=== PATIENT | female | born 1945 | race Caucasian/White ===

== ENCOUNTER 2017-02-21 13:09 | Emergency (ER) | payer MEDICARE ==
--- NOTE | 2017-02-21 13:54 | RADIOLOGY REPORT (SQ) ---
EXAM DESCRIPTION: CT HEAD WITHOUT COMPLETED DATE/TIME: 02/21/2017 1:42 pm REASON FOR STUDY: fall COMPARISON: 01/31/2013 TECHNIQUE: Axial images acquired through the brain without intravenous contrast. Images reviewed wi th bone, brain and subdural windows. Images stored on PACS. All CT scanners at this facility use dose modulation, iterative reconstruction, and/or weight based d osing when appropriate to reduce radiation dose to as low as reasonably achievable (ALARA). [facility]: Dose Right [facility]: CareDose [facility]: Dose Right [facility]: Teradose 4D [facility]: [employer] RADIATION DOSE: 64.61 mGy. LIMITATIONS: None. FINDINGS: VENTRICLES: Prominent. CEREBRUM: No masses. No hemorrhage. No midline shift. Areas of low density in the white matter mos t likely due to chronic micro-vascular ischemic change. No evidence for acute infarction. CEREBELLUM: No masses. No hemorrhage. No alteration of density. No evidence for acute infarction. EXTRAAXIAL SPACES: Mild age-related involutional change. No fluid collections. No masses. ORBITS AND GLOBE: No intra- or extraconal masses. Normal contour of globe without masses. CALVARIUM: No fracture. PARANASAL SINUSES: No fluid or mucosal thickening. SOFT TISSUES: Left supraorbital soft tissue swelling. Otherwise normal. OTHER: No other significant finding. IMPRESSION: SOFT TISSUE INJURY WITHOUT FRACTURE OR ACUTE INTRACRANIAL PROCESS IDENTIFIED. TECHNICAL DOCUMENTATION: JOB ID: [id number] Quality ID # [id number]: Final reports with documentation of one or more dose reduction techniques (e.g., Au tomated exposure control, adjustment of the mA and/or kV according to patient size, use of iterative reconstruction technique) 2010 [employer]- All Rights Reserved
--- NOTE | 2017-02-21 13:55 | RADIOLOGY REPORT (SQ) ---
EXAM DESCRIPTION: CT CERVICAL SPINE WITHOUT COMPLETED DATE/TIME: 02/21/2017 1:45 pm REASON FOR STUDY: fall COMPARISON: 01/31/2013 TECHNIQUE: Axial images acquired through the cervical spine without intravenous contrast. Images re viewed with lung, soft tissue and bone windows. Reconstructed coronal and sagittal MPR images review ed. Images stored on PACS. All CT scanners at this facility use dose modulation, iterative reconstruction, and/or weight based d osing when appropriate to reduce radiation dose to as low as reasonably achievable (ALARA). [facility]: Dose Right [facility]: CareDose [facility]: Dose Right [facility]: Teradose 4D [facility]: [employer] RADIATION DOSE: 19.52 mGy. LIMITATIONS: None. FINDINGS: ALIGNMENT: Anatomic. MINERALIZATION: Normal. VERTEBRAL BODIES: No fractures or dislocation. DISCS: Multilevel disc space narrowing with osteophytes. FACETS, LATERAL MASSES, POSTERIOR ELEMENTS: Facet arthropathy. No fractures. No dislocation. No ac sh[place]one[place]ann[place] findings. HARDWARE: None in the spine. VISUALIZED RIBS: No fractures. LUNG APICES AND SOFT TISSUES: No significant or acute findings. OTHER: No other significant finding. IMPRESSION: NO ACUTE OSSEOUS ABNORMALITY. NO SIGNIFICANT CHANGE FROM PRIOR STUDY. TECHNICAL DOCUMENTATION: JOB ID: [id number] [facility] [id number]: Final reports with documentation of one or more dose reduction techniques (e.g., Automate d exposure control, adjustment of the mA and/or kV according to patient size, use of iterative recons truction technique) 2010 [employer]- All Rights Reserved
[2017-02-21] MEDS ORDERED: HYDROCODONE/ACETAMINOPHEN 5-325 MG TABLET PO ONE (15:16)
--- NOTE | 2017-02-21 15:18 | ER Document Report ---
ED Fall - General Chief Complaint: Fall Stated Complaint: FALL HEAD LACERATION Time Seen by Provider: 02/21/17 14:02 Mode of Arrival: Ambulatory Information source: Patient Notes: Pt is a 71 year old female who fell today, tipped and fell, hitting her forehead on her coffee table. Denied loss of consciousness. She denies any nausea, vomiting, blurred vision. Daughter states she is acting normally. She is complained of a headache at this time. She also complains of some abdominal pain that she has been dealing with for over a week now, constipation. She did take a laxative yesterday and had a bowel movement this morning that was normal for her. She is still having some overall abdominal pain. She does have a history of an obstruction a year ago which did not require surgery. TRAVEL OUTSIDE OF THE [place] IN LAST 30 DAYS: No - Related data Allergies/Adverse Reactions: droperidol [Droperidol] Allergy (Severe, Verified 02/21/17 13:26) Anaphylaxis Past Medical History - General Information source: Patient - Social History Smoking Status: Current Every Day Smoker Chew tobacco use (# tins/day): No Frequency of alcohol use: Occasional Drug Abuse: None Family History: Reviewed & Not Pertinent Patient has suicidal ideation: No Patient has homicidal ideation: No - Past Medical History Cardiac Medical History: Reports: Hx Congestive Heart Failure, Hx Heart Attack - per Dr Dye, Hx Hypercholesterolemia, Hx Hypertension, Hx Peripheral Vascular Disease, Hx Pulmonary Embolism - x 2 Denies: Hx Atrial Fibrillation, Hx Coronary Artery Disease, Hx Heart Murmur Pulmonary Medical History: Reports: Hx Asthma, Hx COPD, Hx Pneumonia - Sep 2013 , Hx Sleep Apnea - CPAP qhs Denies: Hx Bronchitis, Hx Respiratory Failure, Hx Tuberculosis Neurological Medical History: Denies: Hx Cerebrovascular Accident, Hx Seizures Endocrine Medical History: Denies: Hx Graves' Disease, Hx Hyperthyroidism, Hx Hypothyroidism Renal/ Medical History: Reports: Hx Ovarian Cysts. Denies: Hx End Stage Renal Disease, Hx Kidney Stones, Hx Peritoneal Dialysis, Hx Pelvic Inflammatory Disease Malignancy Medical History: Denies: Hx Breast Cancer, Hx Cervical Cancer, Hx Leukemia, Hx Lung Cancer, Hx Ovarian Cancer GI Medical History: Reports: Hx Gastroesophageal Reflux Disease, Hx Ulcer. Denies: Hx Crohn's Disease, Hx Hepatitis, Hx Hiatal Hernia, Hx Irritable Bowel, Hx Liver Failure Musculoskeltal Medical History: Reports Hx Arthritis, Denies Hx Fibromyalgia, Reports Hx Gout, Denies Hx Muscular Dystrophy Psychiatric Medical History: Denies: Hx Bipolar Disorder, Hx Depression, Hx Post Traumatic Stress Disorder , Hx Schizophrenia Traumatic Medical History: Reports: Hx Fractures - 2013 RT hand "2 fingers"/ casted Infectious Medical History: Denies: Hx Hepatitis, Hx HIV Past Surgical History: Reports: Hx Bowel Surgery - exp lap, r/t colon perf/ colonoscopy approx 2002, Hx Cholecystectomy - lap cholecystectomy, Hx Hysterectomy, Hx Tonsillectomy, Hx Vascular Surgery - STENT LLE.. Denies: Hx Appendectomy, Hx Section, Hx Colostomy, Hx Coronary Artery Bypass Graft , Hx Gastric Bypass Surgery, Hx Herniorrhaphy, Hx Mastectomy, Hx Open Heart Surgery, Hx Pacemaker, Hx Tubal Ligation - Immunizations Hx Diphtheria, Pertussis, Tetanus Vaccination: No Hx Pneumococcal Vaccination: 05/14/13 Review of Systems - Review of Systems Constitutional: No symptoms reported EENT: No symptoms reported Cardiovascular: No symptoms reported Respiratory: No symptoms reported Gastrointestinal: See HPI Genitourinary: No symptoms reported Female Genitourinary: No symptoms reported Musculoskeletal: No symptoms reported Skin: No symptoms reported Hematologic/Lymphatic: No symptoms reported Neurological/Psychological: See HPI Physical Exam - Vital signs Vitals: Resp 18 02/21/17 13:14 - Notes Notes: PHYSICAL EXAMINATION: GENERAL: Elderly, and in no acute distress. HEAD: small hematoma to left anterior forehead, mildly tender, normocephalic. EYES: Pupils equal round and reactive to light, extraocular movements intact, sclera anicteric, conjunctiva are normal. NECK: Normal range of motion, supple without lymphadenopathy LUNGS: CTAB and equal. No wheezes rales or rhonchi. HEART: Regular rate and rhythm without murmurs ABDOMEN: Soft, mild diffuse tenderness. No guarding, no rebound BACK: no vertebral tenderness, normal ROM GI/: no CVA tenderness EXTREMITIES: Normal range of motion, no pitting edema. No cyanosis. NEUROLOGICAL: Cranial nerves grossly intact. Normal sensory/motor exams. PSYCH: Normal mood, normal affect. SKIN: Warm, Dry, normal turgor, no rashes or lesions noted Course - Re-evaluation Re-evalutation: 02/23/17 07:39 CT head normal, soft tissue swelling only, pt has UTI, treated with rocephin IV here and sent home with cephalexin. KUB reports normal bowel gas pattern, pt is on morphine pump for pain and I think she's just been constipated. - Vital Signs Vital signs: Temp Pulse Resp BP Pulse Ox 98.4 F 82 20 169/89 H 98 02/21/17 18:13 02/21/17 18:13 02/21/17 18:13 02/21/17 18:13 02/21/17 18:13 - Laboratory Result Diagrams: 02/21/17 16:31 02/21/17 16:31 Laboratory results interpreted by me: 02/21/17 02/21/17 02/21/17 15:36 16:31 16:31 MCH 26.5 L MCHC 31.7 L RDW 15.4 H Potassium 5.3 H BUN 23 H Est GFR ( Amer) 57 L Est GFR (Non-Af Amer) 47 L Urine Nitrite POSITIVE H Ur Leukocyte Esterase LARGE H Discharge - Discharge Clinical Impression: UTI (urinary tract infection) Qualifiers: Urinary tract infection type: site unspecified Hematuria presence: without hematuria Qualified Code(s): N39.0 - Urinary tract infection, site not specified Head injury Qualifiers: Encounter type: initial encounter Qualified Code(s): S09.90XA - Unspecified injury of head, initial encounter Condition: Stable Disposition: HOME, SELF-CARE Instructions: Cephalexin ([facility]), Urinary Tract Infection ([facility]) Additional Instructions: Return immediately for any new or worsening symptoms. Follow up with primary care provider, call tomorrow to make followup appointment. Drink plenty of fluids. Prescriptions: Cephalexin Monohydrate [Keflex 500 mg Capsule] 500 mg PO TID 7 Days
[2017-02-21 16:14] LABS: APPEARANCE,URINE SLIGHTLY-CLOUDY; BILIRUBIN,URINE NEGATIVE (NEGATIVE); GLUCOSE, URINE NEGATIVE (NEGATIVE); KETONES,URINE NEGATIVE (NEGATIVE); LEUKOCYTE ESTERASE,URINE LARGE (NEGATIVE); NITRITE,URINE POSITIVE (NEGATIVE); PROTEIN,URINE NEGATIVE (NEGATIVE); URINE SPECIFIC GRAVITY 1.003; UROBILINOGEN,URINE NEGATIVE mg/dL (<2.0)
--- NOTE | 2017-02-21 16:34 | RADIOLOGY REPORT (SQ) ---
EXAM DESCRIPTION: KUB/ABDOMEN (SINGLE VIEW) COMPLETED DATE/TIME: 02/21/2017 4:26 pm REASON FOR STUDY: abd pain, hx obstruction COMPARISON: None. NUMBER OF VIEWS: One view. TECHNIQUE: Supine radiographic image of the abdomen acquired. LIMITATIONS: None. FINDINGS: BOWEL GAS PATTERN: Normal bowel gas pattern. No dilated loops. CALCIFICATIONS: No suspicious calcifications. SOFT TISSUES: No gross mass or suggestion of organomegaly. HARDWARE: IVC filter is in place. Vascular stent extends over left common femoral artery. Battery p ack and neurostimulator are in place. The patient has had prior cholecystectomy. BONES: No acute fracture. No worrisome bone lesions. OTHER: No other significant finding. IMPRESSION: NO RADIOGRAPHIC EVIDENCE FOR ACUTE ABDOMINAL DISEASE. TECHNICAL DOCUMENTATION: JOB ID: [id number] [employer]- All Rights Reserved
[2017-02-21 16:50] LABS: ABSOLUTE EOSINOPHILS # (AUTO) 0.1 10^3/uL (0.0-0.6); ABSOLUTE LYMPHOCYTES (AUTO) 1.3 10^3/uL (0.5-4.7); ABSOLUTE MONOCYTES (AUTO) 0.3 10^3/uL (0.1-1.4); ABSOLUTE NEUT (AUTO) 4.1 10^3/uL (1.7-8.2); BASOPHILS % (AUTO) 0.3 % (0-2); EOSINOPHILS % (AUTO) 1.1 % (0-6); HEMATOCRIT 38.1 % (36.0-47.0); HEMOGLOBIN 12.1 g/dL (12.0-15.5); HGB HCT DIFFERENCE -1.8; LYMPHOCYTES % (AUTO) 22.9 % (13-45); MEAN CORPUSCULAR HEMOGLOBIN 26.5 pg (27.0-33.4); MEAN CORPUSCULAR HGB CONC 31.7 g/dL (32.0-36.0); MEAN CORPUSCULAR VOLUME 84 fl (80-97); MONOCYTES % (AUTO) 4.6 % (3-13); RED BLOOD COUNT 4.56 10^6/uL (3.72-5.28); RED CELL DISTRIBUTION WIDTH 15.4 % (11.5-14.0); SEGMENTED NEUTROPHILS % (AUTO) 71.1 % (42-78); WHITE BLOOD COUNT 5.7 10^3/uL (4.0-10.5)
[2017-02-21] MEDS ORDERED: CEFTRIAXONE 1 GM/D5W RTU 50 ML IV ONE (16:53)
[2017-02-21 17:11] LABS: ALANINE AMINOTRANSFERASE 22 U/L (9-52); ALBUMIN 3.7 g/dL (3.5-5.0); ALKALINE PHOSPHATASE 74 U/L (38-126); ANION GAP 9 (5-19); ASPARTATE AMINO TRANSFERASE 19 U/L (14-36); BILIRUBIN,DIRECT 0.3 mg/dL (0.0-0.4); BILIRUBIN,TOTAL 0.4 mg/dL (0.2-1.3); BLOOD UREA NITROGEN 23 mg/dL (7-20); CARBON DIOXIDE 30 mmol/L (22-30); CHLORIDE 103 mmol/L (98-107); CREATININE RESULT 1.14 mg/dL (0.52-1.25); GLUCOSE 99 mg/dL (75-110); POTASSIUM 5.3 mmol/L (3.6-5.0); SODIUM 141.9 mmol/L (137-145); TOTAL PROTEIN 6.8 g/dL (6.3-8.2)
[2017-02-21] MEDS ORDERED: HYDROCODONE/ACETAMINOPHEN 5-325 MG 6 TAB/DSPK PO PRN (18:06)
[2017-02-21 18:13] VITALS: BP 169/89
== END 2017-02-21 18:13 | disposition home or self-care (01) ==
LOC: ER 13:09
DX: S00.83XA Contusion of other part of head, initial encounter (principal); R51 Headache; W19.XXXA Unspecified fall, initial encounter; R10.84 Generalized abdominal pain; I10 Essential (primary) hypertension; I25.2 Old myocardial infarction; J44.9 Chronic obstructive pulmonary disease, unspecified; F17.200 Nicotine dependence, unspecified, uncomplicated; Z87.19 Personal history of other diseases of the digestive system; Z87.892 Personal history of anaphylaxis; Z88.8 Allergy status to other drugs, medicaments and biological substances; Z90.49 Acquired absence of other specified parts of digestive tract; Z90.710 Acquired absence of both cervix and uterus; Z87.42 Personal history of other diseases of the female genital tract; Z79.891 Long term (current) use of opiate analgesic
CPT/HCPCS: 99283; 96365; 36415; 87086; 85025; 87088; 80053; 81001; 87186; 74000; 70450; 72125; J0696; A9270 ×2

== ENCOUNTER → 2017-03-19 | Outpatient (CLI) | payer MEDICARE ==
[2017-03-19 09:13] LABS: ABSOLUTE LYMPHOCYTES (AUTO) 1.2 10^3/uL (0.5-4.7); ABSOLUTE MONOCYTES (AUTO) 0.4 10^3/uL (0.1-1.4); BASOPHILS % (AUTO) 0.4 % (0-2); EOSINOPHILS % (AUTO) 0.6 % (0-6); HEMATOCRIT 38.8 % (36.0-47.0); HEMOGLOBIN 12.2 g/dL (12.0-15.5); HGB HCT DIFFERENCE -2.2; LYMPHOCYTES % (AUTO) 18.1 % (13-45); MEAN CORPUSCULAR HEMOGLOBIN 26.4 pg (27.0-33.4); MEAN CORPUSCULAR HGB CONC 31.5 g/dL (32.0-36.0); MEAN CORPUSCULAR VOLUME 84 fl (80-97); MONOCYTES % (AUTO) 6.5 % (3-13); RED BLOOD COUNT 4.64 10^6/uL (3.72-5.28); RED CELL DISTRIBUTION WIDTH 16.4 % (11.5-14.0); SEGMENTED NEUTROPHILS % (AUTO) 74.4 % (42-78); WHITE BLOOD COUNT 6.7 10^3/uL (4.0-10.5)
[2017-03-19 09:14] LABS: ARTERIAL BLOOD BASE EXCESS 4.3 mmol/L; ARTERIAL BLOOD O2 SATURATION 97.3 % (94-98)
--- NOTE | 2017-03-19 10:00 | RADIOLOGY REPORT (SQ) ---
EXAM DESCRIPTION: CHEST PA/LATERAL COMPLETED DATE/TIME: 03/19/2017 9:00 am REASON FOR STUDY: .EMPHYSEMA, UNSPECIFIED COMPARISON: CT chest 09/11/2016 KUB 02/21/2017 EXAM PARAMETERS: NUMBER OF VIEWS: two views TECHNIQUE: Digital Frontal and Lateral radiographic views of the chest acquired. RADIATION DOSE: NA LIMITATIONS: none FINDINGS: LUNGS AND PLEURA: Lungs are hyperinflated and hyperlucent from obstructive disease. Kemal ening in the hemidiaphragms. No acute infiltrates. No pleural effusion. No pneumothorax. MEDIASTINUM AND HILAR STRUCTURES: No masses or contour abnormalities. HEART AND VASCULAR STRUCTURES: Heart normal size. No evidence for failure. BONES: Osteoporotic. Left shoulder replacement HARDWARE: Intrathecal pain pump catheter tip at the T10 level. IVC filter. OTHER: No other significant finding. IMPRESSION: Obstructive lung disease. No acute findings TECHNICAL DOCUMENTATION: JOB ID: [id number] [employer]- All Rights Reserved
[2017-03-22 16:38] LABS: ALPHA-1-ANTITRYPSIN SERUM 122 mg/dL (90-200)
[2017-03-23 07:10] LABS: ALPHA-1-ANTITRYPSIN PHENOTYPE MZ (.)
== END ==
LOC: OD 07:56
PROVIDERS: ATTEND Internal Medicine Pulmonary Disease
DX: J43.9 Emphysema, unspecified (principal); J98.11 Atelectasis
CPT/HCPCS: 36415; 36600; 71020; 82103; 82104; 82803; 85025

== ENCOUNTER → 2017-05-27 | Outpatient (CLI) | payer MEDICARE ==
[2017-05-27 18:30] LABS: ABSOLUTE EOSINOPHILS # (AUTO) 0.1 10^3/uL (0.0-0.6); ABSOLUTE LYMPHOCYTES (AUTO) 2.6 10^3/uL (0.5-4.7); ABSOLUTE MONOCYTES (AUTO) 0.5 10^3/uL (0.1-1.4); ABSOLUTE NEUT (AUTO) 4.4 10^3/uL (1.7-8.2); BASOPHILS % (AUTO) 0.4 % (0-2); EOSINOPHILS % (AUTO) 1.2 % (0-6); HEMATOCRIT 28.2 % (36.0-47.0); HEMOGLOBIN 9.4 g/dL (12.0-15.5); LYMPHOCYTES % (AUTO) 34.2 % (13-45); MEAN CORPUSCULAR HEMOGLOBIN 28.7 pg (27.0-33.4); MEAN CORPUSCULAR HGB CONC 33.4 g/dL (32.0-36.0); MEAN CORPUSCULAR VOLUME 86 fl (80-97); MONOCYTES % (AUTO) 6.7 % (3-13); RED BLOOD COUNT 3.28 10^6/uL (3.72-5.28); RED CELL DISTRIBUTION WIDTH 15.1 % (11.5-14.0); SEGMENTED NEUTROPHILS % (AUTO) 57.5 % (42-78); WHITE BLOOD COUNT 7.6 10^3/uL (4.0-10.5)
--- NOTE | 2017-05-27 19:37 | RADIOLOGY REPORT (SQ) ---
EXAM DESCRIPTION: CHEST PA/LAT COMPLETED DATE/TIME: 05/27/2017 7:24 pm REASON FOR STUDY: PULMONARY EMPHYSEMA,CHRONIC RESPIRATORY FAILURE WITH HYPOXIA COMPARISON: 05/16/2016 EXAM PARAMETERS: NUMBER OF VIEWS: two views TECHNIQUE: Digital Frontal and Lateral radiographic views of the chest acquired. RADIATION DOSE: NA LIMITATIONS: none FINDINGS: LUNGS AND PLEURA: No opacities, masses or pneumothorax. No pleural effusion. Support line s and tubes have been removed since prior study. There is mild hyperexpansion. MEDIASTINUM AND HILAR STRUCTURES: No masses or contour abnormalities. HEART AND VASCULAR STRUCTURES: Heart normal size. No evidence for failure. BONES: No acute findings. HARDWARE: None in the chest. OTHER: No other significant finding. IMPRESSION: NO SIGNIFICANT RADIOGRAPHIC FINDING IN THE CHEST. TECHNICAL DOCUMENTATION: JOB ID: [id number] [employer]- All Rights Reserved
== END ==
LOC: OD 17:45
PROVIDERS: ATTEND Internal Medicine Pulmonary Disease
DX: J43.9 Emphysema, unspecified (principal); J96.11 Chronic respiratory failure with hypoxia; G47.33 Obstructive sleep apnea (adult) (pediatric); K21.9 Gastro-esophageal reflux disease without esophagitis
CPT/HCPCS: 36415; 71020; 85025; 87070; 87077; 87186; 87205

== ENCOUNTER 2018-03-29 07:37 | Day surgery (SDC) | payer MEDICARE, MEDICAID ==
[2018-03-22 13:42] LABS: APPEARANCE,URINE SLIGHTLY-CLOUDY; BILIRUBIN,URINE NEGATIVE (NEGATIVE); COLOR,URINE YELLOW; GLUCOSE, URINE NEGATIVE (NEGATIVE); KETONES,URINE NEGATIVE (NEGATIVE); LEUKOCYTE ESTERASE,URINE NEGATIVE (NEGATIVE); NITRITE,URINE NEGATIVE (NEGATIVE); PROTEIN,URINE NEGATIVE (NEGATIVE); URINE SPECIFIC GRAVITY 1.014; UROBILINOGEN,URINE NEGATIVE mg/dL (<2.0)
[2018-03-22 13:43] LABS: ABSOLUTE EOSINOPHILS # (AUTO) 0.1 10^3/uL (0.0-0.6); ABSOLUTE LYMPHOCYTES (AUTO) 1.3 10^3/uL (0.5-4.7); ABSOLUTE MONOCYTES (AUTO) 0.3 10^3/uL (0.1-1.4); ABSOLUTE NEUT (AUTO) 3.8 10^3/uL (1.7-8.2); BASOPHILS % (AUTO) 0.4 % (0-2); HEMATOCRIT 33.6 % (36.0-47.0); LYMPHOCYTES % (AUTO) 24.4 % (13-45); MEAN CORPUSCULAR HEMOGLOBIN 26.6 pg (27.0-33.4); MEAN CORPUSCULAR HGB CONC 32.8 g/dL (32.0-36.0); MEAN CORPUSCULAR VOLUME 81 fl (80-97); MONOCYTES % (AUTO) 4.7 % (3-13); PLATELET COUNT 168 10^3/uL (150-450); RED BLOOD COUNT 4.13 10^6/uL (3.72-5.28); RED CELL DISTRIBUTION WIDTH 17.7 % (11.5-14.0); SEGMENTED NEUTROPHILS % (AUTO) 69.5 % (42-78); TOTAL CELLS COUNTED % (AUTO) 100 %; WHITE BLOOD COUNT 5.4 10^3/uL (4.0-10.5)
[2018-03-22 13:45] LABS: INTERNATIONAL RATION (INR) 0.93; PARTIAL THROMBOPLASTIN TIME 22.9 SEC (23.5-35.8); PROTHROMBIN TIME 12.9 SEC (11.4-15.4)
--- NOTE | 2018-03-22 20:42 | EKG REPORT ---
SEVERITY:- NORMAL ECG - SINUS RHYTHM : Confirmed by: Savanna Rashid MD 22-Mar-2018 20:41:23
[~2018-03-29 07:37] MED LIST: BUPIVACAINE HCL 0.25% /EPINEPHRINE INJ/PF 30 ML SDV ONE; CEFAZOLIN 1 GM/D5W RTU 1 GM/50 ML RTUPB IV PRN; FENTANYL CITRATE INJ/PF 100 MCG/2 ML AMPUL ONE; LACTATED RINGERS 1000 ML IV PRN; LIDOCAINE 1% INJ-PF (10 MG/ML) 30 ML SDV ONE; LIDOCAINE 2% INJ-PF (20 MG/ML) 10 ML AMPUL ONE; MIDAZOLAM 2 MG/2 ML INJ ONE; ONDANSETRON HCL INJ/PF 4 MG/2 ML SDV ONE; PROPOFOL INJ 200 MG/20 ML VIAL IV ONE
[2018-03-29 08:53] LABS: INTERNATIONAL RATION (INR) 0.89; PARTIAL THROMBOPLASTIN TIME 24.7 SEC (23.5-35.8); PROTHROMBIN TIME 12.5 SEC (11.4-15.4)
[2018-03-29] MEDS ORDERED: SODIUM BICARBONATE 8.4% INJ 50 MEQ/50 ML DISP.SYRIN ONE (09:01)
[2018-03-29] MEDS ORDERED: FENTANYL CITRATE INJ/PF 100 MCG/2 ML AMPUL IV PRN (10:29)
[2018-03-29] MEDS ORDERED: ONDANSETRON HCL INJ/PF 4 MG/2 ML SDV IV PRN ×2 (10:29→11:33)
[2018-03-29] MEDS ORDERED: MORPHINE SULFATE 10 MG/ML INJ IV PRN (10:29)
[2018-03-29] MEDS ORDERED: DIPHENHYDRAMINE HCL 50 MG/ML VIAL IV PRN (10:29)
[2018-03-29] MEDS ORDERED: PROMETHAZINE HCL INJ 25 MG/1 ML VIAL IV PRN ×2 (10:29)
[2018-03-29] MEDS ORDERED: OXYCODONE HCL IR 5 MG TABLET PO PRN (11:33)
[2018-03-29] MEDS ORDERED: ACETAMINOPHEN 325 MG TABLET PO PRN (11:53)
[2018-03-29 13:24] VITALS: BP 142/66
--- NOTE | 2018-03-31 10:45 | OPERATIVE REPORT E ---
Operative Report NAME: MELISSA DAVEY : 1945 AGE: 72Y DATE OF SURGERY: 03/29/2018 ROOM: PREOPERATIVE DIAGNOSIS: End of life of intrathecal pump. POSTOPERATIVE DIAGNOSIS: End of life of intrathecal pump. OPERATION: Revision of intrathecal pump pocket and replacement of intrathecal pump and reservoir. SURGEON: COLETTE RAMOS M.D. ANESTHESIA: MAC with sedation. INTRAVENOUS FLUIDS: 500 mL of balanced crystalloid solution given. PREOPERATIVE ANTIBIOTICS: 1 gram of Ancef given prior to incision. ESTIMATED BLOOD LOSS: 5 mL. SPECIMENS REMOVED: Old intrathecal pump was removed and discarded. INDICATIONS: Ms. Melissa Davey is a 72-year-old female with chronic pain syndrome who currently has an intrathecal morphine pump which she has been using for years. The morphine pump has come to the end of its battery life. As such, it requires replacement. The patient was informed of all risks of the procedure, including but not limited to bleeding, bruising, infection, injury to nerves, arteries, veins, pocket seroma, need to replace the catheter for the intrathecal pump, possibly requiring further surgery with catheter implantation, paralysis, or even . The patient expressed understanding and agreed to proceed. The patient was accompanied to the operative suite by Anesthesia. The patient was placed in supine position with a roll under the right hip. All pressure points were checked and padded. Standard ASA lines and monitors were applied. The patients pump site was marked. The patient was then subsequently prepped and draped in sterile fashion using chlorhexidine solution and an Ioban drape. A timeout procedure was performed as per [facility] protocol. The skin overlying the planned incision site on top of the pump was anesthetized with 1% buffered lidocaine and deeper tissues were then infiltrated with 0.25% Bupivacaine with epinephrine. An incision was made using a 15 blade scalpel over the top of the pump. Deep and electrocautery dissection were performed to ensure adequate hemostasis and to open up the pump pocket. The old pump was easily delivered from the pocket. The catheter was noted to be intact. The remaining medication which was morphine in the intrathecal pump was removed using a non-coring needing and was transferred in a volume of 36 mL to the new intrathecal pump. Additionally, the side port of the pump was aspirated and 1 mL of CSF fluid freely into the syringe. The catheter was disconnected from the previous pump. The new pump was prepared and delivered onto the operative field. The catheter was attached to the new pump and a stay suture was placed around the catheter connection site. The pump pocket was copiously irrigated with dilute Betadine solution and the new pump placed in the pocket with the same positioning. The side port was at the 2 o'clock position. Closure then ensued with 3-0 Vicryl in an interrupted fashion followed by corey in the skin. Dressings were applied. The patient was in stable condition and was accompanied to PACU by anesthesia. She was discharged to home following procedure and will be seen in follow-up within 48 hours. DICTATING PHYSICIAN: COLETTE RAMOS M.D. [id number] PHY#: [id number] ID: [id number] JOB#: [id number] ACCT: [id number] cc:COLETTE RAMOS M.D. >
== END 2018-03-29 13:30 | disposition home or self-care (01) ==
LOC: OROUT 07:37
PROVIDERS: ATTEND Pain Medicine Interventional Pain Medicine
DX: Z45.1 Encounter for adjustment and management of infusion pump (principal); G89.4 Chronic pain syndrome; J44.9 Chronic obstructive pulmonary disease, unspecified; M06.9 Rheumatoid arthritis, unspecified; K21.9 Gastro-esophageal reflux disease without esophagitis; M96.1 Postlaminectomy syndrome, not elsewhere classified; M54.41 Lumbago with sciatica, right side; K59.00 Constipation, unspecified; S43.421S Sprain of right rotator cuff capsule, sequela; X58.XXXS Exposure to other specified factors, sequela; I10 Essential (primary) hypertension; M06.39 Rheumatoid nodule, multiple sites; M54.13 Radiculopathy, cervicothoracic region; R26.0 Ataxic gait; Z85.828 Personal history of other malignant neoplasm of skin; Z79.01 Long term (current) use of anticoagulants; Z79.899 Other long term (current) drug therapy; Z79.02 Long term (current) use of antithrombotics/antiplatelets; Z79.82 Long term (current) use of aspirin; Z79.891 Long term (current) use of opiate analgesic
CPT/HCPCS: 62361; 93005; 36415 ×2; 84132; 85025; 85610 ×2; 85730 ×2; 81001; 93010; C1772; J2250; J3490 ×4; J0690; J2405; J2704; A9270; 300; J3010

== ENCOUNTER 2018-07-29 15:16 | Inpatient (IN) | payer MEDICARE, MEDICAID ==
[2018-07-29 16:51] LABS: HEMATOCRIT 31.7 % (36.0-47.0); HEMOGLOBIN 10.1 g/dL (12.0-15.5); MEAN CORPUSCULAR HEMOGLOBIN 27.3 pg (27.0-33.4); MEAN CORPUSCULAR HGB CONC 31.7 g/dL (32.0-36.0); MEAN CORPUSCULAR VOLUME 86 fl (80-97); PLATELET COUNT 195 10^3/uL (150-450); RED BLOOD COUNT 3.69 10^6/uL (3.72-5.28); RED CELL DISTRIBUTION WIDTH 14.5 % (11.5-14.0); WHITE BLOOD COUNT 20.8 10^3/uL (4.0-10.5)
[2018-07-29 17:08] LABS: ALANINE AMINOTRANSFERASE 20 U/L (9-52); ALBUMIN 3.5 g/dL (3.5-5.0); ALKALINE PHOSPHATASE 156 U/L (38-126); ANION GAP 13 (5-19); ASPARTATE AMINO TRANSFERASE 29 U/L (14-36); BILIRUBIN,DIRECT 0.2 mg/dL (0.0-0.4); BILIRUBIN,TOTAL 0.2 mg/dL (0.2-1.3); BLOOD UREA NITROGEN 64 mg/dL (7-20); CALCIUM 10.1 mg/dL (8.4-10.2); CARBON DIOXIDE 25 mmol/L (22-30); CHLORIDE 100 mmol/L (98-107); GLUCOSE 99 mg/dL (75-110); LIPASE 48.6 U/L (23-300); SODIUM 138.2 mmol/L (137-145); TOTAL PROTEIN 6.3 g/dL (6.3-8.2)
[2018-07-29 17:10] LABS: ABSOLUTE LYMPHOCYTES# (MANUAL) 0.4 10^3/uL (0.5-4.7); ABSOLUTE NEUTROPHILS# (MANUAL) 20.4 10^3/uL (1.7-8.2); BASOPHILS % (MANUAL) 0 % (0-2); EOSINOPHILS % (MANUAL) 0 % (0-6); LYMPHOCYTES % (MANUAL) 2 % (13-45); MONOCYTES % (MANUAL) 0 % (3-13); SEGMENTED NEUTROPHILS % (MAN) 98 % (42-78); TOTAL CELLS COUNTED 100
[2018-07-29 17:12] LABS: POTASSIUM 6.3 mmol/L (3.6-5.0)
[2018-07-29 17:13] LABS: HYPOCHROMASIA SLIGHT; POLYCHROMASIA SLIGHT; TOXIC GRANULATION SLIGHT; TOXIC VACUOLATION PRESENT
[2018-07-29 17:14] LABS: OVALOCYTES 1+; PLATELET COMMENT ADEQUATE; POIKILOCYTOSIS 1+
[2018-07-29] MEDS ORDERED: NORMAL SALINE 1000 ML 1,000 ML IV ONE ×2 (17:24→17:31)
[2018-07-29] MEDS ORDERED: CALCIUM GLUCONATE 1000 MG/10 ML INJ IV ONE (17:29)
[2018-07-29] MEDS ORDERED: INSULIN REG, HUMAN 100 UNIT/ML 3 ML VIAL (PYX) IV ONE (17:30)
[2018-07-29] MEDS ORDERED: DEXTROSE 50%-WATER 25 GM/50 ML DISP.SYRIN IV ONE (17:30)
--- NOTE | 2018-07-29 17:32 | ER Document Report ---
ED General - General Chief Complaint: Rectal Bleeding Stated Complaint: RECTAL BLEEDING Time Seen by Provider: 07/29/18 15:33 TRAVEL OUTSIDE OF THE [place] IN LAST 30 DAYS: No - HPI Patient complains to provider of: Rectal bleeding Notes: Patient coming in for complaint of blood per rectum. Patient states bright red blood for the last 3 days whenever she has a bowel movement. Patient states he does have a history of bleeding in the past. Patient also states recently had hip surgery performed in [facility]. Patient denies any anticoagulation at this time except for aspirin and Plavix. Patient denies any fevers chills nausea vomiting diarrhea denies any abdominal pain. Patient states he has not been eating or drinking well over the last few days. Otherwise patient is resting comfortably upon my evaluation has a history of COPD CAD as well on chronic O2 - Related Data Allergies/Adverse Reactions: droperidol [Droperidol] Allergy (Severe, Verified 03/22/18 11:09) Anaphylaxis Past Medical History - Social History Smoking Status: Former Smoker Chew tobacco use (# tins/day): No Frequency of alcohol use: None Drug Abuse: None Family History: Reviewed & Not Pertinent Patient has suicidal ideation: No Patient has homicidal ideation: No - Past Medical History Cardiac Medical History: Reports: Hx Congestive Heart Failure, Hx Heart Attack - MILD HEART ATTACK 2015, NO STENTS OR SX, Hx Hypercholesterolemia, Hx Hypertension - ON MEDS, Hx Peripheral Vascular Disease, Hx Pulmonary Embolism - x 2 Denies: Hx Atrial Fibrillation, Hx Coronary Artery Disease, Hx Heart Murmur Pulmonary Medical History: Reports: Hx Asthma, Hx Bronchitis, Hx COPD, Hx Pneumonia - LAST IN 2015, Hx Sleep Apnea - CPAP qhs Denies: Hx Respiratory Failure, Hx Tuberculosis Neurological Medical History: Denies: Hx Cerebrovascular Accident, Hx Seizures Endocrine Medical History: Denies: Hx Graves' Disease, Hx Hyperthyroidism, Hx Hypothyroidism Renal/ Medical History: Reports: Hx Ovarian Cysts. Denies: Hx End Stage Renal Disease, Hx Kidney Stones, Hx Peritoneal Dialysis, Hx Pelvic Inflammatory Disease Malignancy Medical History: Denies: Hx Breast Cancer, Hx Cervical Cancer, Hx Leukemia, Hx Lung Cancer, Hx Ovarian Cancer GI Medical History: Reports: Hx Gastroesophageal Reflux Disease, Hx Ulcer. Denies: Hx Crohn's Disease, Hx Hepatitis, Hx Hiatal Hernia, Hx Irritable Bowel, Hx Liver Failure, Hx Pancreatitis Musculoskeletal Medical History: Reports Hx Arthritis - GENERALIZED, Denies Hx Fibromyalgia, Reports Hx Gout, Denies Hx Muscular Dystrophy Psychiatric Medical History: Denies: Hx Bipolar Disorder, Hx Depression, Hx Post Traumatic Stress Disorder , Hx Schizophrenia Traumatic Medical History: Reports: Hx Fractures - 2013 RT hand "2 fingers"/ casted Infectious Medical History: Denies: Hx Hepatitis, Hx HIV Past Surgical History: Reports: Hx Bowel Surgery - exp lap, r/t colon perf/ colonoscopy approx 2002, Hx Cholecystectomy - lap cholecystectomy, Hx Hysterectomy, Hx Tonsillectomy, Hx Vascular Surgery - STENT LLE.. Denies: Hx Appendectomy, Hx Section, Hx Colostomy, Hx Coronary Artery Bypass Graft , Hx Gastric Bypass Surgery, Hx Herniorrhaphy, Hx Mastectomy, Hx Open Heart Surgery, Hx Pacemaker, Hx Tubal Ligation - Immunizations Hx Diphtheria, Pertussis, Tetanus Vaccination: No Hx Pneumococcal Vaccination: 06/14/17 Review of Systems - Review of Systems Constitutional: No symptoms reported EENT: No symptoms reported Cardiovascular: No symptoms reported Respiratory: No symptoms reported Gastrointestinal: Rectal bleeding Genitourinary: No symptoms reported Female Genitourinary: No symptoms reported Musculoskeletal: No symptoms reported Skin: No symptoms reported Hematologic/Lymphatic: No symptoms reported Neurological/Psychological: No symptoms reported -: Yes All other systems reviewed and negative Physical Exam - Vital signs Interpretation: Normal - General General appearance: Appears well, Alert - HEENT Head: Normocephalic, Atraumatic Eyes: Normal Pupils: PERRL - Respiratory Respiratory status: No respiratory distress Chest status: Nontender Breath sounds: Normal Chest palpation: Normal - Cardiovascular Rhythm: Regular Heart sounds: Normal auscultation Murmur: No - Abdominal Inspection: Normal Distension: No distension Bowel sounds: Normal Tenderness: Nontender Organomegaly: No organomegaly - Back Back: Normal, Nontender - Extremities General upper extremity: Normal inspection, Nontender, Normal color, Normal ROM , Normal temperature General lower extremity: Normal inspection, Nontender, Normal color, Normal ROM , Normal temperature, Normal weight bearing. No: Miller's sign - Neurological Neuro grossly intact: Yes Cognition: Normal Orientation: AAOx4 Thornton Coma Scale Eye Opening: Spontaneous Thornton Coma Scale Verbal: Oriented Thornton Coma Scale Motor: Obeys Commands Tia Coma Scale Total: 15 Speech: Normal Motor strength normal: LUE, RUE, LLE, RLE Sensory: Normal - Psychological Associated symptoms: Normal affect, Normal mood - Skin Skin Temperature: Warm Skin Moisture: Dry Skin Color: Normal Course - Re-evaluation Re-evalutation: 07/29/18 17:32 Patient with a recent hip surgery coming in for bright red blood per rectum. Patient's examination here shows multiple hemorrhoids with only a small amount of blood on my fingertip more consistent with bleeding hemorrhoids. Patient has normal hemoglobin unfortunately acute renal failure with elevated potassium more likely due to not eating or drinking. Patient case was discussed with Dr. Thakkar. Dr Maradiaga contactcontacted for admit. Ask to return a phone call at this time. - Laboratory Result Diagrams: 07/29/18 16:20 07/29/18 16:20 Laboratory results interpreted by me: 07/29/18 07/29/18 07/29/18 16:20 16:20 16:20 WBC 20.8 H RBC 3.69 L Hgb 10.1 L Hct 31.7 L MCHC 31.7 L RDW 14.5 H Seg Neuts % (Manual) 98 H Lymphocytes % (Manual) 2 L Monocytes % (Manual) 0 L Abs Neuts (Manual) 20.4 H Abs Lymphs (Manual) 0.4 L Abs Monocytes (Manual) 0.0 L Potassium 6.3 H* BUN 64 H Creatinine 3.21 H Est GFR ( Amer) 17 L Est GFR (Non-Af Amer) 14 L Alkaline Phosphatase 156 H Creatine Kinase 28 L Critical Care Note - Critical Care Note Total time excluding time spent on procedures (mins): 35 Comments: Multiple evaluation patient with increased potassium and renal failure Discharge - Discharge Clinical Impression: Opiate dependence, continuous, CKD (chronic kidney disease), stage III, COPD ( chronic obstructive pulmonary disease), CAD (coronary artery disease), Hyperkalemia, Acute renal failure, Dehydration Condition: Good Disposition: HOME, SELF-CARE Admitting Provider: Chi Maradiaga Unit Admitted: Telemetry
[2018-07-29] MEDS ORDERED: ACETAMINOPHEN 325 MG TABLET PO PRN (17:42)
[2018-07-29] MEDS ORDERED: ONDANSETRON HCL INJ/PF 4 MG/2 ML SDV IV PRN (17:42)
[2018-07-29] MEDS: DOCUSATE SODIUM 100 MG CAPSULE PO SCH (18:20)
--- NOTE | 2018-07-29 19:08 | PDOC H&P ---
History of Present Illness Admission Date/PCP: 07/29/18 17:59 BEN HINSON NP Patient complains of: Bleeding per rectum History of Present Illness: MELISSA BOSCH is a 73 year old female who has COPD, coronary artery disease and peripheral vascular disease. Patient also has hemorrhoids and history of bleeding per rectum in the past year. Patient presents to the emergency room due to acute onset of bright red blood per rectum started about 3 days ago and has been persistent. Associated with some abdominal discomfort and poor oral intake. In the emergency room she was found to have severe renal failure and severe hyperkalemia. She is currently resting in bed comfortably with daughter at the bedside. Past Medical History Cardiac Medical History: Reports: Congestive Heart Failure, Myocardial Infarction - MILD HEART ATTACK 2016, NO STENTS OR SX, Hyperlipidema, Hypertension - ON MEDS, Peripheral Vascular Disease, Pulmonary Embolism - x 2 Denies: Atrial Fibrillation, Coronary Artery Disease, Heart Murmur Pulmonary Medical History: Reports: Asthma, Bronchitis, Chronic Obstructive Pulmonary Disease (COPD), Pneumonia - LAST IN 2015, Sleep Apnea - CPAP qhs Denies: Respiratory Failure, Tuberculosis Neurological Medical History: Denies: Seizures Endocrine Medical History: Denies: Hyperthyroidism, Hypothyroidism Renal/ Medical History: Denies: End Stage Renal Disease Malignancy Medical History: Denies: Breast Cancer, Cervical Cancer, Leukemia, Lung Cancer, Ovarian Cancer GI Medical History: Reports: Gastroesophageal Reflux Disease Denies: Crohn's Disease, Hepatitis, Hiatal Hernia Musculoskeltal Medical History: Reports: Arthritis - GENERALIZED, Gout Denies: Fibromyalgia Psychiatric Medical History: Denies: Bipolar Disorder, Depression, Post Traumatic Stress Disorder Hematology: Reports: Anemia - H/O 2X BLOOD TRANSFUSIONS Denies: Hemophilia, Sickle Cell Disease Infectious Medical History: Denies: HIV Past Surgical History Past Surgical History: Reports: Cholecystectomy - lap cholecystectomy, Hysterectomy, Tonsillectomy, Vascular Surgery - STENT LLE. Denies: Amputation, Appendectomy, Section, Colostomy, Coronary Artery Bypass Graft, Gastric Bypass Surgery, Herniorrhaphy, Mastectomy, Pacemaker, Tubal Ligation Social History Smoking Status: Former Smoker Frequency of Alcohol Use: None Hx Recreational Drug Use: No Drugs: None Hx Prescription Drug Abuse: No Family History Family History: Reviewed & Not Pertinent Parental Family History Reviewed: Yes Children Family History Reviewed: Yes Sibling(s) Family History Reviewed.: Yes Medication/Allergy Home Medications: Gabapentin [Neurontin 300 mg Capsule] 300 mg PO TID 11/07/12 Montelukast Sodium [Singulair 10 mg Tablet] 10 mg PO QPM 07/10/13 Omeprazole 40 mg PO DAILY 05/04/14 Oxycodone HCl [Oxy-Ir 5 mg Tablet] 30 mg PO PRN PRN 09/27/14 Albuterol Sulfate [Ventolin HFA MDI 18 GM] 2 puff IH QIDP PRN #0 09/25/15 Lisinopril [Prinivil 10 mg Tablet] 10 mg PO Q12 #60 tablet 05/21/16 Albuterol Sulfate [Ventolin 0.083% Neb 2.5 mg/3 mL Ampul] 2.5 mg NEB QID Aspirin [Adult Aspirin] 81 mg PO DAILY 03/22/18 Budesonide [Pulmicort] 0.5 mg IH BID 03/22/18 Carisoprodol [Soma 350 Mg Tablet] 350 mg PO PRN PRN 03/22/18 Cetirizine HCl [Zyrtec] 10 mg PO DAILY 03/22/18 Clopidogrel Bisulfate [Plavix 75 mg Tablet] 75 mg PO DAILY 03/22/18 Dexlansoprazole [Dexilant 60 mg Capsule] 60 mg PO DAILY 03/22/18 Docusate Sodium 50 mg PO BID 03/22/18 Fluticasone Propionate 15.8 ml NS DAILY 03/22/18 Fluticasone/Vilanterol [Breo Ellipta 200-25 Mcg INH] 1 each IH DAILY 03/22/18 Furosemide [Lasix 20 mg Tablet] 20 mg PO QAM 03/22/18 Imiquimod [Zyclara] 1 each TP QPM 03/22/18 Promethazine HCl [Phenergan 25 mg Tablet] 25 mg PO PRN PRN 03/22/18 Tiotropium [place] [Spiriva] 2.5 mcg IH DAILY 03/22/18 Allergies/Adverse Reactions: droperidol [Droperidol] Allergy (Severe, Verified 03/22/18 11:09) Anaphylaxis Review of Systems All systems: reviewed and no additional remarkable complaints except as stated Physical Exam General appearance: PRESENT: no acute distress, cooperative, thin Head exam: PRESENT: atraumatic, normocephalic Eye exam: PRESENT: EOMI, PERRLA. ABSENT: conjunctival injection, nystagmus Ear exam: ABSENT: bleeding, drainage Mouth exam: PRESENT: neck supple, tongue midline Neck exam: ABSENT: meningismus, tenderness, tracheostomy Respiratory exam: PRESENT: clear to auscultation keith. ABSENT: accessory muscle use Cardiovascular exam: PRESENT: RRR. ABSENT: diastolic murmur, systolic murmur Pulses: PRESENT: normal radial pulses GI/Abdominal exam: PRESENT: normal bowel sounds, soft, tenderness. ABSENT: ascites Extremities exam: ABSENT: clubbing, pedal edema Neurological exam: PRESENT: alert, altered, awake, oriented to person, oriented to place, oriented to time, oriented to situation, CN II-XII grossly intact. ABSENT: aphasic Psychiatric exam: ABSENT: agitated, anxious, homicidal ideation, suicidal ideation Assessment & Plan - Diagnosis (1) Acute renal failure Is this a current diagnosis for this admission?: Yes Plan: Likely prerenal Continue with IV fluids Check input and output Check renal ultrasound Check sodium and creatinine Monitor renal function Hold Lasix and lisinopril Consult nephrology (2) Hyperkalemia Is this a current diagnosis for this admission?: Yes Plan: Treated with IV calcium gluconate and IV insulin in the emergency room Recheck potassium levels (3) Bleeding per rectum Is this a current diagnosis for this admission?: Yes Plan: Continue to monitor hemoglobin hematocrit and transfuse if needed Holding Plavix She has a history of hemorrhoids, will consult surgery (4) CAD (coronary artery disease) Is this a current diagnosis for this admission?: Yes Plan: Continue with aspirin and hold Plavix due to bleeding (5) COPD (chronic obstructive pulmonary disease) Is this a current diagnosis for this admission?: Yes Plan: Not in exacerbation, continue home medications (6) Dehydration Is this a current diagnosis for this admission?: Yes Plan: IV fluids as above (7) CKD (chronic kidney disease), stage III Is this a current diagnosis for this admission?: Yes Plan: Now with acute kidney injury (8) Anemia of chronic disease Is this a current diagnosis for this admission?: Yes Plan: Monitor, transfuse as needed (9) HTN (hypertension), benign Is this a current diagnosis for this admission?: Yes Plan: Monitor Holding lisinopril and Lasix Will adjust or add medications as needed (10) Peripheral vascular disease Is this a current diagnosis for this admission?: Yes Plan: Continue aspirin and hold Plavix as above
[2018-07-29 20:18] LABS: ANION GAP 12 (5-19); BLOOD UREA NITROGEN 62 mg/dL (7-20); CALCIUM 10.2 mg/dL (8.4-10.2); CARBON DIOXIDE 24 mmol/L (22-30); CHLORIDE 102 mmol/L (98-107); GLUCOSE 76 mg/dL (75-110); POTASSIUM 5.6 mmol/L (3.6-5.0); SODIUM 137.7 mmol/L (137-145)
[2018-07-29 20:24] LABS: APPEARANCE,URINE SLIGHTLY-CLOUDY; BILIRUBIN,URINE NEGATIVE (NEGATIVE); COLOR,URINE YELLOW; GLUCOSE, URINE 50 mg/dL (NEGATIVE); KETONES,URINE NEGATIVE (NEGATIVE); LEUKOCYTE ESTERASE,URINE LARGE (NEGATIVE); NITRITE,URINE NEGATIVE (NEGATIVE); PROTEIN,URINE NEGATIVE (NEGATIVE); URINE SPECIFIC GRAVITY 1.014; UROBILINOGEN,URINE NEGATIVE mg/dL (<2.0)
[2018-07-29 20:45] LABS: URINE CREATININE 115.2 mg/dL (15-278)
--- NOTE | 2018-07-29 21:01 | RADIOLOGY REPORT (SQ) ---
EXAM DESCRIPTION: U/S RETROPERITON (RENAL/AORTA) COMPLETED DATE/TIME: 07/29/2018 8:51 pm REASON FOR STUDY: TENISHA COMPARISON: None. TECHNIQUE: Dynamic and static grayscale images acquired of the kidneys and bladder and recorded on P ACS. Additional selected color Doppler and spectral images recorded. LIMITATIONS: None. FINDINGS: RIGHT KIDNEY: Normal size. Normal echogenicity. No solid or suspicious masses. Small cyst s. No hydronephrosis. No calcifications. LEFT KIDNEY: Normal size. Normal echogenicity. No solid or suspicious masses. No hydronephrosis. No calcifications. BLADDER: No masses. OTHER FINDINGS: No other significant finding. IMPRESSION: NORMAL RENAL AND BLADDER ULTRASOUND. TECHNICAL DOCUMENTATION: JOB ID: [id number] [employer]- All Rights Reserved Reading location - IP/workstation name: [email or web address]
--- NOTE | 2018-07-29 21:25 | PDOC CONSULTATION ---
Consultation Consult Date: 07/29/18 Attending physician:: ANTONELLA TOM Consult reason:: GI bleeding History of Present Illness Admission Date/PCP: 07/29/18 17:59 BEN HINSON NP History of Present Illness: MELISSA BOSCH is a 73 year old female Who presents to the emergency department at [facility] via ground rescue complaining of weakness, 3-day history of blood per rectum, passing multiple clots, weakness, and decreased p.o. intake. Was evaluated in the emergency department found to be profoundly dehydrated in acute renal failure. She was admitted to the hospital with the diagnosis of sepsis, acute kidney injury, gastrointestinal hemorrhage. The patient states she has had 3 previous GI bleeds in the past, felt secondary to diverticulosis and possibly polyp disease. She has had multiple colonoscopies in the past, the last 4 years ago by her report performed by Dr. Cai with polypectomy. She denies upper GI bleeding history. She is on Plavix and aspirin for chronic arterial and venous thrombo-embolic disease. He is admitted to the hospital service with surgery consulting. She is examined on the fourth floor of [facility] with granddaughter present at bedside. Past Medical History Cardiac Medical History: Reports: Congestive Heart Failure, Myocardial Infarction - MILD HEART ATTACK 2016, NO STENTS OR SX, Hyperlipidema, Hypertension - ON MEDS, Peripheral Vascular Disease, Pulmonary Embolism - x 2 Denies: Atrial Fibrillation, Coronary Artery Disease, Heart Murmur Pulmonary Medical History: Reports: Asthma, Bronchitis, Chronic Obstructive Pulmonary Disease (COPD), Pneumonia - LAST IN 2015, Sleep Apnea - CPAP qhs Denies: Respiratory Failure, Tuberculosis Neurological Medical History: Denies: Seizures Endocrine Medical History: Denies: Hyperthyroidism, Hypothyroidism Renal/ Medical History: Denies: End Stage Renal Disease Malignancy Medical History: Denies: Breast Cancer, Cervical Cancer, Leukemia, Lung Cancer, Ovarian Cancer GI Medical History: Reports: Gastroesophageal Reflux Disease Denies: Crohn's Disease, Hepatitis, Hiatal Hernia Musculoskeltal Medical History: Reports: Arthritis - GENERALIZED, Gout Denies: Fibromyalgia Psychiatric Medical History: Denies: Bipolar Disorder, Depression, Post Traumatic Stress Disorder Hematology: Reports: Anemia - H/O 2X BLOOD TRANSFUSIONS Denies: Hemophilia, Sickle Cell Disease Infectious Medical History: Denies: HIV Past Surgical History Past Surgical History: Multiple revascularization his lower extremities under the direction of Dr. Larry Ross [place]. Patient is 1 month status post left hip replacement. She is also had bilateral shoulder surgery; she walks with a walker. Past Surgical History: Reports: Cholecystectomy - lap cholecystectomy, Hysterectomy, Tonsillectomy, Vascular Surgery - STENT LLE. Denies: Amputation, Appendectomy, Section, Colostomy, Coronary Artery Bypass Graft, Gastric Bypass Surgery, Herniorrhaphy, Mastectomy, Pacemaker, Tubal Ligation Social History Smoking Status: Current Every Day Smoker Frequency of Alcohol Use: None Hx Recreational Drug Use: No Drugs: None Hx Prescription Drug Abuse: No Family History Family History: Reviewed & Not Pertinent Parental Family History Reviewed: Yes Children Family History Reviewed: Yes Sibling(s) Family History Reviewed.: Yes Medication/Allergy Home Medications: Gabapentin [Neurontin 300 mg Capsule] 300 mg PO TID 11/07/12 Montelukast Sodium [Singulair 10 mg Tablet] 10 mg PO QPM 07/10/13 Oxycodone HCl [Oxy-Ir 5 mg Tablet] 30 mg PO QIDP PRN 09/27/14 Albuterol Sulfate [Ventolin HFA MDI 18 GM] 2 puff IH QIDP PRN #0 09/25/15 Lisinopril [Prinivil 10 mg Tablet] 10 mg PO Q12 #60 tablet 05/21/16 Aspirin [Adult Aspirin] 81 mg PO DAILY 03/22/18 Cetirizine HCl [Zyrtec] 10 mg PO DAILY 03/22/18 Clopidogrel Bisulfate [Plavix 75 mg Tablet] 75 mg PO DAILY 03/22/18 Furosemide [Lasix 20 mg Tablet] 20 mg PO QAM 03/22/18 Calcium Carbonate [Tums Chewable 500 mg Tab.chew] 500 mg PO PRN PRN 07/29/18 Cholecalciferol (Vitamin D3) [Vitamin D3 1000 Unit Tablet] 2,000 unit PO DAILY 07/29/18 Cyanocobalamin (Vitamin B-12) [Vitamin B-12] 1,000 mcg PO DAILY 07/29/18 Docusate Sodium [Diocto] 150 mg PO BID 07/29/18 Ferrous Sulfate [Iron] 325 mg PO DAILY 07/29/18 Fluticasone Propionate [Flonase Nasal [place] 50 Mcg/[place] 16 gm] 1 spray NASL DAILY 07/29/18 Fluticasone/Umeclidin/Vilanter [Trelegy 100-62.5-25 Mcg Ellipta 14 Dose/Dpi] 1 each IH DAILY 07/29/18 Ipratropium/Albuterol Sulfate [Duoneb 3 ml Ampul] 3 ml NEB RTQ6 07/29/18 Ranitidine HCl 150 mg PO BID 07/29/18 Allergies/Adverse Reactions: droperidol [Droperidol] Allergy (Severe, Verified 03/22/18 11:09) Anaphylaxis Review of Systems Constitutional: PRESENT: other - Decreased urine output Eyes: ABSENT: visual disturbances Ears: ABSENT: hearing changes Gastrointestinal: PRESENT: as per HPI, hematochezia Musculoskeletal: PRESENT: other - Generalized weakness secondary to 3 out of 4 extremities impaired Physical Exam Vital Signs: Temp Pulse Resp BP Pulse Ox 19 103/43 L 100 07/29/18 19:01 07/29/18 19:01 07/29/18 19:01 General appearance: PRESENT: mild distress, other - Appears agitated Head exam: PRESENT: normocephalic Eye exam: PRESENT: EOMI Neck exam: PRESENT: other - No JVD Respiratory exam: PRESENT: rhonchi - Scattered rhonchi Cardiovascular exam: PRESENT: RRR Pulses: PRESENT: normal carotid pulses, normal radial pulses, normal femoral pulses, other - Unable to feel pedal pulses but right foot warmer than left. Small skin bruise. No ischemic changes to the toes GI/Abdominal exam: PRESENT: other - Midline scar periumbilical going down to the pubic area well-healed; pain pump right lower quadrant abdominal wall Rectal exam: PRESENT: deferred Neurological exam: PRESENT: alert, awake, oriented to person, oriented to place , oriented to time, oriented to situation Skin exam: PRESENT: other - Dry with evidence of keratosis Results Laboratory Results: 07/29/18 19:35 07/29/18 07/29/18 19:35 20:00 Sodium 137.7 Potassium 5.6 H Chloride 102 Carbon Dioxide 24 Anion Gap 12 BUN 62 H Creatinine 2.80 H Est GFR ( Amer) 20 L Est GFR (Non-Af Amer) 17 L Glucose 76 Calcium 10.2 Urine Color YELLOW Urine Appearance SLIGHTLY-CLOUDY Urine pH 5.0 Ur Specific [place] 1.014 Urine Protein NEGATIVE Urine Glucose (UA) 50 H Urine Ketones NEGATIVE Urine Blood LARGE H Urine Nitrite NEGATIVE Ur Leukocyte Esterase LARGE H Urine WBC (Auto) 30 Urine RBC (Auto) 6 Impressions: Renal Ultrasound 07/29/18 00:00 IMPRESSION: NORMAL RENAL AND BLADDER ULTRASOUND. Assessment & Plan - Diagnosis (1) Acute renal failure Is this a current diagnosis for this admission?: Yes (2) Bleeding per rectum Is this a current diagnosis for this admission?: Yes Plan: Impression: This is an extremely fragile, debilitated 73-year-old with multiple chronic medical conditions who continues to smoke. He is on Plavix and aspirin likely exacerbating her risk for GI bleeding; history of GI bleeding elusive sources. Last colonoscopy 4 years ago with polyps only. At this moment, medical therapy will be directed towards treating underlying acute renal failure, electrolyte correction, and holding anticoagulation therapy. Recommendation 1. As above; dictation for surgical intervention tonight 2. We will follow patient with you; if patient continues to have GI bleed despite holding and Plavix, endoscopic evaluation may be appropriate. 3. On the multiple comorbidities in this debilitated female, patient's CODE STATUS should be addressed. (5) COPD (chronic obstructive pulmonary disease) Is this a current diagnosis for this admission?: Yes (6) Hyperkalemia Is this a current diagnosis for this admission?: Yes - Time Time Spent: 50 to 70 Minutes Smoking Cessation Education: over 10 minutes Medications reviewed and adjusted accordingly: Yes Anticipated discharge: Home - Inpatient Certification Based on my medical assessment, after consideration of the patient's comorbidities, presenting symptoms, or acuity I expect that the services needed warrant INPATIENT care.: Yes I certify that my determination is in accordance with my understanding of Medicare's requirements for reasonable and necessary INPATIENT services [42 CFR 412.3e].: Yes Medical Necessity: Need For IV Fluids, Need for Pain Control, Need for IV Antibiotics
[2018-07-29] MEDS: NORMAL SALINE 1000 ML 1,000 ML IV PRN (22:46)
--- NOTE | 2018-07-30 00:13 | EKG REPORT ---
SEVERITY:- NORMAL ECG - SINUS RHYTHM : Confirmed by: Venu Garcia 30-Jul-2018 00:13:10
[2018-07-30 06:43] LABS: HEMATOCRIT 27.4 % (36.0-47.0); HEMOGLOBIN 9.1 g/dL (12.0-15.5); MEAN CORPUSCULAR HEMOGLOBIN 28.2 pg (27.0-33.4); MEAN CORPUSCULAR HGB CONC 33.1 g/dL (32.0-36.0); MEAN CORPUSCULAR VOLUME 85 fl (80-97); PLATELET COUNT 146 10^3/uL (150-450); RED BLOOD COUNT 3.21 10^6/uL (3.72-5.28); RED CELL DISTRIBUTION WIDTH 14.5 % (11.5-14.0)
[2018-07-30] MEDS: NORMAL SALINE 1000 ML 1,000 ML IV PRN (06:57)
[2018-07-30 07:08] LABS: ANION GAP 8 (5-19); BLOOD UREA NITROGEN 49 mg/dL (7-20); CALCIUM 9.6 mg/dL (8.4-10.2); CARBON DIOXIDE 23 mmol/L (22-30); CHLORIDE 108 mmol/L (98-107); GLUCOSE 76 mg/dL (75-110); PHOSPHORUS 3.1 mg/dL (2.5-4.5); POTASSIUM 5.8 mmol/L (3.6-5.0); SODIUM 139.1 mmol/L (137-145)
[2018-07-30] MEDS ORDERED: ALBUTEROL SULFATE HFA (90 MCG/PUFF) 8 GM MDI (1 MDI/ER DISP) IH PRN (07:47)
[2018-07-30] MEDS ORDERED: CALCIUM CARBONATE 500 MG TAB.CHEW PO PRN (07:47)
[2018-07-30] MEDS ORDERED: FUROSEMIDE 20 MG TABLET PO SCH (08:00)
[2018-07-30] MEDS ORDERED: ALBUTEROL SULFATE HFA (90 MCG/PUFF) 200 PUFF/8.5 GM MDI IH PRN (08:39)
[2018-07-30] MEDS: IPRATROPIUM/ALBUTEROL 0.5-2.5 MG/3 ML AMPUL NEB SCH ×3 (08:53→20:26)
[2018-07-30] MEDS ORDERED: DEXTROSE 50%-WATER 25 GM/50 ML DISP.SYRIN IV ONE (09:00)
[2018-07-30] MEDS ORDERED: INSULIN REG, HUMAN 100 UNIT/ML 3 ML VIAL (PYX) IV ONE (09:00)
[2018-07-30] MEDS ORDERED: CALCIUM GLUCONATE 1000 MG/10 ML INJ IV ONE (09:00)
--- NOTE | 2018-07-30 09:19 | PDOC PROGRESS REPORT ---
Subjective Progress Note for:: 07/30/18 Subjective:: Patient has no complaints. She is resting in bed comfortably. She denies any further bleeding. Actually she has not had a bowel movement since admission. Kidney function and creatinine levels improved. Renal ultrasound unremarkable. Potassium levels improved but still elevated at 5.8 Reason For Visit: TENISHA Physical Exam Vital Signs: Temp Pulse Resp BP Pulse Ox 98.2 F 98 21 H 121/45 L 97 07/30/18 03:53 07/30/18 08:53 07/30/18 08:53 07/30/18 03:53 07/30/18 08:53 Intake & Output 07/29/18 07/30/18 07/31/18 06:59 06:59 06:59 Intake Total 1999 150 Balance 1999 150 Weight 107 lb 12.897 oz General appearance: PRESENT: no acute distress, cooperative Head exam: PRESENT: atraumatic, normocephalic Eye exam: PRESENT: EOMI, PERRLA Mouth exam: PRESENT: neck supple, tongue midline Neck exam: ABSENT: meningismus, tenderness, tracheostomy Respiratory exam: PRESENT: prolonged expiratory phas, wheezes. ABSENT: accessory muscle use Cardiovascular exam: PRESENT: RRR. ABSENT: diastolic murmur, systolic murmur Pulses: PRESENT: normal radial pulses GI/Abdominal exam: PRESENT: normal bowel sounds, soft. ABSENT: ascites Neurological exam: PRESENT: alert, altered, awake, oriented to person, oriented to place, oriented to time, oriented to situation Psychiatric exam: ABSENT: agitated, anxious, homicidal ideation, suicidal ideation Results Laboratory Results: 07/30/18 05:36 07/29/18 07/29/18 07/30/18 19:35 20:00 05:36 WBC 15.0 H RBC 3.21 L Hgb 9.1 L Hct 27.4 L MCV 85 MCH 28.2 MCHC 33.1 RDW 14.5 H Plt Count 146 L Sodium 137.7 Potassium 5.6 H Chloride 102 Carbon Dioxide 24 Anion Gap 12 BUN 62 H Creatinine 2.80 H Est GFR ( Amer) 20 L Est GFR (Non-Af Amer) 17 L Glucose 76 Calcium 10.2 Phosphorus Magnesium Urine Color YELLOW Urine Appearance SLIGHTLY-CLOUDY Urine pH 5.0 Ur Specific [place] 1.014 Urine Protein NEGATIVE Urine Glucose (UA) 50 H Urine Ketones NEGATIVE Urine Blood LARGE H Urine Nitrite NEGATIVE Ur Leukocyte Esterase LARGE H Urine WBC (Auto) 30 Urine RBC (Auto) 6 07/30/18 05:36 WBC RBC Hgb Hct MCV MCH MCHC RDW Plt Count Sodium 139.1 Potassium 5.8 H Chloride 108 H Carbon Dioxide 23 Anion Gap 8 BUN 49 H Creatinine 2.09 H Est GFR ( Amer) 28 L Est GFR (Non-Af Amer) 23 L Glucose 76 Calcium 9.6 Phosphorus 3.1 Magnesium 1.9 Urine Color Urine Appearance Urine pH Ur Specific [place] Urine Protein Urine Glucose (UA) Urine Ketones Urine Blood Urine Nitrite Ur Leukocyte Esterase Urine WBC (Auto) Urine RBC (Auto) Impressions: Renal Ultrasound 07/29/18 00:00 IMPRESSION: NORMAL RENAL AND BLADDER ULTRASOUND. Assessment & Plan - Diagnosis (1) Acute renal failure Is this a current diagnosis for this admission?: Yes Plan: Likely prerenal Continue with IV fluids Monitor input and output Unremarkable renal ultrasound FENa calculated to be 1.2 to Monitor renal function Continue to hold Lasix and lisinopril Consult nephrology (2) Hyperkalemia Is this a current diagnosis for this admission?: Yes Plan: Improved but still elevated at 5.8 Give IV calcium gluconate, IV insulin and dextrose Repeat potassium level (3) Bleeding per rectum Is this a current diagnosis for this admission?: Yes Plan: Continue to monitor hemoglobin hematocrit and transfuse if needed Continue to hold Plavix She has a history of hemorrhoids Seen by Dr. Carrero and he recommends observation for now (4) CAD (coronary artery disease) Is this a current diagnosis for this admission?: Yes Plan: Continue with aspirin Continue to hold Plavix due to bleeding (5) COPD (chronic obstructive pulmonary disease) Is this a current diagnosis for this admission?: Yes Plan: Not in exacerbation, continue home medications (6) Dehydration Is this a current diagnosis for this admission?: Yes Plan: IV fluids as above (7) CKD (chronic kidney disease), stage III Is this a current diagnosis for this admission?: Yes Plan: Now with acute kidney injury (8) Anemia of chronic disease Is this a current diagnosis for this admission?: Yes Plan: Monitor, transfuse as needed (9) HTN (hypertension), benign Is this a current diagnosis for this admission?: Yes Plan: Monitor Holding lisinopril and Lasix Adjust or add medications as needed (10) Peripheral vascular disease Is this a current diagnosis for this admission?: Yes Plan: Continue aspirin and hold Plavix as above
[2018-07-30] MEDS: FERROUS SULFATE 325 MG TABLET PO SCH (09:35)
[2018-07-30] MEDS: FAMOTIDINE 20 MG TABLET PO SCH ×2 (09:35→17:37)
[2018-07-30] MEDS: OXYCODONE HCL IR 5 MG TABLET PO PRN ×2 (09:35→15:29)
[2018-07-30] MEDS: GABAPENTIN 300 MG CAPSULE PO SCH ×3 (09:35→17:37)
[2018-07-30] MEDS: CHOLECALCIFEROL (D3) 1,000 UNIT TABLET PO SCH (09:36)
[2018-07-30] MEDS: DOCUSATE SODIUM 100 MG CAPSULE PO SCH ×2 (09:36→17:37)
[2018-07-30] MEDS: CYANOCOBALAMIN (VITAMIN B-12) 1,000 MCG TABLET PO SCH (09:36)
[2018-07-30] MEDS: ASPIRIN 81 MG TABLET, ENT COATED PO SCH (09:36)
[2018-07-30] MEDS ORDERED: CLOPIDOGREL BISULFATE 75 MG TABLET PO SCH (10:00)
[2018-07-30] MEDS ORDERED: ENOXAPARIN SODIUM INJ 30 MG/0.3 ML DISP.SYRIN SUBCUT SCH (10:00)
[2018-07-30] MEDS ORDERED: (PENDING PHARMACY ID) (Ranitidine Hcl [Ranitidine Hcl] 150 MG) PO SCH (10:00)
[2018-07-30] MEDS ORDERED: (PENDING PHARMACY ID) (Cetirizine Hcl [Zyrtec] 10 MG) PO SCH (10:00)
[2018-07-30] MEDS ORDERED: LISINOPRIL 10 MG TABLET PO SCH (10:00)
[2018-07-30] MEDS: FLUTICASONE NASAL SPRAY 50 MCG/SPRY 120 SPRAY/16 GM NASL SCH (11:22)
[2018-07-30] MEDS: CETIRIZINE 10 MG TABLET PO SCH (11:24)
--- NOTE | 2018-07-30 11:25 | RADIOLOGY REPORT (SQ) ---
EXAM DESCRIPTION: CT ABD/PELVIS ORAL ONLY COMPLETED DATE/TIME: 07/30/2018 10:36 am REASON FOR STUDY: Abdominal pain and bleeding per rectum . Diffuse abdominal pain. COMPARISON: 05/14/2016. TECHNIQUE: CT scan of the abdomen and pelvis performed with oral contrast and no intravenous contras t. Images reviewed with lung, soft tissue, and bone windows. Reconstructed coronal and sagittal MPR i mages reviewed. All images stored on PACS. All CT scanners at this facility use dose modulation, iterative reconstruction, and/or weight based d osing when appropriate to reduce radiation dose to as low as reasonably achievable (ALARA). [facility]: Dose Right [facility]: CareDose [facility]: Dose Right [facility]: Teradose 4D [facility]: [employer] RADIATION DOSE: CT Rad equipment meets quality standard of care and radiation dose reduction techniq ues were employed. CTDIvol: 7.8 mGy. DLP: 350 mGy-cm.mGy. LIMITATIONS: None. FINDINGS: LOWER CHEST: Chronic bibasilar scarring unchanged. NON-CONTRASTED LIVER, SPLEEN, ADRENALS: Liver: No abnormality seen. Spleen: Capsular calcification could represent old posttraumatic change. PANCREAS: No masses. No peripancreatic inflammatory changes. GALLBLADDER: Status post cholecystectomy. Mild dilatation of common bile duct consistent with postch olecystectomy change. RIGHT KIDNEY AND URETER: No abnormality seen. LEFT KIDNEY AND URETER: No abnormality seen. AORTA AND RETROPERITONEUM: Atherosclerotic change of the abdominal aorta, iliac, and femoral vessels . Atherosclerotic change within the celiac and superior mesenteric vessels. Status post stent place ment from distal aorta into right and left iliac arteries. Status post stent placement from left ext ernal iliac artery into left femoral artery. No aneurysm. No retroperitoneal masses or adenopathy. Inferior vena cava filter in place. BOWEL AND PERITONEAL CAVITY: And less likely inflammatory bowel disease are noted There is a thickene d loop of small bowel in the right hemipelvis noted. The possibility of changes secondary to distal small bowel enteritis or inflammatory change versus ischemic change are considerations. (Image numbe r [id number] series 3 ). There is a short segment of narrowing within small bowel noted proximal to i oneil cecal region (image number [id number] series 3) . The possibility of its spasm versus stricture f ormation not excluded. There is oral contrast noted within the right and transverse colon APPENDIX: Normal. PELVIS, BLADDER, AND ABDOMINAL WALL: Uterus: Absent. Urinary bladder: No abnormality. BONES: Multilevel lumbar spondylosis and degenerative disc disease. OTHER: Metallic stimulator pack overlying right lower abdominal wall with wire extending in to lower dorsal region. Total left hip prosthesis in place. IMPRESSION: 1. There is evidence of a thick-walled loop of small bowel noted in the right hemipelvi s. The possibility of changes secondary edema from small bowel enteritis, inflammatory bowel diseas e , or ischemic change not excluded. In this region there is an additional segment of thickened and narrowed small bowel noted which could represent spasm versus stricture formation. Follow-up with all bowel series at later interval could be obtained for further evaluation. 2. Status post hystere ctomy and cholecystectomy. 3. Extensive atherosclerotic change of the abdominal aorta iliac and fem oral vessels. Significant atherosclerotic change within the superior mesenteric and celiac artery. TECHNICAL DOCUMENTATION: JOB ID: [id number] Quality ID # [id number]: Final reports with documentation of one or more dose reduction techniques (e.g., Au tomated exposure control, adjustment of the mA and/or kV according to patient size, use of iterative reconstruction technique) 2010 [employer]- All Rights Reserved Reading location - IP/workstation name: [email or web address]
[2018-07-30] MEDS: FLUTICASONE/UMECLIDIN/VILANTER 100-62.5-25 MCG/DOSE IH SCH (11:32)
[2018-07-30 13:13] LABS: ANION GAP 14 (5-19); BLOOD UREA NITROGEN 40 mg/dL (7-20); CALCIUM 10.1 mg/dL (8.4-10.2); CARBON DIOXIDE 19 mmol/L (22-30); CHLORIDE 105 mmol/L (98-107); GLUCOSE 93 mg/dL (75-110); POTASSIUM 5.3 mmol/L (3.6-5.0); SODIUM 138.1 mmol/L (137-145)
--- NOTE | 2018-07-30 15:55 | PDOC PROGRESS REPORT ---
Subjective Progress Note for:: 07/30/18 Subjective:: This is a 73-year-old female with abdominal pain and rectal bleeding. Her rectal bleeding is improving. Today her bowel movement consisted of mucus and a small amount of blood. Her abdominal pain is improving. She reports that her pain is cramping in nature and wandering around the abdomen. The patient reports feeling weak and orthostatic. She denies nausea, vomiting, fevers, chills, headache, blurry vision, chest pain. Reason For Visit: TENISHA Physical Exam Vital Signs: Temp Pulse Resp BP Pulse Ox 98.1 F 84 16 132/47 H 99 07/30/18 12:05 07/30/18 12:05 07/30/18 12:05 07/30/18 12:05 07/30/18 12:05 Intake & Output 07/29/18 07/30/18 07/31/18 06:59 06:59 06:59 Intake Total 1999 62 Balance 1999 62 Weight 48.9 kg General appearance: PRESENT: no acute distress Head exam: PRESENT: atraumatic, normocephalic Eye exam: PRESENT: EOMI, PERRLA. ABSENT: scleral icterus Mouth exam: PRESENT: moist, neck supple Neck exam: ABSENT: meningismus, tenderness, thyromegaly, tracheal deviation Respiratory exam: PRESENT: crackles, unlabored. ABSENT: chest wall tenderness, tachypnea Cardiovascular exam: PRESENT: RRR Pulses: PRESENT: normal radial pulses Vascular exam: PRESENT: normal capillary refill. ABSENT: pallor GI/Abdominal exam: PRESENT: soft, tenderness - Mild. ABSENT: distended Rectal exam: PRESENT: deferred Extremities exam: ABSENT: clubbing Neurological exam: PRESENT: alert, awake, oriented to person, oriented to place , oriented to time, oriented to situation Psychiatric exam: ABSENT: agitated, anxious, depressed Focused psych exam: ABSENT: delusional Skin exam: ABSENT: cyanosis Results Laboratory Results: 07/30/18 05:36 07/30/18 12:40 07/29/18 07/29/18 07/30/18 19:35 20:00 05:36 WBC 15.0 H RBC 3.21 L Hgb 9.1 L Hct 27.4 L MCV 85 MCH 28.2 MCHC 33.1 RDW 14.5 H Plt Count 146 L Sodium 137.7 Potassium 5.6 H Chloride 102 Carbon Dioxide 24 Anion Gap 12 BUN 62 H Creatinine 2.80 H Est GFR ( Amer) 20 L Est GFR (Non-Af Amer) 17 L Glucose 76 Calcium 10.2 Phosphorus Magnesium Urine Color YELLOW Urine Appearance SLIGHTLY-CLOUDY Urine pH 5.0 Ur Specific [place] 1.014 Urine Protein NEGATIVE Urine Glucose (UA) 50 H Urine Ketones NEGATIVE Urine Blood LARGE H Urine Nitrite NEGATIVE Ur Leukocyte Esterase LARGE H Urine WBC (Auto) 30 Urine RBC (Auto) 6 07/30/18 07/30/18 07/30/18 05:36 08:33 12:40 WBC RBC Hgb Hct MCV MCH MCHC RDW Plt Count Sodium 139.1 138.1 Potassium 5.8 H 5.9 H 5.3 H Chloride 108 H 105 Carbon Dioxide 23 19 L Anion Gap 8 14 BUN 49 H 40 H Creatinine 2.09 H 1.53 H Est GFR ( Amer) 28 L 40 L Est GFR (Non-Af Amer) 23 L 33 L Glucose 76 93 Calcium 9.6 10.1 Phosphorus 3.1 Magnesium 1.9 Urine Color Urine Appearance Urine pH Ur Specific [place] Urine Protein Urine Glucose (UA) Urine Ketones Urine Blood Urine Nitrite Ur Leukocyte Esterase Urine WBC (Auto) Urine RBC (Auto) Impressions: Renal Ultrasound 07/29/18 00:00 IMPRESSION: NORMAL RENAL AND BLADDER ULTRASOUND. Abdomen/Pelvis CT 07/30/18 10:00 IMPRESSION: 1. There is evidence of a thick-walled loop of small bowel noted in the right hemipelvis. The possibility of changes secondary edema from small bowel enteritis, inflammatory bowel disease , or ischemic change not excluded. In this region there is an additional segment of thickened and narrowed small bowel noted which could represent spasm versus stricture formation. Follow-up with small bowel series at later interval could be obtained for further evaluation. 2. Status post hysterectomy and cholecystectomy. 3. Extensive atherosclerotic change of the abdominal aorta iliac and femoral vessels. Significant atherosclerotic change within the superior mesenteric and celiac artery. Assessment & Plan - Diagnosis (1) Bleeding per rectum Is this a current diagnosis for this admission?: Yes - Plan Summary Plan Summary: This is a 73-year-old female with her third occurrence of lower GI bleeding in the last several months. Whenever the patient resumes her aspirin and Plavix, she experiences lower GI bleeding. In light of this, I have recommended cessation of all antiplatelets or blood thinners. Currently, the patient has not required transfusion. At this time I do not see any urgent need for surgical intervention. I recommend supportive care and transfusion (if necessary). I have reviewed the patient's CT scan. There is mention by the radiologist of possible thickening of a portion of distal small bowel. I am unsure to the clinical significance of this finding. The patient does not have symptoms of a small bowel obstruction (nausea, vomiting, distention). The patient does not have dilation of her proximal small bowel on CT. Contrast moved freely through the small bowel and into the colon. I will continue to monitor this. Continue supportive care.
[2018-07-30] MEDS: MONTELUKAST SODIUM 10 MG TABLET PO SCH (17:37)
[2018-07-31] MEDS: IPRATROPIUM/ALBUTEROL 0.5-2.5 MG/3 ML AMPUL NEB SCH ×4 (02:10→19:55)
[2018-07-31 06:14] LABS: HEMATOCRIT 27.5 % (36.0-47.0); MEAN CORPUSCULAR HEMOGLOBIN 28.5 pg (27.0-33.4); MEAN CORPUSCULAR HGB CONC 32.8 g/dL (32.0-36.0); MEAN CORPUSCULAR VOLUME 87 fl (80-97); RED BLOOD COUNT 3.16 10^6/uL (3.72-5.28); RED CELL DISTRIBUTION WIDTH 14.7 % (11.5-14.0); WHITE BLOOD COUNT 10.1 10^3/uL (4.0-10.5)
[2018-07-31 06:34] LABS: ANION GAP 7 (5-19); BLOOD UREA NITROGEN 32 mg/dL (7-20); CALCIUM 9.7 mg/dL (8.4-10.2); CARBON DIOXIDE 23 mmol/L (22-30); CHLORIDE 110 mmol/L (98-107); GLUCOSE 100 mg/dL (75-110); PHOSPHORUS 3.3 mg/dL (2.5-4.5); POTASSIUM 5.2 mmol/L (3.6-5.0); SODIUM 140.2 mmol/L (137-145)
[2018-07-31 06:55] LABS: PLATELET COUNT 120 10^3/uL (150-450)
[2018-07-31] MEDS: NORMAL SALINE 1000 ML 1,000 ML IV PRN (09:28)
[2018-07-31] MEDS: DOCUSATE SODIUM 100 MG CAPSULE PO SCH ×2 (09:30→17:15)
[2018-07-31] MEDS: ASPIRIN 81 MG TABLET, ENT COATED PO SCH (09:30)
[2018-07-31] MEDS: CETIRIZINE 10 MG TABLET PO SCH (09:30)
[2018-07-31] MEDS: GABAPENTIN 300 MG CAPSULE PO SCH ×3 (09:30→17:15)
[2018-07-31] MEDS: CHOLECALCIFEROL (D3) 1,000 UNIT TABLET PO SCH (09:30)
[2018-07-31] MEDS: FAMOTIDINE 20 MG TABLET PO SCH ×2 (09:30→17:15)
[2018-07-31] MEDS: FERROUS SULFATE 325 MG TABLET PO SCH (09:30)
[2018-07-31] MEDS: FLUTICASONE NASAL SPRAY 50 MCG/SPRY 120 SPRAY/16 GM NASL SCH (09:33)
[2018-07-31] MEDS: CYANOCOBALAMIN (VITAMIN B-12) 1,000 MCG TABLET PO SCH (09:33)
[2018-07-31] MEDS: FLUTICASONE/UMECLIDIN/VILANTER 100-62.5-25 MCG/DOSE IH SCH (09:34)
--- NOTE | 2018-07-31 10:59 | PDOC PROGRESS REPORT ---
Subjective Progress Note for:: 07/31/18 Subjective:: Patient has no complaints. She is sitting in chair comfortably. Daughter is at bedside. She denies any further bleeding. Last bowel movement was brown. Kidney function and creatinine levels improved. Renal ultrasound unremarkable. Potassium levels improved but still elevated at 5.2. CT scan of the abdomen showed thickened wall of a loop of small bowel in the right hemipelvis. Surgery recommends conservative management and observation. Reason For Visit: TENISHA Physical Exam Vital Signs: Temp Pulse Resp BP Pulse Ox 98.7 F 93 22 H 125/60 92 07/31/18 08:00 07/31/18 08:00 07/31/18 08:00 07/31/18 08:00 07/31/18 08:00 Intake & Output 07/30/18 07/31/18 08/01/18 06:59 06:59 06:59 Intake Total 1999 1083 1000 Balance 1999 1083 1000 Weight 107 lb 12.897 oz 108 lb 0.424 oz General appearance: PRESENT: no acute distress, cooperative Head exam: PRESENT: atraumatic, normocephalic Eye exam: PRESENT: EOMI, PERRLA Mouth exam: PRESENT: moist, neck supple, tongue midline Neck exam: ABSENT: meningismus, tracheostomy Respiratory exam: PRESENT: clear to auscultation keith. ABSENT: accessory muscle use Cardiovascular exam: PRESENT: diastolic murmur, RRR. ABSENT: systolic murmur Pulses: PRESENT: normal radial pulses GI/Abdominal exam: PRESENT: normal bowel sounds, soft. ABSENT: ascites, tenderness Rectal exam: PRESENT: deferred Neurological exam: PRESENT: alert, altered, awake, oriented to person, oriented to place, oriented to time, oriented to situation Results Laboratory Results: 07/31/18 04:59 07/31/18 04:59 07/30/18 07/31/18 07/31/18 12:40 04:59 04:59 WBC 10.1 RBC 3.16 L Hgb 9.0 L Hct 27.5 L MCV 87 MCH 28.5 MCHC 32.8 RDW 14.7 H Plt Count 120 L Sodium 138.1 140.2 Potassium 5.3 H 5.2 H Chloride 105 110 H Carbon Dioxide 19 L 23 Anion Gap 14 7 BUN 40 H 32 H Creatinine 1.53 H 1.47 H Est GFR ( Amer) 40 L 42 L Est GFR (Non-Af Amer) 33 L 35 L Glucose 93 100 Calcium 10.1 9.7 Phosphorus 3.3 Magnesium 1.6 Impressions: Renal Ultrasound 07/29/18 00:00 IMPRESSION: NORMAL RENAL AND BLADDER ULTRASOUND. Abdomen/Pelvis CT 07/30/18 10:00 IMPRESSION: 1. There is evidence of a thick-walled loop of small bowel noted in the right hemipelvis. The possibility of changes secondary edema from small bowel enteritis, inflammatory bowel disease , or ischemic change not excluded. In this region there is an additional segment of thickened and narrowed small bowel noted which could represent spasm versus stricture formation. Follow-up with small bowel series at later interval could be obtained for further evaluation. 2. Status post hysterectomy and cholecystectomy. 3. Extensive atherosclerotic change of the abdominal aorta iliac and femoral vessels. Significant atherosclerotic change within the superior mesenteric and celiac artery. Assessment & Plan - Diagnosis (1) Acute renal failure Is this a current diagnosis for this admission?: Yes Plan: Likely prerenal Continue with IV fluids Monitor input and output renal ultrasound unremarkable FENa calculated to be 1.2 Monitor renal function Continue to hold Lasix and lisinopril Consulted nephrology (2) Hyperkalemia Is this a current diagnosis for this admission?: Yes Plan: Improved but still elevated at 5.2 Continue IV fluids and monitor potassium levels (3) Bleeding per rectum Is this a current diagnosis for this admission?: Yes Plan: Continue to monitor hemoglobin hematocrit and transfuse if needed Continue to hold Plavix She has a history of hemorrhoids CT scan of the abdomen showed thickened wall of a loop of small bowel in the right hemipelvis. Surgery recommends conservative management and observation. (4) CAD (coronary artery disease) Is this a current diagnosis for this admission?: Yes Plan: Continue with aspirin Continue to hold Plavix due to bleeding (5) COPD (chronic obstructive pulmonary disease) Is this a current diagnosis for this admission?: Yes Plan: Not in exacerbation, continue home medications (6) Dehydration Is this a current diagnosis for this admission?: Yes Plan: IV fluids as above (7) CKD (chronic kidney disease), stage III Is this a current diagnosis for this admission?: Yes Plan: Now with acute kidney injury (8) Anemia of chronic disease Is this a current diagnosis for this admission?: Yes Plan: Monitor, transfuse as needed Currently stable (9) HTN (hypertension), benign Is this a current diagnosis for this admission?: Yes Plan: Monitor Holding lisinopril and Lasix Adjust or add medications as needed (10) Peripheral vascular disease Is this a current diagnosis for this admission?: Yes Plan: Continue aspirin and hold Plavix as above
--- NOTE | 2018-07-31 12:22 | PDOC PROGRESS REPORT ---
Subjective Subjective:: This is a 73-year-old female with abdominal pain and rectal bleeding. Her rectal bleeding is improving. Her abdominal pain is essentially resolved. The patient still reports feeling weak. She denies nausea, vomiting, fevers, chills , headache, blurry vision, chest pain. Reason For Visit: TENISHA Physical Exam Vital Signs: Temp Pulse Resp BP Pulse Ox 98.7 F 93 22 H 125/60 92 07/31/18 08:00 07/31/18 08:00 07/31/18 08:00 07/31/18 08:00 07/31/18 08:00 Intake & Output 07/30/18 07/31/18 08/01/18 06:59 06:59 06:59 Intake Total 1999 1083 1000 Balance 1999 1083 1000 Weight 48.9 kg 49 kg General appearance: PRESENT: no acute distress Head exam: PRESENT: atraumatic, normocephalic Eye exam: PRESENT: EOMI, PERRLA. ABSENT: scleral icterus Mouth exam: PRESENT: moist, neck supple Neck exam: ABSENT: meningismus, tenderness, thyromegaly, tracheal deviation Respiratory exam: PRESENT: rales, rhonchi, unlabored. ABSENT: chest wall tenderness, tachypnea Pulses: PRESENT: normal radial pulses Vascular exam: ABSENT: pallor GI/Abdominal exam: PRESENT: soft, tenderness - minimal. ABSENT: distended, rebound Rectal exam: PRESENT: deferred Neurological exam: PRESENT: alert, awake, oriented to person, oriented to place , oriented to time, oriented to situation Psychiatric exam: ABSENT: agitated, anxious, depressed Focused psych exam: ABSENT: delusional Skin exam: ABSENT: cyanosis, erythema, jaundice Results Laboratory Results: 07/31/18 04:59 07/31/18 04:59 07/30/18 07/31/18 07/31/18 12:40 04:59 04:59 WBC 10.1 RBC 3.16 L Hgb 9.0 L Hct 27.5 L MCV 87 MCH 28.5 MCHC 32.8 RDW 14.7 H Plt Count 120 L Sodium 138.1 140.2 Potassium 5.3 H 5.2 H Chloride 105 110 H Carbon Dioxide 19 L 23 Anion Gap 14 7 BUN 40 H 32 H Creatinine 1.53 H 1.47 H Est GFR ( Amer) 40 L 42 L Est GFR (Non-Af Amer) 33 L 35 L Glucose 93 100 Calcium 10.1 9.7 Phosphorus 3.3 Magnesium 1.6 Impressions: Renal Ultrasound 07/29/18 00:00 IMPRESSION: NORMAL RENAL AND BLADDER ULTRASOUND. Abdomen/Pelvis CT 07/30/18 10:00 IMPRESSION: 1. There is evidence of a thick-walled loop of small bowel noted in the right hemipelvis. The possibility of changes secondary edema from small bowel enteritis, inflammatory bowel disease , or ischemic change not excluded. In this region there is an additional segment of thickened and narrowed small bowel noted which could represent spasm versus stricture formation. Follow-up with small bowel series at later interval could be obtained for further evaluation. 2. Status post hysterectomy and cholecystectomy. 3. Extensive atherosclerotic change of the abdominal aorta iliac and femoral vessels. Significant atherosclerotic change within the superior mesenteric and celiac artery. Assessment & Plan - Diagnosis (1) Bleeding per rectum Is this a current diagnosis for this admission?: Yes - Plan Summary Plan Summary: This is a 73-year-old female with her third occurrence of lower GI bleeding in the last several months. Whenever the patient resumes her aspirin and Plavix, she experiences lower GI bleeding. In light of this, I have recommended cessation of all antiplatelets or blood thinners. Currently, the patient has not required transfusion. Her symptoms are improving, and at this time I do not see any urgent need for surgical intervention. Continue supportive care. I have reviewed the patient's CT scan. There is mention by the radiologist of possible thickening of a portion of distal small bowel. I am unsure to the clinical significance of this finding. The patient does not have symptoms of a small bowel obstruction (nausea, vomiting, distention). The patient does not have dilation of her proximal small bowel on CT. Contrast moved freely through the small bowel and into the colon. No further intervention required at this time. I will see the patient again on an as-needed basis. Please renotify with any questions or concerns.
--- NOTE | 2018-07-31 15:45 | RADIOLOGY REPORT (SQ) ---
EXAM DESCRIPTION: CHEST 2 VIEWS COMPLETED DATE/TIME: 07/31/2018 3:35 pm REASON FOR STUDY: abnormal lung exam COMPARISON: 05/27/2017 EXAM PARAMETERS: NUMBER OF VIEWS: two views TECHNIQUE: Digital Frontal and Lateral radiographic views of the chest acquired. RADIATION DOSE: NA LIMITATIONS: none FINDINGS: LUNGS AND PLEURA: Minimal right basilar opacity with small right effusion. MEDIASTINUM AND HILAR STRUCTURES: No masses or contour abnormalities. HEART AND VASCULAR STRUCTURES: Heart normal size. No evidence for failure. BONES: Shoulder replacement on the left. HARDWARE: None in the chest. OTHER: No other significant finding. IMPRESSION: Minimal right basilar opacity with small right effusion. TECHNICAL DOCUMENTATION: JOB ID: [id number] [employer]- All Rights Reserved Reading location - IP/workstation name: [email or web address]
[2018-07-31] MEDS: MONTELUKAST SODIUM 10 MG TABLET PO SCH (17:15)
[2018-08-01] MEDS: NORMAL SALINE 1000 ML 1,000 ML IV PRN (01:44)
[2018-08-01] MEDS: IPRATROPIUM/ALBUTEROL 0.5-2.5 MG/3 ML AMPUL NEB SCH ×3 (02:49→14:11)
[2018-08-01 06:14] LABS: HEMATOCRIT 27.3 % (36.0-47.0); HEMOGLOBIN 8.9 g/dL (12.0-15.5); MEAN CORPUSCULAR HEMOGLOBIN 28.2 pg (27.0-33.4); MEAN CORPUSCULAR HGB CONC 32.5 g/dL (32.0-36.0); MEAN CORPUSCULAR VOLUME 87 fl (80-97); PLATELET COUNT 125 10^3/uL (150-450); RED BLOOD COUNT 3.14 10^6/uL (3.72-5.28); RED CELL DISTRIBUTION WIDTH 14.8 % (11.5-14.0); WHITE BLOOD COUNT 4.9 10^3/uL (4.0-10.5)
[2018-08-01 06:42] LABS: ANION GAP 7 (5-19); BLOOD UREA NITROGEN 22 mg/dL (7-20); CALCIUM 9.6 mg/dL (8.4-10.2); CARBON DIOXIDE 23 mmol/L (22-30); CHLORIDE 112 mmol/L (98-107); GLUCOSE 97 mg/dL (75-110); PHOSPHORUS 3.6 mg/dL (2.5-4.5); POTASSIUM 5.4 mmol/L (3.6-5.0); SODIUM 141.7 mmol/L (137-145)
[2018-08-01] MEDS ORDERED: MAGNESIUM SULFATE INJ 8 MEQ/2 ML IV ONE (09:27)
[2018-08-01] MEDS ORDERED: MAGNESIUM SULFATE/D5W 1 GM/100 ML RTUPB IV ONE (10:00)
--- NOTE | 2018-08-01 10:01 | PDOC DISCHARGE SUMMARY ---
General - Admit/Disc Date/PCP Admission Date/Primary Care Provider: 07/29/18 17:59 BEN HINSON NP Discharge Date: 08/01/18 - Discharge Diagnosis (1) Acute renal failure Is this a current diagnosis for this admission?: Yes (2) Hyperkalemia Is this a current diagnosis for this admission?: Yes (3) Bleeding per rectum Is this a current diagnosis for this admission?: Yes (4) CAD (coronary artery disease) Is this a current diagnosis for this admission?: Yes (5) COPD (chronic obstructive pulmonary disease) Is this a current diagnosis for this admission?: Yes (6) Dehydration Is this a current diagnosis for this admission?: Yes (7) CKD (chronic kidney disease), stage III Is this a current diagnosis for this admission?: Yes (8) Anemia of chronic disease Is this a current diagnosis for this admission?: Yes (9) HTN (hypertension), benign Is this a current diagnosis for this admission?: Yes (10) Peripheral vascular disease Is this a current diagnosis for this admission?: Yes - Additional Information Discharge Diet: Cardiac, Other (Comments) - Low potassium Discharge Activity: Activity As Tolerated Home Medications: Gabapentin [Neurontin 300 mg Capsule] 300 mg PO TID 11/07/12 Montelukast Sodium [Singulair 10 mg Tablet] 10 mg PO QPM 07/10/13 Oxycodone HCl [Oxy-Ir 5 mg Tablet] 30 mg PO QIDP PRN 09/27/14 Albuterol Sulfate [Ventolin HFA MDI 18 GM] 2 puff IH QIDP PRN #0 09/25/15 Aspirin [Adult Aspirin] 81 mg PO DAILY 03/22/18 Cetirizine HCl [Zyrtec] 10 mg PO DAILY 03/22/18 Furosemide [Lasix 20 mg Tablet] 20 mg PO QAM 03/22/18 Calcium Carbonate [Tums Chewable 500 mg Tab.chew] 500 mg PO PRN PRN 07/29/18 Cholecalciferol (Vitamin D3) [Vitamin D3 1000 Unit Tablet] 2,000 unit PO DAILY 07/29/18 Cyanocobalamin (Vitamin B-12) [Vitamin B-12] 1,000 mcg PO DAILY 07/29/18 Docusate Sodium [Diocto] 150 mg PO BID 07/29/18 Ferrous Sulfate [Iron] 325 mg PO DAILY 07/29/18 Fluticasone Propionate [Flonase Nasal [place] 50 Mcg/[place] 16 gm] 1 spray NASL DAILY 07/29/18 Fluticasone/Umeclidin/Vilanter [Trelegy 100-62.5-25 Mcg Ellipta 14 Dose/Dpi] 1 each IH DAILY 07/29/18 Ipratropium/Albuterol Sulfate [Duoneb 3 ml Ampul] 3 ml NEB RTQ6 07/29/18 Ranitidine HCl 150 mg PO BID 07/29/18 History of Present Illness History of Present Illness: MELISSA BOSCH is a 73 year old female who has COPD, coronary artery disease and peripheral vascular disease. Patient also has hemorrhoids and history of bleeding per rectum in the past year. Patient presents to the emergency room due to acute onset of bright red blood per rectum started about 3 days ago and has been persistent. Associated with some abdominal discomfort and poor oral intake. In the emergency room she was found to have severe renal failure and severe hyperkalemia. She is currently resting in bed comfortably with daughter at the bedside. Hospital Course Hospital Course: For renal failure: The patient received IV fluids. Renal ultrasound was unremarkable. Lisinopril and Lasix were held. Renal function improved close to baseline. For hyperkalemia: She received calcium gluconate, IV insulin and dextrose. We will continue Lasix on discharge and continue to hold lisinopril. For bleeding per rectum: She was evaluated by surgery and they recommend conservative management and observation. Aspirin continued and Plavix was held. Continue aspirin on discharge and hold Plavix. She will see her plug maker this week or early next week and if she is continued on Plavix, she needs to be monitored closely. This discussed with the patient and she is in agreement. She is stable, improved, renal function close to baseline, she is advised to stop lisinopril and eat low potassium diet and she will see a dietitian before discharge today. She is tolerating diet very well and she feels a lot better she wants to go home. Physical Exam Vital Signs: Temp Pulse Resp BP Pulse Ox 97.9 F 69 16 148/47 H 100 08/01/18 07:53 08/01/18 07:57 08/01/18 07:57 08/01/18 07:53 08/01/18 07:57 Intake & Output 07/31/18 08/01/18 08/02/18 06:59 06:59 06:59 Intake Total 1083 1999 Balance 1083 1999 Weight 108 lb 0.424 oz 108 lb 0.424 oz General appearance: PRESENT: no acute distress, cooperative, thin Head exam: PRESENT: atraumatic, normocephalic Eye exam: PRESENT: EOMI, PERRLA Ear exam: ABSENT: bleeding, drainage Mouth exam: PRESENT: neck supple, tongue midline Neck exam: ABSENT: meningismus, tracheostomy Respiratory exam: PRESENT: clear to auscultation keith. ABSENT: accessory muscle use Cardiovascular exam: PRESENT: RRR. ABSENT: diastolic murmur, systolic murmur Pulses: PRESENT: normal radial pulses GI/Abdominal exam: PRESENT: normal bowel sounds, soft. ABSENT: ascites, tenderness Rectal exam: PRESENT: deferred Neurological exam: PRESENT: alert, awake, oriented to person, oriented to place , oriented to time, oriented to situation Psychiatric exam: PRESENT: appropriate affect. ABSENT: agitated, anxious, homicidal ideation, suicidal ideation Results Laboratory Results: 08/01/18 05:00 08/01/18 05:00 08/01/18 08/01/18 05:00 05:00 WBC 4.9 RBC 3.14 L Hgb 8.9 L Hct 27.3 L MCV 87 MCH 28.2 MCHC 32.5 RDW 14.8 H Plt Count 125 L Sodium 141.7 Potassium 5.4 H Chloride 112 H Carbon Dioxide 23 Anion Gap 7 BUN 22 H Creatinine 1.25 Est GFR ( Amer) 51 L Est GFR (Non-Af Amer) 42 L Glucose 97 Calcium 9.6 Phosphorus 3.6 Magnesium 1.4 L Impressions: Renal Ultrasound 07/29/18 00:00 IMPRESSION: NORMAL RENAL AND BLADDER ULTRASOUND. Abdomen/Pelvis CT 07/30/18 10:00 IMPRESSION: 1. There is evidence of a thick-walled loop of small bowel noted in the right hemipelvis. The possibility of changes secondary edema from small bowel enteritis, inflammatory bowel disease , or ischemic change not excluded. In this region there is an additional segment of thickened and narrowed small bowel noted which could represent spasm versus stricture formation. Follow-up with small bowel series at later interval could be obtained for further evaluation. 2. Status post hysterectomy and cholecystectomy. 3. Extensive atherosclerotic change of the abdominal aorta iliac and femoral vessels. Significant atherosclerotic change within the superior mesenteric and celiac artery. Chest X-Ray 07/31/18 00:00 IMPRESSION: Minimal right basilar opacity with small right effusion. Qualifiers - * PATIENT BEING DISCHARGED WITH ANY OF THE FOLLOWING DIAGNOSIS: No Plan Time Spent: Greater than 30 Minutes - 32 minutes
[2018-08-01] MEDS: FLUTICASONE/UMECLIDIN/VILANTER 100-62.5-25 MCG/DOSE IH SCH (10:22)
[2018-08-01] MEDS: FLUTICASONE NASAL SPRAY 50 MCG/SPRY 120 SPRAY/16 GM NASL SCH (10:22)
[2018-08-01] MEDS: ASPIRIN 81 MG TABLET, ENT COATED PO SCH (10:25)
[2018-08-01] MEDS: DOCUSATE SODIUM 100 MG CAPSULE PO SCH (10:25)
[2018-08-01] MEDS: FERROUS SULFATE 325 MG TABLET PO SCH (10:25)
[2018-08-01] MEDS: CETIRIZINE 10 MG TABLET PO SCH (10:25)
[2018-08-01] MEDS: FAMOTIDINE 20 MG TABLET PO SCH (10:25)
[2018-08-01] MEDS: CYANOCOBALAMIN (VITAMIN B-12) 1,000 MCG TABLET PO SCH (10:26)
[2018-08-01] MEDS: CHOLECALCIFEROL (D3) 1,000 UNIT TABLET PO SCH (10:26)
[2018-08-01] MEDS: GABAPENTIN 300 MG CAPSULE PO SCH ×2 (10:26→13:44)
[2018-08-01 14:02] VITALS: BP 140/70
== END 2018-08-01 15:53 | disposition home or self-care (01) | DRG 683 ==
LOC: ER 15:16 → EH 17:59 → 4N 21:30
PROVIDERS: ADMIT Hospitalist; ATTEND Hospitalist
DX: N17.9 Acute kidney failure, unspecified (principal); I13.0 Hypertensive heart and chronic kidney disease with heart failure and stage 1 through stage 4 chronic kidney disease, or unspecified chronic kidney disease; K62.5 Hemorrhage of anus and rectum; D68.32 Hemorrhagic disorder due to extrinsic circulating anticoagulants; E87.5 Hyperkalemia; E86.0 Dehydration; I25.10 Atherosclerotic heart disease of native coronary artery without angina pectoris; N18.3 Chronic kidney disease, stage 3 (moderate); T45.525A Adverse effect of antithrombotic drugs, initial encounter; I73.9 Peripheral vascular disease, unspecified; K21.9 Gastro-esophageal reflux disease without esophagitis; M10.9 Gout, unspecified; K64.9 Unspecified hemorrhoids; D63.1 Anemia in chronic kidney disease; J44.9 Chronic obstructive pulmonary disease, unspecified; I25.2 Old myocardial infarction; I50.9 Heart failure, unspecified; E78.5 Hyperlipidemia, unspecified; Z96.642 Presence of left artificial hip joint; Z86.711 Personal history of pulmonary embolism; Z90.49 Acquired absence of other specified parts of digestive tract; Z90.710 Acquired absence of both cervix and uterus; Z86.010 Personal history of colon polyps
CPT/HCPCS: 36415; 71046; 74176; 76770; 80048; 80053; 81001; 82550; 82570; 82962; 83690; 83735; 84100; 84132; 84300; 85025; 85027; 86850; 86900; 86901; 93005; 93010; 94640; 96365; 96375; 99291; J0610; J1815; J2405; J3475; J3490; J7030; J7620

== ENCOUNTER 2019-03-29 11:34 | Emergency (ER) | payer MEDICARE, MEDICAID ==
--- NOTE | 2019-03-29 12:20 | ER Document Report ---
ED Blood Pressure Problem - General Chief Complaint: High Blood Pressure Stated Complaint: SHORTNESS OF BREATH Time Seen by Provider: 03/29/19 12:11 Primary Care Provider: COSME DARLING JR, DO [Primary Care Provider] - Follow up as needed Notes: This is a 73-year-old female patient. History of COPD. States that she fell last week. Broke some ribs she thinks. Went to the primary care doctor who stated that her lungs sound horrible and they were concerned that she may have a pneumonia paralegal assistant here for evaluation. States she has significant pain on the left side of the chest. Incidentally, patient states that she has had several pulmonary embolisms. Denies any leg pain or hip pain. TRAVEL OUTSIDE OF THE [place] IN LAST 30 DAYS: No - HPI Quality of pain: Stabbing Severity: Moderate Pain Level: 3 Associated symptoms: Other - Chest wall pain and shortness of breath. - Related Data Allergies/Adverse Reactions: droperidol [Droperidol] Allergy (Severe, Verified 03/22/18 11:09) Anaphylaxis Past Medical History - General Information source: Patient, [facility] Records - Social History Smoking Status: Never Smoker Cigarette use (# per day): No Frequency of alcohol use: None Drug Abuse: None Lives with: Family Family History: Reviewed & Not Pertinent Patient has suicidal ideation: No Patient has homicidal ideation: No - Past Medical History Cardiac Medical History: Reports: Hx Congestive Heart Failure, Hx Heart Attack - MILD HEART ATTACK 2015, NO STENTS OR SX, Hx Hypercholesterolemia, Hx Hypertension - ON MEDS, Hx Peripheral Vascular Disease, Hx Pulmonary Embolism - x 2 Denies: Hx Atrial Fibrillation, Hx Coronary Artery Disease, Hx Heart Murmur Pulmonary Medical History: Reports: Hx Asthma, Hx Bronchitis, Hx COPD, Hx Pneumonia - LAST IN 2015, Hx Sleep Apnea - CPAP qhs Denies: Hx Respiratory Failure, Hx Tuberculosis Neurological Medical History: Denies: Hx Cerebrovascular Accident, Hx Seizures Endocrine Medical History: Denies: Hx Graves' Disease, Hx Hyperthyroidism, Hx Hypothyroidism Renal/ Medical History: Reports: Hx Ovarian Cysts. Denies: Hx End Stage Renal Disease, Hx Kidney Stones, Hx Peritoneal Dialysis, Hx Pelvic Inflammatory Disease Malignancy Medical History: Denies: Hx Breast Cancer, Hx Cervical Cancer, Hx Leukemia, Hx Lung Cancer, Hx Ovarian Cancer GI Medical History: Reports: Hx Gastroesophageal Reflux Disease, Hx Ulcer. Denies: Hx Crohn's Disease, Hx Hepatitis, Hx Hiatal Hernia, Hx Irritable Bowel, Hx Liver Failure, Hx Pancreatitis Musculoskeletal Medical History: Reports Hx Arthritis - GENERALIZED, Denies Hx Fibromyalgia, Reports Hx Gout, Denies Hx Muscular Dystrophy, Denies Hx Systemic Lupus Erythematosus Psychiatric Medical History: Denies: Hx Bipolar Disorder, Hx Depression, Hx Post Traumatic Stress Disorder, Hx Schizophrenia Traumatic Medical History: Reports: Hx Fractures - 2013 RT hand "2 fingers"/casted Infectious Medical History: Denies: Hx Hepatitis, Hx HIV Past Surgical History: Reports: Hx Bowel Surgery - exp lap, r/t colon perf/colonoscopy approx 2002, Hx Cholecystectomy - lap cholecystectomy, Hx Hysterectomy, Hx Tonsillectomy, Hx Vascular Surgery - STENT LLE.. Denies: Hx Appendectomy, Hx Section, Hx Colostomy, Hx Coronary Artery Bypass Graft, Hx Gastric Bypass Surgery, Hx Herniorrhaphy, Hx Mastectomy, Hx Open Heart Surgery, Hx Pacemaker, Hx Tubal Ligation - Immunizations Hx Diphtheria, Pertussis, Tetanus Vaccination: No Hx Pneumococcal Vaccination: 06/14/17 Review of Systems - Review of Systems Notes: Constitutional: denies: Chills, Diaphoresis, Fever, Malaise, Weakness EENT: denies: Eye discharge, Blurred vision, Tearing, Double vision, Nose congestion, Nose discharge, Throat swelling, Mouth pain Cardiovascular: +Palpitations, +Heart racing, -Orthopnea, +Dyspnea, +Chest pain Respiratory: denies: Cough, Hurts to breathe, Wheezing, +Shortness of breath Gastrointestinal: denies: Abdominal pain, Diarrhea, Nausea, Vomiting, Black stools, bright red blood in stool Genitourinary: denies: Burning, Dysuria, Discharge, Frequency, Flank pain, Hematuria Musculoskeletal: denies: Joint pain, Joint swelling, Muscle pain, Muscle stiffness, back pain Hematologic/Lymphatic: denies: Anemia, Easy bleeding, Easy bruising, Blood clots Neurological/Psychological: denies: Confusion, Dementia, Depression, Loss of consciousness Skin: No lesions, no masses, no skin breakdown, no abscesses Physical Exam - Vital signs Vitals: Resp Pulse Ox 20 100 03/29/19 11:42 03/29/19 11:42 Interpretation: Normal - General General appearance: Appears well, Alert - HEENT Head: Normocephalic, Atraumatic Eyes: Normal Pupils: PERRL - Respiratory Respiratory status: No respiratory distress Chest status: Nontender Breath sounds: Decreased air movement, Rales - Lateral basis. Chest palpation: Normal Notes: Chest wall: Tenderness to palpation to the left lateral and posterior chest wall. No rash. No obvious bruising. - Cardiovascular Rhythm: Regular Heart sounds: Normal auscultation Murmur: No - Abdominal Inspection: Normal Distension: No distension Bowel sounds: Normal Tenderness: Nontender Organomegaly: No organomegaly - Back Back: Normal, Nontender - Extremities General upper extremity: Normal inspection, Nontender, Normal color, Normal ROM, Normal temperature General lower extremity: Normal inspection, Nontender, Normal color, Normal ROM, Normal temperature, Normal weight bearing. No: Miller's sign - Neurological Neuro grossly intact: Yes Cognition: Normal Orientation: AAOx4 [place] Coma Scale Eye Opening: Spontaneous [place] Coma Scale Verbal: Oriented Tia Coma Scale Motor: Obeys Commands Tia Coma Scale Total: 15 Speech: Normal Motor strength normal: LUE, RUE, LLE, RLE Sensory: Normal - Psychological Associated symptoms: Normal affect, Normal mood - Skin Skin Temperature: Warm Skin Moisture: Dry Skin Color: Normal Course - Re-evaluation Re-evalutation: 03/29/19 13:53 I am more concerned that she more likely has an underlying pneumonia versus a PE. With her history I will try to get a CT scan with CTA ordered. Some pain medication, breathing treatment and reassess. 03/29/19 16:11 CT scan is relatively unremarkable with exception of some bronchial plugging's. They question whether or not there was some aspiration but however this is unlikely as patient is sleeping with a heart rate in the 70s 2 L of oxygen with a sat of 100% and in no acute distress, afebrile and normal WBC count. Did give patient some Rocephin just based on her history of COPD. I think she is stable for discharge at this time. Her pain is much improved. Will DC. Laboratory 03/29/19 03/29/19 03/29/19 12:42 13:17 13:17 WBC 5.1 RBC 4.20 Hgb 11.7 L Hct 36.4 MCV 87 MCH 27.8 MCHC 32.1 RDW 14.6 H Plt Count 146 L Seg Neutrophils % 66.3 Lymphocytes % 24.5 Monocytes % 6.9 Eosinophils % 1.9 Basophils % 0.4 Absolute Neutrophils 3.4 Absolute Lymphocytes 1.2 Absolute Monocytes 0.4 Absolute Eosinophils 0.1 Absolute Basophils 0.0 PT Cancelled INR Cancelled VBG pH VBG pCO2 VBG HCO3 VBG Base Excess Sodium 139.4 Potassium 4.5 Chloride 102 Carbon Dioxide 34 H Anion Gap 3 L BUN 13 Creatinine 0.96 Est GFR ( Amer) > 60 Est GFR (Non-Af Amer) 57 L Glucose 104 POC Glucose Lactic Acid Calcium 9.2 Total Bilirubin 0.3 Direct Bilirubin 0.3 Neonat Total Bilirubin Not Reportable Neonat Direct Bilirubin Not Reportable Neonat Indirect Bili Not Reportable AST 22 ALT 22 Alkaline Phosphatase 72 NT-Pro-B Natriuret Pep Total Protein 6.0 L Albumin 3.2 L 03/29/19 03/29/19 03/29/19 13:17 13:17 13:17 WBC RBC Hgb Hct MCV MCH MCHC RDW Plt Count Seg Neutrophils % Lymphocytes % Monocytes % Eosinophils % Basophils % Absolute Neutrophils Absolute Lymphocytes Absolute Monocytes Absolute Eosinophils Absolute Basophils PT INR VBG pH 7.34 VBG pCO2 60.3 VBG HCO3 32.1 H VBG Base Excess 4.0 Sodium Potassium Chloride Carbon Dioxide Anion Gap BUN Creatinine Est GFR ( Amer) Est GFR (Non-Af Amer) Glucose POC Glucose Lactic Acid 0.5 L Calcium Total Bilirubin Direct Bilirubin Neonat Total Bilirubin Neonat Direct Bilirubin Neonat Indirect Bili AST ALT Alkaline Phosphatase NT-Pro-B Natriuret Pep 1150 H Total Protein Albumin 03/29/19 03/29/19 14:03 14:11 WBC RBC Hgb Hct MCV MCH MCHC RDW Plt Count Seg Neutrophils % Lymphocytes % Monocytes % Eosinophils % Basophils % Absolute Neutrophils Absolute Lymphocytes Absolute Monocytes Absolute Eosinophils Absolute Basophils PT 12.8 INR 0.96 VBG pH VBG pCO2 VBG HCO3 VBG Base Excess Sodium Potassium Chloride Carbon Dioxide Anion Gap BUN Creatinine Est GFR ( Amer) Est GFR (Non-Af Amer) Glucose POC Glucose 101 Lactic Acid Calcium Total Bilirubin Direct Bilirubin Neonat Total Bilirubin Neonat Direct Bilirubin Neonat Indirect Bili AST ALT Alkaline Phosphatase NT-Pro-B Natriuret Pep Total Protein Albumin Chest X-Ray 03/29/19 11:38 IMPRESSION: COPD. NO ACUTE RADIOGRAPHIC FINDING IN THE CHEST. Chest/Abdomen CTA 03/29/19 12:45 IMPRESSION: 1. Negative examination for pulmonary embolism. 2. There is dependent bilateral heterogeneous and clustered nodular opacity, and bronchial mucus plugging, findings generally consistent with aspiration. 3. Emphysema. 4. Small bilateral pulmonary nodules measuring up to 7 mm in the right pulmonary apex. Recommend follow-up CT examination in 3 to 6 months to ensure stability or resolution per 2017 revised Fleischner society criteria. 5. No displaced rib fractures identified. - Vital Signs Vital signs: Temp Pulse Resp BP Pulse Ox 77 20 149/46 H 96 03/29/19 12:04 03/29/19 12:04 03/29/19 12:04 03/29/19 12:07 - Laboratory Result Diagrams: 03/29/19 13:17 03/29/19 13:17 Laboratory results interpreted by me: 03/29/19 03/29/19 03/29/19 13:17 13:17 13:17 Hgb 11.7 L RDW 14.6 H Plt Count 146 L VBG HCO3 Carbon Dioxide 34 H Anion Gap 3 L Est GFR (Non-Af Amer) 57 L Lactic Acid 0.5 L NT-Pro-B Natriuret Pep Total Protein 6.0 L Albumin 3.2 L 03/29/19 03/29/19 13:17 13:17 Hgb RDW Plt Count VBG HCO3 32.1 H Carbon Dioxide Anion Gap Est GFR (Non-Af Amer) Lactic Acid NT-Pro-B Natriuret Pep 1150 H Total Protein Albumin - EKG Interpretation by Pr EKG shows normal: Sinus rhythm, [place], Intervals, QRS Complexes, ST-T Waves Voltage: Consistant with LVH Additional EKG results interpreted by me: 03/29/19 13:[address] segment elevation or depression. No signs of acute ischemia. There is some artifact but does not represent supraventricular tachycardia as machine has read it. 03/29/19 13:53 Discharge - Discharge Clinical Impression: COPD exacerbation Bilateral pneumonia Qualifiers: Pneumonia type: due to unspecified organism Lung location: lower lobe of lung Qualified Code(s): J18.1 - Lobar pneumonia, unspecified organism Condition: Good Disposition: HOME, SELF-CARE Instructions: Pneumonia ([facility]) Additional Instructions: Need to do the breathing treatments every 4-6 hours. In the event that you are getting worse it will be very important that you return for repeat evaluation. I have given you a small course of some pain medication as well for your chest wall pain from her previous fall. Prescriptions: Azithromycin [Zithromax 250 mg Tablet] 250 mg PO ASDIR PRN #6 tablet PRN Reason: Hydrocodone/Acetaminophen [[place] 5-325 mg Tablet] 1 tab PO TID PRN 4 Days #12 tablet PRN Reason: For Breakthrough Pain Prednisone [Deltasone 20 mg Tablet] 3 tab PO DAILY 5 Days #15 tablet Referrals: COSME DARLING JR, [Primary Care Provider] - Follow up in 3-5 days
[2019-03-29] MEDS ORDERED: KETOROLAC TROMETHAMINE INJ/PF 30 MG/1 ML SDV IV ONE (12:45)
--- NOTE | 2019-03-29 12:51 | RADIOLOGY REPORT (SQ) ---
EXAM DESCRIPTION: CHEST SINGLE VIEW COMPLETED DATE/TIME: 03/29/2019 12:11 pm REASON FOR STUDY: bed 10 sepsis protocol COMPARISON: 07/31/2018 NUMBER OF VIEWS: One view. TECHNIQUE: Single frontal radiographic view of the chest acquired. LIMITATIONS: None. FINDINGS: LUNGS AND PLEURA: No opacities, masses or pneumothorax. No pleural effusion. Attenuated bl ood vessels and flattened harrison-diaphragms. MEDIASTINUM AND HILAR STRUCTURES: No masses. Contour normal. HEART AND VASCULAR STRUCTURES: Heart normal in size. Normal vasculature. BONES: No acute findings. HARDWARE: None in the chest. OTHER: No other significant finding. IMPRESSION: COPD. NO ACUTE RADIOGRAPHIC FINDING IN THE CHEST. TECHNICAL DOCUMENTATION: JOB ID: [id number] [employer]- All Rights Reserved Reading location - IP/workstation name: [email or web address]
--- NOTE | 2019-03-29 13:28 | EKG REPORT ---
SEVERITY:- OTHERWISE NORMAL ECG - NSR 75/MIN. NORMAL EKG EXCEPT FOR BASELINE ARTEFACTS. : Confirmed by: Bong Wilkins MD 29-Mar-2019 13:27:35
[2019-03-29 13:39] LABS: VENOUS BLOOD HCO3 32.1 mmol/L (20-32); VENOUS BLOOD PCO2 60.3 mmHg (35-63); VENOUS BLOOD PH 7.34 (7.30-7.42)
[2019-03-29 13:40] LABS: ABSOLUTE EOSINOPHILS # (AUTO) 0.1 10^3/uL (0.0-0.6); ABSOLUTE LYMPHOCYTES (AUTO) 1.2 10^3/uL (0.5-4.7); ABSOLUTE MONOCYTES (AUTO) 0.4 10^3/uL (0.1-1.4); ABSOLUTE NEUT (AUTO) 3.4 10^3/uL (1.7-8.2); BASOPHILS % (AUTO) 0.4 % (0-2); EOSINOPHILS % (AUTO) 1.9 % (0-6); HEMATOCRIT 36.4 % (36.0-47.0); HEMOGLOBIN 11.7 g/dL (12.0-15.5); LYMPHOCYTES % (AUTO) 24.5 % (13-45); MEAN CORPUSCULAR HEMOGLOBIN 27.8 pg (27.0-33.4); MEAN CORPUSCULAR HGB CONC 32.1 g/dL (32.0-36.0); MEAN CORPUSCULAR VOLUME 87 fl (80-97); MONOCYTES % (AUTO) 6.9 % (3-13); PLATELET COUNT 146 10^3/uL (150-450); RED CELL DISTRIBUTION WIDTH 14.6 % (11.5-14.0); SEGMENTED NEUTROPHILS % (AUTO) 66.3 % (42-78); TOTAL CELLS COUNTED % (AUTO) 100 %; WHITE BLOOD COUNT 5.1 10^3/uL (4.0-10.5)
[2019-03-29] MEDS ORDERED: CEFTRIAXONE 1 GM/D5W RTU 1 GM/50 ML RTUPB IV ONE (13:54)
[2019-03-29 13:59] LABS: ALANINE AMINOTRANSFERASE 22 U/L (9-52); ALBUMIN 3.2 g/dL (3.5-5.0); ALKALINE PHOSPHATASE 72 U/L (38-126); ASPARTATE AMINO TRANSFERASE 22 U/L (14-36); BILIRUBIN,DIRECT 0.3 mg/dL (0.0-0.4); BILIRUBIN,TOTAL 0.3 mg/dL (0.2-1.3); BLOOD UREA NITROGEN 13 mg/dL (7-20); CALCIUM 9.2 mg/dL (8.4-10.2); GLUCOSE 104 mg/dL (75-110); POTASSIUM 4.5 mmol/L (3.6-5.0)
[2019-03-29 14:04] LABS: CARBON DIOXIDE 34 mmol/L (22-30); CHLORIDE 102 mmol/L (98-107); SODIUM 139.4 mmol/L (137-145)
[2019-03-29 14:06] LABS: ANION GAP 3 (5-19)
[2019-03-29 14:23] LABS: INTERNATIONAL RATION (INR) 0.96; PROTHROMBIN TIME 12.8 SEC (11.4-15.4)
--- NOTE | 2019-03-29 15:17 | RADIOLOGY REPORT (SQ) ---
EXAM DESCRIPTION: CTA CHEST COMPLETED DATE/TIME: 03/29/2019 3:01 pm REASON FOR STUDY: chest pain , sob, ? rib fx but hx PE COMPARISON: Chest radiograph, 03/29/2019, CT chest, 09/11/2016 TECHNIQUE: CT scan of the chest performed using helical scanning technique with dynamic intravenous contrast injection. Images reviewed with lung, soft tissue and bone windows. Reconstructed coronal and sagittal MPR images reviewed. Additional 3 dimensional post-processing performed to develop Maximal Intensity Projection images (CT P). All images stored on PACS. All CT scanners at this facility use dose modulation, iterative reconstruction, and/or weight based d osing when appropriate to reduce radiation dose to as low as reasonably achievable (ALARA). [facility]: Dose Right [facility]: CareDose [facility]: Dose Right [facility]: Teradose 4D [facility]: [employer] CONTRAST TYPE AND DOSE: contrast/concentration: Isovue 350.00 mg/ml; Total Contrast Delivered: 64.0 ml; Total Saline Delivered: 80.0 ml Contrast bolus optimized for the pulmonary arteries. Not diagnostic for the aorta. RENAL FUNCTION: GFR > 60. RADIATION DOSE: CT Rad equipment meets quality standard of care and radiation dose reduction techniq ues were employed. CTDIvol: 14.3 - 23.2 mGy. DLP: 569 mGy-cm. . LIMITATIONS: None. FINDINGS: LUNGS AND PLEURA: Moderate centrilobular emphysema. There is dependent bilateral heteroge neous and clustered nodular opacity, and bronchial mucus plugging. There are occasional small bilate ral pulmonary nodules, for example a 7 mm nodule of the right pulmonary apex (series 3, image 20). AORTA AND GREAT VESSELS: No aneurysm. Contrast bolus not optimized for the aorta. HEART: No pericardial effusion. No significant coronary artery calcifications. PULMONARY ARTERIES: No emboli visualized in the main pulmonary arteries or the segmental branches. HILAR AND MEDIASTINAL STRUCTURES: No identified masses or abnormal nodes. HARDWARE: None in the chest. UPPER ABDOMEN: Status post cholecystectomy. IVC filter and partially imaged aortobi-iliac stent endo graft. THYROID AND OTHER SOFT TISSUES: No masses. No adenopathy. BONES: No acute or significant finding. 3D MIPS: Confirm above findings. OTHER: No other significant finding. IMPRESSION: 1. Negative examination for pulmonary embolism. 2. There is dependent bilateral heterogeneous and clustered nodular opacity, and bronchial mucus plug ging, findings generally consistent with aspiration. 3. Emphysema. 4. Small bilateral pulmonary nodules measuring up to 7 mm in the right pulmonary apex. Recommend fo llow-up CT examination in 3 to 6 months to ensure stability or resolution per 2017 revised Fleischner society criteria. 5. No displaced rib fractures identified. COMMENT: Quality ID # [id number]: Final reports with documentation of one or more dose reduction techniques (e.g., Automated exposure control, adjustment of the mA and/or kV according to patient size, use of iterative reconstruction technique) TECHNICAL DOCUMENTATION: JOB ID: [id number] [employer]- All Rights Reserved Reading location - IP/workstation name: [email or web address]
[2019-03-29] MEDS ORDERED: IPRATROPIUM/ALBUTEROL 0.5-2.5 MG/3 ML AMPUL NEB ONE (15:32)
[2019-03-29] MEDS ORDERED: ALBUTEROL SULFATE 0.083% NEB 2.5 MG/3 ML AMPUL NEB ONE (16:20)
[2019-03-29 17:06] VITALS: BP 156/62
== END 2019-03-29 17:06 | disposition home or self-care (01) ==
LOC: ER 11:34
DX: J44.1 Chronic obstructive pulmonary disease with (acute) exacerbation (principal); J18.1 Lobar pneumonia, unspecified organism; R07.89 Other chest pain; I50.9 Heart failure, unspecified; I25.2 Old myocardial infarction; E78.00 Pure hypercholesterolemia, unspecified; I11.0 Hypertensive heart disease with heart failure; Z86.711 Personal history of pulmonary embolism; Z90.49 Acquired absence of other specified parts of digestive tract; Z90.710 Acquired absence of both cervix and uterus
CPT/HCPCS: 93005; 94640 ×2; 99284; 96375; 96365; 96366; 36415; 87040; 82962; 85025; 85610; 80053; 82803; 83605; 83880; 71045; 71275; 93010; J1885; J0696; A9270 ×2; J7620

== ENCOUNTER → 2019-05-01 | Outpatient (CLI) | payer MEDICARE ==
[2019-05-01 11:54] LABS: ANION GAP 7 (5-19); BLOOD UREA NITROGEN 15 mg/dL (7-20); CALCIUM 9.7 mg/dL (8.4-10.2); CARBON DIOXIDE 33 mmol/L (22-30); CHLORIDE 101 mmol/L (98-107); GLUCOSE 98 mg/dL (75-110); POTASSIUM 4.9 mmol/L (3.6-5.0)
== END ==
LOC: OD 10:25
PROVIDERS: ATTEND Internal Medicine Cardiovascular Disease
DX: I12.9 Hypertensive chronic kidney disease with stage 1 through stage 4 chronic kidney disease, or unspecified chronic kidney disease (principal); N18.3 Chronic kidney disease, stage 3 (moderate)
CPT/HCPCS: 36415; 80048

== ENCOUNTER 2019-07-11 18:07 | Inpatient (IN) | payer MEDICARE ==
--- NOTE | 2019-07-11 18:20 | ER Document Report ---
ED Medical Screen (RME) - General Chief Complaint: Fall Stated Complaint: MULTPLIE FALLS, TREMORS, UNABLE TO URINATE Time Seen by Provider: 07/11/19 18:14 Primary Care Provider: NEIDA KLEIN MD [Primary Care Provider] - Follow up as needed Information source: Patient Notes: This 7-year-old female with long history of comorbidities to include high blood pressure PE [place] hypertension, pneumonia and COPD that is on home oxygen presents to the emergency department with reports of multiple falls in the last few days.. Granddaughter with her reports patient is not acting herself, altered me ntal status. Patient is falling asleep talking to her. Complains of neck pain with palpation. Reports she hit her head when she fell. She used to be on Plavix but is now taking aspirin. I have greeted and performed a rapid initial assessment of this patient. A comprehensive ED assessment and evaluation of the patient, analysis of test results and completion of the medical decision making process will be conducted by additional ED providers. Dictation of this chart was performed using voice recognition software; therefore, there may be some unintended grammatical errors. TRAVEL OUTSIDE OF THE [place] IN LAST 30 DAYS: No - Related Data Allergies/Adverse Reactions: droperidol [Droperidol] Allergy (Severe, Verified 03/22/18 11:09) Anaphylaxis Past Medical History - Past Medical History Cardiac Medical History: Reports: Hx Congestive Heart Failure, Hx Heart Attack - MILD HEART ATTACK 2015, NO STENTS OR SX, Hx Hypercholesterolemia, Hx Hypertension - ON MEDS, Hx Peripheral Vascular Disease, Hx Pulmonary Embolism - x 2 Denies: Hx Atrial Fibrillation, Hx Coronary Artery Disease, Hx Heart Murmur Pulmonary Medical History: Reports: Hx Asthma, Hx Bronchitis, Hx COPD, Hx Pneumonia - LAST IN 2015, Hx Sleep Apnea - CPAP qhs Denies: Hx Respiratory Failure, Hx Tuberculosis Neurological Medical History: Denies: Hx Cerebrovascular Accident, Hx Seizures Endocrine Medical History: Denies: Hx Graves' Disease, Hx Hyperthyroidism, Hx Hypothyroidism Renal/ Medical History: Reports: Hx Ovarian Cysts. Denies: Hx End Stage Renal Disease, Hx Kidney Stones, Hx Peritoneal Dialysis, Hx Pelvic Inflammatory Disease Malignancy Medical History: Denies: Hx Breast Cancer, Hx Cervical Cancer, Hx Leukemia, Hx Lung Cancer, Hx Ovarian Cancer GI Medical History: Reports: Hx Gastroesophageal Reflux Disease, Hx Ulcer. Denies: Hx Crohn's Disease, Hx Hepatitis, Hx Hiatal Hernia, Hx Irritable Bowel, Hx Liver Failure, Hx Pancreatitis Musculoskeltal Medical History: Reports Hx Arthritis - GENERALIZED, Denies Hx Fibromyalgia, Reports Hx Gout, Denies Hx Muscular Dystrophy, Denies Hx Systemic Lupus Erythematosus Psychiatric Medical History: Denies: Hx Bipolar Disorder, Hx Depression, Hx Post Traumatic Stress Disorder, Hx Schizophrenia Traumatic Medical History: Reports: Hx Fractures - 2013 RT hand "2 fingers"/casted Infectious Medical History: Denies: Hx Hepatitis, Hx HIV Past Surgical History: Reports: Hx Bowel Surgery - exp lap, r/t colon perf/colonoscopy approx 2002, Hx Cholecystectomy - lap cholecystectomy, Hx Hysterectomy, Hx Tonsillectomy, Hx Vascular Surgery - STENT LLE.. Denies: Hx Appendectomy, Hx Section, Hx Colostomy, Hx Coronary Artery Bypass Graft, Hx Gastric Bypass Surgery, Hx Herniorrhaphy, Hx Mastectomy, Hx Open Heart Surgery, Hx Pacemaker, Hx Tubal Ligation - Immunizations Hx Diphtheria, Pertussis, Tetanus Vaccination: No Doctor's Discharge - Discharge Referrals: NEIDA KLEIN MD [Primary Care Provider] - Follow up as needed
--- NOTE | 2019-07-11 19:07 | RADIOLOGY REPORT (SQ) ---
EXAM DESCRIPTION: CT HEAD WITHOUT COMPLETED DATE/TIME: 07/11/2019 6:50 pm REASON FOR STUDY: fall, decreased change in loc, hit head weakness COMPARISON: None. TECHNIQUE: Axial images acquired through the brain without intravenous contrast. Images reviewed wi th bone, brain and subdural windows. Additional sagittal and coronal reconstructions were generated. Images stored on PACS. All CT scanners at this facility use dose modulation, iterative reconstruction, and/or weight based d osing when appropriate to reduce radiation dose to as low as reasonably achievable (ALARA). [facility]: Dose Right [facility]: CareDose [facility]: Dose Right [facility]: Teradose 4D [facility]: [place] RADIATION DOSE: CT Rad equipment meets quality standard of care and radiation dose reduction techniq ues were employed. CTDIvol: 53.2 mGy. DLP: 911 mGy-cm. mGy. LIMITATIONS: None. FINDINGS: VENTRICLES: Normal size and contour. CEREBRUM: No masses. No hemorrhage. No midline shift. No evidence for acute infarction. Normal gra y/white matter differentiation. No areas of low density in the white matter. CEREBELLUM: No masses. No hemorrhage. No alteration of density. No evidence for acute infarction. EXTRAAXIAL SPACES: No fluid collections. No masses. ORBITS AND GLOBE: No intra- or extraconal masses. Normal contour of globe without masses. CALVARIUM: No fracture. PARANASAL SINUSES: No fluid or mucosal thickening. SOFT TISSUES: No mass or hematoma. OTHER: No other significant finding. IMPRESSION: NORMAL BRAIN CT WITHOUT CONTRAST. EVIDENCE OF ACUTE STROKE: NO. COMMENT: Quality ID # [id number]: Final reports with documentation of one or more dose reduction techniques (e.g., Automated exposure control, adjustment of the mA and/or kV according to patient size, use of iterative reconstruction technique) TECHNICAL DOCUMENTATION: JOB ID: [id number] [employer]- All Rights Reserved Reading location - IP/workstation name: [email or web address]
--- NOTE | 2019-07-11 19:11 | RADIOLOGY REPORT (SQ) ---
EXAM DESCRIPTION: CT CERVICAL SPINE WITHOUT COMPLETED DATE/TIME: 07/11/2019 6:50 pm REASON FOR STUDY: fall, neck pain COMPARISON: 02/21/2017 None. TECHNIQUE: Axial images acquired through the cervical spine without intravenous contrast. Images re viewed with lung, soft tissue and bone windows. Reconstructed coronal and sagittal MPR images review ed. Images stored on PACS. All CT scanners at this facility use dose modulation, iterative reconstruction, and/or weight based d osing when appropriate to reduce radiation dose to as low as reasonably achievable (ALARA). [facility]: Dose Right [facility]: CareDose [facility]: Dose Right [facility]: Teradose 4D [facility]: Smart [employer] RADIATION DOSE: CT Rad equipment meets quality standard of care and radiation dose reduction techniq ues were employed. CTDIvol: 14.4 mGy. DLP: 260 mGy-cm. mGy. LIMITATIONS: None. FINDINGS: ALIGNMENT: Anatomic. MINERALIZATION: Normal. VERTEBRAL BODIES: No fractures or dislocation. DISCS: There is mild disc narrowing at C3-4 and C4-5 with minimal marginal osteophytes. FACETS, LATERAL MASSES, POSTERIOR ELEMENTS: Hypertrophic facet changes in the mid cervical spine on t he right. HARDWARE: None in the spine. VISUALIZED RIBS: No fractures. LUNG APICES AND SOFT TISSUES: No significant or acute findings. OTHER: No other significant finding. IMPRESSION: Mild degenerative disc disease, spondylosis, and facet arthropathy. No acute finding. TECHNICAL DOCUMENTATION: JOB ID: [id number] Quality ID # [id number]: Final reports with documentation of one or more dose reduction techniques (e.g., Au tomated exposure control, adjustment of the mA and/or kV according to patient size, use of iterative reconstruction technique) 2010 [employer]- All Rights Reserved Reading location - IP/workstation name: [email or web address]
--- NOTE | 2019-07-11 19:14 | RADIOLOGY REPORT (SQ) ---
EXAM DESCRIPTION: CHEST 2 VIEWS COMPLETED DATE/TIME: 07/11/2019 7:03 pm REASON FOR STUDY: fall, decreased change in loc, hit head weakness COMPARISON: 03/29/2019 EXAM PARAMETERS: NUMBER OF VIEWS: two views TECHNIQUE: Digital Frontal and Lateral radiographic views of the chest acquired. RADIATION DOSE: NA LIMITATIONS: none FINDINGS: LUNGS AND PLEURA: Mild hyperexpansion of the lungs with flattening of the diaphragms. No infiltrate, effusion, or mass. MEDIASTINUM AND HILAR STRUCTURES: No masses or contour abnormalities. HEART AND VASCULAR STRUCTURES: Heart normal size. No evidence for failure. BONES: No acute findings. HARDWARE: None in the chest. OTHER: No other significant finding. IMPRESSION: Chronic lung changes with no acute cardiopulmonary findings. TECHNICAL DOCUMENTATION: JOB ID: [id number] [employer]- All Rights Reserved Reading location - IP/workstation name: [email or web address]
--- NOTE | 2019-07-11 19:15 | RADIOLOGY REPORT (SQ) ---
EXAM DESCRIPTION: T SPINE AP/LAT COMPLETED DATE/TIME: 07/11/2019 7:03 pm REASON FOR STUDY: fall, pain COMPARISON: None. NUMBER OF VIEWS: Two views. TECHNIQUE: AP and lateral radiographic images acquired of the thoracic spine. LIMITATIONS: None. FINDINGS: MINERALIZATION: Normal. ALIGNMENT: Normal. No scoliosis. VERTEBRAE: No fracture or bone lesion. Maintained height, normal segmentation. DISCS: No significant loss of height or significant narrowing. No large osteophytes. HARDWARE: None in the spine. MEDIASTINUM AND SOFT TISSUES: Normal heart size and aortic contour. No soft tissue abnormality. VISUALIZED LUNG BRITO: Clear. OTHER: No other significant finding. IMPRESSION: NO SIGNIFICANT RADIOGRAPHIC FINDING IN THE THORACIC SPINE. TECHNICAL DOCUMENTATION: JOB ID: [id number] [employer]- All Rights Reserved Reading location - IP/workstation name: [email or web address]
--- NOTE | 2019-07-11 19:17 | RADIOLOGY REPORT (SQ) ---
EXAM DESCRIPTION: L SPINE WHOLE COMPLETED DATE/TIME: 07/11/2019 7:03 pm REASON FOR STUDY: fall, pain COMPARISON: None. NUMBER OF VIEWS: Five views including obliques. TECHNIQUE: AP, lateral, oblique, and sacral radiographic images acquired of the lumbar spine. LIMITATIONS: None. FINDINGS: MINERALIZATION: Normal. SEGMENTATION: Normal. No transitional anatomy. ALIGNMENT: Minimal scoliosis. VERTEBRAE: Maintained height. No fracture or worrisome bone lesion. DISCS: All the lumbar disc spaces are narrowed. Small marginal osteophytes are present. POSTERIOR ELEMENTS: Hypertrophic facet changes is seen from L3-S1. HARDWARE: None in the spine. Aortoiliac stents, IVC filter, and some type of infusion pump appear PARASPINAL SOFT TISSUES: Normal. PELVIS: Intact as visualized. No fractures or worrisome bone lesions. SI joints intact. OTHER: No other significant finding. IMPRESSION: Minimal scoliosis. Degenerative disc disease, spondylosis, and facet arthropathy. TECHNICAL DOCUMENTATION: JOB ID: [id number] [email or web address]- All Rights Reserved Reading location - IP/workstation name: [email or web address]
--- NOTE | 2019-07-11 19:26 | ER Document Report ---
ED Fall - General Chief Complaint: Fall Stated Complaint: MULTPLIE FALLS, TREMORS, UNABLE TO URINATE Time Seen by Provider: 07/11/19 19:26 Information source: Patient, Relative Notes: HISTORY OF PRESENT ILLNESS: Patient is a 74-year-old female with a past medical history of multiple chronic health conditions including CHF, COPD, chronic renal failure, and peripheral vascular disease who presents with weakness and a witnessed fall earlier today while at home. Patient reports that she stood from a seated position and felt weakness in her legs, denies feeling palpitations or having lightheadedness/dizziness, reports "my legs just gave out on me." But the patient and family report she has been having increasing weakness lately with decreased appetite, denies no sick contacts or fevers, denies chest pain or tr ouble breathing above her baseline. Location: Global Onset: Several days ago Alleviation: None Provocation: Movement Quality: Weakness Radiation: None Severity: Moderate Timing: Constant History of CAD: Yes Associated symptoms: Denies fevers or chills, no cough or congestion above baseline, no nausea or vomiting, no diarrhea REVIEW OF SYSTEMS: CONSTITUTIONAL : Positive for weakness. Denies fever or chills, no sweats. Denies recent illness. EENT: Denies eye, ear, throat, or mouth pain or symptoms. Denies nasal or sinus congestion. CARDIOVASCULAR: Denies chest pain. Denies swelling of the legs. RESPIRATORY: Denies cough, cold, or chest congestion. Denies shortness of breath or difficulty breathing. Denies wheezing. GASTROINTESTINAL: Denies abdominal pain. Denies nausea, vomiting, or diarrhea. Denies constipation. GENITOURINARY: Denies difficulty urinating, painful urination, burning, frequency, or blood in urine. MUSCULOSKELETAL: Positive for chronic back pain. SKIN: Denies rash or skin lesions. HEMATOLOGIC : Denies easy bruising or bleeding. LYMPHATIC: Denies swollen, enlarged glands. NEUROLOGICAL: Denies altered mental status or loss of consciousness. Denies headache. Denies weakness or paralysis or loss of use of either side. Denies problems with gait or speech. Denies sensory or motor loss. PSYCHIATRIC: Denies anxiety or stress or depression. All other systems reviewed and negative. PHYSICAL EXAMINATION: GENERAL: Frail-appearing, appears slightly malnourished and in mild acute distress. HEAD: Atraumatic, normocephalic. No scalp deformity, depression, or crepitance. EYES: Pupils are 2mm and equal/round/reactive to light, extraocular movements intact, sclera anicteric, conjunctiva are normal. ENT: Nares patent bilaterally, oropharynx. Moist mucous membranes. No tonsil hypertrophy. NECK: Cervical collar in place. Normal range of motion, supple without lymphadenopathy. LUNGS: Breath sounds diminished bilaterally. No wheezes, rales, or rhonchi. HEART: Regular rate and rhythm without murmurs, rubs, or gallops. 2+ peripheral pulses. Normal capillary refill. ABDOMEN: Soft, nontender, nondistended. Normoactive bowel sounds. No guarding, no rebound. No masses appreciated. BACK: Normal contour, no midline tenderness. Rectal exam deferred. GENITAL/PELVIC: Deferred. EXTREMITIES: Normal range of motion, no pitting or edema. No cyanosis. NEUROLOGICAL: No focal neurological deficits. Moves all extremities spontaneously and on command. PSYCH: Normal mood, normal affect. No suicidal thoughts/ideations. No homicidal thoughts/ideations. No hallucinations. SKIN: Warm, dry, normal turgor, no rashes or lesions noted. ASSESSMENT AND PLAN: This patient is a 74-year-old female who presents with chronic weakness with acute on chronic back pain after mechanical fall at home due to leg weakness. There are no apparent signs of trauma on exam, concern for weakness that could result from any of her chronic conditions. Concern for acute NC versus UTI versus worsening renal failure versus intracranial hemorrhage/trauma/injury. 1. Will obtain labs, urine, cardiac enzymes, CT head, chest x-ray, and reassess. 2. Will reassess. TRAVEL OUTSIDE OF THE [place] IN LAST 30 DAYS: No - HPI Occurred: Just prior to arrival Where: Home Context: Fell from height Associated symptoms: Other - Body pain Location of injury/pain: Back Quality of pain: Achy, Cramping Severity: Moderate Pain Level: 3 Prehospital interventions: C-collar - Related data Allergies/Adverse Reactions: droperidol [Droperidol] Allergy (Severe, Verified 03/22/18 11:09) Anaphylaxis Home Medications: 2 blood pressure medications, Percocet 30mg, Morphine pump, 81mg Aspirin Daily, Lisinopril, HCTZ 20mg BID, multivitamin, albuterol, claritin, flonase Past Medical History - General Information source: Patient, Relative - Social History Smoking Status: Current Every Day Smoker Chew tobacco use (# tins/day): No Frequency of alcohol use: None Drug Abuse: None Lives with: Alone Family History: Reviewed & Not Pertinent Patient has suicidal ideation: No Patient has homicidal ideation: No - Past Medical History Cardiac Medical History: Reports: Hx Congestive Heart Failure, Hx Heart Attack - MILD HEART ATTACK 2016, NO STENTS OR SX, Hx Hypercholesterolemia, Hx Hypertension - ON MEDS, Hx Peripheral Vascular Disease, Hx Pulmonary Embolism - x 2 Denies: Hx Atrial Fibrillation, Hx Coronary Artery Disease, Hx Heart Murmur Pulmonary Medical History: Reports: Hx Asthma, Hx Bronchitis, Hx COPD, Hx Pneumonia - LAST IN 2015, Hx Sleep Apnea - CPAP qhs Denies: Hx Respiratory Failure, Hx Tuberculosis EENT Medical History: Reports: None Neurological Medical History: Reports: None. Denies: Hx Cerebrovascular Accident, Hx Seizures Endocrine Medical History: Reports: None. Denies: Hx Graves' Disease, Hx Hyperthyroidism, Hx Hypothyroidism Renal/ Medical History: Reports: Hx Ovarian Cysts. Denies: Hx End Stage Renal Disease, Hx Kidney Stones, Hx Peritoneal Dialysis, Hx Pelvic Inflammatory Disease Malignancy Medical History: Reports: None. Denies: Hx Breast Cancer, Hx Cervical Cancer, Hx Leukemia, Hx Lung Cancer, Hx Ovarian Cancer GI Medical History: Reports: Hx Gastroesophageal Reflux Disease, Hx Ulcer. Denies: Hx Crohn's Disease, Hx Hepatitis, Hx Hiatal Hernia, Hx Irritable Bowel, Hx Liver Failure, Hx Pancreatitis Musculoskeletal Medical History: Reports Hx Arthritis - GENERALIZED, Denies Hx Fibromyalgia, Reports Hx Gout, Denies Hx Muscular Dystrophy, Denies Hx Systemic Lupus Erythematosus Skin Medical History: Reports None Psychiatric Medical History: Reports: None Denies: Hx Bipolar Disorder, Hx Depression, Hx Post Traumatic Stress Disorder, Hx Schizophrenia Traumatic Medical History: Reports: Hx Fractures - 2013 RT hand "2 fingers"/casted Infectious Medical History: Reports: None. Denies: Hx Hepatitis, Hx HIV Past Surgical History: Reports: Hx Bowel Surgery - exp lap, r/t colon perf/colonoscopy approx 2002, Hx Cholecystectomy - lap cholecystectomy, Hx Hysterectomy, Hx Tonsillectomy, Hx Vascular Surgery - STENT LLE.. Denies: Hx Appendectomy, Hx Section, Hx Colostomy, Hx Coronary Artery Bypass Graft, Hx Gastric Bypass Surgery, Hx Herniorrhaphy, Hx Mastectomy, Hx Open Heart Surgery, Hx Pacemaker, Hx Tubal Ligation - Immunizations Hx Diphtheria, Pertussis, Tetanus Vaccination: No Hx Pneumococcal Vaccination: 06/14/17 Review of Systems - Review of Systems Constitutional: No symptoms reported EENT: No symptoms reported Cardiovascular: No symptoms reported Respiratory: No symptoms reported Gastrointestinal: No symptoms reported Genitourinary: No symptoms reported Female Genitourinary: No symptoms reported Musculoskeletal: Back pain Skin: No symptoms reported Hematologic/Lymphatic: No symptoms reported Neurological/Psychological: No symptoms reported -: Yes All other systems reviewed and negative Physical Exam - Vital signs Vitals: Temp Pulse Resp BP Pulse Ox 98.0 F 74 20 143/107 H 92 07/11/19 18:16 07/11/19 18:16 07/11/19 18:16 07/11/19 18:16 07/11/19 18:16 Interpretation: Normal Course - Re-evaluation Re-evalutation: 07/11/19 22:51 Labs indicate likely dehydration with prerenal azotemia and acute renal failure. Patient will be IV fluids rehydrated and is admitted to the hospital. - Vital Signs Vital signs: Temp Pulse Resp BP Pulse Ox 97.7 F 74 12 120/75 97 07/11/19 21:56 07/11/19 18:16 07/12/19 03:01 07/12/19 03:01 07/12/19 03:01 - Laboratory Result Diagrams: 07/11/19 19:15 07/11/19 19:15 Laboratory results interpreted by me: 07/11/19 07/11/19 07/11/19 19:15 19:15 21:50 WBC 11.1 H RDW 14.3 H Plt Count 145 L Carbonic Acid 2.13 H ABG pH 7.27 L ABG pCO2 70.8 H* ABG pO2 74.9 L ABG HCO3 31.5 H ABG Total CO2 33.7 H ABG O2 Saturation 92.5 L Sodium 135.2 L Potassium 5.3 H Chloride 96 L Carbon Dioxide 33 H BUN 56 H Creatinine 2.86 H Est GFR ( Amer) 20 L Est GFR (MDRD) Non-Af 16 L - Diagnostic Test Radiology reviewed: Image reviewed, Reports reviewed - EKG Interpretation by Me EKG shows normal: Sinus rhythm Rate: Normal Rhythm: NSR [place]/QRS: No: Right axis deviation, Left axis deviation, RBBB, LBBB, IVCD, LAHB/LAFB, LPHB/LPFB, Bifasicular block Voltage: No: Increased voltage, Consistant with LVH, Decreased voltage, Throughout, Limb leads P Waves: No: LOLY, LAE, Absent, AV Dissociation, Other Heart block present: No: 1st Degree, Mobitz 1, Mobitz 2, CHB (3rd degree block) When compared to previous EKG there are: No significant change - Consults Dr. Rojo Time consulted: 22:51 Consulted provider: will come to ER, will see as inpatient Discharge - Discharge Clinical Impression: Hyperkalemia, Dehydration Acute renal failure Qualifiers: Acute renal failure type: unspecified Qualified Code(s): N17.9 - Acute kidney failure, unspecified Condition: Stable Disposition: ADMITTED INPATIENT Admitting Provider: Darrel (Hospitalist) Unit Admitted: Medical Floor
[2019-07-11 19:37] LABS: ABSOLUTE EOSINOPHILS # (AUTO) 0.2 10^3/uL (0.0-0.6); ABSOLUTE LYMPHOCYTES (AUTO) 2.1 10^3/uL (0.5-4.7); ABSOLUTE MONOCYTES (AUTO) 0.8 10^3/uL (0.1-1.4); ABSOLUTE NEUT (AUTO) 7.9 10^3/uL (1.7-8.2); BASOPHILS % (AUTO) 0.4 % (0-2); EOSINOPHILS % (AUTO) 1.6 % (0-6); HEMATOCRIT 38.9 % (36.0-47.0); HEMOGLOBIN 12.4 g/dL (12.0-15.5); LYMPHOCYTES % (AUTO) 19.1 % (13-45); MEAN CORPUSCULAR HEMOGLOBIN 28.2 pg (27.0-33.4); MEAN CORPUSCULAR VOLUME 88 fl (80-97); MONOCYTES % (AUTO) 7.4 % (3-13); PLATELET COUNT 145 10^3/uL (150-450); RED BLOOD COUNT 4.41 10^6/uL (3.72-5.28); RED CELL DISTRIBUTION WIDTH 14.3 % (11.5-14.0); SEGMENTED NEUTROPHILS % (AUTO) 71.5 % (42-78); TOTAL CELLS COUNTED % (AUTO) 100 %; WHITE BLOOD COUNT 11.1 10^3/uL (4.0-10.5)
[2019-07-11 19:58] LABS: ALBUMIN 3.5 g/dL (3.5-5.0); ALKALINE PHOSPHATASE 103 U/L (38-126); ANION GAP 6 (5-19); ASPARTATE AMINO TRANSFERASE 35 U/L (14-36); BILIRUBIN,DIRECT 0.4 mg/dL (0.0-0.4); BILIRUBIN,TOTAL 0.6 mg/dL (0.2-1.3); BLOOD UREA NITROGEN 56 mg/dL (7-20); CALCIUM 9.5 mg/dL (8.4-10.2); CARBON DIOXIDE 33 mmol/L (22-30); CHLORIDE 96 mmol/L (98-107); GLUCOSE 88 mg/dL (75-110); POTASSIUM 5.3 mmol/L (3.6-5.0); TOTAL PROTEIN 6.9 g/dL (6.3-8.2)
[2019-07-11] MEDS ORDERED: NORMAL SALINE 1000 ML 1,000 ML IV ONE (20:02)
[2019-07-11] MEDS ORDERED: MORPHINE SULFATE 10 MG/ML INJ IV ONE (20:04)
[2019-07-11 20:21] LABS: CREATINE KINASE 50 U/L (30-135)
[2019-07-11 20:22] LABS: ALCOHOL < 10 mg/dL (NONE DETECTED)
[2019-07-11 22:12] LABS: ARTERIAL BLOOD BASE EXCESS 2.9 mmol/L; ARTERIAL BLOOD H2CO3 2.13 mmol/L (1.05-1.35); ARTERIAL BLOOD HCO3 31.5 mmol/L (20-24); ARTERIAL BLOOD O2 SATURATION 92.5 % (94-98); ARTERIAL BLOOD PH 7.27 (7.35-7.45); ARTERIAL BLOOD PO2 74.9 mmHg (80-100); ARTERIAL BLOOD TOTAL CO2 33.7 mmol/L (21-25)
[2019-07-11 22:14] LABS: APPEARANCE,URINE CLEAR; BILIRUBIN,URINE NEGATIVE (NEGATIVE); COLOR,URINE YELLOW; GLUCOSE, URINE NEGATIVE (NEGATIVE); KETONES,URINE NEGATIVE (NEGATIVE); LEUKOCYTE ESTERASE,URINE NEGATIVE (NEGATIVE); NITRITE,URINE NEGATIVE (NEGATIVE); PROTEIN,URINE NEGATIVE (NEGATIVE); URINE SPECIFIC GRAVITY 1.011; UROBILINOGEN,URINE NEGATIVE mg/dL (<2.0)
[2019-07-11 22:19] LABS: ARTERIAL BLOOD FIO2 2
[2019-07-11 22:22] LABS: ARTERIAL BLOOD PCO2 70.8 mmHg (35-45)
[2019-07-11 22:31] LABS: URINE AMPHETAMINES SCREEN NEGATIVE; URINE BARBITURATES SCREEN NEGATIVE; URINE BENZODIAZEPINES SCREEN NEGATIVE; URINE COCAINE SCREEN NEGATIVE; URINE MARIJUANA (THC) SCREEN NEGATIVE; URINE METHADONE SCREEN NEGATIVE; URINE PHENCYCLIDINE SCREEN NEGATIVE
[2019-07-11] MEDS ORDERED: HYDRALAZINE HCL INJ/PF 20 MG/1 ML SDV IV PRN (23:30)
[2019-07-11] MEDS ORDERED: ACETAMINOPHEN 325 MG TABLET PO PRN (23:30)
[2019-07-11] MEDS ORDERED: MORPHINE SULFATE 10 MG/ML INJ IV PRN ×3 (23:30→23:47)
[2019-07-12] MEDS ORDERED: MAG HYDROX/AL HYDROX/SIMETH SUSP 30 ML UDCUP PO PRN (00:17)
[2019-07-12] MEDS ORDERED: LEVALBUTEROL HCL NEB 0.63 MG/3 ML AMPUL NEB PRN (00:17)
[2019-07-12] MEDS ORDERED: ONDANSETRON HCL INJ/PF 4 MG/2 ML SDV IV PRN (00:17)
[2019-07-12] MEDS ORDERED: MAGNESIUM HYDROXIDE SUSP 30 ML UDCUP PO PRN (00:17)
[2019-07-12] MEDS ORDERED: TEMAZEPAM 7.5 MG CAPSULE PO PRN (00:17)
[2019-07-12] MEDS ORDERED: RINGERS SOLUTION,LACTATED 1,000 ML IV PRN (00:17)
[2019-07-12] MEDS: MORPHINE SULFATE 10 MG/ML INJ IV PRN ×2 (00:24→06:20)
[2019-07-12] MEDS ORDERED: NICOTINE 21 MG/24 HR PATCH.TD24 TD PRN (00:24)
--- NOTE | 2019-07-12 06:10 | PDOC H&P ---
History of Present Illness Admission Date/PCP: 07/11/19 22:56 BEN HINSON NP Patient complains of: Acute weakness History of Present Illness: MELISSA BOSCH is a 74 year old female who presented to the emergency room with acute weakness resulting in a fall. She admits that while standing up, from a seated position, at home earlier today and her legs and knees were too weak to support her resulting in her falling to the floor. In the fall she did strike her head without loss of consciousness. Since the fall she has complained of increased "achy" back pain over her chronic back pain baseline and pelvic pain. She denies other associated or accompanying signs and symptoms. She admits a prior similar episode due to acute renal failure in the past. She has not identified any aggravating or ameliorating factors for her weakness. In the emergency room she was thoroughly evaluated for fractures or serious injuries due to her fall and none were noted. She continues to be in increased back pain and having pain in her pelvic region. She also continues to have weakness and does not feel that she can stand up and support her weight. She was noted to have an elevated BUN at 56 and creatinine of 2.86 which are significantly above normal value baseline. She was subsequently admitted to the hospital for further evaluation and treatment. Past Medical History Cardiac Medical History: Reports: Congestive Heart Failure, Myocardial Infarcti on - MILD HEART ATTACK 2015, NO STENTS OR SX, Hyperlipidema, Hypertension - ON MEDS, Peripheral Vascular Disease, Pulmonary Embolism - x 2 Denies: Atrial Fibrillation, Coronary Artery Disease, Heart Murmur Pulmonary Medical History: Reports: Asthma, Bronchitis, Chronic Obstructive Pulmonary Disease (COPD), Pneumonia - LAST IN 2015, Sleep Apnea - CPAP qhs Denies: Respiratory Failure, Tuberculosis EENT Medical History: Denies: Cataracts, Ears - Hearing aids Neurological Medical History: Denies: Hemorrhagic CVA, Ischemic CVA, Seizures Endocrine Medical History: Denies: Diabetes Mellitus Type 1, Diabetes Mellitus Type 2, Hyperthyroidism, Hypothyroidism Renal/ Medical History: Denies: End Stage Renal Disease Malignancy Medical History: Reports: None GI Medical History: Reports: Gastroesophageal Reflux Disease Denies: Cirrhosis, Crohn's Disease, Hepatitis, Hiatal Hernia Musculoskeltal Medical History: Reports: Arthritis - Poly-osteoarthritis, Gout Denies: Fibromyalgia Skin Medical History: Denies: Eczema, Psoriasis Psychiatric Medical History: Reports: Tobacco Dependency Denies: Alcohol Dependency, Depression, Substance Abuse Traumatic Medical History: Reports: None Hematology: Reports: Anemia - H/O 2X BLOOD TRANSFUSIONS Denies: Bleeding Tendencies Infectious Medical History: Reports: None Past Surgical History Past Surgical History: Reports: Cholecystectomy - Laparoscopic cholecystectomy, Hysterectomy, Tonsillectomy, Vascular Surgery - STENT LLE. Social History Information Source: Patient Lives with: Alone Smoking Status: Current Every Day Smoker Electronic Cigarette use?: No Frequency of Alcohol Use: None Hx Recreational Drug Use: No Drugs: None Hx Prescription Drug Abuse: No - Advance Directive Resuscitation Status: Full Code Surrogate healthcare decision maker:: Ramila Amezquita Family History Family History: CAD, CVA, DM, Hypertension, Malignancy, Other - Sleep apnea Parental Family History Reviewed: Yes Children Family History Reviewed: No Sibling(s) Family History Reviewed.: Yes Medication/Allergy Home Medications: Gabapentin [Neurontin 300 mg Capsule] 300 mg PO TID 11/07/12 Montelukast Sodium [Singulair 10 mg Tablet] 10 mg PO QPM 07/10/13 Oxycodone HCl [Oxy-Ir 5 mg Tablet] 30 mg PO QIDP PRN 09/27/14 Albuterol Sulfate [Ventolin HFA MDI 18 GM] 2 puff IH QIDP PRN #0 09/25/15 Aspirin [Adult Aspirin] 81 mg PO DAILY 03/22/18 Cetirizine HCl [Zyrtec] 10 mg PO DAILY 03/22/18 Furosemide [Lasix 20 mg Tablet] 20 mg PO QAM 03/22/18 Calcium Carbonate [Tums Chewable 500 mg Tab.chew] 500 mg PO PRN PRN 07/29/18 Cholecalciferol (Vitamin D3) [Vitamin D3 1000 Unit Tablet] 2,000 unit PO DAILY 07/29/18 Cyanocobalamin (Vitamin B-12) [Vitamin B-12] 1,000 mcg PO DAILY 07/29/18 Docusate Sodium [Diocto] 150 mg PO BID 07/29/18 Ferrous Sulfate [Iron] 325 mg PO DAILY 07/29/18 Fluticasone Propionate [Flonase Nasal Diana 50 Mcg/Diana 16 gm] 1 spray NASL DAILY 07/29/18 Fluticasone/Umeclidin/Vilanter [Trelegy 100-62.5-25 Mcg Ellipta 14 Dose/Dpi] 1 each IH DAILY 07/29/18 Ipratropium/Albuterol Sulfate [Duoneb 3 ml Ampul] 3 ml NEB RTQ6 07/29/18 Ranitidine HCl 150 mg PO BID 07/29/18 Azithromycin [Zithromax 250 mg Tablet] 250 mg PO ASDIR PRN #6 tablet 03/29/19 Hydrocodone/Acetaminophen [[place] 5-325 mg Tablet] 1 tab PO TID PRN 4 Days #12 tablet 03/29/19 Prednisone [Deltasone 20 mg Tablet] 3 tab PO DAILY 5 Days #15 tablet 03/29/19 Allergies/Adverse Reactions: droperidol [Droperidol] Allergy (Severe, Verified 03/22/18 11:09) Anaphylaxis Review of Systems Constitutional: ABSENT: chills, fever(s) Eyes: ABSENT: visual disturbances, other - Eye pain Ears: ABSENT: hearing changes, other - Ear pain Nose, Mouth, and Throat: ABSENT: mouth pain, sore throat Cardiovascular: ABSENT: chest pain, palpitations Respiratory: ABSENT: cough, dyspnea Gastrointestinal: ABSENT: abdominal pain, constipation, diarrhea, nausea, vomi ting Genitourinary: PRESENT: difficulty urinating - Decreased urine output for the last 2 days. ABSENT: dysuria, hematuria Musculoskeletal: PRESENT: as per HPI, back pain - Chronic and acute, muscle weakness, other - Acute hip/pelvic pain Integumentary: ABSENT: pruritus, rash Neurological: ABSENT: confusion, convulsions, focal weakness, memory loss, syncope Psychiatric: ABSENT: anxiety, depression Endocrine: ABSENT: cold intolerance, heat intolerance Hematologic/Lymphatic: ABSENT: easy bleeding, easy bruising Allergic/Immunologic: ABSENT: seasonal rhinorrhea Physical Exam Vital Signs: Temp Pulse Resp BP Pulse Ox 97.7 F 74 16 110/55 L 95 07/11/19 21:56 07/11/19 18:16 07/11/19 19:09 07/11/19 21:02 07/11/19 19:09 Intake & Output 07/09/19 07/10/19 07/11/19 23:59 23:59 23:59 Intake Total 1000 Balance 1000 Weight 42.6 kg General appearance: PRESENT: cooperative, mild distress - Secondary to back and pelvic region pain Head exam: PRESENT: atraumatic, normocephalic Eye exam: PRESENT: conjunctiva pink. ABSENT: conjunctival injection, scleral icterus Ear exam: PRESENT: normal external ear exam. ABSENT: bleeding, drainage Mouth exam: PRESENT: dry mucosa, neck supple Neck exam: PRESENT: full ROM. ABSENT: thyromegaly, tracheal deviation Respiratory exam: PRESENT: prolonged expiratory phas - Mildly prolonged expiratory phase present throughout all greer, symmetrical, unlabored, wheezes - Mild expiratory wheezes present in all greer Cardiovascular exam: PRESENT: RRR. ABSENT: clicks, gallop, rubs Pulses: PRESENT: normal femoral pulses, normal dorsalis pedis pul Vascular exam: PRESENT: normal capillary refill. ABSENT: pallor GI/Abdominal exam: PRESENT: normal bowel sounds, soft Rectal exam: PRESENT: deferred Extremities exam: ABSENT: joint swelling, pedal edema Musculoskeletal exam: ABSENT: deformity, dislocation Neurological exam: PRESENT: alert, oriented to person, oriented to place, or iented to time, oriented to situation, CN II-XII grossly intact. ABSENT: motor sensory deficit Psychiatric exam: PRESENT: appropriate affect, normal mood Skin exam: PRESENT: dry, intact, warm. ABSENT: jaundice, rash, urticaria Results Laboratory Results: 07/11/19 19:15 07/11/19 19:15 07/11/19 07/11/19 07/11/19 19:15 19:15 21:50 WBC 11.1 H RBC 4.41 Hgb 12.4 Hct 38.9 MCV 88 MCH 28.2 MCHC 32.0 RDW 14.3 H Plt Count 145 L Seg Neutrophils % 71.5 Carbonic Acid 2.13 H HCO3/H2CO3 Ratio 14:1 ABG pH 7.27 L ABG pCO2 70.8 H* ABG pO2 74.9 L ABG HCO3 31.5 H ABG O2 Saturation 92.5 L ABG Base Excess 2.9 FiO2 2 Sodium 135.2 L Potassium 5.3 H Chloride 96 L Carbon Dioxide 33 H Anion Gap 6 BUN 56 H Creatinine 2.86 H Est GFR ( Amer) 20 L Glucose 88 Calcium 9.5 Total Bilirubin 0.6 AST 35 Alkaline Phosphatase 103 Total Protein 6.9 Albumin 3.5 Urine Color Urine Appearance Urine pH Ur Specific [place] Urine Protein Urine Glucose (UA) Urine Ketones Urine Blood Urine Nitrite Ur Leukocyte Esterase Urine WBC (Auto) 07/11/19 21:50 WBC RBC Hgb Hct MCV MCH MCHC RDW Plt Count Seg Neutrophils % Carbonic Acid HCO3/H2CO3 Ratio ABG pH ABG pCO2 ABG pO2 ABG HCO3 ABG O2 Saturation ABG Base Excess FiO2 Sodium Potassium Chloride Carbon Dioxide Anion Gap BUN Creatinine Est GFR ( Amer) Glucose Calcium Total Bilirubin AST Alkaline Phosphatase Total Protein Albumin Urine Color YELLOW Urine Appearance CLEAR Urine pH 5.0 Ur Specific [place] 1.011 Urine Protein NEGATIVE Urine Glucose (UA) NEGATIVE Urine Ketones NEGATIVE Urine Blood NEGATIVE Urine Nitrite NEGATIVE Ur Leukocyte Esterase NEGATIVE Urine WBC (Auto) 1 07/11/19 07/11/19 19:15 19:15 Creatine Kinase 50 Troponin I 0.027 Impressions: Cervical Spine CT 07/11/19 18:20 IMPRESSION: Mild degenerative disc disease, spondylosis, and facet arthropathy. No acute finding. Chest X-Ray 07/11/19 18:20 IMPRESSION: Chronic lung changes with no acute cardiopulmonary findings. Head CT 07/11/19 18:20 IMPRESSION: NORMAL BRAIN CT WITHOUT CONTRAST. EVIDENCE OF ACUTE STROKE: NO. Lumbar Spine X-Ray 07/11/19 18:27 IMPRESSION: Minimal scoliosis. Degenerative disc disease, spondylosis, and facet arthropathy. Thoracic Spine X-Ray 07/11/19 18:27 IMPRESSION: NO SIGNIFICANT RADIOGRAPHIC FINDING IN THE THORACIC SPINE. Assessment and Plan - Diagnosis (1) Acute kidney injury (nontraumatic) Is this a current diagnosis for this admission?: Yes Plan: Patient will be treated with IV fluids and monitored closely with telemetry and serial laboratory evaluations of her basic metabolic profile and magnesium levels. Her CBC will also be followed on a daily basis. A nephrology consultation will be obtained with Dr. Zendejas. (2) HTN (hypertension), benign Is this a current diagnosis for this admission?: Yes Plan: Patient be continued on her usual antihypertensive regiment and a cardiac diet. Her blood pressure monitored closely throughout her hospital course. (3) COPD (chronic obstructive pulmonary disease) Qualifiers: COPD type: unspecified COPD Qualified Code(s): J44.9 - Chronic obstructive pulmonary disease, unspecified Is this a current diagnosis for this admission?: Yes Plan: Patient be continued on her usual COPD therapeutic regiment or a reasonable facsimile letter of available from the hospital formulary. Her O2 sat will be monitored closely throughout her hospital course and she will be maintained on her continuous oxygen at 2 L/min per nasal cannula. A repeat ABG will be obtained in the morning to reevaluate the patient's status from the ABG that was obtained in the ER. (4) CAD (coronary artery disease) Qualifiers: Coronary Disease-Associated Artery/Lesion type: [place] artery [place] vs. transplanted heart: [place] heart Associated angina: without angina Qualified Code(s): I25.10 - Atherosclerotic heart disease of [place] coronary artery wi thout angina pectoris Is this a current diagnosis for this admission?: Yes Plan: Patient will be continued on her current cardiac medications and monitored on a front desk monitor throughout her hospital course. (5) Peripheral vascular disease Is this a current diagnosis for this admission?: Yes Plan: Patient will be continued on her current therapeutic regiment to reduce her risk of vascular disease. She will be continued on a cardiac diet. (6) Acute weakness Is this a current diagnosis for this admission?: Yes Plan: The patient's weakness is not localized nor likely to have resulted from any neurologic injury. A physical therapy consultation will be obtained to evaluate and treat. (7) Tobacco use disorder, severe, dependence Is this a current diagnosis for this admission?: Yes Plan: Smoking cessation is advised and counseled briefly at the bedside. Patient will have available a nicotine replacement patch for her use, if desired. - Time Time Spent with patient: 25-34 minutes Smoking Cessation Education: 3 to 10 minutes Medications reviewed and adjusted accordingly: Yes - Inpatient Certification Based on my medical assessment, after consideration of the patient's comorbidities, presenting symptoms, or acuity I expect that the services needed warrant INPATIENT care.: Yes I certify that my determination is in accordance with my understanding of Medicare's requirements for reasonable and necessary INPATIENT services [42 CFR 412.3e].: Yes Medical Necessity: Significant Comorbidiites Make Outpatient Treatment Too Risky, Need Close Monitoring Due to Risk of Patient Decompensation, Need For IV Fluids, Need For Continuous Telemetry Monitoring, Need for Neurological Checks, Need for Pain Control, Risk of Complication if Not Cared For in Hospital, Risk of Diagnosis Which Will Require Inpatient Eval/Care/Monitoring
[2019-07-12] MEDS: PANTOPRAZOLE SODIUM 20 MG TABLET.DR PO SCH (06:21)
[2019-07-12] MEDS: HEPARIN SOD (PORCINE) 5,000 UNIT/ML 1 ML VIAL SUBCUT SCH ×3 (06:21→21:18)
--- NOTE | 2019-07-12 07:28 | EKG REPORT ---
SEVERITY:- BORDERLINE ECG - SINUS RHYTHM NONSPECIFIC LATERAL ST-T CHANGES : Confirmed by: Bong Wilkins MD 12-Jul-2019 07:27:57
[2019-07-12] MEDS ORDERED: BUDESONIDE NEB 0.5 MG/2 ML AMPUL NEB SCH (08:00)
[2019-07-12] MEDS ORDERED: LEVALBUTEROL HCL NEB 1.25 MG/3 ML AMPUL NEB SCH (08:00)
[2019-07-12] MEDS ORDERED: IPRATROPIUM BROMIDE 0.02% NEB 0.5 MG/2.5 ML AMPUL NEB SCH (08:00)
[2019-07-12 08:07] LABS: HEMATOCRIT 35.9 % (36.0-47.0); HEMOGLOBIN 11.6 g/dL (12.0-15.5); MEAN CORPUSCULAR HEMOGLOBIN 28.2 pg (27.0-33.4); MEAN CORPUSCULAR HGB CONC 32.2 g/dL (32.0-36.0); MEAN CORPUSCULAR VOLUME 88 fl (80-97); PLATELET COUNT 106 10^3/uL (150-450); RED CELL DISTRIBUTION WIDTH 14.1 % (11.5-14.0); WHITE BLOOD COUNT 6.9 10^3/uL (4.0-10.5)
[2019-07-12 08:38] LABS: ANION GAP 5 (5-19); BLOOD UREA NITROGEN 45 mg/dL (7-20); CALCIUM 9.1 mg/dL (8.4-10.2); CARBON DIOXIDE 31 mmol/L (22-30); CHLORIDE 103 mmol/L (98-107); GLUCOSE 80 mg/dL (75-110); POTASSIUM 4.7 mmol/L (3.6-5.0)
[2019-07-12] MEDS ORDERED: NORMAL SALINE 1000 ML 1,000 ML IV PRN (08:55)
[2019-07-12 09:07] LABS: ARTERIAL BLOOD BASE EXCESS 3.3 mmol/L; ARTERIAL BLOOD H2CO3 1.81 mmol/L (1.05-1.35); ARTERIAL BLOOD HCO3 30.7 mmol/L (20-24); ARTERIAL BLOOD O2 SATURATION 89.2 % (94-98); ARTERIAL BLOOD PCO2 60.1 mmHg (35-45); ARTERIAL BLOOD PH 7.33 (7.35-7.45); ARTERIAL BLOOD PO2 61.4 mmHg (80-100); ARTERIAL BLOOD TOTAL CO2 32.5 mmol/L (21-25)
[2019-07-12 09:13] LABS: ARTERIAL BLOOD FIO2 2 L
[2019-07-12] MEDS ORDERED: AMLODIPINE BESYLATE 5 MG TABLET PO ONE (09:16)
--- NOTE | 2019-07-12 09:20 | PDOC PROGRESS REPORT ---
Subjective Progress Note for:: 07/12/19 Subjective:: At the time of this encounter the patient's granddaughter is sitting at the bedside. The patient exhibits facial flushing and is quite tachypneic. She has a very congested cough productive of clear sputum. Oral mucosa is extremely dry. The patient is somewhat somnolent but will intermittently verbalize and answer to a question. She clearly is quite ill. Reason For Visit: ACUTE RENAL FAILURE,CHRONIC BACK PAIN Acute on chronic respiratory failure with hypoxia and hypercapnia Physical Exam Vital Signs: Temp Pulse Resp BP Pulse Ox 97.7 F 75 18 179/60 H 94 07/11/19 21:56 07/12/19 08:46 07/12/19 09:11 07/12/19 09:11 07/12/19 08:46 Intake & Output 07/11/19 07/12/19 07/13/19 06:59 06:59 06:59 Intake Total 1000 Balance 1000 Weight 42.6 kg General appearance: PRESENT: severe distress - Moderate to severe distress with tachypnea and facial flushing, well-developed Head exam: PRESENT: atraumatic, normocephalic Eye exam: PRESENT: conjunctiva pink Ear exam: PRESENT: normal external ear exam. ABSENT: bleeding, drainage Mouth exam: PRESENT: dry mucosa, tongue midline Respiratory exam: PRESENT: accessory muscle use, decreased breath sounds - At bases, prolonged expiratory phas, symmetrical, tachypnea, wheezes - Light sporadic wheezes bilaterally, other - Extremely congested cough with congested breath sounds. ABSENT: rales, rhonchi Cardiovascular exam: PRESENT: RRR, +S1, +S2. ABSENT: diastolic murmur, systolic murmur GI/Abdominal exam: PRESENT: diminished bowel sounds, soft. ABSENT: distended, guarding, tenderness Rectal exam: PRESENT: deferred Extremities exam: ABSENT: pedal edema Musculoskeletal exam: ABSENT: normal inspection - Decreased muscle mass Neurological exam: PRESENT: awake, oriented to person, oriented to place. ABSENT: alert - Somewhat somnolent this morning Psychiatric exam: PRESENT: flat affect. ABSENT: agitated, anxious Results Laboratory Results: 07/12/19 07:43 07/12/19 07:43 07/11/19 07/11/19 07/11/19 19:15 19:15 21:50 WBC 11.1 H RBC 4.41 Hgb 12.4 Hct 38.9 MCV 88 MCH 28.2 MCHC 32.0 RDW 14.3 H Plt Count 145 L Seg Neutrophils % 71.5 Carbonic Acid 2.13 H HCO3/H2CO3 Ratio 14:1 ABG pH 7.27 L ABG pCO2 70.8 H* ABG pO2 74.9 L ABG HCO3 31.5 H ABG O2 Saturation 92.5 L ABG Base Excess 2.9 FiO2 2 Sodium 135.2 L Potassium 5.3 H Chloride 96 L Carbon Dioxide 33 H Anion Gap 6 BUN 56 H Creatinine 2.86 H Est GFR ( Amer) 20 L Glucose 88 Calcium 9.5 Magnesium Total Bilirubin 0.6 AST 35 Alkaline Phosphatase 103 Total Protein 6.9 Albumin 3.5 Urine Color Urine Appearance Urine pH Ur Specific [place] Urine Protein Urine Glucose (UA) Urine Ketones Urine Blood Urine Nitrite Ur Leukocyte Esterase Urine WBC (Auto) 07/11/19 07/12/19 07/12/19 21:50 07:43 07:43 WBC 6.9 RBC 4.10 Hgb 11.6 L Hct 35.9 L MCV 88 MCH 28.2 MCHC 32.2 RDW 14.1 H Plt Count 106 L Seg Neutrophils % Carbonic Acid HCO3/H2CO3 Ratio ABG pH ABG pCO2 ABG pO2 ABG HCO3 ABG O2 Saturation ABG Base Excess FiO2 Sodium 139.2 Potassium 4.7 Chloride 103 Carbon Dioxide 31 H Anion Gap 5 BUN 45 H Creatinine 2.16 H Est GFR ( Amer) 27 L Glucose 80 Calcium 9.1 Magnesium 1.8 Total Bilirubin AST Alkaline Phosphatase Total Protein Albumin Urine Color YELLOW Urine Appearance CLEAR Urine pH 5.0 Ur Specific [place] 1.011 Urine Protein NEGATIVE Urine Glucose (UA) NEGATIVE Urine Ketones NEGATIVE Urine Blood NEGATIVE Urine Nitrite NEGATIVE Ur Leukocyte Esterase NEGATIVE Urine WBC (Auto) 1 07/12/19 08:41 WBC RBC Hgb Hct MCV MCH MCHC RDW Plt Count Seg Neutrophils % Carbonic Acid 1.81 H HCO3/H2CO3 Ratio 16:1 ABG pH 7.33 L ABG pCO2 60.1 H ABG pO2 61.4 L ABG HCO3 30.7 H ABG O2 Saturation 89.2 L ABG Base Excess 3.3 FiO2 2 L Sodium Potassium Chloride Carbon Dioxide Anion Gap BUN Creatinine Est GFR ( Amer) Glucose Calcium Magnesium Total Bilirubin AST Alkaline Phosphatase Total Protein Albumin Urine Color Urine Appearance Urine pH Ur Specific [place] Urine Protein Urine Glucose (UA) Urine Ketones Urine Blood Urine Nitrite Ur Leukocyte Esterase Urine WBC (Auto) 07/11/19 07/11/19 19:15 19:15 Creatine Kinase 50 Troponin I 0.027 Impressions: Cervical Spine CT 07/11/19 18:20 IMPRESSION: Mild degenerative disc disease, spondylosis, and facet arthropathy. No acute finding. Chest X-Ray 07/11/19 18:20 IMPRESSION: Chronic lung changes with no acute cardiopulmonary findings. Head CT 07/11/19 18:20 IMPRESSION: NORMAL BRAIN CT WITHOUT CONTRAST. EVIDENCE OF ACUTE STROKE: NO. Lumbar Spine X-Ray 07/11/19 18:27 IMPRESSION: Minimal scoliosis. Degenerative disc disease, spondylosis, and facet arthropathy. Thoracic Spine X-Ray 07/11/19 18:27 IMPRESSION: NO SIGNIFICANT RADIOGRAPHIC FINDING IN THE THORACIC SPINE. Assessment and Plan - Diagnosis (1) Acute renal failure superimposed on stage 3 chronic kidney disease Qualifiers: Acute renal failure type: with acute renal cortical necrosis Qualified Code(s): N17.1 - Acute kidney failure with acute cortical necrosis; N18.3 - Chronic kidney disease, stage 3 (moderate) Is this a current diagnosis for this admission?: Yes Plan: 07/12/2019-the patient's serum creatinine seems to be improving slowly. Unfortunately the acute injury is likely due to multiple etiologies. A combination of decreased intake, hypertension and renovascular disease all contribute. We will provide fluids but be mindful of putting the patient into failure. Serial laboratory studies will be obtained. (2) Acute on chronic respiratory failure with hypoxia and hypercapnia Is this a current diagnosis for this admission?: Yes Plan: 07/12/2019-the patient was quite tachypneic. Blood gas reveals increased PCO2 with mild acidosis. I have ordered BiPAP in addition to the nebulizer regimen. If there is any suspicion for infection we will likely add antimicrobial agents such as azithromycin. (3) CAD (coronary artery disease) Qualifiers: Coronary Disease-Associated Artery/Lesion type: [place] artery [place] vs. t ransplanted heart: [place] heart Associated angina: without angina Qualified Code(s): I25.10 - Atherosclerotic heart disease of [place] coronary artery without angina pectoris Is this a current diagnosis for this admission?: Yes Plan: 07/12/2019-obviously this illness will place strain on the heart. We will continue her current medications and monitor for any evidence of acute coronary syndrome. (4) COPD exacerbation Is this a current diagnosis for this admission?: Yes Plan: 07/12/2019-at this time scheduled and as needed nebulizers including inhaled steroid therapy. BiPAP as needed to keep the PCO2 down. Oxygen supplementation as well with a goal of oxygen saturation 90 to 94% (5) Hyperkalemia Is this a current diagnosis for this admission?: Yes Plan: 07/12/2019-with fluids the patient's kidney function should improve which will also help the potassium. Will monitor with serial laboratory studies. If needed we can administer Kayexalate. (6) Acute weakness Is this a current diagnosis for this admission?: Yes Plan: 07/12/2019-according to the patient's granddaughter she has been declining. It is hard to know how much of this is due to her chronic pain she does have an intrathecal pump. Once improved I will have physical therapy see the patient. I explained to the granddaughter that a significant episode like this may make it difficult for the patient to return to her previous baseline. We will assess on a daily basis and hope for full recovery. (7) Peripheral vascular disease Is this a current diagnosis for this admission?: Yes Plan: 07/12/2019-continue cardiac diet as well as current regimen to help prevent the progression of atherosclerotic disease. The patient is on beta-zenaida therapy as well as antihypertensive. Interestingly she is not on statin therapy or antiplatelet therapy. Will review old records to make sure that we are accurate with her current medication regimen. (8) Tobacco use disorder, severe, dependence Is this a current diagnosis for this admission?: Yes Plan: 07/12/2019-the patient is in no condition to discuss tobacco cessation this morning. Nicotine patch will be available if needed. - Time Time Spent with patient: 35 or more minutes Medications reviewed and adjusted accordingly: Yes
[2019-07-12] MEDS: DOCUSATE SODIUM 100 MG CAPSULE PO SCH ×2 (09:25→17:07)
[2019-07-12] MEDS ORDERED: OXYCODONE HCL IR 5 MG TABLET PO PRN (13:36)
[2019-07-12] MEDS ORDERED: LORAZEPAM 1 MG TABLET PO PRN (13:36)
[2019-07-12] MEDS: IPRATROPIUM/ALBUTEROL 0.5-2.5 MG/3 ML AMPUL NEB SCH ×2 (14:42→20:21)
[2019-07-12 14:51] LABS: ANION GAP 5 (5-19); BLOOD UREA NITROGEN 41 mg/dL (7-20); CALCIUM 9.1 mg/dL (8.4-10.2); CARBON DIOXIDE 29 mmol/L (22-30); CHLORIDE 104 mmol/L (98-107); GLUCOSE 77 mg/dL (75-110); POTASSIUM 5.2 mmol/L (3.6-5.0)
[2019-07-12] MEDS: MONTELUKAST SODIUM 10 MG TABLET PO SCH (17:07)
[2019-07-12] MEDS ORDERED: DOCUSATE SODIUM 150 MG PO SCH (18:00)
[2019-07-12] MEDS ORDERED: (PENDING PHARMACY ID) (Ranitidine Hcl [Ranitidine Hcl] 150 MG) PO SCH (18:00)
[2019-07-12] MEDS: BUDESONIDE NEB 0.5 MG/2 ML AMPUL NEB SCH (20:22)
[2019-07-12] MEDS: DULOXETINE HCL 30 MG CAPSULE.DR PO SCH (21:17)
[2019-07-12] MEDS: GABAPENTIN 300 MG CAPSULE PO SCH (21:17)
[2019-07-12] MEDS: FAMOTIDINE 20 MG TABLET PO SCH (21:17)
[2019-07-12] MEDS: CARVEDILOL 12.5 MG TABLET PO SCH (21:17)
[2019-07-13] MEDS: IPRATROPIUM/ALBUTEROL 0.5-2.5 MG/3 ML AMPUL NEB SCH ×4 (02:28→19:56)
[2019-07-13] MEDS: HEPARIN SOD (PORCINE) 5,000 UNIT/ML 1 ML VIAL SUBCUT SCH ×3 (05:06→21:34)
[2019-07-13] MEDS: PANTOPRAZOLE SODIUM 20 MG TABLET.DR PO SCH (05:08)
[2019-07-13 06:09] LABS: HEMATOCRIT 31.9 % (36.0-47.0); HEMOGLOBIN 10.5 g/dL (12.0-15.5); MEAN CORPUSCULAR HEMOGLOBIN 28.5 pg (27.0-33.4); MEAN CORPUSCULAR HGB CONC 32.8 g/dL (32.0-36.0); MEAN CORPUSCULAR VOLUME 87 fl (80-97); RED BLOOD COUNT 3.67 10^6/uL (3.72-5.28); WHITE BLOOD COUNT 4.5 10^3/uL (4.0-10.5)
[2019-07-13 06:29] LABS: BLOOD UREA NITROGEN 31 mg/dL (7-20); CALCIUM 8.8 mg/dL (8.4-10.2); CHOLESTEROL 126.25 mg/dL (0-200); GLUCOSE 80 mg/dL (75-110); POTASSIUM 4.7 mmol/L (3.6-5.0); TRIGLYCERIDES 129 mg/dL (<150)
[2019-07-13 06:34] LABS: CARBON DIOXIDE 33 mmol/L (22-30); CHLORIDE 106 mmol/L (98-107); PLATELET COUNT 95 10^3/uL (150-450)
[2019-07-13 06:39] LABS: DIRECT LDL 72 mg/dL (<100)
[2019-07-13 06:46] LABS: ANION GAP 3 (5-19)
[2019-07-13] MEDS: BUDESONIDE NEB 0.5 MG/2 ML AMPUL NEB SCH ×2 (07:39→19:56)
--- NOTE | 2019-07-13 08:58 | PDOC PROGRESS REPORT ---
Subjective Progress Note for:: 07/13/19 Subjective:: 07/13/2019-no complaints this a.m. Reason For Visit: ACUTE RENAL FAILURE,CHRONIC BACK PAIN Physical Exam Vital Signs: Temp Pulse Resp BP Pulse Ox 97.6 F 77 16 107/46 L 96 07/13/19 03:33 07/13/19 07:39 07/13/19 07:39 07/13/19 03:33 07/13/19 07:39 Intake & Output 07/12/19 07/13/19 07/14/19 06:59 06:59 06:59 Intake Total 1000 1120 Output Total 500 Balance 1000 620 Weight 42.6 kg 44.7 kg General appearance: PRESENT: no acute distress, well-developed, well-nourished Neck exam: ABSENT: carotid bruit, JVD, lymphadenopathy, thyromegaly Respiratory exam: PRESENT: decreased breath sounds, symmetrical, unlabored. ABSENT: rales, rhonchi, wheezes Cardiovascular exam: PRESENT: RRR. ABSENT: diastolic murmur, rubs, systolic murmur Pulses: PRESENT: +1 pedal pulses bilateral Vascular exam: PRESENT: normal capillary refill GI/Abdominal exam: PRESENT: normal bowel sounds, soft. ABSENT: distended, guarding, mass, organolmegaly, rebound, tenderness Neurological exam: PRESENT: alert, awake, oriented to person, oriented to place, oriented to time, oriented to situation, CN II-XII grossly intact. ABSENT: motor sensory deficit Psychiatric exam: PRESENT: appropriate affect, normal mood. ABSENT: homicidal ideation, suicidal ideation Skin exam: PRESENT: dry, intact, warm. ABSENT: cyanosis, rash Results Laboratory Results: 07/13/19 05:08 07/13/19 05:08 07/12/19 07/12/19 07/13/19 08:41 14:03 05:08 WBC 4.5 RBC 3.67 L Hgb 10.5 L Hct 31.9 L MCV 87 MCH 28.5 MCHC 32.8 RDW 14.0 Plt Count 95 L Carbonic Acid 1.81 H HCO3/H2CO3 Ratio 16:1 ABG pH 7.33 L ABG pCO2 60.1 H ABG pO2 61.4 L ABG HCO3 30.7 H ABG O2 Saturation 89.2 L ABG Base Excess 3.3 FiO2 2 L Sodium 138.4 Potassium 5.2 H Chloride 104 Carbon Dioxide 29 Anion Gap 5 BUN 41 H Creatinine 1.73 H Est GFR ( Amer) 35 L Glucose 77 Calcium 9.1 Magnesium 1.8 Triglycerides Cholesterol LDL Cholesterol Direct VLDL Cholesterol HDL Cholesterol 07/13/19 05:08 WBC RBC Hgb Hct MCV MCH MCHC RDW Plt Count Carbonic Acid HCO3/H2CO3 Ratio ABG pH ABG pCO2 ABG pO2 ABG HCO3 ABG O2 Saturation ABG Base Excess FiO2 Sodium 142.0 Potassium 4.7 Chloride 106 Carbon Dioxide 33 H Anion Gap 3 L BUN 31 H Creatinine 1.49 H Est GFR ( Amer) 41 L Glucose 80 Calcium 8.8 Magnesium 1.8 Triglycerides 129 Cholesterol 126.25 LDL Cholesterol Direct 72 VLDL Cholesterol 26.0 HDL Cholesterol 34 L 07/11/19 07/11/19 19:15 19:15 Creatine Kinase 50 Troponin I 0.027 Impressions: Cervical Spine CT 07/11/19 18:20 IMPRESSION: Mild degenerative disc disease, spondylosis, and facet arthropathy. No acute finding. Chest X-Ray 07/11/19 18:20 IMPRESSION: Chronic lung changes with no acute cardiopulmonary findings. Head CT 07/11/19 18:20 IMPRESSION: NORMAL BRAIN CT WITHOUT CONTRAST. EVIDENCE OF ACUTE STROKE: NO. Lumbar Spine X-Ray 07/11/19 18:27 IMPRESSION: Minimal scoliosis. Degenerative disc disease, spondylosis, and facet arthropathy. Thoracic Spine X-Ray 07/11/19 18:27 IMPRESSION: NO SIGNIFICANT RADIOGRAPHIC FINDING IN THE THORACIC SPINE. Assessment and Plan - Diagnosis (1) Acute renal failure superimposed on stage 3 chronic kidney disease Qualifiers: Acute renal failure type: with acute renal cortical necrosis Qualified Code(s): N17.1 - Acute kidney failure with acute cortical necrosis; N18.3 - [employer] Monitor krysta kidney disease, stage 3 (moderate) Is this a current diagnosis for this admission?: Yes Plan: 07/12/2019-the patient's serum creatinine seems to be improving slowly. Unfortunately the acute injury is likely due to multiple etiologies. A combination of decreased intake, hypertension and renovascular disease all contribute. We will provide fluids but be mindful of putting the patient into failure. Serial laboratory studies will be obtained. 07/13/2019-serum creatinine continues to improve. Continue to follow with daily renal panels. This is likely due to multiple etiologies. Will refer to nephrology as needed. (2) Acute on chronic respiratory failure with hypoxia and hypercapnia Is this a current diagnosis for this admission?: Yes Plan: 07/12/2019-the patient was quite tachypneic. Blood gas reveals increased PCO2 with mild acidosis. I have ordered BiPAP in addition to the nebulizer regimen. If there is any suspicion for infection we will likely add antimicrobial agents such as azithromycin. 07/13/2019-improved. Patient able to talk in complete sentences at this time. Lungs are diminished but clear. Patient has been wearing BiPAP overnight. Suspect this is most likely from a COPD exacerbation. (3) CAD (coronary artery disease) Qualifiers: Coronary Disease-Associated Artery/Lesion type: [place] artery [place] vs. transplanted heart: [place] heart Associated angina: without angina Qualified Code(s): I25.10 - Atherosclerotic heart disease of [place] coronary artery without angina pectoris Is this a current diagnosis for this admission?: Yes Plan: 07/12/2019-obviously this illness will place strain on the heart. We will continue her current medications and monitor for any evidence of acute coronary syndrome. 07/13/2019-continue all home medications for coronary disease. (4) Acute exacerbation of chronic obstructive pulmonary disease (COPD) Is this a current diagnosis for this admission?: Yes Plan: 07/13/2019-improved. Patient able to talk in full sentences. Continue bronchodilators and other modalities. Supplemental oxygen. BiPAP at night. (5) Hyperkalemia Is this a current diagnosis for this admission?: Yes Plan: 07/12/2019-with fluids the patient's kidney function should improve which will also help the potassium. Will monitor with serial laboratory studies. If needed we can administer Kayexalate. 07/13/2019-stable. Continue to follow daily BMP (6) Acute weakness Is this a current diagnosis for this admission?: Yes Plan: 07/12/2019-according to the patient's granddaughter she has been declining. It is hard to know how much of this is due to her chronic pain she does have an intrathecal pump. Once improved I will have physical therapy see the patient. I explained to the granddaughter that a significant episode like this may make it difficult for the patient to return to her previous baseline. We will assess on a daily basis and hope for full recovery. 07/13/2019-await physical therapy recommendations. (7) Peripheral vascular disease Is this a current diagnosis for this admission?: Yes Plan: Patient will be continued on her current therapeutic regiment to reduce her risk of vascular disease. She will be continued on a cardiac diet. 07/13/2019-continue home medications for her PVD (8) Tobacco use disorder, severe, dependence Is this a current diagnosis for this admission?: Yes Plan: 07/12/2019-the patient is in no condition to discuss tobacco cessation this mo rning. Nicotine patch will be available if needed. 07/13/2019 continue to educate about the negative impact on smoking negative - Time Time Spent with patient: 15-24 minutes - Inpatient Certification Based on my medical assessment, after consideration of the patient's comorbidities, presenting symptoms, or acuity I expect that the services needed warrant INPATIENT care.: Yes I certify that my determination is in accordance with my understanding of Medicare's requirements for reasonable and necessary INPATIENT services [42 CFR 412.3e].: Yes Medical Necessity: Need for IV Antibiotics - BiPAP
[2019-07-13] MEDS ORDERED: (PENDING PHARMACY ID) (Cetirizine Hcl [Zyrtec] 10 MG) PO SCH (10:00)
[2019-07-13] MEDS: DOCUSATE SODIUM 100 MG CAPSULE PO SCH ×2 (10:18→17:26)
[2019-07-13] MEDS: MULTIVITAMIN TABLET PO SCH (10:18)
[2019-07-13] MEDS: CETIRIZINE 10 MG TABLET PO SCH (10:19)
[2019-07-13] MEDS: CARVEDILOL 12.5 MG TABLET PO SCH ×2 (10:19→21:33)
[2019-07-13] MEDS: GABAPENTIN 300 MG CAPSULE PO SCH ×2 (10:19→21:33)
[2019-07-13] MEDS: DULOXETINE HCL 30 MG CAPSULE.DR PO SCH ×2 (10:19→21:33)
[2019-07-13] MEDS: FAMOTIDINE 20 MG TABLET PO SCH ×2 (10:19→21:33)
[2019-07-13] MEDS: POLYETHYLENE GLYCOL 3350 POWDER 17 GM/1 PACKET PO SCH (11:34)
[2019-07-13] MEDS ORDERED: ONDANSETRON HCL INJ/PF 4 MG/2 ML SDV IV PRN (14:30)
[2019-07-13] MEDS: MONTELUKAST SODIUM 10 MG TABLET PO SCH (17:27)
[2019-07-14] MEDS: IPRATROPIUM/ALBUTEROL 0.5-2.5 MG/3 ML AMPUL NEB SCH ×4 (02:10→19:32)
[2019-07-14 06:02] LABS: HEMATOCRIT 31.7 % (36.0-47.0); HEMOGLOBIN 10.4 g/dL (12.0-15.5); MEAN CORPUSCULAR HEMOGLOBIN 28.9 pg (27.0-33.4); MEAN CORPUSCULAR HGB CONC 32.9 g/dL (32.0-36.0); MEAN CORPUSCULAR VOLUME 88 fl (80-97); RED BLOOD COUNT 3.61 10^6/uL (3.72-5.28); RED CELL DISTRIBUTION WIDTH 13.8 % (11.5-14.0); WHITE BLOOD COUNT 5.1 10^3/uL (4.0-10.5)
[2019-07-14 06:26] LABS: PLATELET COUNT 98 10^3/uL (150-450)
[2019-07-14] MEDS: HEPARIN SOD (PORCINE) 5,000 UNIT/ML 1 ML VIAL SUBCUT SCH ×3 (06:26→22:20)
[2019-07-14] MEDS: PANTOPRAZOLE SODIUM 20 MG TABLET.DR PO SCH (06:28)
[2019-07-14 06:43] LABS: BLOOD UREA NITROGEN 28 mg/dL (7-20); CARBON DIOXIDE 34 mmol/L (22-30); CHLORIDE 103 mmol/L (98-107); GLUCOSE 86 mg/dL (75-110); POTASSIUM 4.8 mmol/L (3.6-5.0)
[2019-07-14 06:51] LABS: ANION GAP 1 (5-19)
[2019-07-14] MEDS: BUDESONIDE NEB 0.5 MG/2 ML AMPUL NEB SCH ×2 (07:53→19:32)
[2019-07-14] MEDS: FAMOTIDINE 20 MG TABLET PO SCH ×2 (09:20→22:19)
[2019-07-14] MEDS: POLYETHYLENE GLYCOL 3350 POWDER 17 GM/1 PACKET PO SCH (09:20)
[2019-07-14] MEDS: CETIRIZINE 10 MG TABLET PO SCH (09:20)
[2019-07-14] MEDS: GABAPENTIN 300 MG CAPSULE PO SCH ×2 (09:20→22:20)
[2019-07-14] MEDS: DULOXETINE HCL 30 MG CAPSULE.DR PO SCH ×2 (09:20→22:19)
[2019-07-14] MEDS: MULTIVITAMIN TABLET PO SCH (09:20)
[2019-07-14] MEDS: CARVEDILOL 12.5 MG TABLET PO SCH ×2 (09:24→22:20)
[2019-07-14] MEDS: DOCUSATE SODIUM 100 MG CAPSULE PO SCH ×2 (09:27→17:08)
--- NOTE | 2019-07-14 09:52 | PDOC PROGRESS REPORT ---
Subjective Progress Note for:: 07/14/19 Subjective:: 07/13/2019-no complaints this a.m. 07/14/2019-no complaints Reason For Visit: ACUTE RENAL FAILURE,CHRONIC BACK PAIN Physical Exam Vital Signs: Temp Pulse Resp BP Pulse Ox 97.9 F 72 16 92/36 L 97 07/14/19 07:23 07/14/19 07:55 07/14/19 07:55 07/14/19 07:23 07/14/19 07:55 Intake & Output 07/13/19 07/14/19 07/15/19 06:59 06:59 06:59 Intake Total 1120 860 Output Total 500 300 Balance 620 560 Weight 44.7 kg 45.4 kg General appearance: PRESENT: no acute distress, well-developed, well-nourished Neck exam: ABSENT: carotid bruit, JVD, lymphadenopathy, thyromegaly Respiratory exam: PRESENT: clear to auscultation keith. ABSENT: rales, rhonchi, wheezes Cardiovascular exam: PRESENT: RRR. ABSENT: diastolic murmur, rubs, systolic [place] Pulses: PRESENT: normal [place] pedis pul Vascular exam: PRESENT: normal capillary refill GI/Abdominal exam: PRESENT: normal bowel sounds, soft. ABSENT: distended, guarding, mass, organolmegaly, rebound, tenderness Extremities exam: PRESENT: full ROM. ABSENT: calf tenderness, clubbing, pedal edema Neurological exam: PRESENT: alert, awake, oriented to person, oriented to place, oriented to time, oriented to situation, CN II-XII grossly intact. ABSENT: motor sensory deficit Psychiatric exam: PRESENT: appropriate affect, normal mood. ABSENT: homicidal ideation, suicidal ideation Skin exam: PRESENT: dry, intact, warm. ABSENT: cyanosis, rash Results Laboratory Results: 07/14/19 04:50 07/14/19 04:50 07/14/19 07/14/19 04:50 04:50 WBC 5.1 RBC 3.61 L Hgb 10.4 L Hct 31.7 L MCV 88 MCH 28.9 MCHC 32.9 RDW 13.8 Plt Count 98 L Sodium 137.5 Potassium 4.8 Chloride 103 Carbon Dioxide 34 H Anion Gap 1 L BUN 28 H Creatinine 1.34 H Est GFR ( Amer) 47 L Glucose 86 Calcium 9.0 Magnesium 1.8 07/11/19 07/11/19 19:15 19:15 Creatine Kinase 50 Troponin I 0.027 Impressions: Cervical Spine CT 07/11/19 18:20 IMPRESSION: Mild degenerative disc disease, spondylosis, and facet arthropathy. No acute finding. Chest X-Ray 07/11/19 18:20 IMPRESSION: Chronic lung changes with no acute cardiopulmonary findings. Head CT 07/11/19 18:20 IMPRESSION: NORMAL BRAIN CT WITHOUT CONTRAST. EVIDENCE OF ACUTE STROKE: NO. Lumbar Spine X-Ray 07/11/19 18:27 IMPRESSION: Minimal scoliosis. Degenerative disc disease, spondylosis, and facet arthropathy. Thoracic Spine X-Ray 07/11/19 18:27 IMPRESSION: NO SIGNIFICANT RADIOGRAPHIC FINDING IN THE THORACIC SPINE. Assessment and Plan - Diagnosis (1) Acute renal failure superimposed on stage 3 chronic kidney disease Qualifiers: Acute renal failure type: with acute renal cortical necrosis Qualified Code(s): N17.1 - Acute kidney failure with acute cortical necrosis; N18.3 - Chronic kidney disease, stage 3 (moderate) Is this a current diagnosis for this admission?: Yes Plan: 07/12/2019-the patient's serum creatinine seems to be improving slowly. Unfortunately the acute injury is likely due to multiple etiologies. A combination of decreased intake, hypertension and renovascular disease all contribute. We will provide fluids but be mindful of putting the patient into failure. Serial laboratory studies will be obtained. 07/13/2019-serum creatinine continues to improve. Continue to follow with daily renal panels. This is likely due to multiple etiologies. Will refer to nephrology as needed. 07/14/2019-stable continue to follow (2) Acute on chronic respiratory failure with hypoxia and hypercapnia Is this a current diagnosis for this admission?: Yes Plan: 07/12/2019-the patient was quite tachypneic. Blood gas reveals increased PCO2 with mild acidosis. I have ordered BiPAP in addition to the nebulizer regimen. If there is any suspicion for infection we will likely add antimicrobial agents such as azithromycin. 07/13/2019-improved. Patient able to talk in complete sentences at this time. Lungs are diminished but clear. Patient has been wearing BiPAP overnight. Suspect this is most likely from a COPD exacerbation. 07/14/2019-stable continue to follow. Patient able to speak in full sentences. No further complaints (3) CAD (coronary artery disease) Qualifiers: Coronary Disease-Associated Artery/Lesion type: [place] artery [place] vs. transplanted heart: [place] heart Associated angina: without angina Qualified Code(s): I25.10 - Atherosclerotic heart disease of [place] coronary artery without angina pectoris Is this a current diagnosis for this admission?: Yes Plan: 07/12/2019-obviously this illness will place strain on the heart. We will continue her current medications and monitor for any evidence of acute coronary syndrome. 07/13/2019-continue all home medications for coronary disease. 07/14/2019-stable (4) Acute exacerbation of chronic obstructive pulmonary disease (COPD) Is this a current diagnosis for this admission?: Yes Plan: 07/13/2019-improved. Patient able to talk in full sentences. Continue bronchodilators and other modalities. Supplemental oxygen. BiPAP at night. 07/14/2019-stable (5) Hyperkalemia Is this a current diagnosis for this admission?: Yes Plan: 07/12/2019-with fluids the patient's kidney function should improve which will also help the potassium. Will monitor with serial laboratory studies. If needed we can administer Kayexalate. 07/13/2019-stable. Continue to follow daily BMP 07/14/2019-stable (6) Acute weakness Is this a current diagnosis for this admission?: Yes Plan: 07/12/2019-according to the patient's granddaughter she has been declining. It is hard to know how much of this is due to her chronic pain she does have an intrathecal pump. Once improved I will have physical therapy see the patient. I explained to the granddaughter that a significant episode like this may make it difficult for the patient to return to her previous baseline. We will assess on a daily basis and hope for full recovery. 07/13/2019-await physical therapy recommendations. 07/14/2019-continue physical occupational therapy (7) Peripheral vascular disease Is this a current diagnosis for this admission?: Yes Plan: Patient will be continued on her current therapeutic regiment to reduce her risk of vascular disease. She will be continued on a cardiac diet. 07/13/2019-continue home medications for her PVD -09/2018-stable (8) Tobacco use disorder, severe, dependence Is this a current diagnosis for this admission?: Yes Plan: 07/12/2019-the patient is in no condition to discuss tobacco cessation this morning. Nicotine patch will be available if needed. 07/13/2019 continue to educate about the negative impact on smoking negative 07/14/2019-continue smoking cessation education - Time Time Spent with patient: 15-24 minutes - Inpatient Certification Based on my medical assessment, after consideration of the patient's comorbidities, presenting symptoms, or acuity I expect that the services needed warrant INPATIENT care.: Yes I certify that my determination is in accordance with my understanding of Medicare's requirements for reasonable and necessary INPATIENT services [42 CFR 412.3e].: Yes Medical Necessity: Other - Physical occupational therapy
[2019-07-14] MEDS: MONTELUKAST SODIUM 10 MG TABLET PO SCH (17:08)
[2019-07-15] MEDS: IPRATROPIUM/ALBUTEROL 0.5-2.5 MG/3 ML AMPUL NEB SCH ×4 (02:17→20:03)
[2019-07-15] MEDS: HEPARIN SOD (PORCINE) 5,000 UNIT/ML 1 ML VIAL SUBCUT SCH ×2 (05:23→15:14)
[2019-07-15 05:29] LABS: BLOOD UREA NITROGEN 25 mg/dL (7-20); CALCIUM 8.8 mg/dL (8.4-10.2); CARBON DIOXIDE 37 mmol/L (22-30); CHLORIDE 100 mmol/L (98-107); GLUCOSE 89 mg/dL (75-110)
[2019-07-15 05:45] LABS: ANION GAP 0 (5-19)
[2019-07-15] MEDS: PANTOPRAZOLE SODIUM 20 MG TABLET.DR PO SCH (05:50)
[2019-07-15] MEDS: BUDESONIDE NEB 0.5 MG/2 ML AMPUL NEB SCH ×2 (08:13→20:03)
--- NOTE | 2019-07-15 08:18 | PDOC DISCHARGE SUMMARY ---
Impression - Admit/DC Date/PCP Admission Date/Primary Care Provider: 07/11/19 22:56 BEN HINSON NP Discharge Date: 07/15/19 - Discharge Diagnosis (1) Acute renal failure superimposed on stage 3 chronic kidney disease Is this a current diagnosis for this admission?: Yes (2) Acute on chronic respiratory failure with hypoxia and hypercapnia Is this a current diagnosis for this admission?: Yes (3) CAD (coronary artery disease) Is this a current diagnosis for this admission?: Yes (4) Acute exacerbation of chronic obstructive pulmonary disease (COPD) Is this a current diagnosis for this admission?: Yes (5) Hyperkalemia Is this a current diagnosis for this admission?: Yes (6) Acute weakness Is this a current diagnosis for this admission?: Yes (7) Peripheral vascular disease Is this a current diagnosis for this admission?: Yes (8) Tobacco use disorder, severe, dependence Is this a current diagnosis for this admission?: Yes - Additional Information Resuscitation Status: Full Code Discharge Activity: Activity As Tolerated Referrals: NEIDA KLEIN MD [ACTIVE STAFF] - Follow up as needed BEN HINSON NP [Primary Care Provider] - 08/01/19 9:30 am Home Medications: Montelukast Sodium [Singulair 10 mg Tablet] 10 mg PO QPM 07/10/13 Oxycodone HCl [Oxy-Ir 5 mg Tablet] 30 mg PO Q6HP PRN 09/27/14 Albuterol Sulfate [Ventolin HFA MDI 18 GM] 2 puff IH QIDP PRN #0 09/25/15 Cetirizine HCl [Zyrtec] 10 mg PO DAILY 03/22/18 Furosemide [Lasix 20 mg Tablet] 20 mg PO QAM 03/22/18 Docusate Sodium [Diocto] 150 mg PO BID 07/29/18 Fluticasone/Umeclidin/Vilanter [Trelegy 100-62.5-25 Mcg Ellipta 14 Dose/Dpi] 1 each IH DAILY 07/29/18 Ranitidine HCl 150 mg PO BID 07/29/18 Carvedilol [Coreg 12.5 mg Tablet] 12.5 mg PO Q12 07/12/19 Duloxetine HCl 30 mg PO Q12 07/12/19 Gabapentin [Neurontin 300 mg Capsule] 300 mg PO Q12 07/12/19 Lisinopril 20 mg PO DAILY 07/12/19 Lorazepam [Ativan 1 mg Tablet] 0.5 mg PO DAILYP PRN MDD 1 MG 07/12/19 Metoprolol Succinate [Toprol Xl 25 mg Tab.sr] 25 mg PO DAILY 07/12/19 Morphine Pump 0 mg IT ASDIR PRN 07/12/19 Multivitamin [Tab-A-Dwayne (Multiple Vitamin) Tablet] 1 tab PO DAILY 07/12/19 Potassium Chloride [Klor-Con 10 Meq Capsule ER] 20 meq PO Q2D 07/12/19 History of Present Illiness History of Present Illness: MELISSA BOSCH is a 74 year old female who presented emergency room with acute weakness after a resulting fall. Hospital Course Hospital Course: Patient presented to ER with acute weakness resulting in a fall. She admits that she was standing up from a seated position while at the local group home her legs and these were too weak to support her resulting father floor. In the fall she did strike her head without loss of consciousness. Since the fall the patient is complained of achy back pain of her chronic back pain baseline and pelvic issues. She denies any other associated signs or symptoms. Patient was also found to have an acute kidney injury with a creatinine of 2.86. At this time patient's creatinine has resolved and returned to normal reading at 1.18. Patient is improved sufficiently return back to [facility] at this time. Patient is in agreement with plan of care. Patient be followed up as needed by physicians at the [facility]. Physical Exam Vital Signs: Temp Pulse Resp BP Pulse Ox 98.3 F 67 16 107/41 L 95 07/15/19 03:47 07/15/19 03:47 07/15/19 03:47 07/15/19 03:47 07/15/19 03:47 Intake & Output 07/14/19 07/15/19 07/16/19 06:59 06:59 05:59 Intake Total 860 540 Output Total 300 Balance 560 540 Weight 45.4 kg 46.1 kg General appearance: PRESENT: no acute distress, well-developed, well-nourished Neck exam: ABSENT: carotid bruit, JVD, lymphadenopathy, thyromegaly Respiratory exam: PRESENT: clear to auscultation keith. ABSENT: rales, rhonchi, wheezes Cardiovascular exam: PRESENT: RRR. ABSENT: diastolic murmur, rubs, systolic murmur Pulses: PRESENT: +1 pedal pulses bilateral GI/Abdominal exam: PRESENT: normal bowel sounds, soft. ABSENT: distended, guarding, mass, organolmegaly, rebound, tenderness Extremities exam: PRESENT: full ROM. ABSENT: calf tenderness, clubbing, pedal edema Neurological exam: PRESENT: alert, awake, oriented to person, oriented to place, oriented to time, oriented to situation, CN II-XII grossly intact. ABSENT: motor sensory deficit Psychiatric exam: PRESENT: appropriate affect, normal mood. ABSENT: homicidal ideation, suicidal ideation Skin exam: PRESENT: dry, intact, warm. ABSENT: cyanosis, rash Results Laboratory Results: WBC 5.1 10^3/uL (4.0-10.5) 07/14/19 04:50 RBC 3.61 10^6/uL (3.72-5.28) L 07/14/19 04:50 Hgb 10.4 g/dL (12.0-15.5) L 07/14/19 04:50 Hct 31.7 % (36.0-47.0) L 07/14/19 04:50 MCV 88 fl (80-97) 07/14/19 04:50 MCH 28.9 pg (27.0-33.4) 07/14/19 04:50 MCHC 32.9 g/dL (32.0-36.0) 07/14/19 04:50 RDW 13.8 % (11.5-14.0) 07/14/19 04:50 Plt Count 98 10^3/uL (150-450) L 07/14/19 04:50 Lymph % (Auto) 19.1 % (13-45) 07/11/19 19:15 [place] % (Auto) 7.4 % (3-13) 07/11/19 19:15 Eos % (Auto) 1.6 % (0-6) 07/11/19 19:15 Baso % (Auto) 0.4 % (0-2) 07/11/19 19:15 Absolute Neuts (auto) 7.9 10^3/uL (1.7-8.2) 07/11/19 19:15 Absolute Lymphs (auto) 2.1 10^3/uL (0.5-4.7) 07/11/19 19:15 Absolute Monos (auto) 0.8 10^3/uL (0.1-1.4) 07/11/19 19:15 Absolute Eos (auto) 0.2 10^3/uL (0.0-0.6) 07/11/19 19:15 Absolute Basos (auto) 0.0 10^3/uL (0.0-0.2) 07/11/19 19:15 Seg Neutrophils % 71.5 % (42-78) 07/11/19 19:15 Carbonic Acid 1.81 mmol/L (1.05-1.35) H 07/12/19 08:41 HCO3/H2CO3 Ratio 16:1 07/12/19 08:41 ABG pH 7.33 (7.35-7.45) L 07/12/19 08:41 ABG pCO2 60.1 mmHg (35-45) H 07/12/19 08:41 ABG pO2 61.4 mmHg (80-100) L 07/12/19 08:41 ABG HCO3 30.7 mmol/L (20-24) H 07/12/19 08:41 ABG Total CO2 32.5 mmol/L (21-25) H 07/12/19 08:41 ABG O2 Saturation 89.2 % (94-98) L 07/12/19 08:41 ABG Base Excess 3.3 mmol/L 07/12/19 08:41 FiO2 2 L 07/12/19 08:41 Sodium 136.4 mmol/L (137-145) L 07/15/19 03:42 Potassium 5.0 mmol/L (3.6-5.0) 07/15/19 03:42 Chloride 100 mmol/L (98-107) 07/15/19 03:42 Carbon Dioxide 37 mmol/L (22-30) H 07/15/19 03:42 Anion Gap 0 (5-19) L 07/15/19 03:42 BUN 25 mg/dL (7-20) H 07/15/19 03:42 Creatinine 1.18 mg/dL (0.52-1.25) 07/15/19 03:42 Est GFR ( Amer) 54 (>60) L 07/15/19 03:42 Est GFR (MDRD) Non-Af 45 (>60) L 07/15/19 03:42 Glucose 89 mg/dL (75-110) 07/15/19 03:42 Calcium 8.8 mg/dL (8.4-10.2) 07/15/19 03:42 Magnesium 1.8 mg/dL (1.6-2.3) 07/14/19 04:50 Total Bilirubin 0.6 mg/dL (0.2-1.3) 07/11/19 19:15 Direct Bilirubin 0.4 mg/dL (0.0-0.4) 07/11/19 19:15 Neonat Total Bilirubin Not Reportable 07/11/19 19:15 Neonat Direct Bilirubin Not Reportable 07/11/19 19:15 Neonat Indirect Bili Not Reportable 07/11/19 19:15 AST 35 U/L (14-36) 07/11/19 19:15 ALT 24 U/L (<35) 07/11/19 19:15 Alkaline Phosphatase 103 U/L (38-126) 07/11/19 19:15 Creatine Kinase 50 U/L (30-135) 07/11/19 19:15 Troponin I 0.027 ng/mL 07/11/19 19:15 Total Protein 6.9 g/dL (6.3-8.2) 07/11/19 19:15 Albumin 3.5 g/dL (3.5-5.0) 07/11/19 19:15 Triglycerides 129 mg/dL (<150) 07/13/19 05:08 Cholesterol 126.25 mg/dL (0-200) 07/13/19 05:08 LDL Cholesterol Direct 72 mg/dL (<100) 07/13/19 05:08 VLDL Cholesterol 26.0 mg/dL (10-31) 07/13/19 05:08 HDL Cholesterol 34 mg/dL (>40) L 07/13/19 05:08 Urine Color YELLOW 07/11/19 21:50 Urine Appearance CLEAR 07/11/19 21:50 Urine pH 5.0 (5.0-9.0) 07/11/19 21:50 Ur Specific [place] 1.011 07/11/19 21:50 Urine Protein NEGATIVE mg/dL (NEGATIVE) 07/11/19 21:50 Urine Glucose (UA) NEGATIVE mg/dL (NEGATIVE) 07/11/19 21:50 Urine Ketones NEGATIVE mg/dL (NEGATIVE) 07/11/19 21:50 Urine Blood NEGATIVE (NEGATIVE) 07/11/19 21:50 Urine Nitrite NEGATIVE (NEGATIVE) 07/11/19 21:50 Urine Bilirubin NEGATIVE (NEGATIVE) 07/11/19 21:50 Urine Urobilinogen NEGATIVE mg/dL (<2.0) 07/11/19 21:50 Ur Leukocyte Esterase NEGATIVE (NEGATIVE) 07/11/19 21:50 Urine WBC (Auto) 1 /HPF 07/11/19 21:50 Urine Mucus (Auto) RARE /LPF 07/11/19 21:50 Urine Ascorbic Acid NEGATIVE (NEGATIVE) 07/11/19 21:50 Urine Opiates Screen UNCONFIRMED POSITIVE 07/11/19 21:50 Urine Methadone Screen NEGATIVE 07/11/19 21:50 Ur Barbiturates Screen NEGATIVE 07/11/19 21:50 Ur Phencyclidine Scrn NEGATIVE 07/11/19 21:50 Ur Amphetamines Screen NEGATIVE 07/11/19 21:50 U Benzodiazepines Scrn NEGATIVE 07/11/19 21:50 Urine Cocaine Screen NEGATIVE 07/11/19 21:50 U Marijuana (THC) Screen NEGATIVE 07/11/19 21:50 Serum Alcohol < 10 mg/dL (NONE DETECTED) 07/11/19 19:15 07/11/19 19:15 Troponin I 0.027 Impressions: Cervical Spine CT 07/11/19 18:20 IMPRESSION: Mild degenerative disc disease, spondylosis, and facet arthropathy. No acute finding. Chest X-Ray 07/11/19 18:20 IMPRESSION: Chronic lung changes with no acute cardiopulmonary findings. Head CT 07/11/19 18:20 IMPRESSION: NORMAL BRAIN CT WITHOUT CONTRAST. EVIDENCE OF ACUTE STROKE: NO. Lumbar Spine X-Ray 07/11/19 18:27 IMPRESSION: Minimal scoliosis. Degenerative disc disease, spondylosis, and facet arthropathy. Thoracic Spine X-Ray 07/11/19 18:27 IMPRESSION: NO SIGNIFICANT RADIOGRAPHIC FINDING IN THE THORACIC SPINE. Plan Time Spent: Greater than 30 Minutes Stroke Is this a Stroke Patient?: No Acute Heart Failure - Is this a Heart Failure Patient?: No
[2019-07-15] MEDS: GABAPENTIN 300 MG CAPSULE PO SCH (09:24)
[2019-07-15] MEDS: CETIRIZINE 10 MG TABLET PO SCH (09:24)
[2019-07-15] MEDS: FAMOTIDINE 20 MG TABLET PO SCH (09:24)
[2019-07-15] MEDS: POLYETHYLENE GLYCOL 3350 POWDER 17 GM/1 PACKET PO SCH (09:24)
[2019-07-15] MEDS: MULTIVITAMIN TABLET PO SCH (09:24)
[2019-07-15] MEDS: DOCUSATE SODIUM 100 MG CAPSULE PO SCH ×2 (09:25→17:13)
[2019-07-15] MEDS: CARVEDILOL 12.5 MG TABLET PO SCH (09:25)
[2019-07-15] MEDS: DULOXETINE HCL 30 MG CAPSULE.DR PO SCH (09:26)
--- NOTE | 2019-07-15 15:04 | RADIOLOGY REPORT (SQ) ---
EXAM DESCRIPTION: CT RT LOWER EXTREMITY WITHOUT COMPLETED DATE/TIME: 07/15/2019 2:46 pm REASON FOR STUDY: right chapa pain. right medial bulge above knee COMPARISON: None. TECHNIQUE: CT scan of the right femur performed without intravenous or oral contrast. Images review ed with soft tissue and bone windows. Reconstructed coronal and sagittal MPR images reviewed. All i mages stored on PACS. All CT scanners at this facility use dose modulation, iterative reconstruction, and/or weight based d osing when appropriate to reduce radiation dose to as low as reasonably achievable (ALARA). [facility]: Dose Right [facility]: CareDose [facility]: Dose Right [facility]: Teradose 4D [facility]: [employer] RADIATION DOSE: CT Rad equipment meets quality standard of care and radiation dose reduction techniq ues were employed. CTDIvol: 4.2 mGy. DLP: 371 mGy-cm. mGy. LIMITATIONS: None. FINDINGS: BONES: No acute fracture. No worrisome bone lesions. PELVIC SOFT TISSUES: No acute findings. EXTRAPELVIC SOFT TISSUES: 6.4 cm craniocaudad by 4.5 cm transverse by 3.8 cm AP dimension lipoma in t he inferior aspect of the vastus medialis muscle. No fracture or periosteal reaction. OTHER: No other significant finding. IMPRESSION: 6.4 cm craniocaudad by 4.5 cm transverse by 3.8 cm AP dimension lipoma in the inferior a spect of the vastus medialis muscle. No fracture or periosteal reaction. TECHNICAL DOCUMENTATION: JOB ID: [id number] [place]-72 Quality ID # [id number]: Final reports with documentation of one or more dose reduction techniques (e.g., Au tomated exposure control, adjustment of the mA and/or kV according to patient size, use of iterative reconstruction technique) 2010 [employer]- All Rights Reserved Reading location - IP/workstation name: [email or web address]
[2019-07-15] MEDS: MONTELUKAST SODIUM 10 MG TABLET PO SCH (17:14)
[2019-07-15 20:15] VITALS: BP 118/57
== END 2019-07-15 20:51 | DRG 682 ==
LOC: ER 18:07 → EH 22:56 → 3N 07-12 15:50
PROVIDERS: ADMIT Emergency Medicine; ATTEND Emergency Medicine
PROC: 5A09357 Assistance with Respiratory Ventilation, Less than 24 Consecutive Hours, Continuous Positive Airway Pressure (ICD-10-PCS; principal; 2019-07-12)
DX: N17.1 Acute kidney failure with acute cortical necrosis (principal); J96.22 Acute and chronic respiratory failure with hypercapnia; J96.21 Acute and chronic respiratory failure with hypoxia; I13.0 Hypertensive heart and chronic kidney disease with heart failure and stage 1 through stage 4 chronic kidney disease, or unspecified chronic kidney disease; J44.1 Chronic obstructive pulmonary disease with (acute) exacerbation; D63.1 Anemia in chronic kidney disease; I50.9 Heart failure, unspecified; K21.9 Gastro-esophageal reflux disease without esophagitis; N18.3 Chronic kidney disease, stage 3 (moderate); M10.9 Gout, unspecified; F17.200 Nicotine dependence, unspecified, uncomplicated; Z95.820 Peripheral vascular angioplasty status with implants and grafts; Z82.49 Family history of ischemic heart disease and other diseases of the circulatory system; Z79.82 Long term (current) use of aspirin; Z88.8 Allergy status to other drugs, medicaments and biological substances; M54.9 Dorsalgia, unspecified; G89.29 Other chronic pain; M62.81 Muscle weakness (generalized); R10.2 Pelvic and perineal pain; I25.10 Atherosclerotic heart disease of native coronary artery without angina pectoris; I73.9 Peripheral vascular disease, unspecified; E87.5 Hyperkalemia; W18.30XA Fall on same level, unspecified, initial encounter; Y92.89 Other specified places as the place of occurrence of the external cause; I25.2 Old myocardial infarction; M19.039 Primary osteoarthritis, unspecified wrist
CPT/HCPCS: 36415; 70450; 71046; 72070; 72110; 72125; 80048; 80053; 80061; 80307; 81001; 82550; 82803; 83735; 84484; 85025; 85027; 93005; 93010; 94640; 94660; 96361; 96374; 99285; J1644; J2270; J3490; J7030; J7620; L0120

== ENCOUNTER 2019-07-16 12:09 | Inpatient (IN) | payer MEDICARE ==
--- NOTE | 2019-07-16 13:33 | RADIOLOGY REPORT (SQ) ---
EXAM DESCRIPTION: CHEST SINGLE VIEW COMPLETED DATE/TIME: 07/16/2019 1:24 pm REASON FOR STUDY: cough fever COMPARISON: 07/11/2019 FINDINGS: Single-view chest AP portable upright. Hyperinflation with scarring, COPD. Stable appearance without developing pneumothorax or infiltrate or congestive failure. TECHNICAL DOCUMENTATION: JOB ID: [id number] Reading location - IP/workstation name: [email or web address]
--- NOTE | 2019-07-16 13:36 | RADIOLOGY REPORT (SQ) ---
EXAM DESCRIPTION: FOOT LEFT COMPLETE COMPLETED DATE/TIME: 07/16/2019 1:24 pm REASON FOR STUDY: bruise, pain COMPARISON: None. EXAM PARAMETERS: NUMBER OF VIEWS: Three views. TECHNIQUE: AP, lateral and oblique radiographic images acquired of the left foot. LIMITATIONS: None. FINDINGS: MINERALIZATION: Osteopenia. BONES: Nondisplaced fractures of the distal 2nd through 4th metatarsals distal metaphyses. JOINTS: No effusion. SOFT TISSUES: Mild soft tissue swelling. No radiopaque foreign body. OTHER: No other significant finding. IMPRESSION: Nondisplaced fractures of the distal 2nd through 4th metatarsals distal metaphyses. TECHNICAL DOCUMENTATION: JOB ID: [id number] [place]-72 2010 [employer]- All Rights Reserved Reading location - IP/workstation name: [email or web address]
[2019-07-16] MEDS ORDERED: HYDROCODONE/ACETAMINOPHEN 5-325 MG TABLET PO ONE (14:05)
[2019-07-16 14:29] LABS: VENOUS BLOOD BASE EXCESS 12.1 mmol/L; VENOUS BLOOD HCO3 41.5 mmol/L (20-32); VENOUS BLOOD PH 7.35 (7.30-7.42)
[2019-07-16 14:30] LABS: ABSOLUTE EOSINOPHILS # (AUTO) 0.1 10^3/uL (0.0-0.6); ABSOLUTE LYMPHOCYTES (AUTO) 1.3 10^3/uL (0.5-4.7); ABSOLUTE MONOCYTES (AUTO) 0.4 10^3/uL (0.1-1.4); ABSOLUTE NEUT (AUTO) 4.6 10^3/uL (1.7-8.2); BASOPHILS % (AUTO) 0.2 % (0-2); EOSINOPHILS % (AUTO) 1.5 % (0-6); HEMATOCRIT 34.8 % (36.0-47.0); HEMOGLOBIN 11.6 g/dL (12.0-15.5); LYMPHOCYTES % (AUTO) 20.6 % (13-45); MEAN CORPUSCULAR HEMOGLOBIN 28.8 pg (27.0-33.4); MEAN CORPUSCULAR HGB CONC 33.3 g/dL (32.0-36.0); MEAN CORPUSCULAR VOLUME 87 fl (80-97); MONOCYTES % (AUTO) 6.4 % (3-13); PLATELET COUNT 133 10^3/uL (150-450); RED BLOOD COUNT 4.02 10^6/uL (3.72-5.28); RED CELL DISTRIBUTION WIDTH 13.9 % (11.5-14.0); SEGMENTED NEUTROPHILS % (AUTO) 71.3 % (42-78); TOTAL CELLS COUNTED % (AUTO) 100 %; WHITE BLOOD COUNT 6.5 10^3/uL (4.0-10.5)
[2019-07-16 14:31] LABS: VENOUS BLOOD PCO2 76.2 mmHg (35-63)
[2019-07-16 14:38] LABS: INTERNATIONAL RATION (INR) 0.99; PROTHROMBIN TIME 13.1 SEC (11.4-15.4)
[2019-07-16 14:50] LABS: ALBUMIN 2.9 g/dL (3.5-5.0); ALKALINE PHOSPHATASE 100 U/L (38-126); ASPARTATE AMINO TRANSFERASE 22 U/L (14-36); BILIRUBIN,DIRECT 0.3 mg/dL (0.0-0.4); BILIRUBIN,TOTAL 0.4 mg/dL (0.2-1.3); BLOOD UREA NITROGEN 25 mg/dL (7-20); CALCIUM 9.5 mg/dL (8.4-10.2); CHLORIDE 95 mmol/L (98-107); GLUCOSE 90 mg/dL (75-110); TOTAL PROTEIN 5.9 g/dL (6.3-8.2)
[2019-07-16 14:56] LABS: ANION GAP 5 (5-19); CARBON DIOXIDE 39 mmol/L (22-30)
[2019-07-16] MEDS ORDERED: IPRATROPIUM/ALBUTEROL 0.5-2.5 MG/3 ML AMPUL NEB ONE (15:38)
[2019-07-16] MEDS ORDERED: ACETAMINOPHEN 325 MG TABLET PO ONE (15:49)
[2019-07-16 16:31] LABS: APPEARANCE,URINE CLEAR; BILIRUBIN,URINE NEGATIVE (NEGATIVE); COLOR,URINE YELLOW; GLUCOSE, URINE NEGATIVE (NEGATIVE); KETONES,URINE NEGATIVE (NEGATIVE); PROTEIN,URINE NEGATIVE (NEGATIVE); URINE SPECIFIC GRAVITY 1.009; UROBILINOGEN,URINE NEGATIVE mg/dL (<2.0)
--- NOTE | 2019-07-16 16:34 | EKG REPORT ---
SEVERITY:- BORDERLINE ECG - SINUS RHYTHM EARLY PRECORDIAL TRANSITION, R/O OLD TRUE POST NV. : Confirmed by: Bong Wilkins MD 16-Jul-2019 16:34:12
--- NOTE | 2019-07-16 16:58 | RADIOLOGY REPORT (SQ) ---
EXAM DESCRIPTION: CT HEAD WITHOUT COMPLETED DATE/TIME: 07/16/2019 4:45 pm REASON FOR STUDY: change in loc COMPARISON: CT head 07/11/2019 TECHNIQUE: Axial images acquired through the brain without intravenous contrast. Images reviewed wi th bone, brain and subdural windows. Additional sagittal and coronal reconstructions were generated. Images stored on PACS. All CT scanners at this facility use dose modulation, iterative reconstruction, and/or weight based d osing when appropriate to reduce radiation dose to as low as reasonably achievable (ALARA). [facility]: Dose Right [facility]: CareDose [facility]: Dose Right [facility]: Teradose 4D [facility]: [employer] RADIATION DOSE: CT Rad equipment meets quality standard of care and radiation dose reduction techniq ues were employed. CTDIvol: 53.2 mGy. DLP: 964 mGy-cm. mGy. LIMITATIONS: None. FINDINGS: VENTRICLES: Normal size and contour. CEREBRUM: No masses. No hemorrhage. No midline shift. No evidence for acute infarction. Normal gra y/white matter differentiation. No areas of low density in the white matter. CEREBELLUM: No masses. No hemorrhage. No alteration of density. No evidence for acute infarction. EXTRAAXIAL SPACES: No fluid collections. No masses. ORBITS AND GLOBE: No intra- or extraconal masses. Normal contour of globe without masses. CALVARIUM: No fracture. PARANASAL SINUSES: No fluid or mucosal thickening. SOFT TISSUES: No mass or hematoma. OTHER: No other significant finding. IMPRESSION: NO ACUTE INTRACRANIAL IMAGING FINDINGS. EVIDENCE OF ACUTE STROKE: NO. COMMENT: Quality ID # [id number]: Final reports with documentation of one or more dose reduction techniques (e.g., Automated exposure control, adjustment of the mA and/or kV according to patient size, use of iterative reconstruction technique) TECHNICAL DOCUMENTATION: JOB ID: [id number]- All Rights Reserved Reading location - IP/workstation name: [email or web address]
--- NOTE | 2019-07-16 17:38 | ER Document Report ---
ED General - General Chief Complaint: Shortness Of Breath Stated Complaint: TROUBLE BREATHING Time Seen by Provider: 07/16/19 12:21 Primary Care Provider: BEN HINSON NP [Primary Care Provider] - Follow up as needed Notes: Patient is a 74-year-old female presents to the emergency department for a suspected fever. Patient was just discharged from this facility yesterday. Presents to [facility]. Primary states patient had a fever of 101.7. Was given Tylenol, 911 was alerted to transfer patient to the emergency department. She does have a dry cough but is noted to have a history of COPD. Patient is on oxygen all the time, 3 L/min. She appears to be in no respiratory distress. Patient voices pain in her left lower extremity. Patient voices she did have multiple falls prior to her admission to the hospital. Patient is conscious alert and oriented x4. She then asks me to "shut the microwave door." She is pointing to the paper towel dispenser. Patient's granddaughter is in room stating yesterday evening when she visited the patient at [facility] patient was "not talking crazy." TRAVEL OUTSIDE OF THE [place] IN LAST 30 DAYS: No - Related Data Allergies/Adverse Reactions: droperidol [Droperidol] Allergy (Severe, Verified 03/22/18 11:09) Anaphylaxis Past Medical History - General Information source: Patient, Relative, Transfer Record - Social History Smoking Status: Former Smoker Frequency of alcohol use: None Drug Abuse: None Family History: CAD, CVA, DM, Hypertension, Malignancy, Other - Sleep apnea Patient has suicidal ideation: No Patient has homicidal ideation: No - Past Medical History Cardiac Medical History: Reports: Hx Congestive Heart Failure, Hx Heart Attack - MILD HEART ATTACK 2016, NO STENTS OR SX, Hx Hypercholesterolemia, Hx Hypertension, Hx Peripheral Vascular Disease, Hx Pulmonary Embolism - x 2 Denies: Hx Atrial Fibrillation, Hx Coronary Artery Disease, Hx Heart Murmur Pulmonary Medical History: Reports: Hx Asthma, Hx Bronchitis, Hx COPD, Hx Pneumonia - LAST IN 2015, Hx Sleep Apnea - CPAP qhs Denies: Hx Respiratory Failure, Hx Tuberculosis Neurological Medical History: Denies: Hx Cerebrovascular Accident, Hx Seizures Endocrine Medical History: Denies: Hx Diabetes Mellitus Type 1, Hx Diabetes Mellitus Type 2, Hx Graves' Disease, Hx Hyperthyroidism, Hx Hypothyroidism Renal/ Medical History: Reports: Hx Ovarian Cysts. Denies: Hx End Stage Renal Disease, Hx Kidney Stones, Hx Peritoneal Dialysis, Hx Pelvic Inflammatory Disease Malignancy Medical History: Denies: Hx Breast Cancer, Hx Cervical Cancer, Hx Leukemia, Hx Lung Cancer, Hx Ovarian Cancer GI Medical History: Reports: Hx Gastroesophageal Reflux Disease, Hx Ulcer. 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, Denies Hx Fibromyalgia, Reports Hx Gout, Denies Hx Muscular Dystrophy, Denies Hx Systemic Lupus Erythematosus Skin Medical History: Denies Hx Eczema, Denies Hx Psoriasis Psychiatric Medical History: Denies: Hx Bipolar Disorder, Hx Depression, Hx Post Traumatic Stress Disorder, Hx Schizophrenia Traumatic Medical History: Reports: Hx Fractures - 2013 RT hand "2 fingers"/casted Infectious Medical History: Denies: Hx Hepatitis, Hx HIV Past Surgical History: Reports: Hx Bowel Surgery - exp lap, r/t colon perf/colonoscopy approx 2002, Hx Cholecystectomy - Laparoscopic cholecystectomy, Hx Hysterectomy, Hx Tonsillectomy, Hx Vascular Surgery - STENT LLE.. Denies: Hx Appendectomy, Hx Section, Hx Colostomy, Hx Coronary Artery Bypass Graft, Hx Gastric Bypass Surgery, Hx Herniorrhaphy, Hx Mastectomy, Hx Open Heart Surgery, Hx Pacemaker, Hx Tubal Ligation - Immunizations Hx Diphtheria, Pertussis, Tetanus Vaccination: No Hx Pneumococcal Vaccination: 06/14/17 Review of Systems - Review of Systems Constitutional: Fever EENT: See HPI Cardiovascular: denies: Chest pain Respiratory: Cough Gastrointestinal: No symptoms reported Genitourinary: No symptoms reported Female Genitourinary: No symptoms reported Musculoskeletal: No symptoms reported Skin: No symptoms reported Hematologic/Lymphatic: No symptoms reported Neurological/Psychological: See HPI Physical Exam - Vital signs Vitals: Temp Pulse Resp BP Pulse Ox 98 F 69 20 147/51 H 95 07/16/19 12:21 07/16/19 12:21 07/16/19 12:21 07/16/19 12:21 07/16/19 12:21 - Notes Notes: GENERAL: Alert, interacts well. No acute distress. HEAD: Normocephalic, atraumatic. EYES: Pupils equal, round, and reactive to light. Extraocular movements intact. ENT: Oral mucosa moist, tongue midline. NECK: Full range of motion. Supple. Trachea midline. LUNGS: Expiratory wheeze to auscultation bilaterally, no discernible rales, or rhonchi. No respiratory distress. HEART: Regular rate and rhythm. No murmur ABDOMEN: Soft, non-tender. Non-distended. Bowel sounds present in all 4 quadrants. EXTREMITIES: Moves all 4 extremities spontaneously. No edema, normal radial and dorsalis pedis pulses bilaterally. No cyanosis. Capillary refill less than 2 seconds distally all 4 extremities. BACK: no cervical, thoracic, lumbar midline tenderness. No saddle anesthesia, normal distal neurovascular exam. NEUROLOGICAL: Alert and oriented x3. Normal speech. cranial nerves II through XII grossly intact PSYCH: Normal affect, normal mood. SKIN: Warm, dry, normal turgor. Ecchymosis noted dorsal aspect of left foot. Course - Re-evaluation Re-evalutation: Laboratory 07/16/19 07/16/19 07/16/19 14:13 14:13 14:13 WBC 6.5 RBC 4.02 Hgb 11.6 L Hct 34.8 L MCV 87 MCH 28.8 MCHC 33.3 RDW 13.9 Plt Count 133 L Lymph % (Auto) 20.6 [place] % (Auto) 6.4 Eos % (Auto) 1.5 Baso % (Auto) 0.2 Absolute Neuts (auto) 4.6 Absolute Lymphs (auto) 1.3 Absolute Monos (auto) 0.4 Absolute Eos (auto) 0.1 Absolute Basos (auto) 0.0 Seg Neutrophils % 71.3 PT 13.1 INR 0.99 VBG pH VBG pCO2 VBG HCO3 VBG Base Excess Sodium 138.7 Potassium 5.0 Chloride 95 L Carbon Dioxide 39 H Anion Gap 5 BUN 25 H Creatinine 1.41 H Est GFR ( Amer) 44 L Est GFR (MDRD) Non-Af 36 L Glucose 90 Lactic Acid Calcium 9.5 Total Bilirubin 0.4 Direct Bilirubin 0.3 Neonat Total Bilirubin Not Reportable Neonat Direct Bilirubin Not Reportable Neonat Indirect Bili Not Reportable AST 22 ALT 15 Alkaline Phosphatase 100 Troponin I Total Protein 5.9 L Albumin 2.9 L Urine Color Urine Appearance Urine pH Ur Specific [place] Urine Protein Urine Glucose (UA) Urine Ketones Urine Blood Urine Nitrite (Reflex) Urine Bilirubin Urine Urobilinogen Leukocyte Esterase Rfl Urine WBC (Reflex) Squamous Epi Cells Auto Urine Ascorbic Acid 07/16/19 07/16/19 07/16/19 14:13 14:13 14:13 WBC RBC Hgb Hct MCV MCH MCHC RDW Plt Count Lymph % (Auto) [place] % (Auto) Eos % (Auto) Baso % (Auto) Absolute Neuts (auto) Absolute Lymphs (auto) Absolute Monos (auto) Absolute Eos (auto) Absolute Basos (auto) Seg Neutrophils % PT INR VBG pH 7.35 VBG pCO2 76.2 H* VBG HCO3 41.5 H VBG Base Excess 12.1 Sodium Potassium Chloride Carbon Dioxide Anion Gap BUN Creatinine Est GFR ( Amer) Est GFR (MDRD) Non-Af Glucose Lactic Acid 0.9 Calcium Total Bilirubin Direct Bilirubin Neonat Total Bilirubin Neonat Direct Bilirubin Neonat Indirect Bili AST ALT Alkaline Phosphatase Troponin I 0.020 Total Protein Albumin Urine Color Urine Appearance Urine pH Ur Specific [place] Urine Protein Urine Glucose (UA) Urine Ketones Urine Blood Urine Nitrite (Reflex) Urine Bilirubin Urine Urobilinogen Leukocyte Esterase Rfl Urine WBC (Reflex) Squamous Epi Cells Auto Urine Ascorbic Acid 07/16/19 16:05 WBC RBC Hgb Hct MCV MCH MCHC RDW Plt Count Lymph % (Auto) [place] % (Auto) Eos % (Auto) Baso % (Auto) Absolute Neuts (auto) Absolute Lymphs (auto) Absolute Monos (auto) Absolute Eos (auto) Absolute Basos (auto) Seg Neutrophils % PT INR VBG pH VBG pCO2 VBG HCO3 VBG Base Excess Sodium Potassium Chloride Carbon Dioxide Anion Gap BUN Creatinine Est GFR ( Amer) Est GFR (MDRD) Non-Af Glucose Lactic Acid Calcium Total Bilirubin Direct Bilirubin Neonat Total Bilirubin Neonat Direct Bilirubin Neonat Indirect Bili AST ALT Alkaline Phosphatase Troponin I Total Protein Albumin Urine Color YELLOW Urine Appearance CLEAR Urine pH 7.0 Ur Specific [place] 1.009 Urine Protein NEGATIVE Urine Glucose (UA) NEGATIVE Urine Ketones NEGATIVE Urine Blood NEGATIVE Urine Nitrite (Reflex) NEGATIVE Urine Bilirubin NEGATIVE Urine Urobilinogen NEGATIVE Leukocyte Esterase Rfl MODERATE H Urine WBC (Reflex) 1 Squamous Epi Cells Auto FEW Urine Ascorbic Acid NEGATIVE Foot X-Ray 07/16/19 13:00 IMPRESSION: Nondisplaced fractures of the distal 2nd through 4th metatarsals distal metaphyses. Head CT 07/16/19 15:52 IMPRESSION: NO ACUTE INTRACRANIAL IMAGING FINDINGS. EVIDENCE OF ACUTE STROKE: NO. Patient's labs do reveal hypercapnia. Patient continues to be confused although no overt signs of infection noted on lab work-up. Patient has remained afebrile in the emergency department. X-rays do reveal nondisplaced fractures of the distal second through fourth metatarsals the left foot. Splint placed by PCT. Discussed patient's altered mental status with Irwin ADAME. He will admit the patient to a telemetry for continued care. - Vital Signs Vital signs: Temp Pulse Resp BP Pulse Ox 97.7 F 69 17 129/64 H 99 07/16/19 15:52 07/16/19 12:21 07/16/19 15:52 07/16/19 15:52 07/16/19 15:52 - Laboratory Result Diagrams: 07/16/19 14:13 07/16/19 14:13 Laboratory results interpreted by me: 07/16/19 07/16/19 07/16/19 14:13 14:13 14:13 Hgb 11.6 L Hct 34.8 L Plt Count 133 L VBG pCO2 76.2 H* VBG HCO3 41.5 H Chloride 95 L Carbon Dioxide 39 H BUN 25 H Creatinine 1.41 H Est GFR ( Amer) 44 L Est GFR (MDRD) Non-Af 36 L Total Protein 5.9 L Albumin 2.9 L Leukocyte Esterase Rfl 07/16/19 16:05 Hgb Hct Plt Count VBG pCO2 VBG HCO3 Chloride Carbon Dioxide BUN Creatinine Est GFR ( Amer) Est GFR (MDRD) Non-Af Total Protein Albumin Leukocyte Esterase Rfl MODERATE H Discharge - Discharge Clinical Impression: Hypercapnia Altered mental status Qualifiers: Altered mental status type: unspecified Qualified Code(s): R41.82 - Altered mental status, unspecified Condition: Stable Disposition: ADMITTED INPATIENT Admitting Provider: Bijan (Hospitalist) - Irwin ADAME Unit Admitted: Medical Floor Referrals: BEN HINSON NP [Primary Care Provider] - Follow up as needed
[2019-07-16] MEDS ORDERED: ONDANSETRON 4 MG TAB.RAPDIS PO PRN (18:03)
[2019-07-16] MEDS ORDERED: ACETAMINOPHEN 325 MG TABLET PO PRN (18:03)
[2019-07-16] MEDS ORDERED: MAGNESIUM HYDROXIDE SUSP 30 ML UDCUP PO PRN (18:03)
[2019-07-16] MEDS ORDERED: MAG HYDROX/AL HYDROX/SIMETH SUSP 30 ML UDCUP PO PRN (18:03)
[2019-07-16] MEDS ORDERED: ONDANSETRON HCL INJ/PF 4 MG/2 ML SDV IV PRN (18:03)
[2019-07-16] MEDS ORDERED: LORAZEPAM 1 MG TABLET PO PRN (18:13)
[2019-07-16] MEDS ORDERED: ALBUTEROL SULFATE HFA (90 MCG/PUFF) 8 GM MDI (1 MDI/ER DISP) IH PRN (18:18)
[2019-07-16] MEDS ORDERED: HYDRALAZINE HCL INJ/PF 20 MG/1 ML SDV IV PRN (18:19)
--- NOTE | 2019-07-16 18:30 | PDOC H&P ---
History of Present Illness Admission Date/PCP: 07/16/19 17:58 BEN HINSON NP History of Present Illness: MELISSA BOSCH is a 74 year old female who was admitted through the emergency [facility].. Due to the patient's altered mental status that his confusion and hallucination the history is given by the daughter and granddaughter at the bedside. Patient was discharged home from the hospital yesterday from here and was sent to [facility] yesterday evening. Last time the family has seen the patient was early Wednesday morning so they did not see her Wednesday during the day or Wednesday during the day. This night the daughter got a call from the halfway around 3:00 in the [facility] that the patient was running a fever and was somewhat confused. Reportedly they did a chest x-ray and gave her Tylenol.. The patient arrived here to the emergency room she was still seeing things on the wall, times was coherent and answers questions appropriately. Her confusion was waxing and waning. Her temperature here in the emergency room was 98 at noon and then at 1600 hrs. it was 97.7 Pulse rate here is in the mid 60s and regular her blood pressure here is approximately 130/70 her O2 saturations are 98% on 2 L nasal cannula Family is telling me that they do not want her to go back to [place] that they would like her to go to [facility]. His other complaint is left foot pain, second third and fourth toes are bruised and the x-ray in the emergency room show fractures of the metatarsals on that foot. They are unaware of when this injury occurred. Last week when patient was admitted on Wednesday it was because she reportedly had fell at home on Wednesday and Wednesday a total of 5 different times. It sounds as though the patient has some dementia even at her baseline. She is urine here in the emergency room shows moderate leukocytes but negative nitrates Past Medical History Cardiac Medical History: Reports: Congestive Heart Failure, Myocardial Infarction - MILD HEART ATTACK 2015, NO STENTS OR SX, Hyperlipidema, Hypert ension, Peripheral Vascular Disease, Pulmonary Embolism - x 2 Denies: Atrial Fibrillation, Coronary Artery Disease, Heart Murmur Pulmonary Medical History: Reports: Asthma, Bronchitis, Chronic Obstructive Pulmonary Disease (COPD), Pneumonia - LAST IN 2015, Sleep Apnea - CPAP qhs Denies: Respiratory Failure, Tuberculosis Neurological Medical History: Denies: Seizures Endocrine Medical History: Denies: Diabetes Mellitus Type 1, Diabetes Mellitus Type 2, Hyperthyroidism, Hypothyroidism Renal/ Medical History: Denies: End Stage Renal Disease Malignancy Medical History: Denies: Breast Cancer, Cervical Cancer, Leukemia, Lung Cancer, Ovarian Cancer GI Medical History: Reports: Gastroesophageal Reflux Disease Denies: Cirrhosis, Crohn's Disease, Hepatitis, Hiatal Hernia Musculoskeltal Medical History: Reports: Arthritis - Poly-osteoarthritis, Gout Denies: Fibromyalgia Skin Medical History: Denies: Eczema, Psoriasis Psychiatric Medical History: Denies: Bipolar Disorder, Depression, Post Traumatic Stress Disorder Hematology: Reports: Anemia - H/O 2X BLOOD TRANSFUSIONS Denies: Hemophilia, Sickle Cell Disease, Bleeding Tendencies Infectious Medical History: Denies: HIV Past Surgical History Past Surgical History: Reports: Cholecystectomy - Laparoscopic cholecystectomy, Hysterectomy, Tonsillectomy, Vascular Surgery - STENT LLE. Denies: Amputation, Appendectomy, Section, Colostomy, Coronary Artery Bypass Graft, Gastric Bypass Surgery, Herniorrhaphy, Mastectomy, Pacemaker, Tubal Ligation Social History Smoking Status: Former Smoker Frequency of Alcohol Use: None Hx Recreational Drug Use: No Drugs: None Hx Prescription Drug Abuse: No - Advance Directive Resuscitation Status: Do Not Resuscitate Family History Family History: CAD, CVA, DM, Hypertension, Malignancy, Other - Sleep apnea Parental Family History Reviewed: No Children Family History Reviewed: No Sibling(s) Family History Reviewed.: No Medication/Allergy Home Medications: Montelukast Sodium [Singulair 10 mg Tablet] 10 mg PO QPM 07/10/13 Albuterol Sulfate [Ventolin HFA MDI 18 GM] 2 puff IH QIDP PRN #0 09/25/15 Cetirizine HCl [Zyrtec] 10 mg PO DAILY 03/22/18 Furosemide [Lasix 20 mg Tablet] 20 mg PO QAM 03/22/18 Docusate Sodium [Diocto] 150 mg PO BID 07/29/18 Fluticasone/Umeclidin/Vilanter [Trelegy 100-62.5-25 Mcg Ellipta 14 Dose/Dpi] 1 each IH DAILY 07/29/18 Ranitidine HCl 150 mg PO BID 07/29/18 Carvedilol [Coreg 12.5 mg Tablet] 12.5 mg PO Q12 07/12/19 Duloxetine HCl 30 mg PO Q12 07/12/19 Lisinopril 20 mg PO DAILY 07/12/19 Lorazepam [Ativan 1 mg Tablet] 0.5 mg PO DAILYP PRN MDD 1 MG 07/12/19 Metoprolol Succinate [Toprol Xl 25 mg Tab.sr] 25 mg PO DAILY 07/12/19 Morphine Pump 0 mg IT ASDIR PRN 07/12/19 Multivitamin [Tab-A-Dwayne (Multiple Vitamin) Tablet] 1 tab PO DAILY 07/12/19 Potassium Chloride [Klor-Con 10 Meq Capsule ER] 20 meq PO Q2D 07/12/19 Oxycodone HCl [Oxy-Ir 5 mg Tablet] 5 mg PO Q4HP PRN #20 tab 07/15/19 Allergies/Adverse Reactions: droperidol [Droperidol] Allergy (Severe, Verified 03/22/18 11:09) Anaphylaxis Review of Systems Constitutional: ABSENT: chills, fever(s), headache(s), weight gain, weight loss Respiratory: ABSENT: cough, hemoptysis Gastrointestinal: ABSENT: abdominal pain, constipation, diarrhea, hematemesis, hematochezia, nausea, vomiting Neurological: PRESENT: confusion, frequent falls, weakness Psychiatric: PRESENT: hallucinations, other - Patient is not agitated or hostile Patient has no hallucinations while I am in the room. Physical Exam Vital Signs: Temp Pulse Resp BP Pulse Ox 97.7 F 69 17 129/64 H 99 07/16/19 15:52 07/16/19 12:21 07/16/19 15:52 07/16/19 15:52 07/16/19 15:52 Intake & Output 07/15/19 07/16/19 07/17/19 07:59 06:59 06:59 Weight 45.4 kg General appearance: PRESENT: no acute distress, other - Smiling and pleasant Disla is unreliable when she tries to answer questions. Respiratory exam: PRESENT: clear to auscultation keith. ABSENT: rales, rhonchi, wheezes Cardiovascular exam: PRESENT: RRR. ABSENT: diastolic murmur, rubs, systolic murmur Neurological exam: PRESENT: alert, altered Psychiatric exam: PRESENT: unusual affect - Pleasantly confused Results Laboratory Results: 07/16/19 14:13 07/16/19 14:13 07/16/19 07/16/19 07/16/19 14:13 14:13 14:13 WBC 6.5 RBC 4.02 Hgb 11.6 L Hct 34.8 L MCV 87 MCH 28.8 MCHC 33.3 RDW 13.9 Plt Count 133 L Seg Neutrophils % 71.3 VBG pH VBG pCO2 VBG HCO3 VBG Base Excess Sodium 138.7 Potassium 5.0 Chloride 95 L Carbon Dioxide 39 H Anion Gap 5 BUN 25 H Creatinine 1.41 H Est GFR ( Amer) 44 L Glucose 90 Lactic Acid 0.9 Calcium 9.5 Total Bilirubin 0.4 AST 22 Alkaline Phosphatase 100 Total Protein 5.9 L Albumin 2.9 L Urine Color Urine Appearance Urine pH Ur Specific [place] Urine Protein Urine Glucose (UA) Urine Ketones Urine Blood 07/16/19 07/16/19 14:13 16:05 WBC RBC Hgb Hct MCV MCH MCHC RDW Plt Count Seg Neutrophils % VBG pH 7.35 VBG pCO2 76.2 H* VBG HCO3 41.5 H VBG Base Excess 12.1 Sodium Potassium Chloride Carbon Dioxide Anion Gap BUN Creatinine Est GFR ( Amer) Glucose Lactic Acid Calcium Total Bilirubin AST Alkaline Phosphatase Total Protein Albumin Urine Color YELLOW Urine Appearance CLEAR Urine pH 7.0 Ur Specific [place] 1.009 Urine Protein NEGATIVE Urine Glucose (UA) NEGATIVE Urine Ketones NEGATIVE Urine Blood NEGATIVE 07/16/19 14:13 Troponin I 0.020 Impressions: Foot X-Ray 07/16/19 13:00 IMPRESSION: Nondisplaced fractures of the distal 2nd through 4th metatarsals distal metaphyses. Head CT 07/16/19 15:52 IMPRESSION: NO ACUTE INTRACRANIAL IMAGING FINDINGS. EVIDENCE OF ACUTE STROKE: NO. Assessment and Plan - Diagnosis (1) Altered mental status Qualifiers: Altered mental status type: unspecified Qualified Code(s): R41.82 - Altered mental status, unspecified Is this a current diagnosis for this admission?: Yes (2) CAD (coronary artery disease) Qualifiers: Coronary Disease-Associated Artery/Lesion type: [place] artery [place] vs. transplanted heart: [place] heart Associated angina: without angina Qualified Code(s): I25.10 - Atherosclerotic heart disease of [place] coronary artery without angina pectoris Is this a current diagnosis for this admission?: Yes (3) HTN (hypertension), benign Is this a current diagnosis for this admission?: Yes (4) Tobacco use disorder, severe, dependence Is this a current diagnosis for this admission?: Yes (5) CKD (chronic kidney disease), stage III Is this a current diagnosis for this admission?: Yes - Plan Summary Summary: I have told the daughter and granddaughter that I have no control over the patient is discharged once she leaves the hospital. As I cannot pick and choose which facility she qualifies for or is offered a bed at. Our priority is to find out why she is confused and hallucinating and why she had a fever last night. Patient does have a fracture of several metatarsals on the left foot so ambulation and PT is going to be somewhat difficult, however we can place her in a cast shoe or some sort of boot assist her rehab. Culture her urine, weight on the blood cultures, in the meantime start her on IV Rocephin. Patient is a DNR. Family's questions have been answered and patient is medically stable for admission - Time Time Spent with patient: 35 or more minutes
[2019-07-16] MEDS: NORMAL SALINE 1000 ML 1,000 ML IV PRN (19:54)
[2019-07-16] MEDS ORDERED: FAMOTIDINE 20 MG TABLET PO SCH (22:00)
[2019-07-16] MEDS: CARVEDILOL 12.5 MG TABLET PO SCH (22:32)
[2019-07-16] MEDS: MONTELUKAST SODIUM 10 MG TABLET PO SCH (22:38)
[2019-07-17 05:29] LABS: ABSOLUTE EOSINOPHILS # (AUTO) 0.1 10^3/uL (0.0-0.6); ABSOLUTE LYMPHOCYTES (AUTO) 1.3 10^3/uL (0.5-4.7); ABSOLUTE MONOCYTES (AUTO) 0.4 10^3/uL (0.1-1.4); ABSOLUTE NEUT (AUTO) 2.7 10^3/uL (1.7-8.2); BASOPHILS % (AUTO) 0.2 % (0-2); EOSINOPHILS % (AUTO) 1.7 % (0-6); HEMATOCRIT 32.5 % (36.0-47.0); HEMOGLOBIN 10.7 g/dL (12.0-15.5); LYMPHOCYTES % (AUTO) 29.8 % (13-45); MEAN CORPUSCULAR HEMOGLOBIN 28.7 pg (27.0-33.4); MEAN CORPUSCULAR HGB CONC 32.9 g/dL (32.0-36.0); MEAN CORPUSCULAR VOLUME 87 fl (80-97); MONOCYTES % (AUTO) 8.2 % (3-13); PLATELET COUNT 124 10^3/uL (150-450); RED BLOOD COUNT 3.73 10^6/uL (3.72-5.28); RED CELL DISTRIBUTION WIDTH 13.5 % (11.5-14.0); SEGMENTED NEUTROPHILS % (AUTO) 60.1 % (42-78); TOTAL CELLS COUNTED % (AUTO) 100 %; WHITE BLOOD COUNT 4.5 10^3/uL (4.0-10.5)
[2019-07-17] MEDS: NORMAL SALINE 1000 ML 1,000 ML IV PRN ×3 (05:44→21:04)
[2019-07-17] MEDS: OXYCODONE HCL IR 5 MG TABLET PO PRN ×3 (05:44→21:03)
[2019-07-17 05:51] LABS: BLOOD UREA NITROGEN 22 mg/dL (7-20); CALCIUM 8.8 mg/dL (8.4-10.2); GLUCOSE 84 mg/dL (75-110); POTASSIUM 4.7 mmol/L (3.6-5.0)
[2019-07-17 05:57] LABS: CARBON DIOXIDE 34 mmol/L (22-30); CHLORIDE 102 mmol/L (98-107)
[2019-07-17 06:00] LABS: ANION GAP 4 (5-19)
[2019-07-17] MEDS ORDERED: ALBUTEROL SULFATE HFA (90 MCG/PUFF) 200 PUFF/8.5 GM MDI IH PRN (09:40)
[2019-07-17] MEDS ORDERED: ENOXAPARIN SODIUM INJ 40 MG/0.4 ML DISP.SYRIN SUBCUT SCH (10:00)
[2019-07-17] MEDS ORDERED: ONDANSETRON 4 MG TAB.RAPDIS PO PRN (10:00)
[2019-07-17] MEDS ORDERED: HYDRALAZINE HCL INJ/PF 20 MG/1 ML SDV IV PRN (10:00)
[2019-07-17] MEDS ORDERED: ONDANSETRON HCL INJ/PF 4 MG/2 ML SDV IV PRN (10:00)
[2019-07-17] MEDS: ACETAMINOPHEN 325 MG TABLET PO PRN ×2 (10:18→21:04)
[2019-07-17] MEDS: METOPROLOL SUCCINATE 25 MG TAB.SR.24H PO SCH (10:19)
[2019-07-17] MEDS: CARVEDILOL 12.5 MG TABLET PO SCH ×2 (10:19→21:03)
[2019-07-17] MEDS: DOCUSATE SODIUM 100 MG CAPSULE PO SCH ×2 (10:19→17:09)
[2019-07-17] MEDS: FUROSEMIDE 20 MG TABLET PO SCH (10:19)
[2019-07-17] MEDS: ENOXAPARIN SODIUM INJ 30 MG/0.3 ML DISP.SYRIN SUBCUT SCH (10:20)
[2019-07-17] MEDS: FLUTICASONE/UMECLIDIN/VILANTER 100-62.5-25 MCG/DOSE IH SCH (10:20)
--- NOTE | 2019-07-17 10:42 | PDOC PROGRESS REPORT ---
Subjective Progress Note for:: 07/17/19 Reason For Visit: GENERALIZED WEAKNESS,LEFT FOOT PAIN,FEVER,ALTERED Patient was admitted yesterday on 07/16/2019 coming from [facility]. Patient had just been discharged from the hospital the day prior Patient was sent back to the emergency room for fever, altered mental status, fracture to the left foot Physical Exam Vital Signs: Temp Pulse Resp BP Pulse Ox 97.6 F 63 17 154/61 H 98 07/17/19 09:23 07/17/19 10:09 07/17/19 09:23 07/17/19 10:09 07/17/19 10:09 Intake & Output 07/16/19 07/17/19 07/18/19 06:59 06:59 06:59 Intake Total 1183 Balance 1183 Weight 43.5 kg General appearance: PRESENT: no acute distress, other - Patient lying in bed confused Respiratory exam: PRESENT: clear to auscultation keith. ABSENT: rales, rhonchi, wheezes Cardiovascular exam: PRESENT: RRR. ABSENT: diastolic murmur, rubs, systolic murmur Neurological exam: PRESENT: alert, altered, other - Confused probably secondary to chronic dementia Psychiatric exam: PRESENT: appropriate affect, normal mood. ABSENT: homicidal ideation, suicidal ideation Results Laboratory Results: 07/17/19 04:23 07/17/19 04:23 07/16/19 07/16/19 07/16/19 14:13 14:13 14:13 WBC 6.5 RBC 4.02 Hgb 11.6 L Hct 34.8 L MCV 87 MCH 28.8 MCHC 33.3 RDW 13.9 Plt Count 133 L Seg Neutrophils % 71.3 VBG pH VBG pCO2 VBG HCO3 VBG Base Excess Sodium 138.7 Potassium 5.0 Chloride 95 L Carbon Dioxide 39 H Anion Gap 5 BUN 25 H Creatinine 1.41 H Est GFR ( Amer) 44 L Glucose 90 Lactic Acid 0.9 Calcium 9.5 Magnesium Total Bilirubin 0.4 AST 22 Alkaline Phosphatase 100 Total Protein 5.9 L Albumin 2.9 L TSH Urine Color Urine Appearance Urine pH Ur Specific [place] Urine Protein Urine Glucose (UA) Urine Ketones Urine Blood 07/16/19 07/16/19 07/16/19 14:13 14:13 16:05 WBC RBC Hgb Hct MCV MCH MCHC RDW Plt Count Seg Neutrophils % VBG pH 7.35 VBG pCO2 76.2 H* VBG HCO3 41.5 H VBG Base Excess 12.1 Sodium Potassium Chloride Carbon Dioxide Anion Gap BUN Creatinine Est GFR ( Amer) Glucose Lactic Acid Calcium Magnesium Total Bilirubin AST Alkaline Phosphatase Total Protein Albumin TSH 0.63 Urine Color YELLOW Urine Appearance CLEAR Urine pH 7.0 Ur Specific [place] 1.009 Urine Protein NEGATIVE Urine Glucose (UA) NEGATIVE Urine Ketones NEGATIVE Urine Blood NEGATIVE 07/17/19 07/17/19 04:23 04:23 WBC 4.5 RBC 3.73 Hgb 10.7 L Hct 32.5 L MCV 87 MCH 28.7 MCHC 32.9 RDW 13.5 Plt Count 124 L Seg Neutrophils % 60.1 VBG pH VBG pCO2 VBG HCO3 VBG Base Excess Sodium 139.5 Potassium 4.7 Chloride 102 Carbon Dioxide 34 H Anion Gap 4 L BUN 22 H Creatinine 1.34 H Est GFR ( Amer) 47 L Glucose 84 Lactic Acid Calcium 8.8 Magnesium 1.9 Total Bilirubin AST Alkaline Phosphatase Total Protein Albumin TSH Urine Color Urine Appearance Urine pH Ur Specific [place] Urine Protein Urine Glucose (UA) Urine Ketones Urine Blood 07/16/19 07/17/19 14:13 04:23 Troponin I 0.020 NT-Pro-B Natriuret Pep 1060 H Impressions: Foot X-Ray 07/16/19 13:00 IMPRESSION: Nondisplaced fractures of the distal 2nd through 4th metatarsals distal metaphyses. Head CT 07/16/19 15:52 IMPRESSION: NO ACUTE INTRACRANIAL IMAGING FINDINGS. EVIDENCE OF ACUTE STROKE: NO. Assessment and Plan - Diagnosis (1) Altered mental status Qualifiers: Altered mental status type: unspecified Qualified Code(s): R41.82 - Altered mental status, unspecified Is this a current diagnosis for this admission?: Yes (2) CAD (coronary artery disease) Qualifiers: Coronary Disease-Associated Artery/Lesion type: [place] artery [place] vs. transplanted heart: [place] heart Associated angina: without angina Qualified Code(s): I25.10 - Atherosclerotic heart disease of [place] coronary artery without angina pectoris Is this a current diagnosis for this admission?: Yes (3) HTN (hypertension), benign Is this a current diagnosis for this admission?: Yes (4) Tobacco use disorder, severe, dependence Is this a current diagnosis for this admission?: Yes (5) CKD (chronic kidney disease), stage III Is this a current diagnosis for this admission?: Yes (6) UTI (urinary tract infection) Is this a current diagnosis for this admission?: Yes - Plan Summary Summary: I have told the daughter and granddaughter that I have no control over the patient is discharged once she leaves the hospital. As I cannot pick and choose which facility she qualifies for or is offered a bed at. Our priority is to find out why she is confused and hallucinating and why she had a fever last night. Patient does have a fracture of several metatarsals on the left foot so ambulation and PT is going to be somewhat difficult, however we can place her in a cast shoe or some sort of boot assist her rehab. Culture her urine, weight on the blood cultures, in the meantime start her on IV Rocephin. Patient is a DNR. Family's questions have been answered and patient is medically stable for admission 07/17/2019 This morning patient is still confused however her vital signs are stable. Urinalysis from yesterday in the emergency room appeared to show a UTI. She currently on IV Rocephin Urine culture and blood cultures are pending WBCs are still normal, H&H is stable, electrolytes are stable. Patient's family has requested a different care home facility at the time of discharge. Notify discharge planning of this. I have also ordered a soft boot for her left foot fracture to help with ambulation. I suspect that patient will fail with physical therapy and rehab regardless of her foot fracture. When patient's UTI and physical therapy have been addressed she can be discharged to a new care home facility. Her dementia is chronic and probably only slightly influenced by her UTI - Time Time Spent with patient: 25-34 minutes
[2019-07-17] MEDS: LEVALBUTEROL HCL NEB 1.25 MG/3 ML AMPUL NEB PRN (20:18)
[2019-07-17] MEDS: MONTELUKAST SODIUM 10 MG TABLET PO SCH (21:03)
[2019-07-17] MEDS: FAMOTIDINE 20 MG TABLET PO SCH (21:03)
[2019-07-18] MEDS: ACETAMINOPHEN 325 MG TABLET PO PRN ×2 (05:07→19:28)
[2019-07-18] MEDS: OXYCODONE HCL IR 5 MG TABLET PO PRN ×3 (05:07→21:09)
[2019-07-18] MEDS: NORMAL SALINE 1000 ML 1,000 ML IV PRN ×2 (05:10→14:35)
[2019-07-18] MEDS: ENOXAPARIN SODIUM INJ 30 MG/0.3 ML DISP.SYRIN SUBCUT SCH (09:03)
[2019-07-18] MEDS: FUROSEMIDE 20 MG TABLET PO SCH (09:08)
[2019-07-18] MEDS: CARVEDILOL 12.5 MG TABLET PO SCH ×2 (09:08→21:08)
[2019-07-18] MEDS: DOCUSATE SODIUM 100 MG CAPSULE PO SCH ×2 (09:08→17:15)
[2019-07-18] MEDS: FLUTICASONE/UMECLIDIN/VILANTER 100-62.5-25 MCG/DOSE IH SCH (09:09)
[2019-07-18] MEDS: METOPROLOL SUCCINATE 25 MG TAB.SR.24H PO SCH (14:35)
--- NOTE | 2019-07-18 17:01 | PDOC PROGRESS REPORT ---
Subjective Progress Note for:: 07/18/19 Subjective:: No acute event overnight. Upon encounter, patient appears comfortable. She denies acute complaints. She is oriented to person, she knows she is in the hospital and she knows that it is July 2019. She is awaiting for placement to [facility]. Reason For Visit: GENERALIZED WEAKNESS,LEFT FOOT PAIN,FEVER,ALTERED Physical Exam Vital Signs: Temp Pulse Resp BP Pulse Ox 97.6 F 66 19 127/65 H 100 07/18/19 12:03 07/18/19 12:03 07/18/19 12:03 07/18/19 12:03 07/18/19 12:03 Intake & Output 07/17/19 07/18/19 07/19/19 06:59 06:59 06:59 Intake Total 1183 2667 942 Balance 1183 2667 942 Weight 95 lb 14.417 oz 94 lb 9.253 oz General appearance: PRESENT: no acute distress, well-developed, well-nourished Head exam: PRESENT: atraumatic, normocephalic Eye exam: PRESENT: conjunctiva pink, EOMI, PERRLA. ABSENT: scleral icterus Ear exam: PRESENT: normal external ear exam Mouth exam: PRESENT: moist, tongue midline Neck exam: ABSENT: carotid bruit, JVD, lymphadenopathy, thyromegaly Respiratory exam: PRESENT: clear to auscultation keith. ABSENT: rales, rhonchi, wheezes Cardiovascular exam: PRESENT: RRR. ABSENT: diastolic murmur, rubs, systolic murmur Pulses: PRESENT: normal dorsalis pedis pul GI/Abdominal exam: PRESENT: normal bowel sounds, soft. ABSENT: distended, guarding, mass, organolmegaly, rebound, tenderness Rectal exam: PRESENT: deferred Neurological exam: PRESENT: alert, awake, oriented to person, oriented to place, oriented to time, CN II-XII grossly intact. ABSENT: motor sensory deficit Results Laboratory Results: 07/17/19 04:23 07/17/19 04:23 07/16/19 16:05 Clean Catch Midstream Urine Culture - Final Enterococcus Faecalis(Group D) Proteus Mirabilis 07/16/19 07/17/19 14:13 04:23 Troponin I 0.020 NT-Pro-B Natriuret Pep 1060 H Impressions: Foot X-Ray 07/16/19 13:00 IMPRESSION: Nondisplaced fractures of the distal 2nd through 4th metatarsals distal metaphyses. Head CT 07/16/19 15:52 IMPRESSION: NO ACUTE INTRACRANIAL IMAGING FINDINGS. EVIDENCE OF ACUTE STROKE: NO. Assessment and Plan - Diagnosis (1) Acute delirium Is this a current diagnosis for this admission?: Yes Plan: Suspect to be acute delirium related to TENISHA in a dementia patient. (2) TENISHA (acute kidney injury) Is this a current diagnosis for this admission?: Yes Plan: Her creatinine improved on discharge on 07/15 but was up again to 1.4 on 07/16. She has a baseline crea of 0.9 to 1.0. Continue IV fluids. (3) Dementia Is this a current diagnosis for this admission?: Yes (4) CAD (coronary artery disease) Qualifiers: Coronary Disease-Associated Artery/Lesion type: [place] artery [place] vs. transplanted heart: [place] heart Associated angina: without angina Qualified Code(s): I25.10 - Atherosclerotic heart disease of [place] coronary artery without angina pectoris Is this a current diagnosis for this admission?: Yes (5) COPD (chronic obstructive pulmonary disease) Qualifiers: COPD type: unspecified COPD Qualified Code(s): J44.9 - Chronic obstructive pulmonary disease, unspecified Is this a current diagnosis for this admission?: Yes - Time Time Spent with patient: 25-34 minutes
[2019-07-18] MEDS: FAMOTIDINE 20 MG TABLET PO SCH (21:09)
[2019-07-18] MEDS: MONTELUKAST SODIUM 10 MG TABLET PO SCH (21:09)
[2019-07-19] MEDS: NORMAL SALINE 1000 ML 1,000 ML IV PRN (01:19)
[2019-07-19] MEDS: ACETAMINOPHEN 325 MG TABLET PO PRN (01:22)
[2019-07-19 04:47] LABS: ABSOLUTE EOSINOPHILS # (AUTO) 0.1 10^3/uL (0.0-0.6); ABSOLUTE LYMPHOCYTES (AUTO) 1.1 10^3/uL (0.5-4.7); ABSOLUTE MONOCYTES (AUTO) 0.4 10^3/uL (0.1-1.4); ABSOLUTE NEUT (AUTO) 2.9 10^3/uL (1.7-8.2); BASOPHILS % (AUTO) 0.3 % (0-2); EOSINOPHILS % (AUTO) 2.2 % (0-6); HEMATOCRIT 30.3 % (36.0-47.0); HEMOGLOBIN 10.1 g/dL (12.0-15.5); LYMPHOCYTES % (AUTO) 24.2 % (13-45); MEAN CORPUSCULAR HEMOGLOBIN 29.1 pg (27.0-33.4); MEAN CORPUSCULAR HGB CONC 33.4 g/dL (32.0-36.0); MEAN CORPUSCULAR VOLUME 87 fl (80-97); MONOCYTES % (AUTO) 9.1 % (3-13); PLATELET COUNT 152 10^3/uL (150-450); RED BLOOD COUNT 3.47 10^6/uL (3.72-5.28); RED CELL DISTRIBUTION WIDTH 13.3 % (11.5-14.0); SEGMENTED NEUTROPHILS % (AUTO) 64.2 % (42-78); TOTAL CELLS COUNTED % (AUTO) 100 %; WHITE BLOOD COUNT 4.6 10^3/uL (4.0-10.5)
[2019-07-19 05:09] LABS: BLOOD UREA NITROGEN 18 mg/dL (7-20); CALCIUM 8.7 mg/dL (8.4-10.2); CARBON DIOXIDE 30 mmol/L (22-30); GLUCOSE 90 mg/dL (75-110); POTASSIUM 4.3 mmol/L (3.6-5.0)
[2019-07-19 05:16] LABS: CHLORIDE 108 mmol/L (98-107)
[2019-07-19 05:17] LABS: ANION GAP 2 (5-19)
[2019-07-19] MEDS: FUROSEMIDE 20 MG TABLET PO SCH (09:02)
[2019-07-19] MEDS: DOCUSATE SODIUM 100 MG CAPSULE PO SCH (09:02)
[2019-07-19] MEDS: CARVEDILOL 12.5 MG TABLET PO SCH (09:02)
[2019-07-19] MEDS: ENOXAPARIN SODIUM INJ 30 MG/0.3 ML DISP.SYRIN SUBCUT SCH (09:02)
[2019-07-19] MEDS: METOPROLOL SUCCINATE 25 MG TAB.SR.24H PO SCH (09:02)
[2019-07-19] MEDS: FLUTICASONE/UMECLIDIN/VILANTER 100-62.5-25 MCG/DOSE IH SCH (09:02)
[2019-07-19] MEDS: LEVALBUTEROL HCL NEB 1.25 MG/3 ML AMPUL NEB PRN (09:19)
--- NOTE | 2019-07-19 11:51 | PDOC TRANSFER SUMMARY ---
Impression - Admit/DC Date/PCP Admission Date/Primary Care Provider: 07/16/19 17:58 BEN HINSON NP Discharge Date: 07/19/19 - Discharge Diagnosis (1) Acute delirium Is this a current diagnosis for this admission?: Yes (2) TENISHA (acute kidney injury) Is this a current diagnosis for this admission?: Yes (3) Dementia Is this a current diagnosis for this admission?: Yes (4) CAD (coronary artery disease) Is this a current diagnosis for this admission?: Yes (5) COPD (chronic obstructive pulmonary disease) Is this a current diagnosis for this admission?: Yes - Additional Information Resuscitation Status: Do Not Resuscitate Referrals: [facility] [Outside] BEN HINSON NP [Primary Care Provider] - Follow up as needed Home Medications: Albuterol Sulfate [Ventolin Hfa 8 gm Mdi (1 Mdi/ER Disp)] 2 puff IH Q6 PRN 07/17/19 Carvedilol [Coreg 12.5 mg Tablet] 12.5 mg PO Q12 07/17/19 Cetirizine HCl [Zyrtec 10 mg Tablet] 10 mg PO DAILY 07/17/19 Docusate Sodium [Dok] 150 mg PO BID 07/17/19 Duloxetine HCl [Cymbalta] 30 mg PO Q12 07/17/19 Fluticasone/Umeclidin/Vilanter [Trelegy 100-62.5-25 Mcg Ellipta 14 Dose/Dpi] 1 puff IH DAILY 07/17/19 Gabapentin [Neurontin 300 mg Capsule] 300 mg PO Q12 07/17/19 Lisinopril [Prinivil] 20 mg PO DAILY 07/17/19 Lorazepam [Ativan 0.5 mg Tablet] 0.5 mg PO DAILY PRN 07/17/19 Metoprolol Succinate [Toprol Xl 25 mg Tab.sr] 25 mg PO DAILY 07/17/19 Montelukast Sodium [Singulair 10 mg Tablet] 10 mg PO QPM 07/17/19 Multivitamin [Daily Multiple Vitamin] 1 tab PO DAILY 07/17/19 Oxycodone HCl [Roxicodone] 5 mg PO Q4 PRN 07/17/19 Ranitidine HCl 150 mg PO BID 07/17/19 History of Present Illiness History of Present Illness: Admitting hospitalist's H&P: MELISSA BOSCH is a 74 year old female who was admitted through the emergency room.. Due to the patient's altered mental status that his confusion and hallucination the history is given by the daughter and granddaughter at the bedside. Patient was discharged home from the hospital yesterday from here and was sent to [facility] yesterday evening. Last time the family has seen the patient was early Wednesday morning so they did not see her Wednesday during the day or Wednesday during the day. This night the daughter got a call from the longterm around 3:00 in the morning that the patient was running a fever and was somewhat confused. Reportedly they did a chest x-ray and gave her Tylenol. The patient arrived here to the emergency room she was still seeing things on the wall, times was coherent and answers questions appropriately. Her confusion was waxing and waning. Her temperature here in the emergency room was 98 at noon and then at 1600 hrs. it was 97.7 Pulse rate here is in the mid 60s and regular her blood pressure here is approximately 130/70 her O2 saturations are 98% on 2 L nasal cannula Family is telling me that they do not want her to go back to [place] that they would like her to go to [facility] in [facility]. His other complaint is left foot pain, second third and fourth toes are bruised and the x-ray in the emergency room show fractures of the metatarsals on that foot. They are unaware of when this injury occurred. Last week when patient was admitted on Wednesday it was because she reportedly had fell at home on Wednesday and Wednesday a total of 5 different times. It sounds as though the patient has some dementia even at her baseline. She is urine here in the emergency room shows moderate leukocytes but negative nitrates Hospital Course Hospital Course: Patient was re-admitted due to an episode of confusion at [place]. Appears she had TENISHA again. Her creatinine improved on discharge on 07/15 but was up again to 1.4 on 07/16. She has a baseline crea of 0.9 to 1.0. She was started on IV fluids and Lasix was held. She did not have any recurrence of agitation in this recent readmission. Her TENISHA resolved with IV fluids and creatinine trended down to 1.1. Suspect her confusion is from acute delirium related to TENISHA in a dementia patient. She will be discharged to [place]. She is on LAsix 20 mg daily at home and Potassium supplements. These will be continued due to her recent TENISHA and hyperkalemia. Physical Exam Vital Signs: Temp Pulse Resp BP Pulse Ox 97.8 F 71 18 185/55 H 94 07/19/19 08:58 07/19/19 09:19 07/19/19 09:19 07/19/19 08:58 07/19/19 09:19 Intake & Output 07/18/19 07/19/19 07/20/19 06:59 06:59 06:59 Intake Total 2667 2903 Output Total 950 Balance 2667 1953 Weight 94 lb 9.253 oz 96 lb 1.945 oz General appearance: PRESENT: no acute distress, well-developed, well-nourished Head exam: PRESENT: atraumatic, normocephalic Eye exam: PRESENT: conjunctiva pink, EOMI, PERRLA. ABSENT: scleral icterus Ear exam: PRESENT: normal external ear exam Mouth exam: PRESENT: moist, tongue midline Neck exam: ABSENT: carotid bruit, JVD, lymphadenopathy, thyromegaly Respiratory exam: PRESENT: clear to auscultation keith. ABSENT: rales, rhonchi, wheezes Cardiovascular exam: PRESENT: RRR. ABSENT: diastolic murmur, rubs, systolic murmur Pulses: PRESENT: normal dorsalis pedis pul GI/Abdominal exam: PRESENT: normal bowel sounds, soft. ABSENT: distended, guarding, mass, organolmegaly, rebound, tenderness Rectal exam: PRESENT: deferred Neurological exam: PRESENT: alert, awake, oriented to person, oriented to place, oriented to time, CN II-XII grossly intact. ABSENT: motor sensory deficit Results Laboratory Results: WBC 4.6 10^3/uL (4.0-10.5) 07/19/19 04:09 RBC 3.47 10^6/uL (3.72-5.28) L 07/19/19 04:09 Hgb 10.1 g/dL (12.0-15.5) L 07/19/19 04:09 Hct 30.3 % (36.0-47.0) L 07/19/19 04:09 MCV 87 fl (80-97) 07/19/19 04:09 MCH 29.1 pg (27.0-33.4) 07/19/19 04:09 MCHC 33.4 g/dL (32.0-36.0) 07/19/19 04:09 RDW 13.3 % (11.5-14.0) 07/19/19 04:09 Plt Count 152 10^3/uL (150-450) 07/19/19 04:09 Lymph % (Auto) 24.2 % (13-45) 07/19/19 04:09 [place] % (Auto) 9.1 % (3-13) 07/19/19 04:09 Eos % (Auto) 2.2 % (0-6) 07/19/19 04:09 Baso % (Auto) 0.3 % (0-2) 07/19/19 04:09 Absolute Neuts (auto) 2.9 10^3/uL (1.7-8.2) 07/19/19 04:09 Absolute Lymphs (auto) 1.1 10^3/uL (0.5-4.7) 07/19/19 04:09 Absolute Monos (auto) 0.4 10^3/uL (0.1-1.4) 07/19/19 04:09 Absolute Eos (auto) 0.1 10^3/uL (0.0-0.6) 07/19/19 04:09 Absolute Basos (auto) 0.0 10^3/uL (0.0-0.2) 07/19/19 04:09 Seg Neutrophils % 64.2 % (42-78) 07/19/19 04:09 PT 13.1 SEC (11.4-15.4) 07/16/19 14:13 INR 0.99 07/16/19 14:13 VBG pH 7.35 (7.30-7.42) 07/16/19 14:13 VBG pCO2 76.2 mmHg (35-63) H* 07/16/19 14:13 VBG HCO3 41.5 mmol/L (20-32) H 07/16/19 14:13 VBG Base Excess 12.1 mmol/L 07/16/19 14:13 Sodium 140.2 mmol/L (137-145) 07/19/19 04:09 Potassium 4.3 mmol/L (3.6-5.0) 07/19/19 04:09 Chloride 108 mmol/L (98-107) H 07/19/19 04:09 Carbon Dioxide 30 mmol/L (22-30) 07/19/19 04:09 Anion Gap 2 (5-19) L 07/19/19 04:09 BUN 18 mg/dL (7-20) 07/19/19 04:09 Creatinine 1.15 mg/dL (0.52-1.25) 07/19/19 04:09 Est GFR ( Amer) 56 (>60) L 07/19/19 04:09 Est GFR (MDRD) Non-Af 46 (>60) L 07/19/19 04:09 Glucose 90 mg/dL (75-110) 07/19/19 04:09 POC Glucose 104 mg/dL (70-110) 07/16/19 12:37 Lactic Acid 0.9 mmol/L (0.7-2.1) 07/16/19 14:13 Calcium 8.7 mg/dL (8.4-10.2) 07/19/19 04:09 Magnesium 1.9 mg/dL (1.6-2.3) 07/17/19 04:23 Total Bilirubin 0.4 mg/dL (0.2-1.3) 07/16/19 14:13 Direct Bilirubin 0.3 mg/dL (0.0-0.4) 07/16/19 14:13 Neonat Total Bilirubin Not Reportable 07/16/19 14:13 Neonat Direct Bilirubin Not Reportable 07/16/19 14:13 Neonat Indirect Bili Not Reportable 07/16/19 14:13 AST 22 U/L (14-36) 07/16/19 14:13 ALT 15 U/L (<35) 07/16/19 14:13 Alkaline Phosphatase 100 U/L (38-126) 07/16/19 14:13 Troponin I 0.020 ng/mL 07/16/19 14:13 NT-Pro-B Natriuret Pep 1060 pg/mL (<125) H 07/17/19 04:23 Total Protein 5.9 g/dL (6.3-8.2) L 07/16/19 14:13 Albumin 2.9 g/dL (3.5-5.0) L 07/16/19 14:13 TSH 0.63 uIU/mL (0.47-4.68) 07/16/19 14:13 Urine Color YELLOW 07/16/19 16:05 Urine Appearance CLEAR 07/16/19 16:05 Urine pH 7.0 (5.0-9.0) 07/16/19 16:05 Ur Specific Kendrick 1.009 07/16/19 16:05 Urine Protein NEGATIVE mg/dL (NEGATIVE) 07/16/19 16:05 Urine Glucose (UA) NEGATIVE mg/dL (NEGATIVE) 07/16/19 16:05 Urine Ketones NEGATIVE mg/dL (NEGATIVE) 07/16/19 16:05 Urine Blood NEGATIVE (NEGATIVE) 07/16/19 16:05 Urine Nitrite (Reflex) NEGATIVE (NEGATIVE) 07/16/19 16:05 Urine Bilirubin NEGATIVE (NEGATIVE) 07/16/19 16:05 Urine Urobilinogen NEGATIVE mg/dL (<2.0) 07/16/19 16:05 Leukocyte Esterase Rfl MODERATE (NEGATIVE) H 07/16/19 16:05 Urine WBC (Reflex) 1 /HPF 07/16/19 16:05 Squamous Epi Cells Auto FEW /HPF 07/16/19 16:05 Urine Ascorbic Acid NEGATIVE (NEGATIVE) 07/16/19 16:05 07/16/19 07/17/19 14:13 04:23 Troponin I 0.020 NT-Pro-B Natriuret Pep 1060 H Impressions: Foot X-Ray 07/16/19 13:00 IMPRESSION: Nondisplaced fractures of the distal 2nd through 4th metatarsals distal metaphyses. Head CT 07/16/19 15:52 IMPRESSION: NO ACUTE INTRACRANIAL IMAGING FINDINGS. EVIDENCE OF ACUTE STROKE: NO. Stroke Is this a Stroke Patient?: No Acute Heart Failure - Is this a Heart Failure Patient?: No
[2019-07-19] MEDS: OXYCODONE HCL IR 5 MG TABLET PO PRN (13:55)
[2019-07-19 14:00] VITALS: BP 189/52
== END 2019-07-19 18:48 | DRG 683 ==
LOC: ER 12:09 → EH 17:58 → 5 19:45
PROVIDERS: ADMIT Hospitalist; ATTEND Internal Medicine
DX: N17.9 Acute kidney failure, unspecified (principal); I13.0 Hypertensive heart and chronic kidney disease with heart failure and stage 1 through stage 4 chronic kidney disease, or unspecified chronic kidney disease; N39.0 Urinary tract infection, site not specified; R44.3 Hallucinations, unspecified; R41.82 Altered mental status, unspecified; I25.10 Atherosclerotic heart disease of native coronary artery without angina pectoris; N18.3 Chronic kidney disease, stage 3 (moderate); J44.9 Chronic obstructive pulmonary disease, unspecified; I50.9 Heart failure, unspecified; I73.9 Peripheral vascular disease, unspecified; E78.00 Pure hypercholesterolemia, unspecified; K21.9 Gastro-esophageal reflux disease without esophagitis; F03.90 Unspecified dementia, unspecified severity, without behavioral disturbance, psychotic disturbance, mood disturbance, and anxiety; B95.2 Enterococcus as the cause of diseases classified elsewhere; B96.4 Proteus (mirabilis) (morganii) as the cause of diseases classified elsewhere; S92.325A Nondisplaced fracture of second metatarsal bone, left foot, initial encounter for closed fracture; S92.335A Nondisplaced fracture of third metatarsal bone, left foot, initial encounter for closed fracture; S92.345A Nondisplaced fracture of fourth metatarsal bone, left foot, initial encounter for closed fracture; X58.XXXA Exposure to other specified factors, initial encounter; M15.9 Polyosteoarthritis, unspecified; F17.210 Nicotine dependence, cigarettes, uncomplicated; I25.2 Old myocardial infarction; Y93.9 Activity, unspecified; Y92.9 Unspecified place or not applicable; Z99.81 Dependence on supplemental oxygen; Z86.711 Personal history of pulmonary embolism; Z79.891 Long term (current) use of opiate analgesic; Z79.51 Long term (current) use of inhaled steroids; Z79.899 Other long term (current) drug therapy
CPT/HCPCS: 36415; 70450; 71045; 80048; 81001; 82803; 82962; 83605; 83735; 83880; 84443; 84484; 85025; 85610; 87040; 87070; 87086; 87088; 87186; 93005; 93010; 94640; 99285; J1650; J3490; J7030; J7620; L4386

== ENCOUNTER 2019-08-28 14:57 | Inpatient (IN) | payer MEDICARE ==
[2019-08-28] MEDS ORDERED: ONDANSETRON HCL INJ/PF 4 MG/2 ML SDV ONE (15:16)
[2019-08-28] MEDS ORDERED: NALOXONE HCL INJ/PF 0.4 MG/1 ML SDV ONE (15:17)
[2019-08-28] MEDS ORDERED: ONDANSETRON HCL INJ/PF 4 MG/2 ML SDV IV ONE (15:20)
[2019-08-28] MEDS ORDERED: NALOXONE HCL INJ/PF 0.4 MG/1 ML SDV IV ONE (15:22)
--- NOTE | 2019-08-28 15:44 | ER Document Report ---
ED General - General Chief Complaint: Altered Mental Status Stated Complaint: AMS Time Seen by Provider: 08/28/19 15:10 Primary Care Provider: BEN HINSON NP [Primary Care Provider] - Follow up as needed Notes: Ms. Davey is a 74 yo f w/ PMH renal cell carcinoma of the right kidney, continuous opioid dependence with an indwelling morphine pump in the right lower quadrant, anemia of chronic disease, hypertension, hyperlipidemia, peripheral vascular disease, acute on chronic respiratory failure with both hypoxia and hypercapnia, COPD, previous SBO, CAD, TENISHA, dehydration, previous UTIs and dementia presenting to the ED for being unresponsive. Per patient's daughter, her mother lives alone. Throughout the day, patient's granddaughter goes over there and spends a day with her. Today she went there at around 8 or 9 AM and found her to be somewhat unresponsive. She stayed with her throughout the day and did not call 911 until approximately 30 minutes prior to arrival. She called her mom to tell her that her grandmother had been sleepy and lethargic and minimally responsive all day but was hoping she would improve. Daughter instructed the granddaughter to immediately call EMS. On EMS arrival, the patient was 85% on 4 L. She was unresponsive with constricted pupils. Patient was placed on BiPAP by EMS. TRAVEL OUTSIDE OF THE [place] IN LAST 30 DAYS: No - Related Data Allergies/Adverse Reactions: droperidol [Droperidol] Allergy (Severe, Verified 03/22/18 11:09) Anaphylaxis Past Medical History - Social History Smoking Status: Unknown if Ever Smoked Family History: CAD, CVA, DM, Hypertension, Malignancy, Other - Sleep apnea Patient has suicidal ideation: No Patient has homicidal ideation: No - Past Medical History Cardiac Medical History: Reports: Hx Congestive Heart Failure, Hx Heart Attack - MILD HEART ATTACK 2016, NO STENTS OR SX, Hx Hypercholesterolemia, Hx Hypertension, Hx Peripheral Vascular Disease, Hx Pulmonary Embolism - x 2 Denies: Hx Atrial Fibrillation, Hx Coronary Artery Disease, Hx Heart Murmur Pulmonary Medical History: Reports: Hx Asthma, Hx Bronchitis, Hx COPD, Hx Pneumonia - LAST IN 2015, Hx Sleep Apnea - CPAP qhs Denies: Hx Respiratory Failure, Hx Tuberculosis Neurological Medical History: Denies: Hx Cerebrovascular Accident, Hx Seizures Endocrine Medical History: Denies: Hx Diabetes Mellitus Type 1, Hx Diabetes Mellitus Type 2, Hx Graves' Disease, Hx Hyperthyroidism, Hx Hypothyroidism Renal/ Medical History: Reports: Hx Ovarian Cysts. Denies: Hx End Stage Renal Disease, Hx Kidney Stones, Hx Peritoneal Dialysis, Hx Pelvic Inflammatory Disease Malignancy Medical History: Denies: Hx Breast Cancer, Hx Cervical Cancer, Hx Leukemia, Hx Lung Cancer, Hx Ovarian Cancer GI Medical History: Reports: Hx Gastroesophageal Reflux Disease, Hx Ulcer. 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, Denies Hx Fibromyalgia, Reports Hx Gout, Denies Hx Muscular Dystrophy, Denies Hx Systemic Lupus Erythematosus Skin Medical History: Denies Hx Eczema, Denies Hx Psoriasis Psychiatric Medical History: Denies: Hx Bipolar Disorder, Hx Depression, Hx Post Traumatic Stress Disorder, Hx Schizophrenia Traumatic Medical History: Reports: Hx Fractures - 2013 RT hand "2 fingers"/casted Infectious Medical History: Denies: Hx Hepatitis, Hx HIV Past Surgical History: Reports: Hx Bowel Surgery - exp lap, r/t colon perf/colonoscopy approx 2002, Hx Cholecystectomy - Laparoscopic cholecystectomy, Hx Hysterectomy, Hx Tonsillectomy, Hx Vascular Surgery - STENT LLE.. Denies: Hx Appendectomy, Hx Section, Hx Colostomy, Hx Coronary Artery Bypass Graft, Hx Gastric Bypass Surgery, Hx Herniorrhaphy, Hx Mastectomy, Hx Open Heart Surgery, Hx Pacemaker, Hx Tubal Ligation - Immunizations Hx Diphtheria, Pertussis, Tetanus Vaccination: No Hx Pneumococcal Vaccination: 06/14/17 Review of Systems - Review of Systems -: Yes ROS unobtainable due to patient's medical condition Physical Exam - Vital signs Vitals: Temp Pulse Resp BP Pulse Ox 97.8 F 62 12 118/39 L 100 08/28/19 14:58 08/28/19 14:58 08/28/19 14:58 08/28/19 14:58 08/28/19 14:58 Interpretation: Normal - General General appearance: Alert, Lethargic In distress: None - HEENT Head: Normocephalic, Atraumatic Eyes: Normal Pupils: Pinpoint Mucous membranes: Dry - Respiratory Respiratory status: No respiratory distress Chest status: Nontender Breath sounds: Normal Chest palpation: Normal - Cardiovascular Rhythm: Regular Heart sounds: Normal auscultation Murmur: No - Abdominal Inspection: Normal Distension: No distension Bowel sounds: Normal Tenderness: Nontender, Other - Palpable implanted device in RLQ Organomegaly: No organomegaly - Back Back: Normal, Nontender - Extremities General upper extremity: Normal inspection, Nontender, Normal color, Normal ROM, Normal temperature General lower extremity: Normal inspection, Nontender, Normal color, Normal ROM, Normal temperature, Normal weight bearing. No: Miller's sign - Neurological Neuro grossly intact: Yes Cognition: Normal Orientation: AAOx4 [place] Coma Scale Eye Opening: Spontaneous Tia Coma Scale Verbal: Oriented Tia Coma Scale Motor: Obeys Commands Tia Coma Scale Total: 15 Speech: Normal Motor strength normal: LUE, RUE, LLE, RLE Sensory: Normal - Psychological Associated symptoms: Normal affect, Normal mood - Skin Skin Temperature: Warm Skin Moisture: Dry Skin Color: Normal Course - Re-evaluation Re-evalutation: 08/28/19 15:43 Patient's pupils were initially pinpoint. After Narcan she started talking, became awake and became completely alert and oriented. Pupils are now approximately 5 mm in size. 08/28/19 16:20 Patient remains combative after having received a Narcan soon after arrival. Patient will be given 1 mg of Ativan IV CBC does not show significant leukocytosis or left shift. H&H is slightly decreased from prior however remained stable. PT/INR and lactic acid both within normal limits. EKG was nonischemic and initial troponin is negative. proBNP is low at 55 however the patient does sound clinically volume overloaded with crackles diffusely. BUN is elevated 23 with a creatinine of 1.29 notable for dehydration given the elevated BUN to creatinine ratio. Patient ordered for 1 L of fluid. UA negative for infection. U tox positive for opioids. 08/28/19 19:09 Patient more alert and wakes up to voice. However lung sounds are diffuse crackles despite BUN to creatinine being elevated and the patient appearing clinically dehydrated. Patient unable to be discharged secondary to unsafe home environment, possible dementia and no other care at home. Patient removed her left EJ IV catheter accidentally. Patient only received a total of 600 mL's of fluids. 08/28/19 19:15 Attempted to call overnight provider for admission. Telephone states that over night provider is not logged in. 08/28/19 19:[address] Rojo for AMS onto medical floor. - Vital Signs Vital signs: Temp Pulse Resp BP Pulse Ox 97.8 F 62 20 121/49 L 99 08/28/19 14:58 08/28/19 14:58 08/28/19 18:37 08/28/19 18:37 08/28/19 18:37 - Laboratory Result Diagrams: 08/28/19 15:30 08/28/19 15:30 Laboratory results interpreted by me: 08/28/19 08/28/19 08/28/19 15:30 15:30 15:30 RBC 3.44 L Hgb 9.6 L Hct 30.1 L Carbon Dioxide 39 H Anion Gap 3 L BUN 23 H Creatinine 1.29 H Est GFR ( Amer) 49 L Est GFR (MDRD) Non-Af 40 L Lactic Acid 0.6 L Albumin 3.2 L Urine Protein 08/28/19 17:39 RBC Hgb Hct Carbon Dioxide Anion Gap BUN Creatinine Est GFR ( Amer) Est GFR (MDRD) Non-Af Lactic Acid Albumin Urine Protein 30 H - EKG Interpretation by Me EKG shows normal: Sinus rhythm, Wayne, Intervals, QRS Complexes, ST-T Waves Rate: Normal Rhythm: NSR When compared to previous EKG there are: No significant change Discharge - Discharge Clinical Impression: Dehydration, Opiate dependence, continuous Altered mental status Qualifiers: Altered mental status type: unspecified Qualified Code(s): R41.82 - Altered mental status, unspecified Condition: Good Disposition: ADMITTED INPATIENT Admitting Provider: Darrel (Hospitalist) Unit Admitted: Medical Floor Referrals: BEN HINSON NP [Primary Care Provider] - Follow up as needed
[2019-08-28 15:58] LABS: ABSOLUTE EOSINOPHILS # (AUTO) 0.1 10^3/uL (0.0-0.6); ABSOLUTE MONOCYTES (AUTO) 0.5 10^3/uL (0.1-1.4); ABSOLUTE NEUT (AUTO) 4.1 10^3/uL (1.7-8.2); BASOPHILS % (AUTO) 0.2 % (0-2); HEMATOCRIT 30.1 % (36.0-47.0); HEMOGLOBIN 9.6 g/dL (12.0-15.5); MEAN CORPUSCULAR HGB CONC 32.1 g/dL (32.0-36.0); MEAN CORPUSCULAR VOLUME 87 fl (80-97); PLATELET COUNT 165 10^3/uL (150-450); RED BLOOD COUNT 3.44 10^6/uL (3.72-5.28); SEGMENTED NEUTROPHILS % (AUTO) 72.8 % (42-78); TOTAL CELLS COUNTED % (AUTO) 100 %; WHITE BLOOD COUNT 5.6 10^3/uL (4.0-10.5)
[2019-08-28] MEDS ORDERED: FUROSEMIDE INJ/PF 20 MG/2 ML SDV IV ONE (16:02)
[2019-08-28 16:04] LABS: INTERNATIONAL RATION (INR) 0.96; PROTHROMBIN TIME 12.8 SEC (11.4-15.4)
[2019-08-28 16:17] LABS: ALBUMIN 3.2 g/dL (3.5-5.0); ALKALINE PHOSPHATASE 85 U/L (38-126); ASPARTATE AMINO TRANSFERASE 18 U/L (14-36); BILIRUBIN,DIRECT 0.2 mg/dL (0.0-0.4); BILIRUBIN,TOTAL 0.4 mg/dL (0.2-1.3); BLOOD UREA NITROGEN 23 mg/dL (7-20); CALCIUM 9.2 mg/dL (8.4-10.2); CARBON DIOXIDE 39 mmol/L (22-30); CHLORIDE 98 mmol/L (98-107); GLUCOSE 90 mg/dL (75-110); POTASSIUM 4.7 mmol/L (3.6-5.0); TOTAL PROTEIN 6.3 g/dL (6.3-8.2)
[2019-08-28] MEDS ORDERED: LORAZEPAM INJ 2 MG/1 ML VIAL IV ONE (16:19)
[2019-08-28 16:25] LABS: CREATINE KINASE MB 3.11 ng/mL (<4.55)
[2019-08-28 16:26] LABS: ANION GAP 3 (5-19); TROPONIN I < 0.012 ng/mL
[2019-08-28 18:23] LABS: APPEARANCE,URINE CLEAR; BILIRUBIN,URINE NEGATIVE (NEGATIVE); COLOR,URINE YELLOW; GLUCOSE, URINE NEGATIVE (NEGATIVE); KETONES,URINE NEGATIVE (NEGATIVE); LEUKOCYTE ESTERASE,URINE NEGATIVE (NEGATIVE); NITRITE,URINE NEGATIVE (NEGATIVE); PROTEIN,URINE 30 mg/dL (NEGATIVE); URINE SPECIFIC GRAVITY 1.008; UROBILINOGEN,URINE NEGATIVE mg/dL (<2.0)
[2019-08-28] MEDS ORDERED: NORMAL SALINE 1000 ML 1,000 ML IV ONE (18:30)
[2019-08-28 18:33] LABS: URINE AMPHETAMINES SCREEN NEGATIVE; URINE BARBITURATES SCREEN NEGATIVE; URINE BENZODIAZEPINES SCREEN NEGATIVE; URINE COCAINE SCREEN NEGATIVE; URINE MARIJUANA (THC) SCREEN NEGATIVE; URINE METHADONE SCREEN NEGATIVE; URINE PHENCYCLIDINE SCREEN NEGATIVE
--- NOTE | 2019-08-28 18:45 | RADIOLOGY REPORT (SQ) ---
EXAM DESCRIPTION: CHEST SINGLE VIEW COMPLETED DATE/TIME: 08/28/2019 6:37 pm REASON FOR STUDY: hypoxic COMPARISON: 07/16/2019 EXAM PARAMETERS: NUMBER OF VIEWS: One view. TECHNIQUE: Single frontal radiographic view of the chest acquired. RADIATION DOSE: NA LIMITATIONS: None. FINDINGS: LUNGS AND PLEURA: No opacities, masses or pneumothorax. No pleural effusion. MEDIASTINUM AND HILAR STRUCTURES: No masses. Contour normal. HEART AND VASCULAR STRUCTURES: Heart normal in size. Normal vasculature. BONES: Left shoulder prosthesis. HARDWARE: None in the chest. OTHER: No other significant finding. IMPRESSION: NO ACUTE RADIOGRAPHIC FINDING IN THE CHEST. TECHNICAL DOCUMENTATION: JOB ID: [id number] [employer]- All Rights Reserved Reading location - IP/workstation name: [email or web address]
--- NOTE | 2019-08-28 18:50 | RADIOLOGY REPORT (SQ) ---
EXAM DESCRIPTION: CT HEAD WITHOUT COMPLETED DATE/TIME: 08/28/2019 6:42 pm REASON FOR STUDY: ams COMPARISON: 07/16/2019 and priors TECHNIQUE: Axial images acquired through the brain without intravenous contrast. Images reviewed wi th bone, brain and subdural windows. Additional sagittal and coronal reconstructions were generated. Images stored on PACS. All CT scanners at this facility use dose modulation, iterative reconstruction, and/or weight based d osing when appropriate to reduce radiation dose to as low as reasonably achievable (ALARA). [facility]: Dose Right [facility]: CareDose [facility]: Dose Right [facility]: Teradose 4D [facility]: Smart VOSS RADIATION DOSE: CT Rad equipment meets quality standard of care and radiation dose reduction techniq ues were employed. CTDIvol: 24.8 - 53.2 mGy. DLP: 1533 mGy-cm. mGy. LIMITATIONS: None. FINDINGS: VENTRICLES: Normal size and contour. CEREBRUM: No masses. No hemorrhage. No midline shift. No evidence for acute infarction. Normal gra y/white matter differentiation. No areas of low density in the white matter. CEREBELLUM: No masses. No hemorrhage. No alteration of density. No evidence for acute infarction. EXTRAAXIAL SPACES: No fluid collections. No masses. ORBITS AND GLOBE: No intra- or extraconal masses. Normal contour of globe without masses. CALVARIUM: No fracture. PARANASAL SINUSES: No fluid or mucosal thickening. SOFT TISSUES: No mass or hematoma. OTHER: No other significant finding. IMPRESSION: NORMAL BRAIN CT WITHOUT CONTRAST. EVIDENCE OF ACUTE STROKE: NO. COMMENT: Quality ID # [id number]: Final reports with documentation of one or more dose reduction techniques (e.g., Automated exposure control, adjustment of the mA and/or kV according to patient size, use of iterative reconstruction technique) TECHNICAL DOCUMENTATION: JOB ID: [id number] [employer]- All Rights Reserved Reading location - IP/workstation name: [email or web address]
[2019-08-28] MEDS ORDERED: MAG HYDROX/AL HYDROX/SIMETH SUSP 30 ML UDCUP PO PRN (20:06)
[2019-08-28] MEDS ORDERED: ONDANSETRON HCL INJ/PF 4 MG/2 ML SDV IV PRN (20:06)
[2019-08-28] MEDS ORDERED: MAGNESIUM HYDROXIDE SUSP 30 ML UDCUP PO PRN (20:06)
[2019-08-28] MEDS ORDERED: LEVALBUTEROL HCL NEB 0.63 MG/3 ML AMPUL NEB PRN (20:06)
[2019-08-28] MEDS ORDERED: LORAZEPAM INJ 2 MG/1 ML VIAL IV PRN (20:11)
[2019-08-28] MEDS ORDERED: ACETAMINOPHEN 650 MG SUPP.RECT PR PRN (20:12)
[2019-08-28] MEDS ORDERED: NICOTINE 21 MG/24 HR PATCH.TD24 TD PRN (20:12)
[2019-08-28] MEDS ORDERED: METOPROLOL TARTRATE PF/INJ 5 MG/5 ML SDV IV PRN (20:12)
[2019-08-28] MEDS ORDERED: ACETAMINOPHEN 325 MG TABLET PO PRN (20:12)
[2019-08-28] MEDS: DEXTROSE 5%-LACTATED RINGERS 1,000 ML IV PRN (22:43)
[2019-08-28] MEDS: HEPARIN SOD (PORCINE) 5,000 UNIT/ML 1 ML VIAL SUBCUT SCH (22:45)
[2019-08-29] MEDS: LEVALBUTEROL HCL NEB 1.25 MG/3 ML AMPUL NEB SCH ×3 (00:09→16:56)
[2019-08-29] MEDS: IPRATROPIUM BROMIDE 0.02% NEB 0.5 MG/2.5 ML AMPUL NEB SCH ×3 (00:09→16:56)
--- NOTE | 2019-08-29 00:17 | PDOC H&P ---
History of Present Illness Admission Date/PCP: 08/28/2019 19:33 BEN HINSON NP Patient complains of: Altered mental status History of Present Illness: MELISSA BOSCH is a 74 year old female who presented to the emergency room with acute altered mental status. The patient was found by her granddaughter being extremely somnolent and not arousable at her home. The patient is of sufficient altered mental status that she is unable to contribute meaningful information to her medical evaluation. The patient's family report that she has a chronic indwelling morphine pump for chronic pain and additionally has a prescribed oxycodone tablet for treating pain related to a foot fracture 2 months ago. The patient was last noted in her normal status yesterday. In the emergency room the patient was found to have normal vital signs but was noted to have pinpoint pupils and to be extremely somnolent. She was given a trial dose of Narcan to which she responded by becoming alert but was very agitated and combative as well as poorly oriented. Patient required Ativan to control her agitation and combativeness in the ER. She was also found to have an acute kidney injury and an expected urine drug screen positive for opioids. She was subsequently admitted hospital for further evaluation and treatment with a goal set by family members of placement in a long-term residential facility as they do not feel that the patient can any longer take care of herself at home alone. Past Medical History Past Medical History: Due to the patient's mental status her past medical history, past surgical history, family medical history and social history are obtained from the best available reliable sources. Cardiac Medical History: Reports: Congestive Heart Failure, Myocardial Infarction - MILD HEART ATTACK 2016, NO STENTS OR SX, Hyperlipidema, Hypertension, Peripheral Vascular Disease, Pulmonary Embolism - x 2 Denies: Atrial Fibrillation, Coronary Artery Disease, Heart Murmur Pulmonary Medical History: Reports: Asthma, Bronchitis, Chronic Obstructive Pulmonary Disease (COPD), Pneumonia - LAST IN 2015, Sleep Apnea - CPAP qhs Denies: Respiratory Failure, Tuberculosis EENT Medical History: Denies: Cataracts, Ears - Hearing aids Neurological Medical History: Denies: Hemorrhagic CVA, Ischemic CVA, Seizures Endocrine Medical History: Denies: Diabetes Mellitus Type 1, Diabetes Mellitus Type 2, Hyperthyroidism, Hypothyroidism, Obesity Renal/ Medical History: Denies: Chronic Kidney Disease, Nephrolithiasis Malignancy Medical History: Reports: None GI Medical History: Reports: Gastroesophageal Reflux Disease Denies: Cirrhosis, Crohn's Disease, Hepatitis, Hiatal Hernia, Ulcerative Colitis Musculoskeltal Medical History: Reports: Arthritis - Poly-osteoarthritis, Gout, Other - Chronic back pain, recent foot fracture Denies: Fibromyalgia Skin Medical History: Denies: Eczema, Psoriasis Psychiatric Medical History: Reports: Tobacco Dependency Denies: Alcohol Dependency, Bipolar Disorder, Depression, Post Traumatic Stress Disorder, Substance Abuse Traumatic Medical History: Reports: None Hematology: Reports: Anemia - H/O 2X BLOOD TRANSFUSIONS Denies: Bleeding Tendencies Infectious Medical History: Reports: None Past Surgical History Past Surgical History: Due to the patient's mental status her past medical history, past surgical history, family medical history and social history are obtained from the best available reliable sources. Past Surgical History: Reports: Cholecystectomy - Laparoscopic cholecystectomy, Hysterectomy, Tonsillectomy, Vascular Surgery - STENT LLE., Other - Implanted continuous morphine pump in abdomen Social History Information Source: Relative, [facility] Records Lives with: Alone Smoking Status: Current Every Day Smoker Electronic Cigarette use?: No Frequency of Alcohol Use: None Hx Recreational Drug Use: No Drugs: None Hx Prescription Drug Abuse: No Past Social History Note: Due to the patient's mental status her past medical history, past surgical history, family medical history and social history are obtained from the best available reliable sources. - Advance Directive Resuscitation Status: Full Code Surrogate healthcare decision maker:: Georgia Brown Family History Family History: CAD, CVA, DM, Hypertension, Malignancy, Other - Sleep apnea Family History: Due to the patient's mental status her past medical history, past surgical history, family medical history and social history are obtained from the best available reliable sources. Parental Family History Reviewed: Yes Children Family History Reviewed: No Sibling(s) Family History Reviewed.: Yes Medication/Allergy Allergies/Adverse Reactions: droperidol [Droperidol] Allergy (Severe, Verified 03/22/18 11:09) Anaphylaxis Review of Systems ROS unobtainable: Due to mental status - Acute delirium Physical Exam Vital Signs: Temp Pulse Resp BP Pulse Ox 97.8 F 62 20 121/49 L 99 08/28/19 14:58 08/28/19 14:58 08/28/19 18:37 08/28/19 18:37 08/28/19 18:37 Intake & Output 1208/27/19 08/28/19 23:59 23:59 23:59 Weight 41.4 kg General appearance: PRESENT: no acute distress, thin, other - Somnolent Head exam: PRESENT: atraumatic, normocephalic Eye exam: PRESENT: conjunctiva pink. ABSENT: conjunctival injection, scleral icterus Ear exam: PRESENT: normal external ear exam. ABSENT: bleeding, drainage Mouth exam: PRESENT: dry mucosa, neck supple Neck exam: ABSENT: thyromegaly, tracheal deviation Respiratory exam: PRESENT: clear to auscultation keith, symmetrical, unlabored Cardiovascular exam: PRESENT: RRR. ABSENT: clicks, gallop, rubs Pulses: PRESENT: normal radial pulses, normal dorsalis pedis pul Vascular exam: PRESENT: normal capillary refill. ABSENT: pallor GI/Abdominal exam: PRESENT: normal bowel sounds, soft Rectal exam: PRESENT: deferred Extremities exam: ABSENT: joint swelling, pedal edema Musculoskeletal exam: ABSENT: deformity, dislocation Neurological exam: PRESENT: altered - Somnolent but arousable, CN II-XII grossly intact Psychiatric exam: PRESENT: agitated - When aroused, other - Somnolent Skin exam: PRESENT: dry, intact, warm. ABSENT: jaundice, rash, urticaria Results Laboratory Results: 08/28/19 15:30 08/28/19 15:30 08/28/19 08/28/19 08/28/19 15:30 15:30 15:30 WBC 5.6 RBC 3.44 L Hgb 9.6 L Hct 30.1 L MCV 87 MCH 28.0 MCHC 32.1 RDW 14.0 Plt Count 165 Seg Neutrophils % 72.8 Sodium 140.1 Potassium 4.7 Chloride 98 Carbon Dioxide 39 H Anion Gap 3 L BUN 23 H Creatinine 1.29 H Est GFR ( Amer) 49 L Glucose 90 Lactic Acid 0.6 L Calcium 9.2 Total Bilirubin 0.4 AST 18 Alkaline Phosphatase 85 Total Protein 6.3 Albumin 3.2 L Lipase 28.7 Urine Color Urine Appearance Urine pH Ur Specific [place] Urine Protein Urine Glucose (UA) Urine Ketones Urine Blood Urine Nitrite Ur Leukocyte Esterase Urine WBC (Auto) 08/28/19 17:39 WBC RBC Hgb Hct MCV MCH MCHC RDW Plt Count Seg Neutrophils % Sodium Potassium Chloride Carbon Dioxide Anion Gap BUN Creatinine Est GFR ( Amer) Glucose Lactic Acid Calcium Total Bilirubin AST Alkaline Phosphatase Total Protein Albumin Lipase Urine Color YELLOW Urine Appearance CLEAR Urine pH 5.0 Ur Specific [place] 1.008 Urine Protein 30 H Urine Glucose (UA) NEGATIVE Urine Ketones NEGATIVE Urine Blood NEGATIVE Urine Nitrite NEGATIVE Ur Leukocyte Esterase NEGATIVE Urine WBC (Auto) 1 08/28/19 08/28/19 15:30 16:14 CK-MB (CK-2) 3.11 Troponin I < 0.012 NT-Pro-B Natriuret Pep 55 Impressions: Chest X-Ray 08/28/19 15:11 IMPRESSION: NO ACUTE RADIOGRAPHIC FINDING IN THE CHEST. Head CT 08/28/19 15:11 IMPRESSION: NORMAL BRAIN CT WITHOUT CONTRAST. EVIDENCE OF ACUTE STROKE: NO. Assessment and Plan - Diagnosis (1) Acute delirium Is this a current diagnosis for this admission?: Yes (2) Opiate dependence, continuous Is this a current diagnosis for this admission?: Yes (3) Sleep apnea Qualifiers: Sleep apnea type: unspecified type Qualified Code(s): G47.30 - Sleep apnea, unspecified Is this a current diagnosis for this admission?: Yes (4) Anemia of chronic disease Is this a current diagnosis for this admission?: Yes (5) HTN (hypertension), benign Is this a current diagnosis for this admission?: Yes (6) Hyperlipidemia Qualifiers: Hyperlipidemia type: unspecified Qualified Code(s): E78.5 - Hyperlipidemia, unspecified Is this a current diagnosis for this admission?: Yes (7) Peripheral vascular disease Is this a current diagnosis for this admission?: Yes (8) COPD (chronic obstructive pulmonary disease) Qualifiers: COPD type: unspecified COPD Qualified Code(s): J44.9 - Chronic obstructive pulmonary disease, unspecified Is this a current diagnosis for this admission?: Yes (9) CAD (coronary artery disease) Qualifiers: Coronary Disease-Associated Artery/Lesion type: augustine artery [place] vs. transplanted heart: augustine heart Associated angina: without angina Qualified Code(s): I25.10 - Atherosclerotic heart disease of [place]ust[place] coronary artery without angina pectoris Is this a current diagnosis for this admission?: Yes (10) Tobacco use disorder, severe, dependence Is this a current diagnosis for this admission?: Yes - Plan Summary Summary: Patient is admitted to the medical floor where she will receive routine supportive and symptomatic cares. Her vital signs were monitored closely and she will be have her oral narcotic pain medications curtailed. vice president of consulting services consultation will be obtained. Neuro checks will be performed on a regular basis. IV fluids will be provided at maintenance levels until patient is able to reliably take oral fluids. Ativan 0.5 mg IV every 3 hours will be administer ed as needed for control of agitation. Patient's continuous morphine pump will be left in place and functioning as prescribed. Patient will receive CPAP for sleep apnea and will be continued on her usual nonnarcotic medications for her chronic medical illnesses when she is alert enough to resume oral medications. PT, OT and speech therapy will be consulted in anticipation of a senior living facility discharge. - Time Time Spent with patient: 15-24 minutes Medications reviewed and adjusted accordingly: Yes Anticipated discharge: SNF - Inpatient Certification Based on my medical assessment, after consideration of the patient's comorbidities, presenting symptoms, or acuity I expect that the services needed warrant INPATIENT care.: Yes I certify that my determination is in accordance with my understanding of Medicare's requirements for reasonable and necessary INPATIENT services [42 CFR 412.3e].: Yes Medical Necessity: Significant Comorbidiites Make Outpatient Treatment Too Risky, Need Close Monitoring Due to Risk of Patient Decompensation, Need For IV Fluids, Need for Neurological Checks
--- NOTE | 2019-08-29 00:17 | EKG REPORT ---
SEVERITY:- NORMAL ECG - SINUS RHYTHM : Confirmed by: Venu Garcia 29-Aug-2019 00:15:31
[2019-08-29] MEDS: HYDRALAZINE HCL INJ/PF 20 MG/1 ML SDV IV PRN ×2 (00:26→23:46)
[2019-08-29] MEDS: HEPARIN SOD (PORCINE) 5,000 UNIT/ML 1 ML VIAL SUBCUT SCH ×3 (05:35→21:27)
[2019-08-29] MEDS: PANTOPRAZOLE SODIUM 20 MG TABLET.DR PO SCH (05:35)
[2019-08-29 06:03] LABS: HEMATOCRIT 32.4 % (36.0-47.0); HEMOGLOBIN 10.4 g/dL (12.0-15.5); MEAN CORPUSCULAR HGB CONC 32.2 g/dL (32.0-36.0); MEAN CORPUSCULAR VOLUME 87 fl (80-97); PLATELET COUNT 179 10^3/uL (150-450); RED BLOOD COUNT 3.73 10^6/uL (3.72-5.28); RED CELL DISTRIBUTION WIDTH 14.3 % (11.5-14.0); WHITE BLOOD COUNT 8.1 10^3/uL (4.0-10.5)
[2019-08-29 06:25] LABS: ANION GAP 9 (5-19); BLOOD UREA NITROGEN 23 mg/dL (7-20); CALCIUM 9.2 mg/dL (8.4-10.2); CARBON DIOXIDE 37 mmol/L (22-30); CHLORIDE 96 mmol/L (98-107); GLUCOSE 79 mg/dL (75-110); POTASSIUM 4.2 mmol/L (3.6-5.0); TRIGLYCERIDES 122 mg/dL (<150)
[2019-08-29 06:35] LABS: DIRECT LDL 117 mg/dL (<100)
[2019-08-29] MEDS: BUDESONIDE NEB 0.5 MG/2 ML AMPUL NEB SCH ×2 (07:54→19:38)
[2019-08-29] MEDS: DOCUSATE SODIUM 100 MG CAPSULE PO SCH ×2 (09:13→18:26)
[2019-08-29 14:51] LABS: FREE T3 3.94 pg/mL (2.77-5.27); FREE T4 (FREE THYROXINE) 1.87 ng/dL (0.78-2.19)
--- NOTE | 2019-08-29 16:21 | PDOC PROGRESS REPORT ---
Subjective Progress Note for:: 08/29/19 Subjective:: Patient states that he was seen delirious at time of my encounter was not having much meaningful conversation during our interview. I had conversation with patient's daughter who states that patient has become more somnolent and not explained several falls recently. She has daughter Ramila states that patient takes about 30 mg of a pain medication which she thinks is oxycodone and has been using the morphine pump which is implanted in the stomach for several years now. It is managed by Dr. Schulz with [facility]. Her daughter is very concerned that it will be unsafe for patient to continue to live by herself and would like to transition her to a [facility] care facility Reason For Visit: ACUTE DELIRIUM SECONDARY TO OPIOID USE Physical Exam Vital Signs: Temp Pulse Resp BP Pulse Ox 98.4 F 73 20 156/46 H 93 08/29/19 15:19 08/29/19 15:19 08/29/19 15:19 08/29/19 15:19 08/29/19 15:19 Intake & Output 08/28/19 08/29/19 08/30/19 06:59 06:59 06:59 Intake Total 1120 118 Balance 1120 118 Weight 45.8 kg General appearance: PRESENT: mild distress, thin Neck exam: ABSENT: JVD Respiratory exam: PRESENT: clear to auscultation keith, unlabored. ABSENT: tachypnea, wheezes Cardiovascular exam: PRESENT: RRR, +S1, +S2. ABSENT: tachycardia GI/Abdominal exam: PRESENT: soft. ABSENT: rebound, rigid, tenderness Extremities exam: ABSENT: pedal edema Neurological exam: PRESENT: alert, awake, oriented to person, oriented to place. ABSENT: oriented to time, oriented to situation Psychiatric exam: PRESENT: other - Appears very restless Results Laboratory Results: 08/29/19 04:59 08/29/19 04:59 08/28/19 08/28/19 08/28/19 15:30 15:30 17:39 WBC RBC Hgb Hct MCV MCH MCHC RDW Plt Count Sodium 140.1 Potassium 4.7 Chloride 98 Carbon Dioxide 39 H Anion Gap 3 L BUN 23 H Creatinine 1.29 H Est GFR ( Amer) 49 L Glucose 90 Lactic Acid 0.6 L Calcium 9.2 Magnesium Total Bilirubin 0.4 AST 18 Alkaline Phosphatase 85 Total Protein 6.3 Albumin 3.2 L Triglycerides Cholesterol LDL Cholesterol Direct VLDL Cholesterol HDL Cholesterol Lipase 28.7 TSH Free T4 Free T3 pg/mL Urine Color YELLOW Urine Appearance CLEAR Urine pH 5.0 Ur Specific [place] 1.008 Urine Protein 30 H Urine Glucose (UA) NEGATIVE Urine Ketones NEGATIVE Urine Blood NEGATIVE Urine Nitrite NEGATIVE Ur Leukocyte Esterase NEGATIVE Urine WBC (Auto) 1 08/29/19 08/29/19 08/29/19 04:59 04:59 04:59 WBC 8.1 RBC 3.73 Hgb 10.4 L Hct 32.4 L MCV 87 MCH 28.0 MCHC 32.2 RDW 14.3 H Plt Count 179 Sodium 141.5 Potassium 4.2 Chloride 96 L Carbon Dioxide 37 H Anion Gap 9 BUN 23 H Creatinine 1.21 Est GFR ( Amer) 53 L Glucose 79 Lactic Acid Calcium 9.2 Magnesium 1.8 Total Bilirubin AST Alkaline Phosphatase Total Protein Albumin Triglycerides 122 Cholesterol 180.20 LDL Cholesterol Direct 117 H VLDL Cholesterol 24.0 HDL Cholesterol 33 L Lipase TSH 0.07 L Free T4 Free T3 pg/mL Urine Color Urine Appearance Urine pH Ur Specific [place] Urine Protein Urine Glucose (UA) Urine Ketones Urine Blood Urine Nitrite Ur Leukocyte Esterase Urine WBC (Auto) 08/29/19 04:59 WBC RBC Hgb Hct MCV MCH MCHC RDW Plt Count Sodium Potassium Chloride Carbon Dioxide Anion Gap BUN Creatinine Est GFR ( Amer) Glucose Lactic Acid Calcium Magnesium Total Bilirubin AST Alkaline Phosphatase Total Protein Albumin Triglycerides Cholesterol LDL Cholesterol Direct VLDL Cholesterol HDL Cholesterol Lipase TSH Free T4 1.87 Free T3 pg/mL 3.94 Urine Color Urine Appearance Urine pH Ur Specific [place] Urine Protein Urine Glucose (UA) Urine Ketones Urine Blood Urine Nitrite Ur Leukocyte Esterase Urine WBC (Auto) 08/28/19 08/28/19 15:30 16:14 CK-MB (CK-2) 3.11 Troponin I < 0.012 NT-Pro-B Natriuret Pep 55 Impressions: Chest X-Ray 08/28/19 15:11 IMPRESSION: NO ACUTE RADIOGRAPHIC FINDING IN THE CHEST. Head CT 08/28/19 15:11 IMPRESSION: NORMAL BRAIN CT WITHOUT CONTRAST. EVIDENCE OF ACUTE STROKE: NO. Assessment and Plan - Diagnosis (1) Toxic metabolic encephalopathy Is this a current diagnosis for this admission?: Yes Plan: This may be secondary to narcotic use. Patient's daughter states that she has been started on a pain medication which she thinks is oxycodone 30 mg used for be breakthrough pain. Patient's morphine pump is implanted in the stomach. Will continue for now. Head CT is normal I will monitor patient's mental status to see if any improvement though she is still clearly delirious at this time Ativan as needed agitation Narcan if needed (2) Opiate dependence, continuous Is this a current diagnosis for this admission?: Yes Plan: Patient has chronic pain from back surgery from several years ago treated with a low-dose morphine pump [implanted in abdomen] Her pain regimen is managed by Dr. Korey Schulz and family reports patient was also prescribed oxycodone for breakthrough I have reviewed MOVEMENT ASSEMBLER aware In light of concerns encephalopathy/delirium precipitated by narcotic use, I will consults [facility] with pain management to help formulate an adequate regimen for pain control. As of now I will allow morphine pump to continue. We will need to monitor for any opiate withdrawal symptoms. (3) Anemia of chronic disease Is this a current diagnosis for this admission?: Yes Plan: Stable. Monitor (4) COPD (chronic obstructive pulmonary disease) Qualifiers: COPD type: unspecified COPD Qualified Code(s): J44.9 - Chronic obstructive pulmonary disease, unspecified Is this a current diagnosis for this admission?: Yes Plan: Continue montelukast. Nebulizer treatment. Not in active exacerbation (5) Sleep apnea Qualifiers: Sleep apnea type: unspecified type Qualified Code(s): G47.30 - Sleep apnea, unspecified Is this a current diagnosis for this admission?: Yes Plan: Nocturnal CPAP (6) HTN (hypertension), benign Is this a current diagnosis for this admission?: Yes Plan: Currently uncontrolled. Resume Coreg and lisinopril (7) Debility Is this a current diagnosis for this admission?: Yes Plan: Patient is very limited in terms of physical and cognitive abilities. Daughter says that patient has not been officially diagnosed with dementia but doctors have mentioned this suspicion in the past. According to daughter, patient has had several falls recently and has been unable to effectively coordinate medications and oral intake has significantly decreased and spends most of her day sleeping. Daughter is very concerned about her safety if she returned home. I will have physical therapy evaluate patient and social welfare research worker help plan trans ition. I ultimately think the patient will need a [facility] care facility to ensure her safety. - Time Time Spent with patient: 15-24 minutes
[2019-08-29] MEDS: DEXTROSE 5%-LACTATED RINGERS 1,000 ML IV PRN ×2 (16:28→23:49)
[2019-08-29] MEDS ORDERED: LISINOPRIL 10 MG TABLET PO ONE (16:48)
[2019-08-30] MEDS ORDERED: LORAZEPAM INJ 2 MG/1 ML VIAL ONE (00:19)
[2019-08-30] MEDS: LEVALBUTEROL HCL NEB 1.25 MG/3 ML AMPUL NEB SCH ×3 (00:20→15:45)
[2019-08-30] MEDS: IPRATROPIUM BROMIDE 0.02% NEB 0.5 MG/2.5 ML AMPUL NEB SCH ×3 (00:20→15:45)
[2019-08-30] MEDS ORDERED: MORPHINE SULFATE 10 MG/ML INJ IV PRN (00:22)
[2019-08-30] MEDS ORDERED: LORAZEPAM INJ 2 MG/1 ML VIAL IV ONE (00:30)
[2019-08-30] MEDS ORDERED: MORPHINE SULFATE 10 MG/ML INJ ONE (00:31)
[2019-08-30] MEDS ORDERED: MORPHINE SULFATE 10 MG/ML INJ IV ONE (00:40)
[2019-08-30 00:56] LABS: ARTERIAL BLOOD H2CO3 1.85 mmol/L (1.05-1.35); ARTERIAL BLOOD HCO3 35.1 mmol/L (20-24); ARTERIAL BLOOD O2 SATURATION 99.6 % (94-98); ARTERIAL BLOOD PCO2 61.6 mmHg (35-45); ARTERIAL BLOOD PH 7.37 (7.35-7.45); ARTERIAL BLOOD PO2 257.3 mmHg (80-100); ARTERIAL BLOOD TOTAL CO2 36.9 mmol/L (21-25)
[2019-08-30 00:57] LABS: ARTERIAL BLOOD FIO2 35%
[2019-08-30] MEDS ORDERED: FUROSEMIDE INJ/PF 20 MG/2 ML SDV IV ONE (01:15)
[2019-08-30] MEDS: HEPARIN SOD (PORCINE) 5,000 UNIT/ML 1 ML VIAL SUBCUT SCH ×3 (05:21→22:30)
[2019-08-30] MEDS: PANTOPRAZOLE SODIUM 20 MG TABLET.DR PO SCH (05:21)
[2019-08-30 07:08] LABS: HEMATOCRIT 35.1 % (36.0-47.0); HEMOGLOBIN 11.4 g/dL (12.0-15.5); MEAN CORPUSCULAR HEMOGLOBIN 27.9 pg (27.0-33.4); MEAN CORPUSCULAR HGB CONC 32.3 g/dL (32.0-36.0); MEAN CORPUSCULAR VOLUME 86 fl (80-97); PLATELET COUNT 238 10^3/uL (150-450); RED BLOOD COUNT 4.07 10^6/uL (3.72-5.28); RED CELL DISTRIBUTION WIDTH 14.4 % (11.5-14.0); WHITE BLOOD COUNT 10.6 10^3/uL (4.0-10.5)
[2019-08-30] MEDS: BUDESONIDE NEB 0.5 MG/2 ML AMPUL NEB SCH (08:38)
[2019-08-30] MEDS ORDERED: LISINOPRIL 10 MG TABLET PO SCH (10:00)
[2019-08-30] MEDS: DOCUSATE SODIUM 100 MG CAPSULE PO SCH ×2 (12:01→17:33)
[2019-08-30] MEDS: FUROSEMIDE 20 MG TABLET PO SCH (12:01)
[2019-08-30] MEDS: CARVEDILOL 12.5 MG TABLET PO SCH (12:01)
[2019-08-30] MEDS: MONTELUKAST SODIUM 10 MG TABLET PO SCH (12:02)
[2019-08-30] MEDS: DULOXETINE HCL 30 MG CAPSULE.DR PO SCH (12:02)
[2019-08-30] MEDS ORDERED: LABETALOL HCL INJ 20 MG/4 ML DISP.SYRIN IV PRN (18:26)
--- NOTE | 2019-08-30 18:42 | PDOC PROGRESS REPORT ---
Subjective Progress Note for:: 08/30/19 Subjective:: Patient has some agitation early this morning with some shortness of breath had to be given some Ativan and also placed on BiPAP. Blood gas also showed CO2 retention. Reason For Visit: ACUTE DELIRIUM SECONDARY TO OPIOID USE Physical Exam Vital Signs: Temp Pulse Resp BP Pulse Ox 97.8 F 87 20 191/68 H 98 08/30/19 15:40 08/30/19 15:45 08/30/19 15:45 08/30/19 15:40 08/30/19 15:45 Intake & Output 08/29/19 08/30/19 08/31/19 06:59 06:59 06:59 Intake Total 1120 2037 170 Output Total 850 Balance 1120 1187 170 Weight 45.8 kg 39.4 kg General appearance: PRESENT: no acute distress, cooperative Neck exam: ABSENT: JVD Respiratory exam: PRESENT: symmetrical, unlabored, wheezes. ABSENT: tachypnea Cardiovascular exam: PRESENT: RRR, +S1, +S2. ABSENT: tachycardia GI/Abdominal exam: PRESENT: normal bowel sounds, soft. ABSENT: firm, guarding, rigid, tenderness Neurological exam: PRESENT: alert, awake, oriented to person. ABSENT: oriented to time Psychiatric exam: PRESENT: anxious Results Laboratory Results: 08/30/19 06:26 08/29/19 04:59 08/30/19 08/30/19 00:30 06:26 WBC 10.6 H RBC 4.07 Hgb 11.4 L Hct 35.1 L MCV 86 MCH 27.9 MCHC 32.3 RDW 14.4 H Plt Count 238 Carbonic Acid 1.85 H HCO3/H2CO3 Ratio 18:1 ABG pH 7.37 ABG pCO2 61.6 H ABG pO2 257.3 H ABG HCO3 35.1 H ABG O2 Saturation 99.6 H ABG Base Excess 8.0 FiO2 35% 08/28/19 08/28/19 15:30 16:14 CK-MB (CK-2) 3.11 Troponin I < 0.012 NT-Pro-B Natriuret Pep 55 Impressions: Chest X-Ray 08/28/19 15:11 IMPRESSION: NO ACUTE RADIOGRAPHIC FINDING IN THE CHEST. Head CT 08/28/19 15:11 IMPRESSION: NORMAL BRAIN CT WITHOUT CONTRAST. EVIDENCE OF ACUTE STROKE: NO. Assessment and Plan - Diagnosis (1) Toxic metabolic encephalopathy Is this a current diagnosis for this admission?: Yes Plan: This may be secondary to narcotic use. Patient's daughter states that she has been started on a pain medication which she thinks is oxycodone 30 mg used for be breakthrough pain. Patient's morphine pump is implanted in the stomach. Will continue for now. Head CT is normal I will monitor patient's mental status to see if any improvement though she is still clearly delirious at this time Ativan as needed agitation Narcan if needed 08/30/2019-we will continue to monitor off any additional narcotics. She did receive some Ativan for agitation earlier and was a little drowsy but still wakes up and talks with very brief statements in low volume in response to questions. (2) Opiate dependence, continuous Is this a current diagnosis for this admission?: Yes Plan: Patient has chronic pain from back surgery from several years ago treated with a low-dose morphine pump [implanted in abdomen] Her pain regimen is managed by Dr. Korey Schulz and family reports patient was also prescribed oxycodone for breakthrough I have reviewed MANAGER OF CONSTRUCTION aware In light of concerns encephalopathy/delirium precipitated by narcotic use, I will consults [facility] with pain management to help formulate an adequate regimen for pain control. As of now I will allow morphine pump to continue. We will need to monitor for any opiate withdrawal symptoms. (3) Anemia of chronic disease Is this a current diagnosis for this admission?: Yes Plan: Stable. Monitor (4) COPD (chronic obstructive pulmonary disease) Qualifiers: COPD type: COPD with acute exacerbation Qualified Code(s): J44.1 - Chronic obstructive pulmonary disease with (acute) exacerbation Is this a current diagnosis for this admission?: Yes Plan: Continue montelukast. Nebulizer treatment. Will give some prednisone given SOB and wheeze. Start on Breo Ellipta (5) Sleep apnea Qualifiers: Sleep apnea type: unspecified type Qualified Code(s): G47.30 - Sleep apnea, unspecified Is this a current diagnosis for this admission?: Yes Plan: Nocturnal nppv (6) HTN (hypertension), benign Is this a current diagnosis for this admission?: Yes Plan: Currently uncontrolled. Resume Coreg and lisinopril gave extra dose of lisinopril today prn labetalol (7) Debility Is this a current diagnosis for this admission?: Yes Plan: Patient is very limited in terms of physical and cognitive abilities. Daughter says that patient has not been officially diagnosed with dementia but doctors have mentioned this suspicion in the past. According to daughter, patient has had several falls recently and has been unable to effectively coordinate medications and oral intake has significantly decreased and spends most of her day sleeping. Daughter is very concerned about her safety if she returned home. I will have physical therapy evaluate patient and social security assessor help plan transition. I ultimately think the patient will need a residential care facility to ensure her safety. (8) Chronic hypercapnic respiratory failure Is this a current diagnosis for this admission?: Yes Plan: Likely from COPD. Blood gas showed hypercapnia with respiratory acidosis and adequate chronic metabolic compensation Patient would ultimately benefit more from nocturnal BiPAP than CPAP. I have gotten sales planner involved to try to qualify patient for nocturnal BiPAP - Time Time Spent with patient: Less than 15 minutes
[2019-08-30] MEDS ORDERED: LISINOPRIL 10 MG TABLET PO ONE (19:00)
[2019-08-30] MEDS: PREDNISONE 20 MG TABLET PO SCH (22:28)
[2019-08-31] MEDS: IPRATROPIUM BROMIDE 0.02% NEB 0.5 MG/2.5 ML AMPUL NEB SCH ×3 (00:39→15:49)
[2019-08-31] MEDS: LEVALBUTEROL HCL NEB 1.25 MG/3 ML AMPUL NEB SCH ×3 (00:39→15:49)
[2019-08-31] MEDS: HEPARIN SOD (PORCINE) 5,000 UNIT/ML 1 ML VIAL SUBCUT SCH ×3 (05:53→22:18)
[2019-08-31] MEDS: PANTOPRAZOLE SODIUM 20 MG TABLET.DR PO SCH (05:53)
[2019-08-31 07:00] LABS: HEMATOCRIT 34.1 % (36.0-47.0); HEMOGLOBIN 11.1 g/dL (12.0-15.5); MEAN CORPUSCULAR HEMOGLOBIN 27.9 pg (27.0-33.4); MEAN CORPUSCULAR HGB CONC 32.5 g/dL (32.0-36.0); MEAN CORPUSCULAR VOLUME 86 fl (80-97); PLATELET COUNT 199 10^3/uL (150-450); RED BLOOD COUNT 3.98 10^6/uL (3.72-5.28); RED CELL DISTRIBUTION WIDTH 14.2 % (11.5-14.0); WHITE BLOOD COUNT 5.1 10^3/uL (4.0-10.5)
[2019-08-31 07:30] LABS: BLOOD UREA NITROGEN 19 mg/dL (7-20); CALCIUM 9.6 mg/dL (8.4-10.2); CARBON DIOXIDE 39 mmol/L (22-30); CHLORIDE 96 mmol/L (98-107); GLUCOSE 118 mg/dL (75-110); POTASSIUM 4.6 mmol/L (3.6-5.0)
[2019-08-31 07:41] LABS: ANION GAP 3 (5-19)
[2019-08-31] MEDS: LISINOPRIL 10 MG TABLET PO SCH (09:23)
[2019-08-31] MEDS: CARVEDILOL 12.5 MG TABLET PO SCH (09:23)
[2019-08-31] MEDS: FUROSEMIDE 20 MG TABLET PO SCH (09:23)
[2019-08-31] MEDS: MONTELUKAST SODIUM 10 MG TABLET PO SCH (09:24)
[2019-08-31] MEDS: PREDNISONE 20 MG TABLET PO SCH ×2 (09:24→22:18)
[2019-08-31] MEDS: FLUTICASONE/VILANTEROL 200-25 MCG/DOSE IH SCH (09:24)
[2019-08-31] MEDS: DOCUSATE SODIUM 100 MG CAPSULE PO SCH ×2 (09:25→18:15)
[2019-08-31] MEDS: DULOXETINE HCL 30 MG CAPSULE.DR PO SCH (09:26)
[2019-08-31 09:50] LABS: VENOUS BLOOD BASE EXCESS 13.9 mmol/L; VENOUS BLOOD HCO3 41.3 mmol/L (20-32); VENOUS BLOOD PH 7.41 (7.30-7.42)
[2019-08-31 09:53] LABS: VENOUS BLOOD PCO2 67.5 mmHg (35-63)
--- NOTE | 2019-08-31 14:14 | PDOC PROGRESS REPORT ---
Subjective Progress Note for:: 08/31/19 Subjective:: Patient appears more alert today. He is awake and talking and appears less agitated than before. Reason For Visit: ACUTE DELIRIUM SECONDARY TO OPIOID USE Physical Exam Vital Signs: Temp Pulse Resp BP Pulse Ox 98.1 F 79 23 H 171/55 H 94 08/31/19 12:00 08/31/19 12:00 08/31/19 12:00 08/31/19 12:00 08/31/19 12:00 Intake & Output 08/30/19 08/31/19 09/01/19 06:59 06:59 06:59 Intake Total 2037 170 Output Total 850 Balance 1187 170 Weight 39.4 kg 37.4 kg General appearance: PRESENT: no acute distress, cooperative Neck exam: ABSENT: JVD Respiratory exam: PRESENT: unlabored, wheezes - Mild. ABSENT: symmetrical, tachypnea Cardiovascular exam: PRESENT: RRR, +S1, +S2. ABSENT: tachycardia GI/Abdominal exam: PRESENT: normal bowel sounds, soft. ABSENT: rebound, rigid, tenderness Neurological exam: PRESENT: alert, awake, oriented to person, oriented to place, other - Much more awake and alert than yesterday but responds to questions appropriately. ABSENT: oriented to time Results Laboratory Results: 08/31/19 05:14 08/31/19 05:14 08/31/19 08/31/19 08/31/19 05:14 05:14 09:31 WBC 5.1 RBC 3.98 Hgb 11.1 L Hct 34.1 L MCV 86 MCH 27.9 MCHC 32.5 RDW 14.2 H Plt Count 199 VBG pH 7.41 VBG pCO2 67.5 H* VBG HCO3 41.3 H VBG Base Excess 13.9 Sodium 138.2 Potassium 4.6 Chloride 96 L Carbon Dioxide 39 H Anion Gap 3 L BUN 19 Creatinine 1.15 Est GFR ( Amer) 56 L Glucose 118 H Calcium 9.6 08/28/19 08/28/19 15:30 16:14 CK-MB (CK-2) 3.11 Troponin I < 0.012 NT-Pro-B Natriuret Pep 55 Impressions: Chest X-Ray 08/28/19 15:11 IMPRESSION: NO ACUTE RADIOGRAPHIC FINDING IN THE CHEST. Head CT 08/28/19 15:11 IMPRESSION: NORMAL BRAIN CT WITHOUT CONTRAST. EVIDENCE OF ACUTE STROKE: NO. Assessment and Plan - Diagnosis (1) Toxic metabolic encephalopathy Is this a current diagnosis for this admission?: Yes Plan: This may be secondary to narcotic use. Patient's daughter states that she has been started on a pain medication which she thinks is oxycodone 30 mg used for be breakthrough pain. Patient's morphine pump is implanted in the stomach. Will continue for now. Head CT is normal I will monitor patient's mental status to see if any improvement though she is still clearly delirious at this time Ativan as needed agitation Narcan if needed 08/30/2019-we will continue to monitor off any additional narcotics. She did receive some Ativan for agitation earlier and was a little drowsy but still wa kes up and talks with very brief statements in low volume in response to questions. 08/31/2019-patient's encephalopathy is seem to significantly improved at this point time. She is much more awake and alert and less somnolent. No need to pursue MRI at this time. Will continue to limit her narcotics. (2) Opiate dependence, continuous Is this a current diagnosis for this admission?: Yes Plan: Patient has chronic pain from back surgery from several years ago treated with a low-dose morphine pump [implanted in abdomen] Her pain regimen is managed by Dr. Korey Schulz and family reports patient was also prescribed oxycodone for breakthrough I have reviewed GLASS BEVELLER aware In light of concerns encephalopathy/delirium precipitated by narcotic use, I will consults [place] with pain management to help formulate an adequate regimen for pain control. As of now I will allow morphine pump to continue. We will need to monitor for any opiate withdrawal symptoms. 08/31/2019 -continue morphine pump notes no further additional opioids (3) Anemia of chronic disease Is this a current diagnosis for this admission?: Yes Plan: Stable. Monitor (4) COPD (chronic obstructive pulmonary disease) Qualifiers: COPD type: COPD with acute exacerbation Qualified Code(s): J44.1 - Chronic obstructive pulmonary disease with (acute) exacerbation Is this a current diagnosis for this admission?: Yes Plan: Continue montelukast. Nebulizer treatment. Will give a few days of prednisone given SOB and wheeze. Breo Ellipta (5) Sleep apnea Qualifiers: Sleep apnea type: unspecified type Qualified Code(s): G47.30 - Sleep apnea, unspecified Is this a current diagnosis for this admission?: Yes Plan: Nocturnal CPAP transition to nocturnal BiPAP given chronic CO2 retention (6) HTN (hypertension), benign Is this a current diagnosis for this admission?: Yes Plan: Currently uncontrolled. Continue Coreg. Lisinopril increased to 40 mg daily prn labetalol (7) Debility Is this a current diagnosis for this admission?: Yes Plan: Patient is very limited in terms of physical and cognitive abilities. Daughter says that patient has not been officially diagnosed with dementia but doctors have mentioned this suspicion in the past. According to daughter, patient has had several falls recently and has been unable to effectively coordinate medications and oral intake has significantly decreased and spends most of her day sleeping. Daughter is very concerned about her safety if she returned home. I will have physical therapy evaluate patient and social media strategist help plan transition. I ultimately think the patient will need a termite treater care facility to ensure her safety. 08/31/2019-social media strategist working on placement to a long-term care facility. (8) Chronic hypercapnic respiratory failure Is this a current diagnosis for this admission?: Yes Plan: Likely from COPD. Blood gas showed hypercapnia with respiratory acidosis and adequate chronic metabolic compensation Patient would ultimately benefit more from nocturnal BiPAP than CPAP. I have gotten management planner involved to try to qualify patient for nocturnal BiPAP 08/31/2019- It seems that Nocturnal Bipap was not placed last night. PCO2 further elevated today but well compensated. Strict instructions have been given for nocturnal BiPAP to be placed at bedtime. Discharge planning working on setting outpatient for BiPAP - Time Time Spent with patient: Less than 15 minutes
[2019-08-31] MEDS ORDERED: CARVEDILOL 12.5 MG TABLET PO ONE (23:00)
[2019-09-01] MEDS: LEVALBUTEROL HCL NEB 1.25 MG/3 ML AMPUL NEB SCH ×4 (00:53→23:58)
[2019-09-01] MEDS: IPRATROPIUM BROMIDE 0.02% NEB 0.5 MG/2.5 ML AMPUL NEB SCH ×4 (00:53→23:58)
[2019-09-01] MEDS: PANTOPRAZOLE SODIUM 20 MG TABLET.DR PO SCH (05:51)
[2019-09-01] MEDS: HEPARIN SOD (PORCINE) 5,000 UNIT/ML 1 ML VIAL SUBCUT SCH ×3 (05:55→22:17)
[2019-09-01 07:00] LABS: ANION GAP 6 (5-19); BLOOD UREA NITROGEN 26 mg/dL (7-20); CALCIUM 9.6 mg/dL (8.4-10.2); CARBON DIOXIDE 37 mmol/L (22-30); CHLORIDE 94 mmol/L (98-107); GLUCOSE 121 mg/dL (75-110); POTASSIUM 4.6 mmol/L (3.6-5.0)
[2019-09-01] MEDS: LISINOPRIL 10 MG TABLET PO SCH (09:49)
[2019-09-01] MEDS: MONTELUKAST SODIUM 10 MG TABLET PO SCH (09:50)
[2019-09-01] MEDS: FUROSEMIDE 20 MG TABLET PO SCH (09:50)
[2019-09-01] MEDS: DULOXETINE HCL 30 MG CAPSULE.DR PO SCH (09:50)
[2019-09-01] MEDS: PREDNISONE 20 MG TABLET PO SCH ×2 (09:50→22:16)
[2019-09-01] MEDS: DOCUSATE SODIUM 100 MG CAPSULE PO SCH ×2 (09:53→18:13)
[2019-09-01] MEDS: CARVEDILOL 12.5 MG TABLET PO SCH ×2 (09:55→22:16)
[2019-09-01] MEDS: FLUTICASONE/VILANTEROL 200-25 MCG/DOSE IH SCH (09:56)
--- NOTE | 2019-09-01 18:23 | PDOC PROGRESS REPORT ---
Subjective Progress Note for:: 09/01/19 Subjective:: Patient is more awake and alert today and fully conversational. Patient states that she would not like to do long-term care facility but is agreeable to short- term rehab at SNF. Reason For Visit: ACUTE DELIRIUM SECONDARY TO OPIOID USE Physical Exam Vital Signs: Temp Pulse Resp BP Pulse Ox 98.3 F 71 20 146/83 H 94 09/01/19 14:50 09/01/19 15:55 09/01/19 15:55 09/01/19 14:50 09/01/19 15:55 Intake & Output 08/31/19 09/01/19 09/02/19 06:59 06:59 06:59 Intake Total 170 839 Balance 170 839 Weight 37.4 kg 37.7 kg General appearance: PRESENT: no acute distress, cooperative Respiratory exam: PRESENT: symmetrical, unlabored. ABSENT: tachypnea Cardiovascular exam: PRESENT: +S1, +S2. ABSENT: tachycardia Neurological exam: PRESENT: alert, awake, oriented to person, oriented to place, oriented to time, oriented to situation, other - Fully conversational Psychiatric exam: ABSENT: agitated, anxious Results Laboratory Results: 08/31/19 05:14 09/01/19 05:02 09/01/19 05:02 Sodium 137.1 Potassium 4.6 Chloride 94 L Carbon Dioxide 37 H Anion Gap 6 BUN 26 H Creatinine 1.25 Est GFR ( Amer) 51 L Glucose 121 H Calcium 9.6 08/28/19 08/28/19 15:30 16:14 CK-MB (CK-2) 3.11 Troponin I < 0.012 NT-Pro-B Natriuret Pep 55 Impressions: Chest X-Ray 08/28/19 15:11 IMPRESSION: NO ACUTE RADIOGRAPHIC FINDING IN THE CHEST. Head CT 08/28/19 15:11 IMPRESSION: NORMAL BRAIN CT WITHOUT CONTRAST. EVIDENCE OF ACUTE STROKE: NO. Assessment and Plan - Diagnosis (1) Toxic metabolic encephalopathy Is this a current diagnosis for this admission?: Yes Plan: This may be secondary to narcotic use. Patient's daughter states that she has been started on a pain medication which she thinks is oxycodone 30 mg used for be breakthrough pain. Patient's morphine pump is implanted in the stomach. Will continue for now. Head CT is normal I will monitor patient's mental status to see if any improvement though she is still clearly delirious at this time Ativan as needed agitation Narcan if needed 08/30/2019-we will continue to monitor off any additional narcotics. She did receive some Ativan for agitation earlier and was a little drowsy but still wakes up and talks with very brief statements in low volume in response to quest ions. 08/31/2019-patient's encephalopathy is seem to significantly improved at this point time. She is much more awake and alert and less somnolent. No need to pursue MRI at this time. Will continue to limit her narcotics. 09/01/2019-patient's encephalopathy has resolved at this point and patient is fully conversational. Continue to avoid any narcotics or sedatives. (2) Opiate dependence, continuous Is this a current diagnosis for this admission?: Yes Plan: Patient has chronic pain from back surgery from several years ago treated with a low-dose morphine pump [implanted in abdomen] Her pain regimen is managed by Dr. Korey Schulz and family reports patient was also prescribed oxycodone for breakthrough I have reviewed AUTOMATIC PAD MAKING MACHINE OPERATOR aware In light of concerns encephalopathy/delirium precipitated by narcotic use, I will consults [place] with pain management to help formulate an adequate regimen for pain control. As of now I will allow morphine pump to continue. We will need to monitor for any opiate withdrawal symptoms. 08/31/2019 -continue morphine pump but no further additional opioids (3) Anemia of chronic disease Is this a current diagnosis for this admission?: Yes Plan: Stable. Monitor (4) COPD (chronic obstructive pulmonary disease) Qualifiers: COPD type: COPD with acute exacerbation Qualified Code(s): J44.1 - Chronic obstructive pulmonary disease with (acute) exacerbation Is this a current diagnosis for this admission?: Yes Plan: Continue montelukast. Nebulizer treatment. Will give a few days of prednisone given SOB and wheeze. Breo Ellipta (5) Sleep apnea Qualifiers: Sleep apnea type: unspecified type Qualified Code(s): G47.30 - Sleep apnea, unspecified Is this a current diagnosis for this admission?: Yes Plan: Nocturnal CPAP transition to nocturnal BiPAP given chronic CO2 retention (6) HTN (hypertension), benign Is this a current diagnosis for this admission?: Yes Plan: Currently uncontrolled. Continue Coreg. Lisinopril increased to 40 mg daily prn labetalol (7) Debility Is this a current diagnosis for this admission?: Yes Plan: Patient is very limited in terms of physical and cognitive abilities. Daughter says that patient has not been officially diagnosed with dementia but doctors have mentioned this suspicion in the past. According to daughter, patient has had several falls recently and has been unable to effectively coordinate medications and oral intake has significantly decreased and spends most of her day sleeping. Daughter is very concerned about her safety if she returned home. I will have physical therapy evaluate patient and perinatal social worker help plan transition. I ultimately think the patient will need a usp care facility to ensure her safety. 08/31/2019-perinatal social worker working on placement to a long-term care facility. 09/01/2019-now patient is awake, fully oriented and conversational, patient is refusing long-term care at a nursing facility but is agreeable to short-term rehab at SNF. Currently working on placement. (8) Chronic hypercapnic respiratory failure Is this a current diagnosis for this admission?: Yes Plan: Likely from COPD. Blood gas showed hypercapnia with respiratory acidosis and adequate chronic metabolic compensation Patient would ultimately benefit more from nocturnal BiPAP than CPAP. I have gotten business continuity planner involved to try to qualify patient for nocturnal BiPAP 08/31/2019- It seems that Nocturnal Bipap was not placed last night. PCO2 further elevated today but well compensated. Strict instructions have been given for nocturnal BiPAP to be placed at bedtime. Discharge planning working on setting outpatient for BiPAP - Plan Summary Summary: Awaiting placement at SNF. - Time Time Spent with patient: Less than 15 minutes
[2019-09-02] MEDS: PANTOPRAZOLE SODIUM 20 MG TABLET.DR PO SCH (05:28)
[2019-09-02] MEDS: HEPARIN SOD (PORCINE) 5,000 UNIT/ML 1 ML VIAL SUBCUT SCH ×3 (05:28→21:24)
[2019-09-02 06:05] LABS: VENOUS BLOOD PH 7.35 (7.30-7.42)
[2019-09-02 06:29] LABS: VENOUS BLOOD PCO2 69.3 mmHg (35-63)
[2019-09-02] MEDS: IPRATROPIUM BROMIDE 0.02% NEB 0.5 MG/2.5 ML AMPUL NEB SCH ×2 (08:51→16:23)
[2019-09-02] MEDS: LEVALBUTEROL HCL NEB 1.25 MG/3 ML AMPUL NEB SCH ×2 (08:51→16:23)
[2019-09-02] MEDS: FLUTICASONE/VILANTEROL 200-25 MCG/DOSE IH SCH (09:14)
[2019-09-02] MEDS: LISINOPRIL 10 MG TABLET PO SCH (09:14)
[2019-09-02] MEDS: DULOXETINE HCL 30 MG CAPSULE.DR PO SCH (09:15)
[2019-09-02] MEDS: FUROSEMIDE 20 MG TABLET PO SCH (09:15)
[2019-09-02] MEDS: PREDNISONE 20 MG TABLET PO SCH ×2 (09:16→21:47)
[2019-09-02] MEDS: DOCUSATE SODIUM 100 MG CAPSULE PO SCH ×2 (09:16→16:59)
[2019-09-02] MEDS: CARVEDILOL 12.5 MG TABLET PO SCH ×2 (09:16→21:24)
[2019-09-02] MEDS: MONTELUKAST SODIUM 10 MG TABLET PO SCH (09:16)
[2019-09-02 10:40] LABS: VENOUS BLOOD BASE EXCESS 8.8 mmol/L; VENOUS BLOOD HCO3 33.1 mmol/L (20-32); VENOUS BLOOD PCO2 44.9 mmHg (35-63); VENOUS BLOOD PH 7.49 (7.30-7.42)
--- NOTE | 2019-09-02 16:02 | PDOC PROGRESS REPORT ---
Subjective Progress Note for:: 09/02/19 Subjective:: Patient is doing well without. Slept comfortably on bipapa. C/o constipation. Reason For Visit: ACUTE DELIRIUM SECONDARY TO OPIOID USE Physical Exam Vital Signs: Temp Pulse Resp BP Pulse Ox 97.4 F 61 16 138/53 H 89 L 09/02/19 12:23 09/02/19 14:00 09/02/19 12:23 09/02/19 12:23 09/02/19 12:23 Intake & Output 09/01/19 09/02/19 09/03/19 06:59 06:59 06:59 Intake Total 839 920 Balance 839 920 Weight 37.7 kg 40 kg General appearance: PRESENT: no acute distress, cooperative Neck exam: ABSENT: JVD Respiratory exam: PRESENT: clear to auscultation keith. ABSENT: wheezes Cardiovascular exam: PRESENT: +S1, +S2. ABSENT: tachycardia GI/Abdominal exam: PRESENT: normal bowel sounds, soft. ABSENT: distended, rebou nd, rigid, tenderness Results Laboratory Results: 08/31/19 05:14 09/01/19 05:02 09/02/19 09/02/19 05:48 10:17 VBG pH 7.35 7.49 H VBG pCO2 69.3 H* 44.9 VBG HCO3 37.0 H 33.1 H VBG Base Excess 9.0 8.8 08/28/19 08/28/19 15:30 16:14 CK-MB (CK-2) 3.11 Troponin I < 0.012 NT-Pro-B Natriuret Pep 55 Impressions: Chest X-Ray 08/28/19 15:11 IMPRESSION: NO ACUTE RADIOGRAPHIC FINDING IN THE CHEST. Head CT 08/28/19 15:11 IMPRESSION: NORMAL BRAIN CT WITHOUT CONTRAST. EVIDENCE OF ACUTE STROKE: NO. Assessment and Plan - Diagnosis (1) Toxic metabolic encephalopathy Is this a current diagnosis for this admission?: Yes Plan: This may be secondary to narcotic use. Patient's daughter states that she has been started on a pain medication which she thinks is oxycodone 30 mg used for be breakthrough pain. Patient's morphine pump is implanted in the stomach. Will continue for now. Head CT is normal I will monitor patient's mental status to see if any improvement though she is still clearly delirious at this time Ativan as needed agitation Narcan if needed 08/30/2019-we will continue to monitor off any additional narcotics. She did receive some Ativan for agitation earlier and was a little drowsy but still wakes up and talks with very brief statements in low volume in response to questions. 08/31/2019-patient's encephalopathy is seem to significantly improved at this point time. She is much more awake and alert and less somnolent. No need to pursue MRI at this time. Will continue to limit her narcotics. 09/01/2019-patient's encephalopathy has resolved at this point and patient is fully conversational. Continue to avoid any narcotics or sedatives. 09/02/2019- resolved (2) Opiate dependence, continuous Is this a current diagnosis for this admission?: Yes Plan: Patient has chronic pain from back surgery from several years ago treated with a low-dose morphine pump [implanted in abdomen] Her pain regimen is managed by Dr. Korey Schulz and family reports patient was also prescribed oxycodone for breakthrough I have reviewed TESTING ANALYST aware In light of concerns encephalopathy/delirium precipitated by narcotic use, I will consults [place] with pain management to help formulate an adequate regimen for pain control. As of now I will allow morphine pump to continue. We will need to monitor for any opiate withdrawal symptoms. 08/31/2019 -continue morphine pump but no further additional opioids (3) Anemia of chronic disease Is this a current diagnosis for this admission?: Yes Plan: Stable. Monitor (4) COPD (chronic obstructive pulmonary disease) Qualifiers: COPD type: COPD with acute exacerbation Qualified Code(s): J44.1 - Chronic obstructive pulmonary disease with (acute) exacerbation Is this a current diagnosis for this admission?: Yes Plan: Continue montelukast. Nebulizer treatment. Will give a few days of prednisone given SOB and wheeze. Breo Ellipta (5) Sleep apnea Qualifiers: Sleep apnea type: unspecified type Qualified Code(s): G47.30 - Sleep apnea, unspecified Is this a current diagnosis for this admission?: Yes Plan: Nocturnal CPAP transition to nocturnal BiPAP given chronic CO2 retention (6) HTN (hypertension), benign Is this a current diagnosis for this admission?: Yes Plan: Currently uncontrolled. Continue Coreg. Lisinopril increased to 40 mg daily prn labetalol (7) Debility Is this a current diagnosis for this admission?: Yes Plan: Patient is very limited in terms of physical and cognitive abilities. Daughter says that patient has not been officially diagnosed with dementia but doctors have mentioned this suspicion in the past. According to daughter, patient has had several falls recently and has been unable to effectively coordinate m edications and oral intake has significantly decreased and spends most of her day sleeping. Daughter is very concerned about her safety if she returned home. I will have physical therapy evaluate patient and high school social studies teacher help plan transition. I ultimately think the patient will need a [facility]termaker continuous churn care facility to ensure her safety. 08/31/2019-high school social studies teacher working on placement to a long-term care facility. 09/01/2019-now patient is awake, fully oriented and conversational, patient is refusing long-term care at a nursing facility but is agreeable to short-term rehab at SNF. Currently working on placement. 09/02/2019 - awaiting snf placement (8) Chronic hypercapnic respiratory failure Is this a current diagnosis for this admission?: Yes Plan: Likely from COPD. Blood gas showed hypercapnia with respiratory acidosis and adequate chronic metabolic compensation Patient would ultimately benefit more from nocturnal BiPAP than CPAP. I have gotten production planner scheduler involved to try to qualify patient for nocturnal BiPAP 08/31/2019- It seems that Nocturnal Bipap was not placed last night. PCO2 further elevated today but well compensated. Strict instructions have been given for nocturnal BiPAP to be placed at bedtime. Discharge planning working on setting outpatient for BiPAP 09/02/2019 - maintain on BiPAP 08/18. Check AM vbg tomorrow - Plan Summary Summary: Awaiting placement at SNF. - Time Time Spent with patient: Less than 15 minutes
[2019-09-02] MEDS: POLYETHYLENE GLYCOL 3350 POWDER 17 GM/1 PACKET PO SCH (16:34)
[2019-09-03] MEDS: LEVALBUTEROL HCL NEB 1.25 MG/3 ML AMPUL NEB SCH ×3 (00:48→16:10)
[2019-09-03] MEDS: IPRATROPIUM BROMIDE 0.02% NEB 0.5 MG/2.5 ML AMPUL NEB SCH ×3 (00:48→16:10)
[2019-09-03] MEDS: HEPARIN SOD (PORCINE) 5,000 UNIT/ML 1 ML VIAL SUBCUT SCH ×3 (05:36→21:54)
[2019-09-03] MEDS: PANTOPRAZOLE SODIUM 20 MG TABLET.DR PO SCH (05:36)
[2019-09-03] MEDS: FUROSEMIDE 20 MG TABLET PO SCH (09:30)
[2019-09-03] MEDS: DOCUSATE SODIUM 100 MG CAPSULE PO SCH ×2 (09:32→17:15)
[2019-09-03] MEDS: PREDNISONE 20 MG TABLET PO SCH ×2 (09:32→21:56)
[2019-09-03] MEDS: MONTELUKAST SODIUM 10 MG TABLET PO SCH (09:32)
[2019-09-03] MEDS: DULOXETINE HCL 30 MG CAPSULE.DR PO SCH (09:32)
[2019-09-03] MEDS: CARVEDILOL 12.5 MG TABLET PO SCH ×2 (09:32→21:56)
[2019-09-03] MEDS: LISINOPRIL 10 MG TABLET PO SCH (09:32)
[2019-09-03] MEDS: FLUTICASONE/VILANTEROL 200-25 MCG/DOSE IH SCH (09:33)
[2019-09-03] MEDS: POLYETHYLENE GLYCOL 3350 POWDER 17 GM/1 PACKET PO SCH ×2 (09:34→17:15)
--- NOTE | 2019-09-03 10:16 | PDOC PROGRESS REPORT ---
Subjective Progress Note for:: 09/03/19 Subjective:: Patient is doing well. Denies any shortness of breath currently. States that she feels great. Reason For Visit: ACUTE DELIRIUM SECONDARY TO OPIOID USE Physical Exam Vital Signs: Temp Pulse Resp BP Pulse Ox 97.9 F 61 14 143/39 H 99 09/03/19 08:01 09/03/19 08:02 09/03/19 08:02 09/03/19 08:01 09/03/19 08:02 Intake & Output 09/02/19 09/03/19 09/04/19 06:59 06:59 06:59 Intake Total 920 2081 Balance 920 2081 Weight 40 kg 39.4 kg General appearance: PRESENT: no acute distress, cooperative Neck exam: ABSENT: JVD Respiratory exam: PRESENT: clear to auscultation keith Cardiovascular exam: PRESENT: +S1, +S2 Neurological exam: PRESENT: alert, awake, oriented to person, oriented to place, oriented to time, oriented to situation Psychiatric exam: PRESENT: normal mood. ABSENT: agitated, anxious Results Laboratory Results: 08/31/19 05:14 09/01/19 05:02 09/02/19 10:17 VBG pH 7.49 H VBG pCO2 44.9 VBG HCO3 33.1 H VBG Base Excess 8.8 08/28/19 08/28/19 15:30 16:14 CK-MB (CK-2) 3.11 Troponin I < 0.012 NT-Pro-B Natriuret Pep 55 Impressions: Chest X-Ray 08/28/19 15:11 IMPRESSION: NO ACUTE RADIOGRAPHIC FINDING IN THE CHEST. Head CT 08/28/19 15:11 IMPRESSION: NORMAL BRAIN CT WITHOUT CONTRAST. EVIDENCE OF ACUTE STROKE: NO. Assessment and Plan - Diagnosis (1) Toxic metabolic encephalopathy Is this a current diagnosis for this admission?: Yes Plan: This may be secondary to narcotic use. Patient's daughter states that she has been started on a pain medication which she thinks is oxycodone 30 mg used for be breakthrough pain. Patient's morphine pump is implanted in the stomach. Will continue for now. Head CT is normal I will monitor patient's mental status to see if any improvement though she is still clearly delirious at this time Ativan as needed agitation Narcan if needed 08/30/2019-we will continue to monitor off any additional narcotics. She did receive some Ativan for agitation earlier and was a little drowsy but still wakes up and talks with very brief statements in low volume in response to questions. 08/31/2019-patient's encephalopathy is seem to significantly improved at this po int time. She is much more awake and alert and less somnolent. No need to pursue MRI at this time. Will continue to limit her narcotics. 09/01/2019-patient's encephalopathy has resolved at this point and patient is fully conversational. Continue to avoid any narcotics or sedatives. 09/02/2019- resolved (2) Opiate dependence, continuous Is this a current diagnosis for this admission?: Yes Plan: Patient has chronic pain from back surgery from several years ago treated with a low-dose morphine pump [implanted in abdomen] Her pain regimen is managed by Dr. Korey Schulz and family reports patient was also prescribed oxycodone for breakthrough I have reviewed SUBPOENA SERVER aware In light of concerns encephalopathy/delirium precipitated by narcotic use, I will consults Maya with pain management to help formulate an adequate reg imen for pain control. As of now I will allow morphine pump to continue. We will need to monitor for any opiate withdrawal symptoms. 08/31/2019 -continue morphine pump but no further additional opioids (3) Anemia of chronic disease Is this a current diagnosis for this admission?: Yes (4) COPD (chronic obstructive pulmonary disease) Qualifiers: COPD type: COPD with acute exacerbation Qualified Code(s): J44.1 - Chronic obstructive pulmonary disease with (acute) exacerbation Is this a current diagnosis for this admission?: Yes Plan: Continue montelukast. Nebulizer treatment as needed. Will give a few days of prednisone given SOB and wheeze. Breo Ellipta 09/03/2019-no current wheezing. Prednisone for 1 more day will DC tomorrow. (5) Sleep apnea Qualifiers: Sleep apnea type: unspecified type Qualified Code(s): G47.30 - Sleep apnea, unspecified Is this a current diagnosis for this admission?: Yes Plan: Nocturnal CPAP transition to nocturnal BiPAP given chronic CO2 retention (6) HTN (hypertension), benign Is this a current diagnosis for this admission?: Yes Plan: Currently uncontrolled. Continue Coreg. Lisinopril increased to 40 mg daily prn labetalol 09/03/2019 -BP has been much better controlled over the past day and a half on increased lisinopril dosing every 12 hours Coreg (7) Debility Is this a current diagnosis for this admission?: Yes Plan: Patient is very limited in terms of physical and cognitive abilities. Daughter says that patient has not been officially diagnosed with dementia but doctors have mentioned this suspicion in the past. According to daughter, patient has had several falls recently and has been unable to effectively coordinate medications and oral intake has significantly decreased and spends most of her day sleeping. Daughter is very concerned about her safety if she returned home. I will have physical therapy evaluate patient and director social service help plan transition. I ultimately think the patient will need a senior living care facility to ensure her safety. 08/31/2019-director social service working on placement to a long-term care facility. 09/01/2019-now patient is awake, fully oriented and conversational, patient is refusing long-term care at a nursing facility but is agreeable to short-term rehab at SNF. Currently working on placement. 09/02/2019 - awaiting snf placement 09/03/2019-awaiting SNF - patient will be leaving for [facility] tomorrow (8) Chronic hypercapnic respiratory failure Is this a current diagnosis for this admission?: Yes Plan: Likely from COPD. Blood gas showed hypercapnia with respiratory acidosis and adequate chronic metabolic compensation Patient would ultimately benefit more from nocturnal BiPAP than CPAP. I have gotten facility planner involved to try to qualify patient for nocturnal BiPAP 08/31/2019- It seems that Nocturnal Bipap was not placed last night. PCO2 further elevated today but well compensated. Strict instructions have been given for nocturnal BiPAP to be placed at bedtime. Discharge planning working on setting outpatient for BiPAP 09/02/2019 - maintain on BiPAP 08/18. Check AM vbg tomorrow 09/03/2019- doing well on nocturnal BiPAP -PCO2 yesterday after nocturnal BiPAP showed resolution of hypercapnia - Plan Summary Summary: Awaiting placement at SNF. - Time Time Spent with patient: Less than 15 minutes
[2019-09-03] MEDS ORDERED: LORAZEPAM INJ 2 MG/1 ML VIAL IV PRN (17:40)
[2019-09-03] MEDS ORDERED: BISACODYL 10 MG SUPP.RECT PR ONE (18:00)
[2019-09-04] MEDS: LEVALBUTEROL HCL NEB 1.25 MG/3 ML AMPUL NEB SCH ×3 (00:41→15:58)
[2019-09-04] MEDS: IPRATROPIUM BROMIDE 0.02% NEB 0.5 MG/2.5 ML AMPUL NEB SCH ×3 (00:41→15:58)
[2019-09-04] MEDS: PANTOPRAZOLE SODIUM 20 MG TABLET.DR PO SCH (06:21)
[2019-09-04] MEDS: HEPARIN SOD (PORCINE) 5,000 UNIT/ML 1 ML VIAL SUBCUT SCH ×3 (06:21→23:02)
[2019-09-04] MEDS: DOCUSATE SODIUM 100 MG CAPSULE PO SCH ×2 (11:09→18:31)
[2019-09-04] MEDS: POLYETHYLENE GLYCOL 3350 POWDER 17 GM/1 PACKET PO SCH ×2 (11:09→18:31)
[2019-09-04] MEDS: PREDNISONE 20 MG TABLET PO SCH (11:09)
[2019-09-04] MEDS: DULOXETINE HCL 30 MG CAPSULE.DR PO SCH (11:09)
[2019-09-04] MEDS: MONTELUKAST SODIUM 10 MG TABLET PO SCH (11:09)
[2019-09-04] MEDS: FUROSEMIDE 20 MG TABLET PO SCH (11:10)
[2019-09-04] MEDS: FLUTICASONE/VILANTEROL 200-25 MCG/DOSE IH SCH (11:10)
[2019-09-04] MEDS: CARVEDILOL 12.5 MG TABLET PO SCH ×2 (12:00→23:02)
--- NOTE | 2019-09-04 12:12 | PDOC PROGRESS REPORT ---
Subjective Progress Note for:: 09/04/19 Subjective:: Patient feels well. Reason For Visit: ACUTE DELIRIUM SECONDARY TO OPIOID USE Physical Exam Vital Signs: Temp Pulse Resp BP Pulse Ox 97.9 F 85 16 117/52 L 96 09/04/19 07:00 09/04/19 08:01 09/04/19 08:01 09/04/19 07:00 09/04/19 08:01 Intake & Output 09/03/19 09/04/19 09/05/19 06:59 06:59 06:59 Intake Total 2081 1590 Balance 2080 1590 Weight 39.4 kg 40.1 kg General appearance: PRESENT: no acute distress, cooperative Respiratory exam: PRESENT: rhonchi - minimal Cardiovascular exam: PRESENT: +S1, +S2 Neurological exam: PRESENT: alert, awake, oriented to person, oriented to place, oriented to time Results Laboratory Results: 08/31/19 05:14 09/01/19 05:02 08/28/19 08/28/19 15:30 16:14 CK-MB (CK-2) 3.11 Troponin I < 0.012 NT-Pro-B Natriuret Pep 55 Impressions: Chest X-Ray 08/28/19 15:11 IMPRESSION: NO ACUTE RADIOGRAPHIC FINDING IN THE CHEST. Head CT 08/28/19 15:11 IMPRESSION: NORMAL BRAIN CT WITHOUT CONTRAST. EVIDENCE OF ACUTE STROKE: NO. Assessment and Plan - Diagnosis (1) Toxic metabolic encephalopathy Is this a current diagnosis for this admission?: Yes Plan: This may be secondary to narcotic use. Patient's daughter states that she has been started on a pain medication which she thinks is oxycodone 30 mg used for be breakthrough pain. Patient's morphine pump is implanted in the stomach. Will continue for now. Head CT is normal I will monitor patient's mental status to see if any improvement though she is still clearly delirious at this time Ativan as needed agitation Narcan if needed This condition is resolved for the past few days Patient continues to be ready for discharge and still awaiting placement at SNF (2) Opiate dependence, continuous Is this a current diagnosis for this admission?: Yes Plan: Patient has chronic pain from back surgery from several years ago treated with a low-dose morphine pump [implanted in abdomen] Her pain regimen is managed by Dr. Korey Schulz and family reports patient was also prescribed oxycodone for breakthrough I have reviewed DISPATCH CLERK aware In light of concerns encephalopathy/delirium precipitated by narcotic use, I discussed with Dr. Mas who feels that it is okay to discontinue breakthrough oxycodone. continue implanted morphine pump but no further additional opioids upon discharge. (3) Anemia of chronic disease Is this a current diagnosis for this admission?: Yes Plan: Stable. Monitor (4) COPD (chronic obstructive pulmonary disease) Qualifiers: COPD type: COPD with acute exacerbation Qualified Code(s): J44.1 - Chronic obstructive pulmonary disease with (acute) exacerbation Is this a current diagnosis for this admission?: Yes Plan: Continue montelukast. Nebulizer treatment as needed. Nancy Man Completed 5 days of prednisone today. Transitioned to nocturnal BiPAP which Discharge planning is aware of. (5) Chronic hypercapnic respiratory failure Is this a current diagnosis for this admission?: Yes Plan: Secondary to COPD +/- narcotic use Was initially on nocturnal CPAP for MURPHY but has been transitioned to nocturnal BiPAP during this admission which Discharge planning is aware of. (6) Sleep apnea Qualifiers: Sleep apnea type: unspecified type Qualified Code(s): G47.30 - Sleep apnea, unspecified Is this a current diagnosis for this admission?: Yes Plan: Nocturnal CPAP transition to nocturnal BiPAP given chronic CO2 retention (7) HTN (hypertension), benign Is this a current diagnosis for this admission?: Yes Plan: Currently uncontrolled. Continue Coreg. Lisinopril increased to 40 mg daily prn labetalol 09/03/2019 -BP has been much better controlled over the past day and a half on increased lisinopril dosing every 12 hours Coreg (8) Debility Is this a current diagnosis for this admission?: Yes Plan: Patient is very limited in terms of physical and cognitive abilities. Daughter says that patient has not been officially diagnosed with dementia but doctors have mentioned this suspicion in the past. According to daughter, patient has had several falls recently and has been unable to effectively coordinate medications and oral intake has significantly decreased and spends most of her day sleeping. Daughter is very concerned about her safety if she returned home. I will have physical therapy evaluate patient and social media designer help plan transition. I ultimately think the patient will need a long term care pharmacist care facility to ensure her safety. 08/31/2019-social media designer working on placement to a long-term care facility. 09/01/2019-now patient is awake, fully oriented and conversational, patient is refusing long-term care at a nursing facility but is agreeable to short-term rehab at [facility]. Currently working on placement. 09/02/2019 - awaiting snf placement 09/03/2019-awaiting SNF - patient will be leaving for [facility] tomorrow 09/04/2019 -apparently there is norovirus outbreak at [facility] preventing patient's discharge and family is now requesting that patient be discharged to [facility] because a family member works there. Discharge planning aware. - Plan Summary Summary: apparently there is norovirus outbreak at [facility] preventing patient's discharge and family is now requesting that patient be discharged to [facility] because a family member works there. Discharge planning aw are. - Time Time Spent with patient: Less than 15 minutes
[2019-09-04] MEDS: LISINOPRIL 10 MG TABLET PO SCH (18:31)
[2019-09-05] MEDS: LEVALBUTEROL HCL NEB 1.25 MG/3 ML AMPUL NEB SCH ×3 (00:13→15:53)
[2019-09-05] MEDS: IPRATROPIUM BROMIDE 0.02% NEB 0.5 MG/2.5 ML AMPUL NEB SCH ×3 (00:13→15:53)
[2019-09-05] MEDS: PANTOPRAZOLE SODIUM 20 MG TABLET.DR PO SCH (06:58)
[2019-09-05] MEDS: HEPARIN SOD (PORCINE) 5,000 UNIT/ML 1 ML VIAL SUBCUT SCH ×3 (06:59→21:25)
[2019-09-05] MEDS: CARVEDILOL 12.5 MG TABLET PO SCH ×2 (09:37→21:26)
[2019-09-05] MEDS: POLYETHYLENE GLYCOL 3350 POWDER 17 GM/1 PACKET PO SCH ×2 (09:37→17:20)
[2019-09-05] MEDS: LISINOPRIL 10 MG TABLET PO SCH (09:37)
[2019-09-05] MEDS: MONTELUKAST SODIUM 10 MG TABLET PO SCH (09:37)
[2019-09-05] MEDS: FLUTICASONE/VILANTEROL 200-25 MCG/DOSE IH SCH (09:38)
[2019-09-05] MEDS: DULOXETINE HCL 30 MG CAPSULE.DR PO SCH (09:38)
[2019-09-05] MEDS: FUROSEMIDE 20 MG TABLET PO SCH (09:38)
[2019-09-05] MEDS: DOCUSATE SODIUM 100 MG CAPSULE PO SCH ×2 (09:38→17:20)
--- NOTE | 2019-09-05 10:47 | PDOC PROGRESS REPORT ---
Subjective Progress Note for:: 09/05/19 Subjective:: 09/05/2019. No acute events overnight. Patient comfortably sitting in bed in no apparent distress, alert oriented x3. Denies any shortness of breath, nausea, vomiting, chest pain, diarrhea, constipation or any urinary symptoms. P.o. tolerant, ambulatory and having normal bowel and bladder movements. Patient is stating that she has oxygen at home with nebulizer home health and home PT, she did have a CPAP at home which she threw away stating that it was not working. Patient declines to be transferred to rehab and would like to go home instead. Reason For Visit: ACUTE DELIRIUM SECONDARY TO OPIOID USE Physical Exam Vital Signs: Temp Pulse Resp BP Pulse Ox 97.9 F 65 17 139/42 H 97 09/05/19 07:35 09/05/19 07:35 09/05/19 07:35 09/05/19 07:35 09/05/19 07:35 Intake & Output 09/04/19 09/05/19 09/06/19 06:59 06:59 06:59 Intake Total 1590 1075 Balance 1590 1075 Weight 40.1 kg 38.6 kg General appearance: PRESENT: no acute distress, well-developed, well-nourished Head exam: PRESENT: atraumatic, normocephalic Respiratory exam: PRESENT: clear to auscultation keith. ABSENT: rales, rhonchi, wheezes Cardiovascular exam: PRESENT: RRR. ABSENT: diastolic murmur, rubs, systolic murmur GI/Abdominal exam: PRESENT: normal bowel sounds, soft. ABSENT: distended, guarding, mass, organolmegaly, rebound, tenderness Extremities exam: PRESENT: full ROM. ABSENT: calf tenderness, clubbing, pedal edema Neurological exam: PRESENT: alert, awake, oriented to person, oriented to place, oriented to time, CN II-XII grossly intact. ABSENT: motor sensory deficit Results Laboratory Results: 08/31/19 05:14 09/01/19 05:02 08/28/19 08/28/19 15:30 16:14 CK-MB (CK-2) 3.11 Troponin I < 0.012 NT-Pro-B Natriuret Pep 55 Impressions: Chest X-Ray 08/28/19 15:11 IMPRESSION: NO ACUTE RADIOGRAPHIC FINDING IN THE CHEST. Head CT 08/28/19 15:11 IMPRESSION: NORMAL BRAIN CT WITHOUT CONTRAST. EVIDENCE OF ACUTE STROKE: NO. Assessment and Plan - Diagnosis (1) Toxic metabolic encephalopathy Is this a current diagnosis for this admission?: Yes Plan: Resolved. Alert and oriented x3. Likely secondary to opiate use. Patient is on chronic p.o. opiate for back pain as well as morphine pump implanted in the stomach. Head CT negative. Resume home meds. Continue monitoring. Fall, seizure and aspiration precautions. Patient continues to be ready for discharge and still awaiting placement at SNF however would like to go home as per my conversation today. (2) Anemia of chronic disease Is this a current diagnosis for this admission?: Yes Plan: H&H stable. Denies any hematemesis, hemoptysis, easy bruising, nosebleeds, hematuria, vaginal bleeding, melena or hematochezia. (3) CAD (coronary artery disease) Qualifiers: Coronary Disease-Associated Artery/Lesion type: marshall artery [place] vs. transplanted heart: marshall heart Associated angina: without angina Qualified Code(s): I25.10 - Atherosclerotic heart disease of marshall coronary artery wi thout angina pectoris Is this a current diagnosis for this admission?: Yes Plan: Denies any anginal symptoms. Continue beta-blockers, statin, [place]. Outpatient PCP and cardiology follow-up. (4) Chronic hypercapnic respiratory failure Is this a current diagnosis for this admission?: Yes Plan: Back to baseline. SPO2 WNL on 2 L. On nocturnal BiPAP. Likely due to COPD exacerbation complicated by chronic opiate dependency. Patient has CPAP at home however stating that she threw it away because it was not working. Uses supplemental oxygen at home, stating that she has on her COPD meds and oxygen supplies at home. Continue nocturnal CPAP, duo nebs, LABA, ICS, LABA. (5) Debility Is this a current diagnosis for this admission?: Yes Plan: Pending placement at [facility] admissions are on hold due to neurovirus at break at the facility. Family requesting patient to be placed at [facility] however as per master planner note on ambulation does not accept patient for SNF. As per my conversation with patient she would like to go home instead of rehab but as per previous MDs note family is concerned about her safety. Continue PT/OT. Implement fall precautions. Pending placement. As per previous MD's note patient is very limited in terms of physical and cognitive abilities. Daughter says that patient has not been officially diagnosed with dementia but doctors have mentioned this suspicion in the past. According to daughter, patient has had several falls recently and has been unable to effectively coordinate medications and oral intake has significantly decreased and spends most of her day sleeping. Daughter is very concerned about her safety if she returned home. (6) HTN (hypertension), benign Is this a current diagnosis for this admission?: Yes Plan: Normotensive. Euvolemic. Continue beta-blockers and lisinopril. PRN beta-blockers. Monitor vitals. Adjust meds as needed. (7) Opiate dependence, continuous Is this a current diagnosis for this admission?: Yes Plan: Patient has chronic pain from back surgery from several years ago treated with a low-dose morphine pump [implanted in abdomen] Her pain regimen is managed by Dr. Korey Schulz and family reports patient was also prescribed oxycodone for breakthrough Breakthrough oxycodone was DC'd due to encephalopathy/delirium precipitated by narcotic use, Dr. Mas is aware. Continue implanted morphine pump but no further additional opioids upon d ischarge. Monitor vitals, implement fall precautions. (8) Sleep apnea Qualifiers: Sleep apnea type: unspecified type Qualified Code(s): G47.30 - Sleep apnea, unspecified Is this a current diagnosis for this admission?: Yes Plan: Nocturnal CPAP transition to nocturnal BiPAP given chronic CO2 retention - Plan Summary Summary: apparently there is norovirus outbreak at [facility] preventing patient's discharge and family is now requesting that patient be discharged to [facility] because a family member works there. Discharge planning aware.
[2019-09-06] MEDS: LEVALBUTEROL HCL NEB 1.25 MG/3 ML AMPUL NEB SCH ×4 (00:13→23:48)
[2019-09-06] MEDS: IPRATROPIUM BROMIDE 0.02% NEB 0.5 MG/2.5 ML AMPUL NEB SCH ×4 (00:13→23:48)
[2019-09-06] MEDS: PANTOPRAZOLE SODIUM 20 MG TABLET.DR PO SCH (05:31)
[2019-09-06] MEDS: HEPARIN SOD (PORCINE) 5,000 UNIT/ML 1 ML VIAL SUBCUT SCH ×3 (05:31→21:59)
[2019-09-06] MEDS: LISINOPRIL 10 MG TABLET PO SCH (10:05)
[2019-09-06] MEDS: CARVEDILOL 12.5 MG TABLET PO SCH ×2 (10:05→21:58)
[2019-09-06] MEDS: POLYETHYLENE GLYCOL 3350 POWDER 17 GM/1 PACKET PO SCH ×2 (10:19→17:31)
[2019-09-06] MEDS: DOCUSATE SODIUM 100 MG CAPSULE PO SCH ×2 (10:20→17:31)
[2019-09-06] MEDS: FUROSEMIDE 20 MG TABLET PO SCH (10:22)
[2019-09-06] MEDS: DULOXETINE HCL 30 MG CAPSULE.DR PO SCH (10:22)
[2019-09-06] MEDS: FLUTICASONE/VILANTEROL 200-25 MCG/DOSE IH SCH (10:22)
[2019-09-06] MEDS: MONTELUKAST SODIUM 10 MG TABLET PO SCH (10:22)
--- NOTE | 2019-09-06 10:47 | PDOC PROGRESS REPORT ---
Subjective Progress Note for:: 09/06/19 Subjective:: 09/05/2019. No acute events overnight. Patient comfortably sitting in bed in no apparent distress, alert oriented x3. Denies any shortness of breath, nausea, vomiting, chest pain, diarrhea, constipation or any urinary symptoms. P.o. tolerant, ambulatory and having normal bowel and bladder movements. Patient is stating that she has oxygen at home with nebulizer home health and home PT, she did have a CPAP at home which she threw away stating that it was not working. Patient declines to be transferred to rehab and would like to go home instead. 09/06/2018. No acute events overnight. Patient comfortably resting in bed. Denies any fever, chills, nausea, vomiting, diarrhea, constipation or any urinary symptoms. P.o. tolerant, ambulatory, having normal bowel and bladder movements. Patient is pending placement. Reason For Visit: ACUTE DELIRIUM SECONDARY TO OPIOID USE Physical Exam Vital Signs: Temp Pulse Resp BP Pulse Ox 97.5 F 52 L 12 126/39 H 100 09/06/19 07:39 09/06/19 07:39 09/06/19 07:39 09/06/19 07:39 09/06/19 07:39 Intake & Output 09/05/19 09/06/19 09/07/19 06:59 06:59 06:59 Intake Total 1075 970 Balance 1075 970 Weight 38.6 kg 42.8 kg General appearance: PRESENT: no acute distress, well-developed, well-nourished Head exam: PRESENT: atraumatic, normocephalic Respiratory exam: PRESENT: clear to auscultation keith. ABSENT: rales, rhonchi, wheezes Cardiovascular exam: PRESENT: RRR. ABSENT: diastolic murmur, rubs, systolic murmur GI/Abdominal exam: PRESENT: normal bowel sounds, soft. ABSENT: distended, guarding, mass, organolmegaly, rebound, tenderness Extremities exam: PRESENT: full ROM. ABSENT: calf tenderness, clubbing, pedal edema Neurological exam: PRESENT: alert, awake, oriented to person, oriented to place, oriented to time, CN II-XII grossly intact. ABSENT: motor sensory deficit Results Laboratory Results: 08/31/19 05:14 09/01/19 05:02 08/28/19 08/28/19 15:30 16:14 CK-MB (CK-2) 3.11 Troponin I < 0.012 NT-Pro-B Natriuret Pep 55 Impressions: Chest X-Ray 08/28/19 15:11 IMPRESSION: NO ACUTE RADIOGRAPHIC FINDING IN THE CHEST. Head CT 08/28/19 15:11 IMPRESSION: NORMAL BRAIN CT WITHOUT CONTRAST. EVIDENCE OF ACUTE STROKE: NO. Assessment and Plan - Diagnosis (1) Toxic metabolic encephalopathy Is this a current diagnosis for this admission?: Yes Plan: Resolved. Alert and oriented x3. Likely secondary to opiate use. Patient is on chronic p.o. opiate for back pain as well as morphine pump implanted in the stomach. Head CT negative. Resume home meds. Continue monitoring. Fall, seizure and aspiration precautions. Patient continues to be ready for discharge and still awaiting placement at SNF however would like to go home as per my conversation today. (2) Anemia of chronic disease Is this a current diagnosis for this admission?: Yes Plan: H&H stable. Denies any hematemesis, hemoptysis, easy bruising, nosebleeds, hematuria, vaginal bleeding, melena or hematochezia. (3) CAD (coronary artery disease) Qualifiers: Coronary Disease-Associated Artery/Lesion type: [place] artery [place] vs. transplanted heart: [place] heart Associated angina: without angina Qualified Code(s): I25.10 - Atherosclerotic heart disease of [place] coronary artery without angina pectoris Is this a current diagnosis for this admission?: Yes Plan: Denies any anginal symptoms. Continue beta-blockers, statin, [place]. Outpatient PCP and cardiology follow-up. (4) Chronic hypercapnic respiratory failure Is this a current diagnosis for this admission?: Yes Plan: Back to baseline. SPO2 WNL on 2 L. On nocturnal BiPAP. Likely due to COPD exacerbation complicated by chronic opiate dependency. Patient has CPAP at home however stating that she threw it away because it was not working. Uses supplemental oxygen at home, stating that she has on her COPD meds and oxygen supplies at home. Continue nocturnal CPAP, duo nebs, LABA, ICS, LABA. (5) Debility Is this a current diagnosis for this admission?: Yes Plan: Much improvement. Patient has been receiving PT. Ambulatory with no assistance. Pending placement at [facility] admissions are on hold due to neurovirus at break at the facility. Family requesting patient to be placed at [facility] however as per network planner note on ambulation does not accept patient for SNF. As per my conversation with patient she would like to go home instead of rehab but as per previous MDs note family is concerned about her safety. Continue PT/OT. Implement fall precautions. Pending placement. As per previous MD's note patient is very limited in terms of physical and cognitive abilities. Daughter says that patient has not been officially diagnosed with dementia but doctors have mentioned this suspicion in the past. According to daughter, patient has had several falls recently and has been unable to effectively coordinate medications and oral intake has significantly decreased and spends most of her day sleeping. Daughter is very concerned about her safety if she returned home. (6) HTN (hypertension), benign Is this a current diagnosis for this admission?: Yes Plan: Normotensive. Euvolemic. Continue beta-blockers and lisinopril. PRN beta-blockers. Monitor vitals. Adjust meds as needed. (7) Opiate dependence, continuous Is this a current diagnosis for this admission?: Yes Plan: Patient has chronic pain from back surgery from several years ago treated with a low-dose morphine pump [implanted in abdomen] Her pain regimen is managed by Dr. Korey Schulz and family reports patient was also prescribed oxycodone for breakthrough Breakthrough oxycodone was DC'd due to encephalopathy/delirium precipitated by narcotic use, Dr. Mas is aware. Continue implanted morphine pump but no further additional opioids upon discharge. Monitor vitals, implement fall precautions. (8) Sleep apnea Qualifiers: Sleep apnea type: unspecified type Qualified Code(s): G47.30 - Sleep apnea, unspecified Is this a current diagnosis for this admission?: Yes Plan: Nocturnal CPAP transition to nocturnal BiPAP given chronic CO2 retention. CPAP dependent. Patient has CPAP at home which is broken and not working. - Plan Summary Summary: apparently there is norovirus outbreak at [facility] preventing patient's discharge and family is now requesting that patient be discharged to [facility] because a family member works there. Discharge planning aware.
[2019-09-07] MEDS ORDERED: NORMAL SALINE 250 ML IV ONE (00:45)
[2019-09-07] MEDS: PANTOPRAZOLE SODIUM 20 MG TABLET.DR PO SCH (05:38)
[2019-09-07] MEDS: HEPARIN SOD (PORCINE) 5,000 UNIT/ML 1 ML VIAL SUBCUT SCH ×3 (05:38→21:24)
[2019-09-07] MEDS: LEVALBUTEROL HCL NEB 1.25 MG/3 ML AMPUL NEB SCH ×2 (08:50→16:09)
[2019-09-07] MEDS: IPRATROPIUM BROMIDE 0.02% NEB 0.5 MG/2.5 ML AMPUL NEB SCH ×2 (08:50→16:09)
--- NOTE | 2019-09-07 09:08 | PDOC PROGRESS REPORT ---
Subjective Progress Note for:: 09/07/19 Subjective:: 09/05/2019. No acute events overnight. Patient comfortably sitting in bed in no apparent distress, alert oriented x3. Denies any shortness of breath, nausea, vomiting, chest pain, diarrhea, constipation or any urinary symptoms. P.o. tolerant, ambulatory and having normal bowel and bladder movements. Patient is stating that she has oxygen at home with nebulizer home health and home PT, she did have a CPAP at home which she threw away stating that it was not working. Patient declines to be transferred to rehab and would like to go home instead. 09/06/2018. No acute events overnight. Patient comfortably resting in bed. Denies any fever, chills, nausea, vomiting, diarrhea, constipation or any urinary symptoms. P.o. tolerant, ambulatory, having normal bowel and bladder movements. Patient is pending placement. 09/07/2019. No acute events overnight. Comfortably resting in bed in no apparent distress. Patient is pending placement. Reason For Visit: ACUTE DELIRIUM SECONDARY TO OPIOID USE Physical Exam Vital Signs: Temp Pulse Resp BP Pulse Ox 98.5 F 63 15 99/33 L 98 09/06/19 20:07 09/07/19 06:54 09/06/19 23:48 09/07/19 01:00 09/06/19 23:48 Intake & Output 09/06/19 09/07/19 09/08/19 06:59 06:59 06:59 Intake Total 970 620 Balance 970 620 Weight 42.8 kg 42.6 kg General appearance: PRESENT: no acute distress, well-developed, well-nourished Head exam: PRESENT: atraumatic, normocephalic Respiratory exam: PRESENT: clear to auscultation keith. ABSENT: rales, rhonchi, wheezes Cardiovascular exam: PRESENT: RRR. ABSENT: diastolic murmur, rubs, systolic murmur GI/Abdominal exam: PRESENT: normal bowel sounds, soft. ABSENT: distended, guarding, mass, organolmegaly, rebound, tenderness Neurological exam: PRESENT: alert, awake, oriented to person, oriented to place, oriented to time, CN II-XII grossly intact. ABSENT: motor sensory deficit Results Laboratory Results: 08/31/19 05:14 09/01/19 05:02 08/28/19 08/28/19 15:30 16:14 CK-MB (CK-2) 3.11 Troponin I < 0.012 NT-Pro-B Natriuret Pep 55 Impressions: Chest X-Ray 08/28/19 15:11 IMPRESSION: NO ACUTE RADIOGRAPHIC FINDING IN THE CHEST. Head CT 08/28/19 15:11 IMPRESSION: NORMAL BRAIN CT WITHOUT CONTRAST. EVIDENCE OF ACUTE STROKE: NO. Assessment and Plan - Diagnosis (1) Toxic metabolic encephalopathy Is this a current diagnosis for this admission?: Yes Plan: Resolved. Alert and oriented x3. Likely secondary to opiate use. Patient is on chronic p.o. opiate for back pain as well as morphine pump implanted in the stomach. Head CT negative. Resume home meds. Continue monitoring. Fall, seizure and aspiration precautions. Patient continues to be ready for discharge and still awaiting placement at SNF however would like to go home as per my conversation today. (2) Anemia of chronic disease Is this a current diagnosis for this admission?: Yes Plan: H&H stable. Denies any hematemesis, hemoptysis, easy bruising, nosebleeds, hematuria, vaginal bleeding, melena or hematochezia. (3) CAD (coronary artery disease) Qualifiers: Coronary Disease-Associated Artery/Lesion type: [place] artery [place] vs. transplanted heart: [place] heart Associated angina: without angina Qualified Code(s): I25.10 - Atherosclerotic heart disease of [place] coronary artery without angina pectoris Is this a current diagnosis for this admission?: Yes Plan: Denies any anginal symptoms. Continue beta-blockers, statin, [place]. Outpatient PCP and cardiology follow-up. (4) Chronic hypercapnic respiratory failure Is this a current diagnosis for this admission?: Yes Plan: Back to baseline. SPO2 WNL on 2 L. On nocturnal BiPAP. Likely due to COPD exacerbation complicated by chronic opiate dependency. Patient has CPAP at home however stating that she threw it away because it was not working. Uses supplemental oxygen at home, stating that she has on her COPD meds and oxygen supplies at home. Continue nocturnal CPAP, duo nebs, LABA, ICS, LABA. (5) Debility Is this a current diagnosis for this admission?: Yes Plan: Pending placement at [facility] admissions are on hold due to neurovirus at break at the facility. Family requesting patient to be placed at [facility] however as per environmental planner note on ambulation does not accept patient for SNF. As per my conversation with patient she would like to go home instead of rehab but as per previous MDs note family is concerned about her safety. Continue PT/OT. Implement fall precautions. Pending placement. As per previous MD's note patient is very limited in terms of physical and cognitive abilities. Daughter says that patient has not been officially diagnosed with dementia but doctors have mentioned this suspicion in the past. According to daughter, patient has had several falls recently and has been unable to effectively coordinate medications and oral intake has significantly decreased and spends most of her day sleeping. Daughter is very concerned about her safety if she returned home. (6) HTN (hypertension), benign Is this a current diagnosis for this admission?: Yes Plan: Normotensive. Euvolemic. Continue beta-blockers and lisinopril. PRN beta-blockers. Monitor vitals. Adjust meds as needed. (7) Opiate dependence, continuous Is this a current diagnosis for this admission?: Yes Plan: Patient has chronic pain from back surgery from several years ago treated with a low-dose morphine pump [implanted in abdomen] Her pain regimen is managed by Dr. Korey Schulz and family reports patient was also prescribed oxycodone for breakthrough Breakthrough oxycodone was DC'd due to encephalopathy/delirium precipitated by narcotic use, Dr. Mas is aware. Continue implanted morphine pump but no further additional opioids upon discharge. Monitor vitals, implement fall precautions. (8) Sleep apnea Qualifiers: Sleep apnea type: unspecified type Qualified Code(s): G47.30 - Sleep apnea, unspecified Is this a current diagnosis for this admission?: Yes Plan: Nocturnal CPAP transition to nocturnal BiPAP given chronic CO2 retention
[2019-09-07] MEDS: POLYETHYLENE GLYCOL 3350 POWDER 17 GM/1 PACKET PO SCH ×2 (09:43→17:23)
[2019-09-07] MEDS: DOCUSATE SODIUM 100 MG CAPSULE PO SCH ×2 (09:43→17:23)
[2019-09-07] MEDS: DULOXETINE HCL 30 MG CAPSULE.DR PO SCH (09:44)
[2019-09-07] MEDS: FUROSEMIDE 20 MG TABLET PO SCH (09:44)
[2019-09-07] MEDS: CARVEDILOL 12.5 MG TABLET PO SCH ×2 (09:44→21:23)
[2019-09-07] MEDS: LISINOPRIL 10 MG TABLET PO SCH (09:44)
[2019-09-07] MEDS: FLUTICASONE/VILANTEROL 200-25 MCG/DOSE IH SCH (09:44)
[2019-09-07] MEDS: MONTELUKAST SODIUM 10 MG TABLET PO SCH (09:44)
[2019-09-08] MEDS: IPRATROPIUM BROMIDE 0.02% NEB 0.5 MG/2.5 ML AMPUL NEB SCH ×2 (00:25→08:03)
[2019-09-08] MEDS: LEVALBUTEROL HCL NEB 1.25 MG/3 ML AMPUL NEB SCH ×2 (00:25→08:03)
[2019-09-08] MEDS: HEPARIN SOD (PORCINE) 5,000 UNIT/ML 1 ML VIAL SUBCUT SCH (05:15)
[2019-09-08] MEDS: PANTOPRAZOLE SODIUM 20 MG TABLET.DR PO SCH (05:16)
[2019-09-08] MEDS ORDERED: FUROSEMIDE 20 MG TABLET PO SCH (10:00)
[2019-09-08] MEDS ORDERED: LISINOPRIL 10 MG TABLET PO SCH ×2 (10:00)
[2019-09-08] MEDS: FLUTICASONE/VILANTEROL 200-25 MCG/DOSE IH SCH (10:43)
[2019-09-08] MEDS: POLYETHYLENE GLYCOL 3350 POWDER 17 GM/1 PACKET PO SCH (10:44)
[2019-09-08] MEDS: CARVEDILOL 12.5 MG TABLET PO SCH (10:45)
[2019-09-08] MEDS: DOCUSATE SODIUM 100 MG CAPSULE PO SCH (10:45)
[2019-09-08] MEDS: MONTELUKAST SODIUM 10 MG TABLET PO SCH (10:47)
[2019-09-08] MEDS: DULOXETINE HCL 30 MG CAPSULE.DR PO SCH (10:47)
[2019-09-08 13:09] VITALS: BP 101/33
--- NOTE | 2019-09-12 12:45 | PDOC DISCHARGE SUMMARY ---
Impression - Admit/DC Date/PCP Admission Date/Primary Care Provider: 08/28/19 19:39 BEN HINSON NP Discharge Date: 09/08/19 - Discharge Diagnosis (1) Toxic metabolic encephalopathy Is this a current diagnosis for this admission?: Yes (2) Anemia of chronic disease Is this a current diagnosis for this admission?: Yes (3) CAD (coronary artery disease) Is this a current diagnosis for this admission?: Yes (4) Chronic hypercapnic respiratory failure Is this a current diagnosis for this admission?: Yes (5) Debility Is this a current diagnosis for this admission?: Yes (6) HTN (hypertension), benign Is this a current diagnosis for this admission?: Yes (7) Opiate dependence, continuous Is this a current diagnosis for this admission?: Yes (8) Sleep apnea Is this a current diagnosis for this admission?: Yes - Additional Information Resuscitation Status: Full Code Discharge Diet: As Tolerated Discharge Activity: Activity As Tolerated Referrals: [facility] [Outside] BEN HINSON NP [Primary Care Provider] - (Follow up appointment made 09/19/18 at 1330.) Prescriptions: Carvedilol [Coreg 12.5 mg Tablet] 6.25 mg PO Q12 30 Days #60 tablet Furosemide [Lasix 20 mg Tablet] 10 mg PO DAILY 30 Days #30 tablet Home Medications: Cetirizine HCl [Zyrtec 10 mg Tablet] 10 mg PO DAILY 08/29/19 Duloxetine HCl [Cymbalta 30 mg Capsule.dr] 30 mg PO DAILY 08/29/19 Lisinopril 20 mg PO DAILY 08/29/19 Metoprolol Succinate [Toprol Xl 25 mg Tab.sr] 25 mg PO DAILY 08/29/19 Montelukast Sodium [Singulair 10 mg Tablet] 10 mg PO DAILY 08/29/19 Potassium Chloride [Klor-Con M20] 20 meq PO Q48HP 08/29/19 Ranitidine HCl [Zantac] 150 mg PO BID 08/29/19 Carvedilol [Coreg 12.5 mg Tablet] 6.25 mg PO Q12 30 Days #60 tablet 09/08/19 Furosemide [Lasix 20 mg Tablet] 10 mg PO DAILY 30 Days #30 tablet 09/08/19 History of Present Illiness History of Present Illness: MELISSA BOSCH is a 74 year old female who presented to the emergency room with acute altered mental status. The patient was found by her granddaughter being extremely somnolent and not arousable at her home. The patient is of sufficient altered mental status that she is unable to contribute meaningful information to her medical evaluation. The patient's family report that she has a chronic indwelling morphine pump for chronic pain and additionally has a prescribed oxycodone tablet for treating pain related to a foot fracture 2 months ago. The patient was last noted in her normal status yesterday. In the emergency room the patient was found to have normal vital signs but was noted to have pinpoint pupils and to be extremely somnolent. She was given a trial dose of Narcan to which she responded by becoming alert but was very agitated and combative as well as poorly oriented. Patient required Ativan to control her agitation and combativeness in the ER. She was also found to have an acute kidney injury and an expected urine drug screen positive for opioids. She was subsequently admitted hospital for further evaluation and treatment with a goal set by family members of placement in a long-term residential facility as they do not feel that the patient can any longer take care of herself at home alone. Hospital Course Hospital Course: (1) Toxic metabolic encephalopathy Resovled. Alert and oriented x3. Likely secondary to opiate use. Patient is on chronic p.o. opiate for back pain as well as morphine pump implanted in the stomach. Head CT negative. Resumed home meds. Fall, seizure and aspiration precautions. Patient keep refusing to go to SNF however patient family would like her to be transitioned to SNF. This was noted in detail in discharge planning note. Please refer to discharge planning note. (2) Anemia of chronic disease H&H stable. Denied any hematemesis, hemoptysis, easy bruising, nosebleeds, hematuria, vaginal bleeding, melena or hematochezia. (3) CAD (coronary artery disease) Denied any anginal symptoms. Continued beta-blockers, statin, [place]. Outpatient PCP and cardiology follow-up. (4) Chronic hypercapnic respiratory failure Back to baseline. SPO2 WNL on 2 L. On nocturnal BiPAP. Likely due to COPD exacerbation complicated by chronic opiate dependency. Patient has CPAP at home however stating that she threw it away because it was not working. Uses supplemental oxygen at home, stating that she has on her COPD meds and oxygen supplies at home. Continued nocturnal CPAP, duo nebs, LABA, ICS, LABA. (5) Debility Patient was arranged to be transitioned to SNF however patient Refusing to be transferred to SNF but family kept requesting SNF placement. This is noted in detail on the discharge planning note. Please refer to discharge planning note for further information. As per my conversation with patient she would like to go home instead of rehab but as per previous MDs note family is concerned about her safety. Continued PT/OT. Implemented fall precautions. As per previous MD's note patient is very limited in terms of physical and cognitive abilities. Daughter says that patient has not been officially diagnosed with dementia but doctors have mentioned this suspicion in the past. According to daughter, patient has had several falls recently and has been unable to effectively coordinate medications and oral intake has significantly decreased and spends most of her day sleeping. Daughter is very concerned about her safety if she returned home. (6) HTN (hypertension), benign Normotensive. Euvolemic. Continued beta-blockers and lisinopril. PRN beta-blockers. Monitor vitals. Adjust meds as needed. (7) Opiate dependence, continuous Patient has chronic pain from back surgery from several years ago treated with a low-dose morphine pump [implanted in abdomen] Her pain regimen is managed by Dr. Korey Schulz and family reports patient was also prescribed oxycodone for breakthrough Breakthrough oxycodone was DC'd due to encephalopathy/delirium precipitated by narcotic use, Dr. Mas is aware. Continued implanted morphine pump but no further additional opioids upon discharge. Monitored vitals, implemented fall precautions. Advised to follow-up with PCP and pain management doctor. (8) Sleep apnea Nocturnal CPAP transition to nocturnal BiPAP given chronic CO2 retention Patient has CPAP and oxygen supplies at home. Physical Exam Vital Signs: Temp Pulse Resp BP Pulse Ox 97.8 F 76 18 111/39 L 96 09/08/19 12:12 09/08/19 12:12 09/08/19 12:12 09/08/19 12:12 09/08/19 12:12 General appearance: PRESENT: no acute distress, well-developed, well-nourished Respiratory exam: PRESENT: clear to auscultation keith. ABSENT: rales, rhonchi, wheezes Cardiovascular exam: PRESENT: RRR. ABSENT: diastolic murmur, rubs, systolic murmur GI/Abdominal exam: PRESENT: normal bowel sounds, soft. ABSENT: distended, guarding, mass, organolmegaly, rebound, tenderness Neurological exam: PRESENT: alert, awake, oriented to person, oriented to place, oriented to time, oriented to situation, CN II-XII grossly intact. ABSENT: motor sensory deficit Results Laboratory Results: WBC 5.1 10^3/uL (4.0-10.5) 08/31/19 05:14 RBC 3.98 10^6/uL (3.72-5.28) 08/31/19 05:14 Hgb 11.1 g/dL (12.0-15.5) L 08/31/19 05:14 Hct 34.1 % (36.0-47.0) L 08/31/19 05:14 MCV 86 fl (80-97) 08/31/19 05:14 MCH 27.9 pg (27.0-33.4) 08/31/19 05:14 MCHC 32.5 g/dL (32.0-36.0) 08/31/19 05:14 RDW 14.2 % (11.5-14.0) H 08/31/19 05:14 Plt Count 199 10^3/uL (150-450) 08/31/19 05:14 Lymph % (Auto) 18.0 % (13-45) 08/28/19 15:30 Granite % (Auto) 8.0 % (3-13) 08/28/19 15:30 Eos % (Auto) 1.0 % (0-6) 08/28/19 15:30 Baso % (Auto) 0.2 % (0-2) 08/28/19 15:30 Absolute Neuts (auto) 4.1 10^3/uL (1.7-8.2) 08/28/19 15:30 Absolute Lymphs (auto) 1.0 10^3/uL (0.5-4.7) 08/28/19 15:30 Absolute Monos (auto) 0.5 10^3/uL (0.1-1.4) 08/28/19 15:30 Absolute Eos (auto) 0.1 10^3/uL (0.0-0.6) 08/28/19 15:30 Absolute Basos (auto) 0.0 10^3/uL (0.0-0.2) 08/28/19 15:30 Seg Neutrophils % 72.8 % (42-78) 08/28/19 15:30 PT 12.8 SEC (11.4-15.4) 08/28/19 15:30 INR 0.96 08/28/19 15:30 Carbonic Acid 1.85 mmol/L (1.05-1.35) H 08/30/19 00:30 HCO3/H2CO3 Ratio 18:1 08/30/19 00:30 ABG pH 7.37 (7.35-7.45) 08/30/19 00:30 ABG pCO2 61.6 mmHg (35-45) H 08/30/19 00:30 ABG pO2 257.3 mmHg (80-100) H 08/30/19 00:30 ABG HCO3 35.1 mmol/L (20-24) H 08/30/19 00:30 ABG Total CO2 36.9 mmol/L (21-25) H 08/30/19 00:30 ABG O2 Saturation 99.6 % (94-98) H 08/30/19 00:30 ABG Base Excess 8.0 mmol/L 08/30/19 00:30 VBG pH 7.49 (7.30-7.42) H 09/02/19 10:17 VBG pCO2 44.9 mmHg (35-63) 09/02/19 10:17 VBG HCO3 33.1 mmol/L (20-32) H 09/02/19 10:17 VBG Base Excess 8.8 mmol/L 09/02/19 10:17 FiO2 35% 08/30/19 00:30 Sodium 137.1 mmol/L (137-145) 09/01/19 05:02 Potassium 4.6 mmol/L (3.6-5.0) 09/01/19 05:02 Chloride 94 mmol/L (98-107) L 09/01/19 05:02 Carbon Dioxide 37 mmol/L (22-30) H 09/01/19 05:02 Anion Gap 6 (5-19) 09/01/19 05:02 BUN 26 mg/dL (7-20) H 09/01/19 05:02 Creatinine 1.25 mg/dL (0.52-1.25) 09/01/19 05:02 Est GFR ( Amer) 51 (>60) L 09/01/19 05:02 Est GFR (MDRD) Non-Af 42 (>60) L 09/01/19 05:02 Glucose 121 mg/dL (75-110) H 09/01/19 05:02 POC Glucose 155 mg/dL (70-110) H 08/30/19 00:23 Lactic Acid 0.6 mmol/L (0.7-2.1) L 08/28/19 15:30 Calcium 9.6 mg/dL (8.4-10.2) 09/01/19 05:02 Magnesium 1.8 mg/dL (1.6-2.3) 08/29/19 04:59 Total Bilirubin 0.4 mg/dL (0.2-1.3) 08/28/19 15:30 Direct Bilirubin 0.2 mg/dL (0.0-0.4) 08/28/19 15:30 Neonat Total Bilirubin Not Reportable 08/28/19 15:30 Neonat Direct Bilirubin Not Reportable 08/28/19 15:30 Neonat Indirect Bili Not Reportable 08/28/19 15:30 AST 18 U/L (14-36) 08/28/19 15:30 ALT 7 U/L (<35) 08/28/19 15:30 Alkaline Phosphatase 85 U/L (38-126) 08/28/19 15:30 CK-MB (CK-2) 3.11 ng/mL (<4.55) 08/28/19 15:30 Troponin I < 0.012 ng/mL 08/28/19 15:30 NT-Pro-B Natriuret Pep 55 pg/mL (<125) 08/28/19 16:14 Total Protein 6.3 g/dL (6.3-8.2) 08/28/19 15:30 Albumin 3.2 g/dL (3.5-5.0) L 08/28/19 15:30 Triglycerides 122 mg/dL (<150) 08/29/19 04:59 Cholesterol 180.20 mg/dL (0-200) 08/29/19 04:59 LDL Cholesterol Direct 117 mg/dL (<100) H 08/29/19 04:59 VLDL Cholesterol 24.0 mg/dL (10-31) 08/29/19 04:59 HDL Cholesterol 33 mg/dL (>40) L 08/29/19 04:59 Lipase 28.7 U/L (23-300) 08/28/19 15:30 TSH 0.07 uIU/mL (0.47-4.68) L 08/29/19 04:59 Free T4 1.87 ng/dL (0.78-2.19) 08/29/19 04:59 Free T3 pg/mL 3.94 pg/mL (2.77-5.27) 08/29/19 04:59 Urine Color YELLOW 08/28/19 17:39 Urine Appearance CLEAR 08/28/19 17:39 Urine pH 5.0 (5.0-9.0) 08/28/19 17:39 Ur Specific Wilmot 1.008 08/28/19 17:39 Urine Protein 30 mg/dL (NEGATIVE) H 08/28/19 17:39 Urine Glucose (UA) NEGATIVE mg/dL (NEGATIVE) 08/28/19 17:39 Urine Ketones NEGATIVE mg/dL (NEGATIVE) 08/28/19 17:39 Urine Blood NEGATIVE (NEGATIVE) 08/28/19 17:39 Urine Nitrite NEGATIVE (NEGATIVE) 08/28/19 17:39 Urine Bilirubin NEGATIVE (NEGATIVE) 08/28/19 17:39 Urine Urobilinogen NEGATIVE mg/dL (<2.0) 08/28/19 17:39 Ur Leukocyte Esterase NEGATIVE (NEGATIVE) 08/28/19 17:39 Urine WBC (Auto) 1 /HPF 08/28/19 17:39 U Hyaline Cast (Auto) 1 /LPF 08/28/19 17:39 Urine Bacteria (Auto) TRACE /HPF 08/28/19 17:39 Urine Mucus (Auto) RARE /LPF 08/28/19 17:39 Urine Ascorbic Acid NEGATIVE (NEGATIVE) 08/28/19 17:39 Urine Opiates Screen UNCONFIRMED POSITIVE 08/28/19 17:39 Urine Methadone Screen NEGATIVE 08/28/19 17:39 Ur Barbiturates Screen NEGATIVE 08/28/19 17:39 Ur Phencyclidine Scrn NEGATIVE 08/28/19 17:39 Ur Amphetamines Screen NEGATIVE 08/28/19 17:39 U Benzodiazepines Scrn NEGATIVE 08/28/19 17:39 Urine Cocaine Screen NEGATIVE 08/28/19 17:39 U Marijuana (THC) Screen NEGATIVE 08/28/19 17:39 08/28/19 08/28/19 15:30 16:14 CK-MB (CK-2) 3.11 Troponin I < 0.012 NT-Pro-B Natriuret Pep 55 Impressions: Chest X-Ray 08/28/19 15:11 IMPRESSION: NO ACUTE RADIOGRAPHIC FINDING IN THE CHEST. Head CT 08/28/19 15:11 IMPRESSION: NORMAL BRAIN CT WITHOUT CONTRAST. EVIDENCE OF ACUTE STROKE: NO. Stroke Is this a Stroke Patient?: No Acute Heart Failure - Is this a Heart Failure Patient?: No
== END 2019-09-08 12:45 | disposition home health service (06) | DRG 917 ==
LOC: ER 14:57 → EH 19:39 → 4N 21:42
PROVIDERS: ADMIT Emergency Medicine; ATTEND Emergency Medicine
PROC: 5A09357 Assistance with Respiratory Ventilation, Less than 24 Consecutive Hours, Continuous Positive Airway Pressure (ICD-10-PCS; principal; 2019-08-30)
DX: T40.2X5A Adverse effect of other opioids, initial encounter (principal); G92 Toxic encephalopathy; J96.12 Chronic respiratory failure with hypercapnia; F11.20 Opioid dependence, uncomplicated; N17.9 Acute kidney failure, unspecified; J44.1 Chronic obstructive pulmonary disease with (acute) exacerbation; D63.8 Anemia in other chronic diseases classified elsewhere; I11.0 Hypertensive heart disease with heart failure; I50.9 Heart failure, unspecified; I25.10 Atherosclerotic heart disease of native coronary artery without angina pectoris; G47.30 Sleep apnea, unspecified; G89.29 Other chronic pain; E78.5 Hyperlipidemia, unspecified; I73.9 Peripheral vascular disease, unspecified; K21.9 Gastro-esophageal reflux disease without esophagitis; M19.90 Unspecified osteoarthritis, unspecified site; M10.9 Gout, unspecified; M54.9 Dorsalgia, unspecified; F17.200 Nicotine dependence, unspecified, uncomplicated; R53.81 Other malaise; R82.5 Elevated urine levels of drugs, medicaments and biological substances; Y92.019 Unspecified place in single-family (private) house as the place of occurrence of the external cause; I25.2 Old myocardial infarction; Z95.820 Peripheral vascular angioplasty status with implants and grafts; Z85.528 Personal history of other malignant neoplasm of kidney; Z88.8 Allergy status to other drugs, medicaments and biological substances; Z82.49 Family history of ischemic heart disease and other diseases of the circulatory system; Z80.9 Family history of malignant neoplasm, unspecified
CPT/HCPCS: 36415; 51701; 70450; 71045; 80048; 80053; 80061; 80307; 81001; 82553; 82803; 82962; 83605; 83690; 83735; 83880; 84439; 84443; 84481; 84484; 85025; 85027; 85610; 93005; 93010; 94660; 96361; 96374; 96375; 99285; J0360; J1644; J1940; J2060; J2270; J2310; J2405; J3490; J7030; J7050; J7121; J7512

== ENCOUNTER 2019-09-16 17:29 | Inpatient (IN) | payer MEDICARE ==
--- NOTE | 2019-09-16 18:13 | ER Document Report ---
ED Medical Screen (RME) - General Chief Complaint: Altered Mental Status Stated Complaint: FALL Time Seen by Provider: 09/16/19 18:03 Primary Care Provider: BEN HINSON NP [Primary Care Provider] - Follow up as needed TRAVEL OUTSIDE OF THE [place] IN LAST 30 DAYS: No - HPI Notes: 09/16/19 18:10 Patient is a 74-year-old female with extensive medical history including renal cell carcinoma of the right kidney, continuous opioid dependence with an indwelling morphine pump in the right lower quadrant, anemia of chronic disease, hypertension, hyperlipidemia, peripheral vascular disease, acute on chronic respiratory failure with both hypoxia and hypercapnia, COPD, previous SBO, CAD, TENISHA, dehydration, previous UTIs and dementia who presents with granddaughter with concern of being altered over the past couple days. Family member states that patient is no longer able to ambulate and is complaining of left leg pain proximally near the hip. She has not been acting herself and did not know who she was this morning. Daughter states that she also urinated on herself recently. She is not on any blood thinners aside from aspirin. Patient was admitted and discharged from the hospital within the last couple weeks for altered mental status. No noted fever. She has had an occasional cough. I have treated and performed a rapid initial assessment of this patient. A com prehensive ED assessment and evaluation of the patient, analysis of test results and completion of medical decision making process will be conducted by additional ED providers. PHYSICAL EXAMINATION: GENERAL: Well-appearing, well-nourished and in no acute distress. Lungs: Grossly CTAB, diminished slightly at the bases bilaterally. No retractions Left leg: There is some noted tenderness of the left hip. - Related Data Allergies/Adverse Reactions: droperidol [Droperidol] Allergy (Severe, Verified 03/22/18 11:09) Anaphylaxis Past Medical History - Past Medical History Cardiac Medical History: Reports: Hx Congestive Heart Failure, Hx Heart Attack - MILD HEART ATTACK 2015, NO STENTS OR SX, Hx Hypercholesterolemia, Hx Hypertension, Hx Peripheral Vascular Disease, Hx Pulmonary Embolism - x 2 Denies: Hx Atrial Fibrillation, Hx Coronary Artery Disease, Hx Heart Murmur Pulmonary Medical History: Reports: Hx Asthma, Hx Bronchitis, Hx COPD, Hx Pneumonia - LAST IN 2015, Hx Sleep Apnea - CPAP qhs Denies: Hx Respiratory Failure, Hx Tuberculosis Neurological Medical History: Denies: Hx Cerebrovascular Accident, Hx Seizures Endocrine Medical History: Denies: Hx Diabetes Mellitus Type 1, Hx Diabetes Mellitus Type 2, Hx Graves' Disease, Hx Hyperthyroidism, Hx Hypothyroidism Renal/ Medical History: Reports: Hx Ovarian Cysts. Denies: Hx End Stage Renal Disease, Hx Kidney Stones, Hx Peritoneal Dialysis, Hx Pelvic Inflammatory Disease Malignancy Medical History: Denies: Hx Breast Cancer, Hx Cervical Cancer, Hx Leukemia, Hx Lung Cancer, Hx Ovarian Cancer GI Medical History: Reports: Hx Gastroesophageal Reflux Disease, Hx Ulcer. 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, Denies Hx Fibromyalgia, Reports Hx Gout, Denies Hx Muscular Dystrophy, Denies Hx Systemic Lupus Erythematosus Skin Medical History: Denies Hx Eczema, Denies Hx Psoriasis Psychiatric Medical History: Denies: Hx Bipolar Disorder, Hx Depression, Hx Post Traumatic Stress Disorder, Hx Schizophrenia Traumatic Medical History: Reports: Hx Fractures - 2013 RT hand "2 finger s"/casted Infectious Medical History: Denies: Hx Hepatitis, Hx HIV Past Surgical History: Reports: Hx Bowel Surgery - exp lap, r/t colon perf/colonoscopy approx 2002, Hx Cholecystectomy - Laparoscopic cholecystectomy, Hx Hysterectomy, Hx Tonsillectomy, Hx Vascular Surgery - STENT LLE., Other - Implanted continuous morphine pump in abdomen. Denies: Hx Appendectomy, Hx Section, Hx Colostomy, Hx Coronary Artery Bypass Graft, Hx Gastric Bypass Surgery, Hx Herniorrhaphy, Hx Mastectomy, Hx Open Heart Surgery, Hx Pacemaker, Hx Tubal Ligation - Immunizations Hx Diphtheria, Pertussis, Tetanus Vaccination: No Doctor's Discharge - Discharge Referrals: BEN HINSON NP [Primary Care Provider] - Follow up as needed
--- NOTE | 2019-09-16 18:55 | RADIOLOGY REPORT (SQ) ---
EXAM DESCRIPTION: CHEST SINGLE VIEW COMPLETED DATE/TIME: 09/16/2019 6:36 pm REASON FOR STUDY: cough COMPARISON: 08/28/2019 EXAM PARAMETERS: NUMBER OF VIEWS: One view. TECHNIQUE: Single frontal radiographic view of the chest acquired. RADIATION DOSE: NA LIMITATIONS: None. FINDINGS: LUNGS AND PLEURA: No opacities, masses or pneumothorax. No pleural effusion. MEDIASTINUM AND HILAR STRUCTURES: No masses. Contour normal. HEART AND VASCULAR STRUCTURES: Heart normal in size. Normal vasculature. BONES: No acute findings. Left shoulder reverse arthroplasty. HARDWARE: None in the chest. OTHER: No other significant finding. IMPRESSION: No acute abnormality of the lungs in AP projection. TECHNICAL DOCUMENTATION: JOB ID: [id number] [employer]- All Rights Reserved Reading location - IP/workstation name: [email or web address]
--- NOTE | 2019-09-16 18:59 | RADIOLOGY REPORT (SQ) ---
EXAM DESCRIPTION: PELVIS AP COMPLETED DATE/TIME: 09/16/2019 6:36 pm REASON FOR STUDY: ?left hip pain, dementia history COMPARISON: None. NUMBER OF VIEWS: One view TECHNIQUE: AP Pelvis LIMITATIONS: None. FINDINGS: MINERALIZATION: Osteopenia. HIPS: Status post left hip total arthroplasty with adjacent heterotopic ossification of the superior aspect. PELVIS AND SACRUM: No acute fracture or dislocation. No worrisome bone lesions. SOFT TISSUES: Subcutaneous pump device projects over the right ilium. OTHER: Vascular stents project over the aortic bifurcation and left iliac/femoral vessels. IMPRESSION: Osteopenia. No displaced fracture or dislocation of the pelvis in single AP projection. Left hip total arthroplasty. The right ilium is obscured by subcutaneous pump device. COMMENT: Pelvic fractures are often occult on plain radiographs. If strong clinical suspicion for f racture, recommend CT or MR. TECHNICAL DOCUMENTATION: JOB ID: [id number] [employer]- All Rights Reserved Reading location - IP/workstation name: [email or web address]
--- NOTE | 2019-09-16 19:26 | RADIOLOGY REPORT (SQ) ---
EXAM DESCRIPTION: CT HEAD WITHOUT COMPLETED DATE/TIME: 09/16/2019 6:50 pm REASON FOR STUDY: altered mental status COMPARISON: 08/28/2019 TECHNIQUE: Axial images acquired through the brain without intravenous contrast. Images reviewed wi th bone, brain and subdural windows. Additional sagittal and coronal reconstructions were generated. Images stored on PACS. All CT scanners at this facility use dose modulation, iterative reconstruction, and/or weight based d osing when appropriate to reduce radiation dose to as low as reasonably achievable (ALARA). [facility]: Dose Right [facility]: CareDose [facility]: Dose Right [facility]: Teradose 4D [facility]: Smart RoomiePics RADIATION DOSE: CT Rad equipment meets quality standard of care and radiation dose reduction techniq ues were employed. CTDIvol: 48.6 mGy. DLP: 979 mGy-cm. mGy. LIMITATIONS: None. FINDINGS: VENTRICLES: Normal size and contour. CEREBRUM: No masses. No hemorrhage. No midline shift. No evidence for acute infarction. Normal gra y/white matter differentiation. No areas of low density in the white matter. CEREBELLUM: No masses. No hemorrhage. No alteration of density. No evidence for acute infarction. EXTRAAXIAL SPACES: No fluid collections. No masses. ORBITS AND GLOBE: No intra- or extraconal masses. Normal contour of globe without masses. CALVARIUM: No fracture. PARANASAL SINUSES: No fluid or mucosal thickening. SOFT TISSUES: No mass or hematoma. OTHER: No other significant finding. IMPRESSION: No acute intracranial pathology. EVIDENCE OF ACUTE STROKE: NO. COMMENT: Quality ID # [id number]: Final reports with documentation of one or more dose reduction techniques (e.g., Automated exposure control, adjustment of the mA and/or kV according to patient size, use of iterative reconstruction technique) TECHNICAL DOCUMENTATION: JOB ID: [id number] [employer]- All Rights Reserved Reading location - IP/workstation name: [email or web address]
[2019-09-16 20:02] LABS: ABSOLUTE LYMPHOCYTES (AUTO) 0.8 10^3/uL (0.5-4.7); ABSOLUTE MONOCYTES (AUTO) 0.4 10^3/uL (0.1-1.4); ABSOLUTE NEUT (AUTO) 6.7 10^3/uL (1.7-8.2); BASOPHILS % (AUTO) 0.3 % (0-2); EOSINOPHILS % (AUTO) 0.6 % (0-6); HEMATOCRIT 36.8 % (36.0-47.0); HEMOGLOBIN 12.1 g/dL (12.0-15.5); LYMPHOCYTES % (AUTO) 10.5 % (13-45); MEAN CORPUSCULAR HEMOGLOBIN 28.3 pg (27.0-33.4); MEAN CORPUSCULAR HGB CONC 32.9 g/dL (32.0-36.0); MEAN CORPUSCULAR VOLUME 86 fl (80-97); MONOCYTES % (AUTO) 4.7 % (3-13); PLATELET COUNT 157 10^3/uL (150-450); RED BLOOD COUNT 4.26 10^6/uL (3.72-5.28); RED CELL DISTRIBUTION WIDTH 15.3 % (11.5-14.0); SEGMENTED NEUTROPHILS % (AUTO) 83.9 % (42-78); TOTAL CELLS COUNTED % (AUTO) 100 %
[2019-09-16 20:15] LABS: ALBUMIN 4.6 g/dL (3.5-5.0); ALKALINE PHOSPHATASE 202 U/L (38-126); ANION GAP 10 (5-19); ASPARTATE AMINO TRANSFERASE 173 U/L (14-36); BILIRUBIN,DIRECT 0.3 mg/dL (0.0-0.4); BILIRUBIN,TOTAL 0.8 mg/dL (0.2-1.3); BLOOD UREA NITROGEN 65 mg/dL (7-20); CALCIUM 10.2 mg/dL (8.4-10.2); CARBON DIOXIDE 35 mmol/L (22-30); CHLORIDE 92 mmol/L (98-107); GLUCOSE 102 mg/dL (75-110); POTASSIUM 5.5 mmol/L (3.6-5.0); TOTAL PROTEIN 8.4 g/dL (6.3-8.2)
[2019-09-16] MEDS ORDERED: NORMAL SALINE 500 ML IV ONE (20:41)
--- NOTE | 2019-09-16 20:44 | ER Document Report ---
ED General - General Chief Complaint: Altered Mental Status Stated Complaint: FALL Time Seen by Provider: 09/16/19 18:03 Notes: Patient is a 74-year-old female that comes from home for chief complaint of intermittent confusion, progressive weakness and inability to walk since yesterday, and she started urinating on herself. Patient was admitted for a long time and discharged to home on 09/12/2019. Initially she was living at home but granddaughter has been having her stay with her for the past several days. Patient has complicated medical history including COPD on 2 L nasal cannula at all times, CAD, CHF, anemia of chronic disease, chronic pain on morphine pump in the pelvis, renal cell carcinoma the right kidney, hypertension. No fevers, vomiting, difficulty breathing, passing out, or chest pain reported. Patient denies any current complaints although was complaining of left leg pain in triage reportedly. Family states that daughter is power of food assembler and they were hoping to have patient placed in long-term care facility but patient was discharged home when daughter was out of town. They also state that patient is supposed to be DNR status. TRAVEL OUTSIDE OF THE [place] IN LAST 30 DAYS: No - Related Data Allergies/Adverse Reactions: droperidol [Droperidol] Allergy (Severe, Verified 03/22/18 11:09) Anaphylaxis Past Medical History - General Information source: Patient - Social History Smoking Status: Former Smoker Chew tobacco use (# tins/day): No Frequency of alcohol use: None Drug Abuse: None Lives with: Family Family History: CAD, CVA, DM, Hypertension, Malignancy, Other - Sleep apnea Patient has suicidal ideation: No Patient has homicidal ideation: No - Past Medical History Cardiac Medical History: Reports: Hx Congestive Heart Failure, Hx Heart Attack - MILD HEART ATTACK 2015, NO STENTS OR SX, Hx Hypercholesterolemia, Hx Hypertension, Hx Peripheral Vascular Disease, Hx Pulmonary Embolism - x 2 Denies: Hx Atrial Fibrillation, Hx Coronary Artery Disease, Hx Heart Murmur Pulmonary Medical History: Reports: Hx Asthma, Hx Bronchitis, Hx COPD, Hx Pneumonia - LAST IN 2015, Hx Sleep Apnea - CPAP qhs Denies: Hx Respiratory Failure, Hx Tuberculosis Neurological Medical History: Denies: Hx Cerebrovascular Accident, Hx Seizures Endocrine Medical History: Denies: Hx Diabetes Mellitus Type 1, Hx Diabetes Mellitus Type 2, Hx Graves' Disease, Hx Hyperthyroidism, Hx Hypothyroidism Renal/ Medical History: Reports: Hx Ovarian Cysts. Denies: Hx End Stage Renal Disease, Hx Kidney Stones, Hx Peritoneal Dialysis, Hx Pelvic Inflammatory Disease Malignancy Medical History: Denies: Hx Breast Cancer, Hx Cervical Cancer, Hx Leukemia, Hx Lung Cancer, Hx Ovarian Cancer GI Medical History: Reports: Hx Gastroesophageal Reflux Disease, Hx Ulcer. 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, Denies Hx Fibromyalgia, Reports Hx Gout, Denies Hx Muscular Dystrophy, Denies Hx Systemic Lupus Erythematosus Skin Medical History: Denies Hx Eczema, Denies Hx Psoriasis Psychiatric Medical History: Denies: Hx Bipolar Disorder, Hx Depression, Hx Post Traumatic Stress Disorder, Hx Schizophrenia Traumatic Medical History: Reports: Hx Fractures - 2013 RT hand "2 fingers"/casted Infectious Medical History: Denies: Hx Hepatitis, Hx HIV Past Surgical History: Reports: Hx Bowel Surgery - exp lap, r/t colon perf/colonoscopy approx 2002, Hx Cholecystectomy - Laparoscopic cholecystectomy, Hx Hysterectomy, Hx Tonsillectomy, Hx Vascular Surgery - STENT LLE., Other - Implanted continuous morphine pump in abdomen. Denies: Hx Appendectomy, Hx Section, Hx Colostomy, Hx Coronary Artery Bypass Graft, Hx Gastric Bypass Surgery, Hx Herniorrhaphy, Hx Mastectomy, Hx Open Heart Surgery, Hx Pacemaker, Hx Tubal Ligation - Immunizations Hx Diphtheria, Pertussis, Tetanus Vaccination: No Hx Pneumococcal Vaccination: 06/14/17 Review of Systems - Review of Systems Constitutional: See HPI EENT: No symptoms reported Cardiovascular: No symptoms reported Respiratory: No symptoms reported Gastrointestinal: No symptoms reported Genitourinary: No symptoms reported Female Genitourinary: No symptoms reported Musculoskeletal: No symptoms reported Skin: No symptoms reported Hematologic/Lymphatic: No symptoms reported Neurological/Psychological: See HPI Physical Exam - Vital signs Vitals: Pulse BP Pulse Ox 67 118/31 L 93 09/16/19 17:57 09/16/19 17:57 09/16/19 17:57 - Notes Notes: GENERAL: Drowsy, eyes closed, mouth open. HEAD: Normocephalic, atraumatic. EYES: Pupils equal, round, and reactive to light. Extraocular movements intact. ENT: Oral mucosa parched, tongue midline. Oropharynx unremarkable. Airway patent NECK: Full range of motion. Supple. Trachea midline. LUNGS: Clear to auscultation bilaterally, no wheezes, rales, or rhonchi. No respiratory distress. HEART: Regular rate and rhythm. No murmur ABDOMEN: Soft, non-tender. Non-distended. Bowel sounds present in all 4 quadrants. GENITOURINARY: No concerning swelling or abnormality noted EXTREMITIES: Moves all 4 extremities spontaneously. No edema, normal radial and dorsalis pedis pulses bilaterally. No cyanosis. BACK: no cervical, thoracic, lumbar midline tenderness. No saddle anesthesia, normal distal neurovascular exam. Moves all extremities in full range of motion. NEUROLOGICAL: Drowsy and intermittently disoriented. Normal speech. Cranial nerves II through XII grossly intact. SKIN: Warm, dry, normal turgor. No rashes or lesions noted. Course - Re-evaluation Re-evalutation: Patient unwell appearing, lying still with her eyes closed and mouth open. She is arousable, drowsy, intermittently she is oriented but other times she is somewhat bizarre. She is extremely dry mucous membranes, however her physical examination and neurological examination are otherwise unremarkable. CBC unremarkable, chemistry shows elevated creatinine and BUN, potassium of 5.5, giving IV fluids. Urinalysis indicates infection with positive nitrates, white blood cells, leukocyte Estrace. Urine culture placed, starting on antibiotics. CT of the head unremarkable, chest x-ray unremarkable, remaining work-up unr emarkable. Discussed with family. Patient is progressively weaker, unable to ambulate, has progressive confusion, has urinary tract infection, dehydration, acute renal insufficiency. They are requesting admission. They are hoping she can be placed in long-term care facility this time as well, daughter states she is power of food assembler and she was not here last time. They also state that she is DO NOT RESUSCITATE status. Discussed with hospitalist, Dr. Elliott, patient accepted to the [facility]. - Vital Signs Vital signs: Temp Pulse Resp BP Pulse Ox 98.6 F 92 15 185/55 H 92 09/17/19 03:40 09/17/19 03:40 09/17/19 03:40 09/17/19 03:40 09/17/19 04:40 - Laboratory Result Diagrams: 09/17/19 04:47 09/17/19 04:47 Laboratory results interpreted by me: 09/16/19 09/16/19 09/16/19 19:26 19:26 21:24 RDW 15.3 H Lymph % (Auto) 10.5 L Seg Neutrophils % 83.9 H Potassium 5.5 H Chloride 92 L Carbon Dioxide 35 H BUN 65 H Creatinine 1.73 H Est GFR ( Amer) 35 L Est GFR (MDRD) Non-Af 29 L Magnesium 2.6 H AST 173 H Alkaline Phosphatase 202 H Total Protein 8.4 H Urine Protein 30 H Urine Blood LARGE H Urine Nitrite POSITIVE H Ur Leukocyte Esterase LARGE H Urine Ascorbic Acid 40 H - EKG Interpretation by Me Additional EKG results interpreted by me: EKG shows sinus rhythm at a rate of 74, T wave inversion in aVL but no T wave inversions or ST segment changes in consecutive leads. Normal axis. Discharge - Discharge Clinical Impression: Acute renal insufficiency Altered mental status Qualifiers: Altered mental status type: unspecified Qualified Code(s): R41.82 - Altered mental status, unspecified Urinary tract infection Qualifiers: Urinary tract infection type: site unspecified Hematuria presence: without hematuria Qualified Code(s): N39.0 - Urinary tract infection, site not specified Condition: Stable Disposition: ADMITTED INPATIENT Admitting Provider: Earl BarrosHospitalist) Unit Admitted: [facility]
[2019-09-16 21:49] LABS: APPEARANCE,URINE SLIGHTLY-CLOUDY; BILIRUBIN,URINE NEGATIVE (NEGATIVE); COLOR,URINE YELLOW; GLUCOSE, URINE NEGATIVE (NEGATIVE); KETONES,URINE NEGATIVE (NEGATIVE); LEUKOCYTE ESTERASE,URINE LARGE (NEGATIVE); NITRITE,URINE POSITIVE (NEGATIVE); PROTEIN,URINE 30 mg/dL (NEGATIVE); URINE SPECIFIC GRAVITY 1.013; UROBILINOGEN,URINE NEGATIVE mg/dL (<2.0)
[2019-09-16 21:57] LABS: URINE AMPHETAMINES SCREEN NEGATIVE; URINE BARBITURATES SCREEN NEGATIVE; URINE BENZODIAZEPINES SCREEN NEGATIVE; URINE COCAINE SCREEN NEGATIVE; URINE MARIJUANA (THC) SCREEN NEGATIVE; URINE METHADONE SCREEN NEGATIVE; URINE PHENCYCLIDINE SCREEN NEGATIVE
[2019-09-16] MEDS ORDERED: CEFTRIAXONE 1 GM/D5W RTU 1 GM/50 ML RTUPB IV ONE (22:00)
[2019-09-16 22:18] LABS: VENOUS BLOOD BASE EXCESS 3.2 mmol/L; VENOUS BLOOD HCO3 28.8 mmol/L (20-32); VENOUS BLOOD PCO2 49.5 mmHg (35-63); VENOUS BLOOD PH 7.38 (7.30-7.42)
--- NOTE | 2019-09-16 22:56 | EKG REPORT ---
SEVERITY:- ABNORMAL ECG - SINUS RHYTHM NONSPECIFIC T ABNORMALITIES, LATERAL LEADS : Confirmed by: Bong Wilkins MD 16-Sep-2019 22:56:45
[2019-09-16] MEDS ORDERED: MAG HYDROX/AL HYDROX/SIMETH SUSP 30 ML UDCUP PO PRN (23:15)
[2019-09-16] MEDS ORDERED: IPRATROPIUM/ALBUTEROL 0.5-2.5 MG/3 ML AMPUL NEB PRN (23:15)
[2019-09-17] MEDS: NORMAL SALINE 1000 ML 1,000 ML IV PRN ×2 (00:27→05:37)
[2019-09-17] MEDS ORDERED: LORAZEPAM 0.5 MG TABLET PO PRN (00:30)
[2019-09-17] MEDS ORDERED: OXYCODONE HCL SR 10 MG TABLET PO SCH ×2 (00:45→10:00)
[2019-09-17] MEDS: MORPHINE SULFATE 10 MG/ML INJ IV PRN ×2 (01:11→06:48)
[2019-09-17] MEDS ORDERED: OXYCODONE HCL SR 10 MG TABLET PO ONE (01:15)
[2019-09-17 04:59] LABS: ABSOLUTE LYMPHOCYTES (AUTO) 0.6 10^3/uL (0.5-4.7); ABSOLUTE MONOCYTES (AUTO) 0.4 10^3/uL (0.1-1.4); ABSOLUTE NEUT (AUTO) 5.7 10^3/uL (1.7-8.2); BASOPHILS % (AUTO) 0.2 % (0-2); EOSINOPHILS % (AUTO) 0.5 % (0-6); HEMATOCRIT 31.9 % (36.0-47.0); HEMOGLOBIN 10.5 g/dL (12.0-15.5); LYMPHOCYTES % (AUTO) 9.3 % (13-45); MEAN CORPUSCULAR HEMOGLOBIN 28.2 pg (27.0-33.4); MEAN CORPUSCULAR VOLUME 85 fl (80-97); MONOCYTES % (AUTO) 5.3 % (3-13); PLATELET COUNT 123 10^3/uL (150-450); RED BLOOD COUNT 3.75 10^6/uL (3.72-5.28); RED CELL DISTRIBUTION WIDTH 15.2 % (11.5-14.0); SEGMENTED NEUTROPHILS % (AUTO) 84.7 % (42-78); TOTAL CELLS COUNTED % (AUTO) 100 %; WHITE BLOOD COUNT 6.7 10^3/uL (4.0-10.5)
[2019-09-17] MEDS ORDERED: MORPHINE SULFATE 10 MG/ML INJ IV ONE (05:00)
[2019-09-17 05:13] LABS: ALBUMIN 3.7 g/dL (3.5-5.0); ALKALINE PHOSPHATASE 164 U/L (38-126); ANION GAP 7 (5-19); ASPARTATE AMINO TRANSFERASE 212 U/L (14-36); BILIRUBIN,DIRECT 0.3 mg/dL (0.0-0.4); BILIRUBIN,TOTAL 0.6 mg/dL (0.2-1.3); BLOOD UREA NITROGEN 54 mg/dL (7-20); CARBON DIOXIDE 29 mmol/L (22-30); CHLORIDE 101 mmol/L (98-107); GLUCOSE 95 mg/dL (75-110); TOTAL PROTEIN 7.1 g/dL (6.3-8.2)
[2019-09-17 05:27] LABS: POTASSIUM 4.5 mmol/L (3.6-5.0)
[2019-09-17] MEDS ORDERED: CLONIDINE HCL 0.2 MG TABLET ONE (05:27)
[2019-09-17] MEDS: HEPARIN SOD (PORCINE) 5,000 UNIT/ML 1 ML VIAL SUBCUT SCH ×3 (05:40→21:27)
[2019-09-17] MEDS ORDERED: CLONIDINE HCL 0.2 MG TABLET PO ONE (05:45)
--- NOTE | 2019-09-17 05:58 | PDOC H&P ---
History of Present Illness Admission Date/PCP: 09/16/19 23:25 BEN HINSON NP Patient complains of: Altered mental status History of Present Illness: MELISSA BOSCH is a 74 year old female with a past medical history of severe peripheral vascular disease, left lower extremity stenting, home O2 dependent COPD with tobacco abuse, opiate dependent chronic pain with Dilaudid pain pump and chronic kidney disease. She presents with recurrent altered mental status which rapidly resolved to baseline in the emergency department 1 hour after 1 L of normal saline followed by Rocephin. Her work-up reveals contraction metabolic alkalosis and pyuria without leukocytosis. Patient's granddaughter is at bedside insisting that narcotics are administered. Despite a lengthy education regarding toxic Encephalopathy which has essentially resolved with observation. Patient is intolerant of pain and referred to the hospitalist for admission. Emergency room provider reports patient's daughter is power of workers compensation attorney requesting placement to longterm facility secondary to recurrent encephalopathy. Patient is currently residing with granddaughter however patient is now awake refusing placement. Past Medical History Cardiac Medical History: Reports: Congestive Heart Failure, Myocardial Infarction - MILD HEART ATTACK 2016, NO STENTS OR SX, Hyperlipidema, Hypertension, Peripheral Vascular Disease, Pulmonary Embolism - x 2 Denies: Atrial Fibrillation, Coronary Artery Disease, Heart Murmur Pulmonary Medical History: Reports: Asthma, Bronchitis, Chronic Obstructive Pulmonary Disease (COPD), Pneumonia - LAST IN 2015, Sleep Apnea - CPAP qhs Denies: Respiratory Failure, Tuberculosis Neurological Medical History: Denies: Seizures Endocrine Medical History: Denies: Diabetes Mellitus Type 1, Diabetes Mellitus Type 2, Hyperthyroidism, Hypothyroidism Renal/ Medical History: Denies: End Stage Renal Disease Malignancy Medical History: Denies: Breast Cancer, Cervical Cancer, Leukemia, Lung Cancer, Ovarian Cancer GI Medical History: Reports: Gastroesophageal Reflux Disease Denies: Cirrhosis, Crohn's Disease, Hepatitis, Hiatal Hernia, Ulcerative Colitis Musculoskeltal Medical History: Reports: Arthritis - Poly-osteoarthritis, Gout Denies: Fibromyalgia Skin Medical History: Denies: Eczema, Psoriasis Psychiatric Medical History: Denies: Bipolar Disorder, Depression, Post Traumatic Stress Disorder Hematology: Reports: Anemia - H/O 2X BLOOD TRANSFUSIONS Denies: Hemophilia, Sickle Cell Disease, Bleeding Tendencies Infectious Medical History: Denies: HIV Past Surgical History Past Surgical History: Reports: Cholecystectomy - Laparoscopic cholecystectomy, Hysterectomy, Tonsillectomy, Vascular Surgery - STENT LLE., Other - Implanted continuous morphine pump in abdomen Denies: Amputation, Appendectomy, Section, Colostomy, Coronary Artery Bypass Graft, Gastric Bypass Surgery, Herniorrhaphy, Mastectomy, Pacemaker, Tubal Ligation Social History Information Source: Patient, [facility] Records Lives with: Family Smoking Status: Current Every Day Smoker Cigarettes Packs Per Day: 1 Electronic Cigarette use?: No Number of Years Smokin Last Time Smoked: 09/12/2019 Frequency of Alcohol Use: None Hx Recreational Drug Use: No Drugs: None Hx Prescription Drug Abuse: No - Advance Directive Resuscitation Status: Do Not Resuscitate Family History Family History: CAD, CVA, DM, Hypertension, Malignancy, Other - Sleep apnea Parental Family History Reviewed: Yes Children Family History Reviewed: Yes Sibling(s) Family History Reviewed.: Yes Medication/Allergy Home Medications: Cetirizine HCl [Zyrtec 10 mg Tablet] 10 mg PO DAILY 08/29/19 Duloxetine HCl [Cymbalta 30 mg Capsule.dr] 30 mg PO DAILY 08/29/19 Lisinopril 20 mg PO DAILY 08/29/19 Metoprolol Succinate [Toprol Xl 25 mg Tab.sr] 25 mg PO DAILY 08/29/19 Potassium Chloride [Klor-Con M20] 20 meq PO Q48HP 08/29/19 Ranitidine HCl [Zantac] 150 mg PO BID 08/29/19 Carvedilol [Coreg 12.5 mg Tablet] 12.5 mg PO Q12 09/17/19 Furosemide [Lasix 20 mg Tablet] 20 mg PO DAILY 09/17/19 Lorazepam [Ativan 0.5 mg Tablet] 0.5 mg PO PRN PRN MDD 0.5 mg 09/17/19 Oxycodone HCl 30 mg PO PRN PRN MDD 4 tabs 09/17/19 Allergies/Adverse Reactions: droperidol [Droperidol] Allergy (Severe, Verified 03/22/18 11:09) Anaphylaxis Review of Systems ROS unobtainable: Due to mental status - Unreliable historian answering affirmatively to all questions Physical Exam Vital Signs: Temp Pulse Resp BP Pulse Ox 98.6 F 92 15 185/55 H 92 09/17/19 03:40 09/17/19 03:40 09/17/19 03:40 09/17/19 03:40 09/17/19 04:40 Intake & Output 09/15/19 09/16/19 09/17/19 11:59 11:59 11:59 Intake Total 1550 Balance 1550 Weight 37.3 kg General appearance: PRESENT: cooperative, mild distress, thin, well-developed, well-nourished, other - Chronically ill-appearing with cachexia and temporal wasting Head exam: PRESENT: atraumatic, normocephalic Eye exam: PRESENT: conjunctiva pink, EOMI, PERRLA. ABSENT: scleral icterus Ear exam: PRESENT: normal external ear exam Mouth exam: PRESENT: moist, tongue midline Neck exam: ABSENT: carotid bruit, JVD, lymphadenopathy, thyromegaly Respiratory exam: PRESENT: clear to auscultation keith. ABSENT: rales, rhonchi, wheezes Cardiovascular exam: PRESENT: RRR. ABSENT: diastolic murmur, rubs, systolic murmur Pulses: PRESENT: normal dorsalis pedis pul Vascular exam: PRESENT: normal capillary refill GI/Abdominal exam: PRESENT: normal bowel sounds, soft. ABSENT: distended, guarding, mass, organolmegaly, rebound, tenderness Rectal exam: PRESENT: deferred Extremities exam: PRESENT: full ROM. ABSENT: calf tenderness, clubbing, pedal edema Neurological exam: PRESENT: alert, awake, oriented to person, oriented to place, oriented to time, oriented to situation, CN II-XII grossly intact. ABSENT: motor sensory deficit Psychiatric exam: PRESENT: anxious Focused psych exam: PRESENT: restlessness Skin exam: PRESENT: other - Stage II sacral and inguinal decubiti Results Laboratory Results: 09/17/19 04:47 09/17/19 04:47 09/16/19 09/16/19 09/16/19 19:26 19:26 21:24 WBC 8.0 RBC 4.26 Hgb 12.1 Hct 36.8 MCV 86 MCH 28.3 MCHC 32.9 RDW 15.3 H Plt Count 157 Seg Neutrophils % 83.9 H VBG pH VBG pCO2 VBG HCO3 VBG Base Excess Sodium 137.4 Potassium 5.5 H Chloride 92 L Carbon Dioxide 35 H Anion Gap 10 BUN 65 H Creatinine 1.73 H Est GFR ( Amer) 35 L Glucose 102 Calcium 10.2 Magnesium 2.6 H Total Bilirubin 0.8 AST 173 H Alkaline Phosphatase 202 H Total Protein 8.4 H Albumin 4.6 Urine Color YELLOW Urine Appearance SLIGHTLY-CLOUDY Urine pH 6.0 Ur Specific Issue 1.013 Urine Protein 30 H Urine Glucose (UA) NEGATIVE Urine Ketones NEGATIVE Urine Blood LARGE H Urine Nitrite POSITIVE H Ur Leukocyte Esterase LARGE H Urine WBC (Auto) 64 09/16/19 09/17/19 09/17/19 22:03 04:47 04:47 WBC 6.7 RBC 3.75 Hgb 10.5 L Hct 31.9 L MCV 85 MCH 28.2 MCHC 33.0 RDW 15.2 H Plt Count 123 L Seg Neutrophils % 84.7 H VBG pH 7.38 VBG pCO2 49.5 VBG HCO3 28.8 VBG Base Excess 3.2 Sodium 137.4 Potassium 4.5 D Chloride 101 Carbon Dioxide 29 Anion Gap 7 BUN 54 H Creatinine 1.44 H Est GFR ( Amer) 43 L Glucose 95 Calcium 9.0 Magnesium 2.4 H Total Bilirubin 0.6 AST 212 H Alkaline Phosphatase 164 H Total Protein 7.1 Albumin 3.7 Urine Color Urine Appearance Urine pH Ur Specific Issue Urine Protein Urine Glucose (UA) Urine Ketones Urine Blood Urine Nitrite Ur Leukocyte Esterase Urine WBC (Auto) 09/16/19 19:26 Troponin I 0.029 Impressions: Chest X-Ray 09/16/19 18:13 IMPRESSION: No acute abnormality of the lungs in AP projection. Head CT 09/16/19 18:13 IMPRESSION: No acute intracranial pathology. EVIDENCE OF ACUTE STROKE: NO. Pelvis X-Ray 09/16/19 18:14 IMPRESSION: Osteopenia. No displaced fracture or dislocation of the pelvis in single AP projection. Left hip total arthroplasty. The right ilium is obscured by subcutaneous pump device. Assessment and Plan - Diagnosis (1) Toxic encephalopathy Is this a current diagnosis for this admission?: Yes Plan: Secondary to opiate dependence toxic Encephalopathy limiting hypnotics sedatives and narcotics, when necessary Narcan if altered, hypotensive or respiratory depression. patient may also require subacute weaning of these agents. (2) Metabolic alkalosis Is this a current diagnosis for this admission?: Yes Plan: Secondary to insufficient p.o. fluids. IV fluid challenge, follow-up chemistry (3) Opiate dependence, continuous Is this a current diagnosis for this admission?: Yes Plan: Weaning as tolerated (4) Sleep apnea Qualifiers: Sleep apnea type: unspecified type Qualified Code(s): G47.30 - Sleep apnea, unspecified Is this a current diagnosis for this admission?: Yes Plan: BiPAP when asleep, no hypercapnia evident on blood gas (5) Tobacco use disorder, severe, dependence Is this a current diagnosis for this admission?: Yes Plan: Refuses nicotine cessation counseling, nicotine replacement options discussed (6) UTI (urinary tract infection) Qualifiers: Urinary tract infection type: site unspecified Hematuria presence: without hematuria Qualified Code(s): N39.0 - Urinary tract infection, site not specified Is this a current diagnosis for this admission?: Yes Plan: Most likely colonization given lack of leukocytosis or fever. Patient's mental status improved to baseline 90 minutes after IV fluids followed by Rocephin indicating mental status not related to urinalysis. Follow-up urine culture regardless - Time Time Spent with patient: 25-34 minutes - Inpatient Certification Medical Necessity: Need Close Monitoring Due to Risk of Patient Decompensation
[2019-09-17] MEDS: CARVEDILOL 12.5 MG TABLET PO SCH ×2 (09:20→21:29)
[2019-09-17] MEDS: DULOXETINE HCL 30 MG CAPSULE.DR PO SCH (09:20)
[2019-09-17] MEDS: DOCUSATE SODIUM 100 MG CAPSULE PO SCH ×2 (09:20→18:09)
[2019-09-17] MEDS: CETIRIZINE 10 MG TABLET PO SCH (09:21)
[2019-09-17] MEDS ORDERED: LISINOPRIL 10 MG TABLET PO SCH (10:00)
--- NOTE | 2019-09-17 14:02 | PDOC PROGRESS REPORT ---
Subjective Progress Note for:: 09/17/19 Subjective:: Patient awake today. Complains of pain in her back and her legs. More likely with the position of the bed. Patient states that she is very much interested in going to rehab at this point. Patient admits to using oxycodone at home. This in addition to her Dilaudid pump. Reason For Visit: AMS,MET ALKALOSIS,UTI Physical Exam Vital Signs: Temp Pulse Resp BP Pulse Ox 98.5 F 82 17 144/48 H 87 L 09/17/19 11:38 09/17/19 11:38 09/17/19 11:38 09/17/19 11:38 09/17/19 11:38 Intake & Output 09/16/19 09/17/19 09/18/19 06:59 06:59 06:59 Intake Total 1550 200 Output Total 400 400 Balance 1150 -200 Weight 40.8 kg General appearance: PRESENT: no acute distress, cooperative Neck exam: ABSENT: JVD Respiratory exam: PRESENT: clear to auscultation keith, unlabored. ABSENT: tachypnea, wheezes Cardiovascular exam: PRESENT: RRR, +S1, +S2. ABSENT: tachycardia GI/Abdominal exam: PRESENT: normal bowel sounds, soft. ABSENT: rebound, rigid, tenderness Neurological exam: PRESENT: alert, awake, oriented to person, oriented to place, oriented to time, oriented to situation Results Laboratory Results: 09/17/19 04:47 09/17/19 04:47 09/16/19 09/16/19 09/16/19 19:26 19:26 21:24 WBC 8.0 RBC 4.26 Hgb 12.1 Hct 36.8 MCV 86 MCH 28.3 MCHC 32.9 RDW 15.3 H Plt Count 157 Seg Neutrophils % 83.9 H VBG pH VBG pCO2 VBG HCO3 VBG Base Excess Sodium 137.4 Potassium 5.5 H Chloride 92 L Carbon Dioxide 35 H Anion Gap 10 BUN 65 H Creatinine 1.73 H Est GFR ( Amer) 35 L Glucose 102 Calcium 10.2 Magnesium 2.6 H Total Bilirubin 0.8 AST 173 H Alkaline Phosphatase 202 H Total Protein 8.4 H Albumin 4.6 Urine Color YELLOW Urine Appearance SLIGHTLY-CLOUDY Urine pH 6.0 Ur Specific [place] 1.013 Urine Protein 30 H Urine Glucose (UA) NEGATIVE Urine Ketones NEGATIVE Urine Blood LARGE H Urine Nitrite POSITIVE H Ur Leukocyte Esterase LARGE H Urine WBC (Auto) 64 09/16/19 09/17/19 09/17/19 22:03 04:47 04:47 WBC 6.7 RBC 3.75 Hgb 10.5 L Hct 31.9 L MCV 85 MCH 28.2 MCHC 33.0 RDW 15.2 H Plt Count 123 L Seg Neutrophils % 84.7 H VBG pH 7.38 VBG pCO2 49.5 VBG HCO3 28.8 VBG Base Excess 3.2 Sodium 137.4 Potassium 4.5 D Chloride 101 Carbon Dioxide 29 Anion Gap 7 BUN 54 H Creatinine 1.44 H Est GFR ( Amer) 43 L Glucose 95 Calcium 9.0 Magnesium 2.4 H Total Bilirubin 0.6 AST 212 H Alkaline Phosphatase 164 H Total Protein 7.1 Albumin 3.7 Urine Color Urine Appearance Urine pH Ur Specific [place] Urine Protein Urine Glucose (UA) Urine Ketones Urine Blood Urine Nitrite Ur Leukocyte Esterase Urine WBC (Auto) 09/16/19 19:26 Troponin I 0.029 Impressions: Chest X-Ray 09/16/19 18:13 IMPRESSION: No acute abnormality of the lungs in AP projection. Head CT 09/16/19 18:13 IMPRESSION: No acute intracranial pathology. EVIDENCE OF ACUTE STROKE: NO. Pelvis X-Ray 09/16/19 18:14 IMPRESSION: Osteopenia. No displaced fracture or dislocation of the pelvis in single AP projection. Left hip total arthroplasty. The right ilium is obscured by subcutaneous pump device. Assessment and Plan - Diagnosis (1) Toxic encephalopathy Is this a current diagnosis for this admission?: Yes Plan: Secondary to opiate dependence Currently resolved (2) Metabolic alkalosis Is this a current diagnosis for this admission?: Yes Plan: Secondary to insufficient p.o. fluids. IV fluids given. Patient states that she has some trouble swallowing especially with does not eat as much. Will have speech therapy evaluate. (3) UTI (urinary tract infection) Qualifiers: Urinary tract infection type: site unspecified Hematuria presence: without hematuria Qualified Code(s): N39.0 - Urinary tract infection, site not specified Is this a current diagnosis for this admission?: Yes Plan: Patient admits to some dysuria Will give Keflex for 4 days (4) MURPHY (obstructive sleep apnea) Is this a current diagnosis for this admission?: Yes Plan: Nocturnal CPAP (5) Opiate dependence, continuous Is this a current diagnosis for this admission?: Yes Plan: Patient has implanted Dilaudid pump which is running. We will try to hold off on giving further narcotics. (6) Physical debility Is this a current diagnosis for this admission?: Yes Plan: Patient would certainly need rehabilitation at SNF At this point, patient is agreeable. Social work/Discharge planning consulted - Time Time Spent with patient: 15-24 minutes
[2019-09-17] MEDS: ACETAMINOPHEN 325 MG TABLET PO PRN ×2 (14:19→21:51)
[2019-09-17] MEDS: LIDOCAINE 5% (700 MG) TRANSDERMAL ADH..PATCH TP SCH (15:41)
[2019-09-17] MEDS: CEPHALEXIN 500 MG CAPSULE PO SCH (18:11)
[2019-09-18] MEDS: ACETAMINOPHEN 325 MG TABLET PO PRN (04:35)
[2019-09-18 04:48] LABS: ANION GAP 5 (5-19); BLOOD UREA NITROGEN 35 mg/dL (7-20); CALCIUM 9.4 mg/dL (8.4-10.2); CARBON DIOXIDE 32 mmol/L (22-30); CHLORIDE 102 mmol/L (98-107); GLUCOSE 102 mg/dL (75-110); POTASSIUM 4.3 mmol/L (3.6-5.0)
[2019-09-18] MEDS: HEPARIN SOD (PORCINE) 5,000 UNIT/ML 1 ML VIAL SUBCUT SCH ×3 (05:10→21:42)
[2019-09-18] MEDS ORDERED: MORPHINE SULFATE 10 MG/ML INJ IV ONE (07:00)
[2019-09-18] MEDS: LIDOCAINE 5% (700 MG) TRANSDERMAL ADH..PATCH TP SCH (09:30)
[2019-09-18] MEDS: LISINOPRIL 10 MG TABLET PO SCH (09:30)
[2019-09-18] MEDS: DOCUSATE SODIUM 100 MG CAPSULE PO SCH ×2 (09:31→18:24)
[2019-09-18] MEDS: CETIRIZINE 10 MG TABLET PO SCH (09:31)
[2019-09-18] MEDS: CARVEDILOL 12.5 MG TABLET PO SCH ×2 (09:31→21:42)
[2019-09-18] MEDS: CEPHALEXIN 500 MG CAPSULE PO SCH ×2 (09:31→18:25)
[2019-09-18] MEDS: DULOXETINE HCL 30 MG CAPSULE.DR PO SCH (09:31)
--- NOTE | 2019-09-18 10:33 | PDOC PROGRESS REPORT ---
Subjective Subjective:: Patient is doing better today. Still complains of some pain in her back but feels that it be better when she sits up in the chair. Patient is eager to go to rehab now. Currently denies any confusion and feels more bright and alert. Reason For Visit: AMS,MET ALKALOSIS,UTI Physical Exam Vital Signs: Temp Pulse Resp BP Pulse Ox 97.5 F 78 20 172/64 H 93 09/18/19 08:20 09/18/19 08:20 09/18/19 08:20 09/18/19 08:20 09/18/19 08:20 Intake & Output 09/17/19 09/18/19 09/19/19 06:59 06:59 06:59 Intake Total 1550 1117 Output Total 400 1150 Balance 1150 -33 Weight 40.8 kg 41.3 kg General appearance: PRESENT: no acute distress, cooperative Neck exam: ABSENT: JVD Respiratory exam: PRESENT: clear to auscultation keith Neurological exam: PRESENT: alert, awake, oriented to person, oriented to place, oriented to time, oriented to situation Results Laboratory Results: 09/17/19 04:47 09/18/19 04:10 09/18/19 04:10 Sodium 138.8 Potassium 4.3 Chloride 102 Carbon Dioxide 32 H Anion Gap 5 BUN 35 H Creatinine 1.01 Est GFR ( Amer) > 60 Glucose 102 Calcium 9.4 09/16/19 21:24 Clean Catch Midstream Urine Culture - Final Escherichia Coli 09/16/19 19:26 Troponin I 0.029 Impressions: Chest X-Ray 09/16/19 18:13 IMPRESSION: No acute abnormality of the lungs in AP projection. Head CT 09/16/19 18:13 IMPRESSION: No acute intracranial pathology. EVIDENCE OF ACUTE STROKE: NO. Pelvis X-Ray 09/16/19 18:14 IMPRESSION: Osteopenia. No displaced fracture or dislocation of the pelvis in single AP projection. Left hip total arthroplasty. The right ilium is obscured by subcutaneous pump device. Assessment and Plan - Diagnosis (1) Toxic encephalopathy Is this a current diagnosis for this admission?: Yes Plan: Secondary to opiate dependence Currently resolved (2) Metabolic alkalosis Is this a current diagnosis for this admission?: Yes Plan: Secondary to insufficient p.o. intake. Encourage p.o. fluids. Follow-up a.m. VBG (3) UTI (urinary tract infection) Qualifiers: Urinary tract infection type: site unspecified Hematuria presence: without hematuria Qualified Code(s): N39.0 - Urinary tract infection, site not specified Is this a current diagnosis for this admission?: Yes Plan: E. coli UTI Keflex for 2/4 days (4) MURPHY (obstructive sleep apnea) Is this a current diagnosis for this admission?: Yes Plan: Nocturnal CPAP (5) Opiate dependence, continuous Is this a current diagnosis for this admission?: Yes Plan: History of chronic pain. Patient has implanted Dilaudid pump which is running. She was taking 30 mg oxycodone 3-4 times a day as needed for breakthrough. Pain management is Aranza Schulz. Required narcotics last night for breakthrough pain. I will place patient on only oxycodone 10 mg twice a day as needed for breakthrough pain (6) Physical debility Is this a current diagnosis for this admission?: Yes Plan: Patient would certainly need rehabilitation at SNF At this point, patient is agreeable. PT OT, social work/Discharge planning consulted - Time Time Spent with patient: 15-24 minutes
[2019-09-18] MEDS: OXYCODONE HCL IR 5 MG TABLET PO PRN (11:58)
[2019-09-18] MEDS: PHARMACY COMMUNICATION ORDER MC SCH (21:42)
[2019-09-19] MEDS: ACETAMINOPHEN 325 MG TABLET PO PRN ×2 (04:30→19:59)
[2019-09-19] MEDS: HEPARIN SOD (PORCINE) 5,000 UNIT/ML 1 ML VIAL SUBCUT SCH ×3 (05:39→21:17)
[2019-09-19 07:09] LABS: VENOUS BLOOD BASE EXCESS 5.1 mmol/L; VENOUS BLOOD HCO3 31.7 mmol/L (20-32); VENOUS BLOOD PCO2 57.6 mmHg (35-63); VENOUS BLOOD PH 7.36 (7.30-7.42)
[2019-09-19 07:31] LABS: GLUCOSE 100 mg/dL (75-110)
[2019-09-19 08:22] LABS: ANION GAP 5 (5-19); BLOOD UREA NITROGEN 32 mg/dL (7-20); CALCIUM 9.7 mg/dL (8.4-10.2); CARBON DIOXIDE 33 mmol/L (22-30); CHLORIDE 100 mmol/L (98-107); POTASSIUM 4.8 mmol/L (3.6-5.0)
[2019-09-19] MEDS: DOCUSATE SODIUM 100 MG CAPSULE PO SCH ×2 (09:39→17:28)
[2019-09-19] MEDS: DULOXETINE HCL 30 MG CAPSULE.DR PO SCH (09:39)
[2019-09-19] MEDS: CARVEDILOL 12.5 MG TABLET PO SCH ×2 (09:39→21:16)
[2019-09-19] MEDS: CEPHALEXIN 500 MG CAPSULE PO SCH ×2 (09:39→17:28)
[2019-09-19] MEDS: LIDOCAINE 5% (700 MG) TRANSDERMAL ADH..PATCH TP SCH (09:40)
[2019-09-19] MEDS: LISINOPRIL 10 MG TABLET PO SCH (09:40)
[2019-09-19] MEDS: CETIRIZINE 10 MG TABLET PO SCH (09:41)
[2019-09-19] MEDS: OXYCODONE HCL IR 5 MG TABLET PO PRN ×2 (09:42)
[2019-09-19] MEDS ORDERED: OXYCODONE HCL SR 10 MG TABLET PO ONE ×2 (13:00→13:45)
--- NOTE | 2019-09-19 13:18 | PDOC PROGRESS REPORT ---
Subjective Progress Note for:: 09/19/19 Subjective:: Patient complaining of significant leg and back pain today. Writhing in pain appears very uncomfortable. Reason For Visit: AMS,MET ALKALOSIS,UTI Physical Exam Vital Signs: Temp Pulse Resp BP Pulse Ox 97.6 F 67 18 132/51 H 99 09/19/19 11:37 09/19/19 11:37 09/19/19 11:37 09/19/19 11:37 09/19/19 11:37 Intake & Output 09/18/19 09/19/19 09/20/19 06:59 06:59 06:59 Intake Total 1117 480 370 Output Total 1150 450 Balance -33 30 370 Weight 41.3 kg 41.5 kg General appearance: PRESENT: cooperative, mild distress, thin Neck exam: ABSENT: JVD Respiratory exam: PRESENT: clear to auscultation keith, unlabored. ABSENT: tachypnea, wheezes Cardiovascular exam: PRESENT: RRR, +S1, +S2. ABSENT: tachycardia GI/Abdominal exam: PRESENT: soft. ABSENT: rebound, rigid, tenderness Neurological exam: PRESENT: alert, awake, oriented to person, oriented to place, oriented to time, oriented to situation Results Laboratory Results: 09/17/19 04:47 09/19/19 06:51 09/19/19 09/19/19 06:51 06:51 VBG pH 7.36 VBG pCO2 57.6 VBG HCO3 31.7 VBG Base Excess 5.1 Sodium 137.9 Potassium 4.8 Chloride 100 Carbon Dioxide 33 H Anion Gap 5 BUN 32 H Creatinine 0.93 Est GFR ( Amer) > 60 Glucose 100 Calcium 9.7 09/16/19 21:24 Clean Catch Midstream Urine Culture - Final Escherichia Coli 09/16/19 19:26 Troponin I 0.029 Impressions: Chest X-Ray 09/16/19 18:13 IMPRESSION: No acute abnormality of the lungs in AP projection. Head CT 09/16/19 18:13 IMPRESSION: No acute intracranial pathology. EVIDENCE OF ACUTE STROKE: NO. Pelvis X-Ray 09/16/19 18:14 IMPRESSION: Osteopenia. No displaced fracture or dislocation of the pelvis in single AP projection. Left hip total arthroplasty. The right ilium is obscured by subcutaneous pump device. Assessment and Plan - Diagnosis (1) Toxic encephalopathy Is this a current diagnosis for this admission?: Yes Plan: Secondary to opiate dependence Currently resolved (2) UTI (urinary tract infection) Qualifiers: Urinary tract infection type: site unspecified Hematuria presence: without hematuria Qualified Code(s): N39.0 - Urinary tract infection, site not specified Is this a current diagnosis for this admission?: Yes Plan: E. coli UTI Keflex for 3/4 days (3) MURPHY (obstructive sleep apnea) Is this a current diagnosis for this admission?: Yes Plan: Nocturnal CPAP (4) Opiate dependence, continuous Is this a current diagnosis for this admission?: Yes Plan: History of chronic pain. Patient has implanted Dilaudid pump which is running. She was taking 30 mg oxycodone 3-4 times a day as needed for breakthrough at home. Pain management is Aranza Schulz who has been consulted Given the patient is in significant pain at this time I will start her on OxyContin 10 mg every 12 hours while trying to limit the frequency of her as needed doses of oxycodone. (5) Physical debility Is this a current diagnosis for this admission?: Yes Plan: Patient would certainly need rehabilitation at SNF At this point, patient is agreeable transit planner working on getting patient to SNF Frequent physical therapy while patient is in the hospital. - Time Time Spent with patient: 15-24 minutes
[2019-09-19] MEDS: HYDRALAZINE HCL INJ/PF 20 MG/1 ML SDV IV PRN (21:16)
[2019-09-19] MEDS: PHARMACY COMMUNICATION ORDER MC SCH (21:17)
[2019-09-20] MEDS: OXYCODONE HCL IR 5 MG TABLET PO PRN ×2 (00:41→11:50)
[2019-09-20] MEDS: ACETAMINOPHEN 325 MG TABLET PO PRN ×3 (02:26→21:23)
[2019-09-20] MEDS: HEPARIN SOD (PORCINE) 5,000 UNIT/ML 1 ML VIAL SUBCUT SCH ×3 (06:12→21:28)
--- NOTE | 2019-09-20 08:15 | PDOC CONSULTATION ---
Consultation Consult Date: 09/19/19 Attending physician:: SOFY STONER Provider Consulted: SIENNA OAKLEY Consult reason:: Chronic opioid management History of Present Illness Admission Date/PCP: 09/16/19 23:25 BEN HINSON NP Patient complains of: chronic low back pain History of Present Illness: MELISSA BOSCH is a 74 year old female seen in consultation for IT pump management with recent AMS. She was last seen in our clinic three weeks ago and continued on her current oral oxycodone regimen (30mg q6H prn) as well as her IT pump continuous infusion (Morphine 3.09mg/day, clonidine, bupivacaine as). She has known past medical history of severe peripheral vascular disease, RA, home O2 dependent COPD with tobacco abuse, opiate dependent chronic pain, and chronic kidney disease. Patient with recent fall and hospitalization in August with recent home health and PT. She presented to [facility] again with recent altered mental status which resolved to baseline in the emergency department. There was concern over her current opioid regimen along with her comorbidities leading to her AMS. Patient is intolerant of pain and was referred to the hospitalist for admission. Patient denies any recurrent falls today. She notes no new neurologic symptoms. She notes constant, aching joint pain and back pain worse with any movement. She notes relief with her IT pain pump and her oral oxycodone. She notes the recent reduction in medication has continued to help and denies any s/e. She does complain that she struggles with only BID dosing of the oral medication and request more frequent administration. She states that she is amenable to Rehab/SNF given her recent struggles with controlling her pain and ADLs at home even with home health. She denies any prior systemic symptoms or other medication changes prior to her recent AMS. Past Medical History Cardiac Medical History: Reports: Congestive Heart Failure, Myocardial Infarction - MILD HEART ATTACK 2016, NO STENTS OR SX, Hyperlipidema, Hypertension, Peripheral Vascular Disease, Pulmonary Embolism - x 2 Denies: Atrial Fibrillation, Coronary Artery Disease, Heart Murmur Pulmonary Medical History: Reports: Asthma, Bronchitis, Chronic Obstructive Pulmonary Disease (COPD), Pneumonia - LAST IN 2015, Sleep Apnea - CPAP qhs Denies: Respiratory Failure, Tuberculosis Neurological Medical History: Denies: Seizures Endocrine Medical History: Denies: Diabetes Mellitus Type 1, Diabetes Mellitus Type 2, Hyperthyroidism, Hypothyroidism Renal/ Medical History: Denies: End Stage Renal Disease Malignancy Medical History: Denies: Breast Cancer, Cervical Cancer, Leukemia, Lung Cancer, Ovarian Cancer GI Medical History: Reports: Gastroesophageal Reflux Disease Denies: Cirrhosis, Crohn's Disease, Hepatitis, Hiatal Hernia, Ulcerative Colitis Musculoskeltal Medical History: Reports: Arthritis - Poly-osteoarthritis, Gout Denies: Fibromyalgia Skin Medical History: Denies: Eczema, Psoriasis Psychiatric Medical History: Denies: Bipolar Disorder, Depression, Post Traumatic Stress Disorder Hematology: Reports: Anemia - H/O 2X BLOOD TRANSFUSIONS Denies: Hemophilia, Sickle Cell Disease, Bleeding Tendencies Infectious Medical History: Denies: HIV Past Surgical History Past Surgical History: Reports: Cholecystectomy - Laparoscopic cholecystectomy, Hysterectomy, Tonsillectomy, Vascular Surgery - STENT LLE., Other - Implanted continuous morphine pump in abdomen Denies: Amputation, Appendectomy, Section, Colostomy, Coronary Artery Bypass Graft, Gastric Bypass Surgery, Herniorrhaphy, Mastectomy, Pacemaker, Tubal Ligation Social History Lives with: Family Smoking Status: Former Smoker Cigarettes Packs Per Day: 1 Electronic Cigarette use?: No Number of Years Smokin Last Time Smoked: 09/12/2019 Frequency of Alcohol Use: None Hx Recreational Drug Use: No Drugs: None Hx Prescription Drug Abuse: No - Advance Directive Resuscitation Status: Do Not Resuscitate Family History Family History: CAD, CVA, DM, Hypertension, Malignancy, Other - Sleep apnea Parental Family History Reviewed: No - n/a Children Family History Reviewed: No Sibling(s) Family History Reviewed.: No Medication/Allergy Home Medications: Cetirizine HCl [Zyrtec 10 mg Tablet] 10 mg PO DAILY 08/29/19 Duloxetine HCl [Cymbalta 30 mg Capsule.dr] 30 mg PO Q12 08/29/19 Lisinopril 20 mg PO DAILY 08/29/19 Metoprolol Succinate [Toprol Xl 25 mg Tab.sr] 25 mg PO DAILY 08/29/19 Potassium Chloride [Klor-Con M20] 20 meq PO Q2D 08/29/19 Ranitidine HCl [Zantac] 150 mg PO BID 08/29/19 Carvedilol [Coreg 12.5 mg Tablet] 12.5 mg PO Q12 09/17/19 Fluticasone/Umeclidin/Vilanter [Trelegy 100-62.5-25 Mcg Ellipta 14 Dose/Dpi] 1 puff IH DAILY 09/17/19 Furosemide [Lasix 20 mg Tablet] 20 mg PO DAILY 09/17/19 Gabapentin [Neurontin 300 mg Capsule] 300 mg PO Q8 09/17/19 Ipratropium/Albuterol Sulfate [Duoneb 3 ml Ampul] 3 ml NEB RTQ6HP PRN 09/17/19 Lorazepam [Ativan 0.5 mg Tablet] 0.5 mg PO DAILYP PRN 09/17/19 Montelukast Sodium [Singulair 10 mg Tablet] 10 mg PO QPM 09/17/19 Oxycodone HCl 30 mg PO QIDP PRN 09/17/19 Allergies/Adverse Reactions: droperidol [Droperidol] Allergy (Severe, Verified 03/22/18 11:09) Anaphylaxis Review of Systems All systems: reviewed and no additional remarkable complaints except as stated - noted occasional nausea related to her medication Physical Exam Vital Signs: Temp Pulse Resp BP Pulse Ox 98.2 F 73 16 142/87 H 99 09/20/19 03:55 09/20/19 03:55 09/20/19 03:55 09/20/19 03:55 09/20/19 03:55 Intake & Output 09/19/19 09/20/19 09/21/19 06:59 06:59 06:59 Intake Total 480 1310 Output Total 450 Balance 30 1310 Weight 41.5 kg 41.1 kg General appearance: PRESENT: no acute distress Head exam: PRESENT: atraumatic, normocephalic Eye exam: PRESENT: EOMI Neck exam: PRESENT: full ROM Respiratory exam: PRESENT: unlabored Cardiovascular exam: PRESENT: RRR GI/Abdominal exam: PRESENT: soft Extremities exam: PRESENT: tenderness Musculoskeletal exam: PRESENT: ambulatory - slow with ambulation, noted kyphotic posture with ambulatoin Neurological exam: PRESENT: alert, altered, oriented to person, oriented to place, oriented to time, oriented to situation Psychiatric exam: PRESENT: anxious Skin exam: PRESENT: dry Results Laboratory Results: 09/17/19 04:47 09/19/19 06:51 09/19/19 06:51 Sodium 137.9 Potassium 4.8 Chloride 100 Carbon Dioxide 33 H Anion Gap 5 BUN 32 H Creatinine 0.93 Est GFR ( Amer) > 60 Glucose 100 Calcium 9.7 09/16/19 19:26 Troponin I 0.029 Impressions: Chest X-Ray 09/16/19 18:13 IMPRESSION: No acute abnormality of the lungs in AP projection. Head CT 09/16/19 18:13 IMPRESSION: No acute intracranial pathology. EVIDENCE OF ACUTE STROKE: NO. Pelvis X-Ray 09/16/19 18:14 IMPRESSION: Osteopenia. No displaced fracture or dislocation of the pelvis in single AP projection. Left hip total arthroplasty. The right ilium is obscured by subcutaneous pump device. Assessment & Plan - Diagnosis (1) Toxic encephalopathy Is this a current diagnosis for this admission?: Yes Plan: 1Noted quick resolution. I have discussed with patient plans to minimize oral opioids and continue her IT pain pump as is. We will reevaluate in 4 weeks in clinic if she has left Rehab/SNF which she is amenable. I will allow small increase to oxycodone 10 mg q6h for allow slighlty more frequent dosing but only as PRN. We will continue to closely monitor her Mental status and may require further reduction including in her IT pain pump. She has planned pump refill on 10/04/2019 with home health [facility]. She is aware that if she remains in rehab/SNF to contact us to come and fill the pump. (2) Opiate dependence Qualifiers: Substance use status: with intoxication Complication of substance-induced condition: with delirium Qualified Code(s): F11.221 - Opioid dependence with intoxication delirium Is this a current diagnosis for this admission?: Yes Plan: Continued IT pain pump with reduction in oral regimen (120mg per day of oxycodone to 40mg per day) while monitoring closely inpatient for recurrent AMS and close outpatient follow up.
[2019-09-20] MEDS: LISINOPRIL 10 MG TABLET PO SCH (10:08)
[2019-09-20] MEDS: CARVEDILOL 12.5 MG TABLET PO SCH ×2 (10:08→21:23)
[2019-09-20] MEDS: CEPHALEXIN 500 MG CAPSULE PO SCH (10:10)
[2019-09-20] MEDS: CETIRIZINE 10 MG TABLET PO SCH (10:10)
[2019-09-20] MEDS: DOCUSATE SODIUM 100 MG CAPSULE PO SCH ×2 (10:10→17:20)
[2019-09-20] MEDS: DULOXETINE HCL 30 MG CAPSULE.DR PO SCH (10:10)
[2019-09-20] MEDS: LIDOCAINE 5% (700 MG) TRANSDERMAL ADH..PATCH TP SCH (10:11)
[2019-09-20] MEDS: AMLODIPINE BESYLATE 2.5 MG TABLET PO SCH (14:21)
--- NOTE | 2019-09-20 14:27 | PDOC PROGRESS REPORT ---
Subjective Progress Note for:: 09/20/19 Subjective:: MELISSA BOSCH is a 74 year old female with a past medical history of severe peripheral vascular disease, left lower extremity stenting, home O2 dependent COPD with tobacco abuse, opiate dependent chronic pain with Dilaudid pain pump and chronic kidney disease. She presents with recurrent altered mental status which rapidly resolved to baseline in the emergency department 1 hour after 1 L of normal saline followed by Rocephin. Her work-up reveals contraction meta bolic alkalosis and pyuria without leukocytosis. Patient's granddaughter is at bedside insisting that narcotics are administered. Despite a lengthy education regarding toxic Encephalopathy which has essentially resolved with observation. Patient is intolerant of pain and referred to the hospitalist for admission. Emergency room provider reports patient's daughter is power of erisa attorney requesting placement to alf facility secondary to recurrent encephalopathy. Patient is currently residing with granddaughter however patient is now awake refusing placement. 09/20/2019. No acute events overnight. Patient comfortably resting in bed in no apparent distress, alert and oriented x3, complaining of persistent back and bilateral lower extremity pain otherwise denies any fever, chills, nausea, vomiting, diarrhea, constipation or any urinary symptoms. Patient is pending placement. Reason For Visit: AMS,MET ALKALOSIS,UTI Physical Exam Vital Signs: Temp Pulse Resp BP Pulse Ox 98.4 F 78 14 171/66 H 96 09/20/19 09:03 09/20/19 11:05 09/20/19 11:05 09/20/19 09:03 09/20/19 11:05 Intake & Output 09/19/19 09/20/19 09/21/19 06:59 06:59 06:59 Intake Total 480 1310 325 Output Total 450 Balance 30 1310 325 Weight 41.5 kg 41.1 kg General appearance: PRESENT: thin Head exam: PRESENT: atraumatic, normocephalic Respiratory exam: PRESENT: clear to auscultation keith. ABSENT: rales, rhonchi, wheezes Cardiovascular exam: PRESENT: RRR. ABSENT: diastolic murmur, rubs, systolic murmur Pulses: PRESENT: normal dorsalis pedis pul GI/Abdominal exam: PRESENT: normal bowel sounds, soft. ABSENT: distended, g uarding, mass, organolmegaly, rebound, tenderness Neurological exam: PRESENT: alert, awake, oriented to person, oriented to place, CN II-XII grossly intact. ABSENT: motor sensory deficit Results Laboratory Results: 09/17/19 04:47 09/19/19 06:51 09/16/19 19:26 Troponin I 0.029 Impressions: Chest X-Ray 09/16/19 18:13 IMPRESSION: No acute abnormality of the lungs in AP projection. Head CT 09/16/19 18:13 IMPRESSION: No acute intracranial pathology. EVIDENCE OF ACUTE STROKE: NO. Pelvis X-Ray 09/16/19 18:14 IMPRESSION: Osteopenia. No displaced fracture or dislocation of the pelvis in single AP projection. Left hip total arthroplasty. The right ilium is obscured by subcutaneous pump device. Assessment and Plan - Diagnosis (1) Toxic encephalopathy Is this a current diagnosis for this admission?: Yes Plan: Secondary to opiate dependence. At baseline patient is alert and for safety but unfortunately presents to ED with recurrent opiate overdose. Continue home meds, monitor for respiratory depression and falls. Avoid meds that can increase AMS and risk of falls. (2) Opiate dependence, continuous Is this a current diagnosis for this admission?: Yes Plan: History of chronic pain and IT pump placement. Followed by pain management as outpatient. History of recurrent hospitalization for AMS caused by opiate overdose. Home meds are oral oxycodone regimen (30mg q6H prn), IT pump continuous infusion (Morphine 3.09mg/day, clonidine, bupivacaine as). Dr. Hermelindo Giraldo maintenance painter consulted, recommendations noted. (3) MURPHY (obstructive sleep apnea) Is this a current diagnosis for this admission?: Yes Plan: SPO2 WNL. Alert and oriented x3. Nocturnal CPAP (4) Physical debility Is this a current diagnosis for this admission?: Yes Plan: Patient would certainly need rehabilitation at SNF At this point, patient is agreeable partner integration planner working on getting patient to SNF Frequent physical therapy while patient is in the hospital. (5) UTI (urinary tract infection) Qualifiers: Urinary tract infection type: site unspecified Hematuria presence: without hematuria Qualified Code(s): N39.0 - Urinary tract infection, site not specified Is this a current diagnosis for this admission?: Yes Plan: E. coli UTI Keflex for 4/4 days (6) HTN (hypertension) Qualifiers: Hypertension type: essential hypertension Qualified Code(s): I10 - Essential (primary) hypertension Is this a current diagnosis for this admission?: Yes Plan: Optimized. SBP in 170s. Home meds are metoprolol succinate 25 mg p.o. daily, lisinopril 20 mg p.o. daily, Lasix 20 mg p.o. daily, carvedilol 12.5 mg p.o. twice daily. Continue carvedilol 12.5 mg p.o. twice daily, lisinopril 40 mg p.o. daily Lasix 20 mg p.o. daily. PRN IV hydralazine, PRN IV metoprolol. Start on low-dose amlodipine titrate up as tolerated.
[2019-09-20] MEDS: FUROSEMIDE 20 MG TABLET PO SCH (15:52)
[2019-09-20] MEDS: OXYCODONE HCL SR 10 MG TABLET PO PRN (17:20)
[2019-09-20] MEDS: HYDRALAZINE HCL INJ/PF 20 MG/1 ML SDV IV PRN (19:42)
[2019-09-20] MEDS: PHARMACY COMMUNICATION ORDER MC SCH (21:24)
[2019-09-21] MEDS: OXYCODONE HCL SR 10 MG TABLET PO PRN ×3 (01:54→21:50)
[2019-09-21] MEDS: HEPARIN SOD (PORCINE) 5,000 UNIT/ML 1 ML VIAL SUBCUT SCH ×3 (05:13→21:49)
[2019-09-21] MEDS: ACETAMINOPHEN 325 MG TABLET PO PRN (06:21)
[2019-09-21] MEDS: FUROSEMIDE 20 MG TABLET PO SCH (09:28)
[2019-09-21] MEDS: DULOXETINE HCL 30 MG CAPSULE.DR PO SCH (09:28)
[2019-09-21] MEDS: CETIRIZINE 10 MG TABLET PO SCH (09:28)
[2019-09-21] MEDS: DOCUSATE SODIUM 100 MG CAPSULE PO SCH ×2 (09:28→17:22)
[2019-09-21] MEDS: CARVEDILOL 12.5 MG TABLET PO SCH ×2 (09:28→21:51)
[2019-09-21] MEDS: LIDOCAINE 5% (700 MG) TRANSDERMAL ADH..PATCH TP SCH (09:28)
[2019-09-21] MEDS: LISINOPRIL 10 MG TABLET PO SCH (09:28)
[2019-09-21] MEDS: AMLODIPINE BESYLATE 2.5 MG TABLET PO SCH (09:28)
--- NOTE | 2019-09-21 12:06 | PDOC PROGRESS REPORT ---
Subjective Progress Note for:: 09/21/19 Subjective:: MELISSA BOSCH is a 74 year old female with a past medical history of severe peripheral vascular disease, left lower extremity stenting, home O2 dependent COPD with tobacco abuse, opiate dependent chronic pain with Dilaudid pain pump and chronic kidney disease. She presents with recurrent altered mental status which rapidly resolved to baseline in the emergency department 1 hour after 1 L of normal saline followed by Rocephin. Her work-up reveals contraction meta bolic alkalosis and pyuria without leukocytosis. Patient's granddaughter is at bedside insisting that narcotics are administered. Despite a lengthy education regarding toxic Encephalopathy which has essentially resolved with observation. Patient is intolerant of pain and referred to the hospitalist for admission. Emergency room provider reports patient's daughter is power of patent attorney requesting placement to senior living facility secondary to recurrent encephalopathy. Patient is currently residing with granddaughter however patient is now awake refusing placement. 09/20/2019. No acute events overnight. Patient comfortably resting in bed in no apparent distress, alert and oriented x3, complaining of persistent back and bilateral lower extremity pain otherwise denies any fever, chills, nausea, vomiting, diarrhea, constipation or any urinary symptoms. Patient is pending placement. 09/21/2019. No acute events overnight. Comfortably sitting in bed no apparent distress. Alert and oriented x3. [place]. Ambulatory. Having normal bowel and bladder movement. Pending placement. Reason For Visit: AMS,MET ALKALOSIS,UTI Physical Exam Vital Signs: Temp Pulse Resp BP Pulse Ox 98.1 F 82 16 148/52 H 99 09/21/19 07:26 09/21/19 09:28 09/21/19 09:28 09/21/19 07:26 09/21/19 09:28 Intake & Output 09/20/19 09/21/19 09/22/19 06:59 06:59 06:59 Intake Total 1310 865 Output Total 275 Balance 1310 590 Weight 41.1 kg 42.3 kg General appearance: PRESENT: no acute distress, well-developed, well-nourished Head exam: PRESENT: atraumatic, normocephalic Respiratory exam: PRESENT: clear to auscultation keith. ABSENT: rales, rhonchi, wheezes Cardiovascular exam: PRESENT: RRR. ABSENT: diastolic murmur, rubs, systolic murmur GI/Abdominal exam: PRESENT: normal bowel sounds, soft. ABSENT: distended, guarding, mass, organolmegaly, rebound, tenderness Neurological exam: PRESENT: alert, awake, oriented to person, oriented to place, oriented to time, oriented to situation, CN II-XII grossly intact. ABSENT: motor sensory deficit Results Laboratory Results: 09/17/19 04:47 09/19/19 06:51 09/16/19 19:26 Troponin I 0.029 Impressions: Chest X-Ray 09/16/19 18:13 IMPRESSION: No acute abnormality of the lungs in AP projection. Head CT 09/16/19 18:13 IMPRESSION: No acute intracranial pathology. EVIDENCE OF ACUTE STROKE: NO. Pelvis X-Ray 09/16/19 18:14 IMPRESSION: Osteopenia. No displaced fracture or dislocation of the pelvis in single AP projection. Left hip total arthroplasty. The right ilium is obscured by subcutaneous pump device. Assessment and Plan - Diagnosis (1) Toxic encephalopathy Is this a current diagnosis for this admission?: Yes Plan: Secondary to opiate dependence. Resolved. At baseline patient is alert and for safety but unfortunately presents to ED with recurrent opiate overdose. Continue home meds, monitor for respiratory depression and falls. Avoid meds that can increase AMS and risk of falls. (2) Opiate dependence, continuous Is this a current diagnosis for this admission?: Yes Plan: History of chronic pain and IT pump placement. Followed by pain management as outpatient. History of recurrent hospitalization for AMS caused by opiate overdose. Home meds are oral oxycodone regimen (30mg q6H prn), IT pump continuous infusion (Morphine 3.09mg/day, clonidine, bupivacaine as). Dr. Hermelindo Giraldo interior decorator painting consulted, recommendations noted. (3) MURPHY (obstructive sleep apnea) Is this a current diagnosis for this admission?: Yes Plan: SPO2 WNL. Alert and oriented x3. Nocturnal CPAP (4) Physical debility Is this a current diagnosis for this admission?: Yes Plan: Patient would certainly need rehabilitation at SNF At this point, patient is agreeable partner integration planner working on getting patient to SNF Frequent physical therapy while patient is in the hospital. (5) UTI (urinary tract infection) Qualifiers: Urinary tract infection type: site unspecified Hematuria presence: without hematuria Qualified Code(s): N39.0 - Urinary tract infection, site not specified Is this a current diagnosis for this admission?: Yes Plan: E. coli UTI Keflex for 4/4 days (6) HTN (hypertension) Qualifiers: Hypertension type: essential hypertension Qualified Code(s): I10 - [place] l (primary) hypertension Is this a current diagnosis for this admission?: Yes Plan: Optimized. SBP in 170s. Home meds are metoprolol succinate 25 mg p.o. daily, lisinopril 20 mg p.o. daily, Lasix 20 mg p.o. daily, carvedilol 12.5 mg p.o. twice daily. Continue carvedilol 12.5 mg p.o. twice daily, lisinopril 40 mg p.o. daily Lasix 20 mg p.o. daily. PRN IV hydralazine, PRN IV metoprolol. Start on low-dose amlodipine titrate up as tolerated.
[2019-09-22] MEDS: ACETAMINOPHEN 325 MG TABLET PO PRN (05:01)
[2019-09-22] MEDS: PHARMACY COMMUNICATION ORDER MC SCH (05:18)
[2019-09-22] MEDS: HEPARIN SOD (PORCINE) 5,000 UNIT/ML 1 ML VIAL SUBCUT SCH ×2 (05:19→13:01)
[2019-09-22] MEDS: CARVEDILOL 12.5 MG TABLET PO SCH (09:00)
[2019-09-22] MEDS: LISINOPRIL 10 MG TABLET PO SCH (09:00)
[2019-09-22] MEDS: DOCUSATE SODIUM 100 MG CAPSULE PO SCH ×2 (09:00→17:50)
[2019-09-22] MEDS: AMLODIPINE BESYLATE 2.5 MG TABLET PO SCH (09:00)
[2019-09-22] MEDS: CETIRIZINE 10 MG TABLET PO SCH (09:00)
[2019-09-22] MEDS: DULOXETINE HCL 30 MG CAPSULE.DR PO SCH (09:00)
[2019-09-22] MEDS: FUROSEMIDE 20 MG TABLET PO SCH (09:00)
[2019-09-22] MEDS: OXYCODONE HCL SR 10 MG TABLET PO PRN ×2 (09:01→17:50)
[2019-09-22] MEDS: LIDOCAINE 5% (700 MG) TRANSDERMAL ADH..PATCH TP SCH (09:07)
--- NOTE | 2019-09-22 10:40 | PDOC TRANSFER SUMMARY ---
General Admission Date/PCP: 09/16/19 23:25 BEN HINSON NP Resuscitation Status: Do Not Resuscitate - Transfer Diagnosis (1) Toxic encephalopathy Is this a current diagnosis for this admission?: Yes (2) Opiate dependence, continuous Is this a current diagnosis for this admission?: Yes (3) MURPHY (obstructive sleep apnea) Is this a current diagnosis for this admission?: Yes (4) Physical debility Is this a current diagnosis for this admission?: Yes (5) UTI (urinary tract infection) Is this a current diagnosis for this admission?: Yes (6) HTN (hypertension) Is this a current diagnosis for this admission?: Yes - Transfer Medications Home Medications: Cetirizine HCl [Zyrtec 10 mg Tablet] 10 mg PO DAILY 08/29/19 Duloxetine HCl [Cymbalta 30 mg Capsule.dr] 30 mg PO Q12 08/29/19 Lisinopril 20 mg PO DAILY 08/29/19 Metoprolol Succinate [Toprol Xl 25 mg Tab.sr] 25 mg PO DAILY 08/29/19 Potassium Chloride [Klor-Con M20] 20 meq PO Q2D 08/29/19 Ranitidine HCl [Zantac] 150 mg PO BID 08/29/19 Carvedilol [Coreg 12.5 mg Tablet] 12.5 mg PO Q12 09/17/19 Fluticasone/Umeclidin/Vilanter [Trelegy 100-62.5-25 Mcg Ellipta 14 Dose/Dpi] 1 puff IH DAILY 09/17/19 Furosemide [Lasix 20 mg Tablet] 20 mg PO DAILY 09/17/19 Gabapentin [Neurontin 300 mg Capsule] 300 mg PO Q8 09/17/19 Ipratropium/Albuterol Sulfate [Duoneb 3 ml Ampul] 3 ml NEB RTQ6HP PRN 09/17/19 Lorazepam [Ativan 0.5 mg Tablet] 0.5 mg PO DAILYP PRN 09/17/19 Montelukast Sodium [Singulair 10 mg Tablet] 10 mg PO QPM 09/17/19 Oxycodone HCl 30 mg PO QIDP PRN 09/17/19 Transfer Medications: Current Medications Acetaminophen (Tylenol 325 Mg Tablet) 650 mg PO Q4HP PRN PRN Reason: FOR PAIN Stop: 10/17/19 14:03 Last Admin: 09/22/19 05:01 Dose: 650 mg Documented by: Al Hydrox/Mg Hydrox/Simethicone (Maalox Plus Susp 30 Udcup) 30 ml PO Q6HP PRN PRN Reason: HEARTBURN Stop: 10/16/19 23:14 Albuterol/Ipratropium (Duoneb 3 Ml Ampul) 3 ml NEB [id number] PRN PRN Reason: SHORTNESS OF BREATH Stop: 10/16/19 23:14 Last Admin: 09/20/19 11:05 Dose: 3 ml Documented by: Carvedilol (Coreg 12.5 Mg Tablet) 25 mg PO Q12 [facility] Stop: 10/22/19 21:59 Cetirizine HCl (Zyrtec 10 Mg Tablet) 10 mg PO DAILY [facility] Stop: 10/17/19 09:59 Last Admin: 09/22/19 09:00 Dose: 10 mg Documented by: Docusate Sodium (Colace 100 Mg Capsule) 100 mg PO BID [facility] Stop: 10/17/19 09:59 Last Admin: 09/22/19 09:00 Dose: 100 mg Documented by: Duloxetine HCl (Cymbalta 30 Mg Capsule.Dr) 30 mg PO DAILY [facility] Stop: 10/17/19 09:59 Last Admin: 09/22/19 09:00 Dose: 30 mg Documented by: Furosemide (Lasix 20 Mg Tablet) 20 mg PO DAILY [facility] Stop: 10/20/19 14:59 Last Admin: 09/22/19 09:00 Dose: 20 mg Documented by: Heparin Sodium (Porcine) (Heparin Inj 5,000 Units/Ml 1 Ml Vial) 5,000 unit SUBCUT Q8 [facility] Stop: 10/17/19 05:59 Last Admin: 09/22/19 05:19 Dose: Not Given Documented by: Hydralazine HCl (Apresoline Inj/Pf 20 Mg/1 Ml Sdv) 10 mg IV Q4HP PRN PRN Reason: FOR SBP >160, DBP >100 Stop: 10/19/19 20:52 Last Admin: 09/20/19 19:42 Dose: 10 mg Documented by: Lidocaine (Lidoderm 5% (700 Mg) Transdermal Patch) 1 patch TP DAILY [facility] Stop: 10/17/19 14:59 Last Admin: 09/22/19 09:07 Dose: 1 patch Documented by: Lisinopril (Prinivil 10 Mg Tablet) 40 mg PO DAILY [facility] Stop: 10/18/19 09:59 Last Admin: 09/22/19 09:00 Dose: 40 mg Documented by: Lorazepam (Ativan 0.5 Mg Tablet) 0.5 mg PO DAILYP PRN PRN Reason: ANXIETY/AGITATION Stop: 09/24/19 00:29 Oxycodone HCl (Oxycontin Sr 10 Mg Tablet) 10 mg PO Q8HP PRN PRN Reason: FOR PAIN SCALE 3-5 Stop: 09/27/19 14:39 Last Admin: 09/22/19 09:01 Dose: 10 mg Documented by: Pharmacy Profile Note (Medication Communication Order) 1 each QHS [facility] Stop: 10/18/19 21:59 Last Admin: 09/22/19 05:18 Dose: Not Given Documented by: - Allergies Allergies/Adverse Reactions: droperidol [Droperidol] Allergy (Severe, Verified 03/22/18 11:09) Anaphylaxis Hospital Course Hospital Course: MELISSA BOSCH is a 74 year old female with a past medical history of severe peripheral vascular disease, left lower extremity stenting, home O2 dependent COPD with tobacco abuse, opiate dependent chronic pain with Dilaudid pain pump and chronic kidney disease. She presents with recurrent altered mental status which rapidly resolved to baseline in the emergency department 1 hour after 1 L of normal saline followed by Rocephin. Her work-up reveals contraction metabolic alkalosis and pyuria without leukocytosis. Patient's granddaughter is at bedside insisting that narcotics are administered. Despite a lengthy education regarding toxic Encephalopathy which has essentially resolved with observation. Patient is intolerant of pain and referred to the hospitalist for admission. Emergency room provider reports patient's daughter is power of sports attorney reques ting placement to snf facility secondary to recurrent encephalopathy. Patient is currently residing with granddaughter however patient is now awake refusing placement. (1) Toxic encephalopathy Secondary to opiate dependence. Resolved. At baseline patient is alert and for safety but unfortunately presents to ED with recurrent opiate overdose. Was restarted on home meds, monitored for respiratory depression and falls. Avoid meds that can increase AMS and risk of falls. (2) Opiate dependence, continuous History of chronic pain and IT pump placement. Followed by pain management as outpatient. History of recurrent hospitalization for AMS caused by opiate overdose. Home meds are oral oxycodone regimen (30mg q6H prn), IT pump continuous infusion (Morphine 3.09mg/day, clonidine, bupivacaine as). Dr. Hermelindo Giraldo automatic paint sprayer operator consulted, recommendations are to increase oxycodone 10 mg every 6 only as PRN. Patient is to follow-up with Dr. Hermelindo Giraldo in 4 weeks as outpatient for readjustment of her opioids and IT pump. (3) MURPHY (obstructive sleep apnea) SPO2 WNL. Alert and oriented x3. Continue nocturnal CPAP (4) Physical debility Patient would greatly benefit from rehabilitation at SNF Continue PT OT as outpatient. (5) UTI (urinary tract infection) Mild. Asymptomatic. Due to E. coli UTI Pleated a course of Keflex p.o. (6) HTN (hypertension) Bulimic normotensive. Home meds are metoprolol succinate 25 mg p.o. daily, lisinopril 20 mg p.o. daily, Lasix 20 mg p.o. daily, carvedilol 12.5 mg p.o. twice daily. Continued carvedilol 12.5 mg p.o. twice daily, lisinopril 40 mg p.o. daily Lasix 20 mg p.o. daily. PRN IV hydralazine, PRN IV metoprolol. Low-dose amlodipine was added. Monitor vitals. Outpatient PCP follow-up for medication readjustment. Physical Exam Vital Signs: Temp Pulse Resp BP Pulse Ox 98.3 F 85 18 146/34 H 100 09/22/19 06:51 09/22/19 07:00 09/22/19 06:51 09/22/19 06:51 09/22/19 06:51 Intake & Output 09/21/19 09/22/19 09/23/19 06:59 06:59 06:59 Intake Total 865 680 Output Total 275 300 Balance 590 380 Weight 42.3 kg 40.8 kg General appearance: PRESENT: no acute distress, thin, well-nourished Head exam: PRESENT: atraumatic, normocephalic Respiratory exam: PRESENT: clear to auscultation keith. ABSENT: rales, rhonchi, wheezes Cardiovascular exam: PRESENT: RRR. ABSENT: diastolic murmur, rubs, systolic murmur GI/Abdominal exam: PRESENT: normal bowel sounds, soft. ABSENT: distended, guarding, mass, organolmegaly, rebound, tenderness Neurological exam: PRESENT: alert, awake, oriented to person, oriented to place, oriented to time, oriented to situation, CN II-XII grossly intact. ABSENT: motor sensory deficit Results Laboratory Results: 09/17/19 04:47 09/19/19 06:51 09/16/19 19:26 Troponin I 0.029 Impressions: Chest X-Ray 09/16/19 18:13 IMPRESSION: No acute abnormality of the lungs in AP projection. Head CT 09/16/19 18:13 IMPRESSION: No acute intracranial pathology. EVIDENCE OF ACUTE STROKE: NO. Pelvis X-Ray 09/16/19 18:14 IMPRESSION: Osteopenia. No displaced fracture or dislocation of the pelvis in single AP projection. Left hip total arthroplasty. The right ilium is obscured by subcutaneous pump device.
[2019-09-22 15:49] VITALS: BP 94/45
[2019-09-22] MEDS ORDERED: CARVEDILOL 12.5 MG TABLET PO SCH ×2 (22:00)
[2019-09-23] MEDS ORDERED: AMLODIPINE BESYLATE 2.5 MG TABLET PO SCH (10:00)
== END 2019-09-22 18:30 | DRG 92 ==
LOC: ER 17:29 → EH 23:25 → 3W 09-17 02:03
PROVIDERS: ADMIT Internal Medicine; ATTEND Internal Medicine
PROC: 5A09457 Assistance with Respiratory Ventilation, 24-96 Consecutive Hours, Continuous Positive Airway Pressure (ICD-10-PCS; principal; 2019-09-17)
DX: G92 Toxic encephalopathy (principal); N39.0 Urinary tract infection, site not specified; E87.2 Acidosis; F11.221 Opioid dependence with intoxication delirium; G47.33 Obstructive sleep apnea (adult) (pediatric); I73.9 Peripheral vascular disease, unspecified; G89.29 Other chronic pain; N18.9 Chronic kidney disease, unspecified; T40.2X5A Adverse effect of other opioids, initial encounter; Y92.9 Unspecified place or not applicable; I12.9 Hypertensive chronic kidney disease with stage 1 through stage 4 chronic kidney disease, or unspecified chronic kidney disease; B96.20 Unspecified Escherichia coli [E. coli] as the cause of diseases classified elsewhere; E78.5 Hyperlipidemia, unspecified; K21.9 Gastro-esophageal reflux disease without esophagitis; M10.9 Gout, unspecified; Z66 Do not resuscitate; L89.152 Pressure ulcer of sacral region, stage 2; F17.210 Nicotine dependence, cigarettes, uncomplicated; I25.2 Old myocardial infarction; Z79.899 Other long term (current) drug therapy; Z88.8 Allergy status to other drugs, medicaments and biological substances; Z99.81 Dependence on supplemental oxygen; Z95.820 Peripheral vascular angioplasty status with implants and grafts; Z86.711 Personal history of pulmonary embolism
CPT/HCPCS: 36415; 70450; 71045; 72170; 80048; 80053; 80307; 81001; 82803; 83735; 84484; 85025; 87086; 87088; 87186; 93005; 93010; 94660; 96365; 99285; J0360; J0696; J1644; J2270; J7030; J7040; J7620